=== PATIENT | female | born 1950 | race Caucasian/White ===

== ENCOUNTER → 2022-08-26 08:20 | Outpatient (POV) | payer MEDICARE, SELFPAY ==
--- NOTE | 2022-08-26 08:44 | EXP.PAIN.OV ---
HPI Data of Consult Patient: new to practice Consult date: 08/26/22 Requesting Physician: Liss Young APRN Consult Narrative History of present illness: Ms. Phillips is a 71 year old female who presents today as a new patient. She is a referral from Dr. Angulo-stalin office. Today she rates her pain a 4 out of 10. Patient states her pain is in multiple locations. She does state that she has had low back pain since 1997. Patient states that she did go see [facility] up until the time he retired. She states she then transferred over to Dr. Boss's office in [place]. She does state that recently he was pushing for a intrathecal pain pump however she was very leery and states that his overall attitude caused significant upset for her. Patient does describe her pain as a aching sensation with occasional sharp pains with certain movements. Patient states that she also has pain into her bilateral lower extremities all the way to her toes. She states she occasionally will have spasms and does have a longstanding history of osteoporosis. Patient does have neck pain as well as pain around her thoracic area at the [facility]. Patient has tried sdru-hjn-fansyyn medications such as ibuprofen and Tylenol along with heat and ice with minimal improvement. Patient tried hsyh-rtr-bfkfybi topicals as well with no additional relief. Patient is currently managed with fentanyl 75 mcg every 72 hours, [place] 10 mg 4 times a day, diazepam 5 mg twice a day and gabapentin 600 mg 3 times a day. Patient denies any side effects from these medications. She states these do help her pain on a day-to-day basis. She does state that she does not ever leave her home unless it is for a doctor's appointment. She is currently in home health physical therapy and states it does help. With her history of multiple injections in the past she states she has had trouble with some of the spinal procedures that ended up causing paralyzation of her rectum at 1 episode and made her incontinent of urine on another. She has tried multiple injections including facets, epidurals, etc. with minimal improvement. Patient does state that she does self cath. She has had bilateral hip replacements which is her last one on the left side done in June. She does have a history of 3 previous back surgeries. She does use a walker for help with ambulation. She does state that she does not drive and that her daughter is currently moved in with her to help take care of her. Her Sae is [phone]. It has a morphine equivalent of 220. It has been reviewed and is appropriate. CC: iLss Young APRN [facility] Disclaimer: The information contained in this section may have been updated after the patient was seen, as this information can be updated by other users. Medical History (Updated 08/26/22 @ 09:22 by Liss Young APRN) Anemia Anxiety Arthritis Cataracts, bilateral Depression GERD (gastroesophageal reflux disease) Osteoporosis Surgical History (Updated 08/26/22 @ 09:04 by Harriet Granados, DAMON) H/O gastric bypass History of appendectomy History of lumbar fusion Status post total hip replacement, bilateral Family History (Updated 08/26/22 @ 09:03 by Harriet Granados RN) Other Cancer Diabetes Hypertension Osteoporosis Rheumatoid arthritis Social History Smoking Status: Former smoker alcohol intake: never current occupational status: retired Travel in the last 8 weeks: None Review of Systems Review of Systems Review of systems:: pertinent systems reviewed and negative unless documented below Review of systems (narrative): Review of Systems: General: No recent weight changes, no fever, no sleep disturbances Respiratory: No cough, no shortness of air, no recurring pulmonary infections Cardiovascular/peripheral vascular: No chest pain, no palpitations, no edema, no shortness of breath Gastrointestinal: No new onset incontinence, normal bowel movements
[2022-08-26 09:05] VITALS: BP 138/75; PULSE 108; RESP 18; O2SAT 97; BMI 19.3
== END ==
PROVIDERS: Visit Provider Nurse Practitioner Family
DX: M54.16 Radiculopathy, lumbar region (principal); M54.2 Cervicalgia; M54.50 Low back pain, unspecified
CPT/HCPCS: 99202; G0463

== ENCOUNTER → 2022-09-20 09:46 | Outpatient (POV) | payer MEDICARE, SELFPAY ==
--- NOTE | 2022-09-20 10:05 | EXP.PAIN.SOA ---
[facility] Pain Management SOAP Note Subjective:: Patient is a pleasant 71-year-old female who presents today for 1 month follow-up and medication refill. We are currently treating the patient for degenerative disc disease of lumbar spine with lumbar radiculopathy symptoms, low back pain, mid back pain, neck pain, chronic pain. Today she rates her pain a 3 out of 10. Patient states from her last visit she did have an episode where she dropped her cell phone on her right little toe and may have fractured it. She denies any recent imaging however she states its just been very sore and painful. Patient is currently managed with diazepam 5 mg twice a day and gabapentin 600 mg 3 times a day along with fentanyl 75 mcg patches every 72 hours and [place] 10 mg 4 times a day. At our last visit we did discuss regarding taking over some of these medications. She does deny any side effects to these. Her Sae is [id number]. Its been reviewed and appropriate Review of Systems: General: No recent weight changes, no fever, no sleep disturbances Respiratory: No cough, no shortness of air, no recurring pulmonary infections Cardiovascular/peripheral vascular: No chest pain, no palpitations, no edema, no shortness of breath Gastrointestinal: No new onset incontinence, normal bowel movements reported Genitourinary: No new onset incontinence Musculoskeletal: Low back pain Psychiatric: [Normal mood/affect] Neurological: [Denies weakness in extremities], [denies balance issues] Objective:: Physical Exam: General: Alert and oriented x3, no acute distress, pleasant and cooperative Lungs: Respirations even and unlabored, symmetrical chest expansion Eyes: PERRL Musculoskeletal: Flexion and extension of lumbar [spine] somewhat guarded secondary to pain, [antalgic gait noted] Neurological: Speech clear, no gross sensory deficit Assessment:: Degenerative disc disease of lumbar spine with lumbar radiculopathy symptoms, low back pain, mid back pain, neck pain, chronic pain Plan:: We will send in refills of fentanyl 50 mcg patches every 72 hours and also send in a refill of her [place] 10 mg 4 times a day and provide a 1 month supply of these medications. Patient will return to clinic in 1 month for reevaluation of symptoms, medication refill and follow-up. Patient has been advised of risks of oversedation with the prescribed medication. Narcan has been offered to the patient in the event of oversedation. Patient has been advised that a family member should also be educated regarding administration of Narcan. Patient has been instructed to contact the clinic with any concerns before the next appointment. Dr. Chicas has reviewed this note and agrees with this plan of care. This note was dictated using voice recognition software and make contain errors or omissions. [facility] Disclaimer: The information contained in this section may have been updated after the patient was seen, as this information can be updated by other users. Medical History (Updated 08/26/22 @ 09:22 by Liss Young APRN) Anemia Anxiety Arthritis Cataracts, bilateral Depression GERD (gastroesophageal reflux disease) Osteoporosis Surgical History (Updated 08/26/22 @ 09:04 by Harriet Granados RN) H/O gastric bypass History of appendectomy History of lumbar fusion Status post total hip replacement, bilateral Family History (Updated 08/26/22 @ 09:03 by Harriet Granados RN) Other Cancer Diabetes Hypertension Osteoporosis Rheumatoid arthritis Social History (Updated 08/26/22 @ 09:05 by Harriet Granados RN) Smoking Status: Former smoker alcohol intake: never current occupational status: retired Travel in the last 8 weeks: None
[2022-09-20 10:14] VITALS: BP 120/69; PULSE 89; RESP 18; O2SAT 97; BMI 19.3
== END | disposition home or self-care (01) ==
PROVIDERS: Visit Provider Nurse Practitioner Family
DX: M51.16 Intervertebral disc disorders with radiculopathy, lumbar region (principal); G89.29 Other chronic pain
CPT/HCPCS: 99212; G0463

== ENCOUNTER → 2022-10-18 09:35 | Outpatient (POV) | payer MEDICARE, SELFPAY ==
--- NOTE | 2022-10-18 09:42 | EXP.PAIN.SOA ---
[facility] Pain Management SOAP Note Subjective:: Patient is a pleasant 71-year-old female who presents today for 1 month follow-up and medication refill.? We are currently treating the patient for degenerative disc disease of lumbar spine with lumbar radiculopathy symptoms, low back pain, mid back pain, neck pain, chronic pain.? Today she rates her pain a 4 out of 10.? She denies any new trauma or injury. She does state that her back seems to be doing well however she is experiencing worsening pain and tingling in her bilateral feet. Patient states that she has had previous surgery on 1 foot and that it does have screws in. She states that at one point the [facility] doctor mention about removing these however she has never been back to his office. Patient does arrive today not using her walker. She states that she has been trying to walk more unassisted and is so far doing well. Patient is currently managed with diazepam 5 mg twice a day and gabapentin 600 mg 3 times a day from an outside provider and fentanyl 50 mcg patches every 72 hours and [place] 10 mg 4 times a day.? She denies any side effects to these medications. Her Sae is [id number].? Its been reviewed and appropriate Review of Systems: General: No recent weight changes, no fever, no sleep disturbances Respiratory: No cough, no shortness of air, no recurring pulmonary infections Cardiovascular/peripheral vascular: No chest pain, no palpitations,? no edema, no shortness of breath Gastrointestinal: No new onset incontinence, normal bowel movements reported Genitourinary: No new onset incontinence Musculoskeletal: Low back pain, bilateral feet pain Psychiatric: [Normal mood/affect] Neurological: [Denies weakness in extremities], [denies balance issues] Objective:: Physical Exam: General: Alert and oriented x3, no acute distress, pleasant and cooperative Lungs: Respirations even and unlabored, symmetrical chest expansion Eyes: PERRL Musculoskeletal: Flexion and extension of lumbar [spine] somewhat guarded secondary to pain, [antalgic gait noted] Neurological: Speech clear, no gross sensory deficit Assessment:: Degenerative disc disease of lumbar spine with lumbar radiculopathy symptoms, low back pain, mid back pain, neck pain, chronic pain Plan:: I have discussed with the patient that I can always send a referral for a foot and ankle doctor if she would like to be reevaluated whether or not the hardware in her right foot needs to be removed however at this time she would like to wait. I will refill the patient's fentanyl 50 mcg patches every 72 hours, Challenge 10 mg 4 times a day and provided 1 month supply of this medication. I will also order compounding cream at today's visit. Patient will return to clinic in 1 month for reevaluation of symptoms and medication refill. Patient has been advised of risks of oversedation with the prescribed medication. Narcan has been offered to the patient in the event of oversedation. Patient has been advised that a family member should also be educated regarding administration of Narcan. Patient has been instructed to contact the clinic with any concerns before the next appointment. Dr. Chicas has reviewed this note and agrees with this plan of care. This note was dictated using voice recognition software and make contain errors or omissions. [facility] Disclaimer: The information contained in this section may have been updated after the patient was seen, as this information can be updated by other users. Medical History (Updated 08/26/22 @ 09:22 by Liss Young APRN) Anemia Anxiety Arthritis Cataracts, bilateral Depression GERD (gastroesophageal reflux disease) Osteoporosis Surgical History (Updated 08/26/22 @ 09:04 by Harriet Granados, DAMON) H/O gastric bypass History of appendectomy History of lumbar fusion Status post total hip replacement, bilateral Family History (Updated 08/26/22 @ 09:03 by Harriet Granados RN) Ot
[2022-10-18 09:43] VITALS: BP 129/72; PULSE 90; RESP 18; O2SAT 96; BMI 19.6
== END | disposition home or self-care (01) ==
PROVIDERS: Visit Provider Nurse Practitioner Family
DX: M51.16 Intervertebral disc disorders with radiculopathy, lumbar region (principal); M54.50 Low back pain, unspecified; M54.2 Cervicalgia; G89.29 Other chronic pain
CPT/HCPCS: 99212; G0463

== ENCOUNTER → 2022-11-17 09:39 | Outpatient (POV) | payer MEDICARE, SELFPAY ==
--- NOTE | 2022-11-17 09:52 | EXP.PAIN.SOA ---
[facility] Pain Management SOAP Note Subjective:: Patient is a pleasant 71-year-old female who presents today for medication refill and follow-up. We are currently treating the patient for degenerative disc disease of lumbar spine with lumbar radiculopathy symptoms, low back pain, mid back pain, neck pain, chronic pain. Today she rates her pain a 3 out of 10. Patient denies any new trauma or injury. She denies any change to location or type of pain she experiences. She does state that she has been noticing more pain in her joints such as her ankles, knees, etc. she does also state that sometimes this is more weather related. Patient is currently managed with diazepam 5 mg twice a day and gabapentin 600 mg 3 times a day from an outside provider. She is prescribed fentanyl 50 mcg patches every 72 hours and [place] 10 mg 4 times a day from our office. Patient denies any side effects from these medications. She also states that the compounding cream that she did get prescribed is providing additional relief. Her Sae is [id number]. Its been reviewed and appropriate. Review of Systems: General: No recent weight changes, no fever, no sleep disturbances Respiratory: No cough, no shortness of air, no recurring pulmonary infections Cardiovascular/peripheral vascular: No chest pain, no palpitations, no edema, no shortness of breath Gastrointestinal: No new onset incontinence, normal bowel movements reported Genitourinary: No new onset incontinence Musculoskeletal: Low back pain, leg pain Psychiatric: [Normal mood/affect] Neurological: [Denies weakness in extremities], [denies balance issues] Objective:: Physical Exam: General: Alert and oriented x3, no acute distress, pleasant and cooperative Lungs: Respirations even and unlabored, symmetrical chest expansion Eyes: PERRL Musculoskeletal: Flexion and extension of lumbar [spine] somewhat guarded secondary to pain, [antalgic gait noted] Neurological: Speech clear, no gross sensory deficit Assessment:: Degenerative disc disease of lumbar spine with lumbar radiculopathy symptoms, low back pain, mid back pain, neck pain, chronic pain Plan:: I will refill the patient's [place] 10 mg 4 times a day and fentanyl 50 mcg/h patches and provide a 1 month supply of these medications. Patient will return to clinic in 1 month for reevaluation of symptoms and medication refill. Patient has been advised of risks of oversedation with the prescribed medication. Narcan has been offered to the patient in the event of oversedation. Patient has been advised that a family member should also be educated regarding administration of Narcan. Patient has been instructed to contact the clinic with any concerns before the next appointment. Dr. Chicas has reviewed this note and agrees with this plan of care. This note was dictated using voice recognition software and make contain errors or omissions. [facility] Disclaimer: The information contained in this section may have been updated after the patient was seen, as this information can be updated by other users. Medical History (Updated 08/26/22 @ 09:22 by Liss Young APRN) Anemia Anxiety Arthritis Cataracts, bilateral Depression GERD (gastroesophageal reflux disease) Osteoporosis Surgical History (Updated 08/26/22 @ 09:04 by Harriet Granados RN) H/O gastric bypass History of appendectomy History of lumbar fusion Status post total hip replacement, bilateral Family History (Updated 08/26/22 @ 09:03 by Harriet Granados RN) Other Cancer Diabetes Hypertension Osteoporosis Rheumatoid arthritis Social History (Updated 08/26/22 @ 09:05 by Harriet Granados RN) Smoking Status: Former smoker alcohol intake: never current occupational status: retired Travel in the last 8 weeks: None
[2022-11-17 12:58] VITALS: BP 132/73; PULSE 91; RESP 18; O2SAT 97; BMI 19.4
== END | disposition home or self-care (01) ==
PROVIDERS: Visit Provider Nurse Practitioner Family
DX: M51.16 Intervertebral disc disorders with radiculopathy, lumbar region (principal); M54.50 Low back pain, unspecified; M54.6 Pain in thoracic spine; M54.2 Cervicalgia; G89.29 Other chronic pain
CPT/HCPCS: 99212; G0463

== ENCOUNTER → 2022-12-16 09:30 | Outpatient (POV) | payer MEDICARE, SELFPAY ==
--- NOTE | 2022-12-16 10:03 | EXP.PAIN.SOA ---
[facility] Pain Management SOAP Note Subjective:: Patient is a pleasant 71-year-old female who presents today for medication refill and 1 month follow-up. We are currently treating the patient for degenerative disc disease of the lumbar spine with lumbar radiculopathy symptoms, low back pain, mid back pain, neck pain, chronic pain. Today she rates her pain a 2 out of 10. Patient denies any new trauma or injury. She does state that she continues to have lower leg pain with cramping that is worse at night. She states that it does affect her sleeping and she frequently experiences spasms. She also states that her doctor has recently changed her medications that helped her sleep and she has not noticed significant improvement. Patient is currently managed with diazepam 5 mg twice a day and gabapentin 600 mg 3 times a day from her PCP. She is prescribed fentanyl 50 mcg patches every 72 hours and [place] 10 mg 4 times a day from our office. Patient denies any side effects from this medication. Her Sae is [id number]. Its been reviewed and appropriate. Review of Systems: General: No recent weight changes, no fever, no sleep disturbances Respiratory: No cough, no shortness of air, no recurring pulmonary infections Cardiovascular/peripheral vascular: No chest pain, no palpitations, no edema, no shortness of breath Gastrointestinal: No new onset incontinence, normal bowel movements reported Genitourinary: No new onset incontinence Musculoskeletal: Generalized joint pain, leg spasms Psychiatric: [Normal mood/affect] Neurological: [Denies weakness in extremities], [denies balance issues] Objective:: Physical Exam: General: Alert and oriented x3, no acute distress, pleasant and cooperative Lungs: Respirations even and unlabored, symmetrical chest expansion Eyes: PERRL Musculoskeletal: Flexion and extension of lumbar [spine] somewhat guarded secondary to pain, [antalgic gait noted] Neurological: Speech clear, no gross sensory deficit Assessment:: Degenerative disc disease of lumbar spine with lumbar radiculopathy symptoms, low back pain, mid back pain, neck pain, chronic pain syndrome Plan:: Patient continues to experience significant pain on a daily basis. I will refill her fentanyl 50 mcg patches per hour and [place] 10 mg 4 times a day and provide a 1 month supply of this medication. I will also send in a 14-day supply of ropinirole 0.25 mg at bedtime. I have counseled the patient to contact our office if this does provide additional relief and would like additional refills. Patient will return to clinic in 1 month for reevaluation of symptoms and plan of care. Patient has been advised of risks of oversedation with the prescribed medication. Narcan has been offered to the patient in the event of oversedation. Patient has been advised that a family member should also be educated regarding administration of Narcan. Patient has been instructed to contact the clinic with any concerns before the next appointment. Dr. Chicas has reviewed this note and agrees with this plan of care. This note was dictated using voice recognition software and make contain errors or omissions. [facility] Disclaimer: The information contained in this section may have been updated after the patient was seen, as this information can be updated by other users. Medical History (Updated 08/26/22 @ 09:22 by Liss Young APRN) Anemia Anxiety Arthritis Cataracts, bilateral Depression GERD (gastroesophageal reflux disease) Osteoporosis Surgical History (Updated 08/26/22 @ 09:04 by Harriet Granados RN) H/O gastric bypass History of appendectomy History of lumbar fusion Status post total hip replacement, bilateral Family History (Updated 08/26/22 @ 09:03 by Harriet Granados RN) Other Cancer Diabetes Hypertension Osteoporosis Rheumatoid arthritis Social History (Updated 08/26/22 @ 09:05 by Harriet Granados RN) Smoking Status: Former smoker alcohol intake: never c
[2022-12-16 10:23] VITALS: BP 105/69; PULSE 53; RESP 18; O2SAT 99; BMI 19.4
== END | disposition home or self-care (01) ==
PROVIDERS: Visit Provider Nurse Practitioner Family
DX: M51.16 Intervertebral disc disorders with radiculopathy, lumbar region (principal); M54.2 Cervicalgia; M54.6 Pain in thoracic spine; M54.50 Low back pain, unspecified; G89.4 Chronic pain syndrome
CPT/HCPCS: 99212; G0463

== ENCOUNTER → 2023-01-13 08:52 | Outpatient (POV) | payer MEDICARE, SELFPAY ==
[2023-01-13 10:08] VITALS: BP 108/68; PULSE 78; RESP 18; O2SAT 96; BMI 20.2
--- NOTE | 2023-01-13 10:19 | EXP.PAIN.SOA ---
[facility] Pain Management SOAP Note Subjective:: Patient is a pleasant 72-year-old female who presents today for medication refill. We are currently treating the patient for degenerative disc disease of lumbar spine with lumbar radiculopathy symptoms, low back pain, mid back pain, neck pain, chronic pain. Today she rates her pain a 4 out of 10. Patient denies any new injury or trauma. She does state that she has recently been diagnosed with a UTI and started on Cipro. Patient also states she has had her flu shot. Patient states she does continue to have pain at multiple areas however her current medicine does help. Patient is currently managed with fentanyl 50 mcg patches every 72 hours and [place] 10 mg 4 times a day and ropinirole 0.25 mg at bedtime. Patient denies any side effects from this medication. She states the restless leg medication has made a significant improvement. Patient is also managed with diazepam 5 mg twice a day and gabapentin 600 mg 3 times a day from her primary care provider. Her Sae is [id number]. Its been reviewed and appropriate. Review of Systems: General: No recent weight changes, no fever, no sleep disturbances Respiratory: No cough, no shortness of air, no recurring pulmonary infections Cardiovascular/peripheral vascular: No chest pain, no palpitations, no edema, no shortness of breath Gastrointestinal: No new onset incontinence, normal bowel movements reported Genitourinary: No new onset incontinence Musculoskeletal: Low back pain Psychiatric: [Normal mood/affect] Neurological: [Denies weakness in extremities], [denies balance issues] Objective:: Physical Exam: General: Alert and oriented x3, no acute distress, pleasant and cooperative Lungs: Respirations even and unlabored, symmetrical chest expansion Eyes: PERRL Musculoskeletal: Flexion and extension of lumbar [spine] somewhat guarded secondary to pain, [antalgic gait noted] Neurological: Speech clear, no gross sensory deficit Assessment:: Degenerative disc disease of lumbar spine with lumbar radiculopathy symptoms, low back pain, mid back pain, neck pain, chronic pain Plan:: I will refill the patient's fentanyl 50 mcg patches every 72 hours, [place] 10 mg 4 times a day and ropinirole 0.25 mg at bedtime and provide a 1 month supply of this medication. Patient will return to clinic in 1 month for reevaluation of symptoms and medication refill. Patient has been advised of risks of oversedation with the prescribed medication. Narcan has been offered to the patient in the event of oversedation. Patient has been advised that a family member should also be educated regarding administration of Narcan. Patient has been instructed to contact the clinic with any concerns before the next appointment. Dr. Chicas has reviewed this note and agrees with this plan of care. This note was dictated using voice recognition software and make contain errors or omissions. [facility] Disclaimer: The information contained in this section may have been updated after the patient was seen, as this information can be updated by other users. Medical History (Updated 08/26/22 @ 09:22 by Liss Young APRN) Anemia Anxiety Arthritis Cataracts, bilateral Depression GERD (gastroesophageal reflux disease) Osteoporosis Surgical History (Updated 08/26/22 @ 09:04 by Harriet Granados RN) H/O gastric bypass History of appendectomy History of lumbar fusion Status post total hip replacement, bilateral Family History (Updated 08/26/22 @ 09:03 by Harriet Granados RN) Other Cancer Diabetes Hypertension Osteoporosis Rheumatoid arthritis Social History (Updated 08/26/22 @ 09:05 by Harriet Granados RN) Smoking Status: Former smoker alcohol intake: never current occupational status: retired Travel in the last 8 weeks: None
== END | disposition home or self-care (01) ==
PROVIDERS: Visit Provider Nurse Practitioner Family
DX: M51.16 Intervertebral disc disorders with radiculopathy, lumbar region (principal); M54.6 Pain in thoracic spine; M54.2 Cervicalgia; G89.29 Other chronic pain
CPT/HCPCS: 99212; G0463

== ENCOUNTER → 2023-01-13 09:43 | Outpatient (CLI) | payer MEDICARE, SELFPAY ==
[2023-01-13 10:56] LABS: Amphetamine/Metha Screen,Urine Negative ng/ml (<1000); Barbiturates Screen,Urine Negative ng/ml (<200)
[2023-01-13 10:57] LABS: Benzodiazepines Screen,Urine Positive ng/ml (<200)
[2023-01-13 10:58] LABS: Cannabinoid Screen,Urine Negative ng/ml (<50); Cocaine Screen,Urine Negative ng/ml (<300)
[2023-01-13 10:59] LABS: Methadone Screen,Urine Negative ng/ml (<300)
[2023-01-13 11:00] LABS: Opiate Screen,Urine Positive ng/ml (<300); Phencyclidine Screen,Urine Negative ng/ml (<25)
[2023-01-17 14:19] LABS: Codeine Negative (Cutoff=100); Hydrocodone Positive (.); Hydromorphone Positive (.); Morphine Negative (Cutoff=100); Opiates Positive (.)
== END ==
PROVIDERS: Anesthesiology; PCP Internal Medicine; Visit Provider Nurse Practitioner Family
DX: Z79.891 Long term (current) use of opiate analgesic (principal)
CPT/HCPCS: 80305; 80361; 80365; 99212; G0463; G0480

== ENCOUNTER → 2023-02-11 08:35 | Outpatient (POV) | payer MEDICARE, SELFPAY ==
--- OUTSIDE RECORDS SUMMARY | 2023-02-11 08:39 | XMS_ITS ---
Author Name Unknown Address [address] [place] [address] Phone Organization [facility] , [facility] Address [address] [place] [address] Phone Care Team Providers Care Retoucher Photoengraving Name Role Phone Cole POTTS, Jasson Unavailable [phone] Frandy POTTS, Tam Unavailable [phone] Reason for Referral Date Encounter Description Provider Reason for Referral 08/09/22 Physician Specified Stanford fitzgerald MD Referral To Physician 02/22/22 Follow Up Tam Wise MD Referral To Physician 11/16/21 Follow Up Tam Wise MD Referral To Physician 03/04/21 Follow Up Tam Wise MD Referral To Physician 11/24/20 Follow Up Tam Wise MD Referral To Physician - see pcp for bp 07/07/20 Follow Up Tam Wise MD Referral To Physician - see pcp for bp Problems Includes: Active, inactive, and resolved Problems All Visits Onset Date Resolved Date Provider Condition S tatus History of Joint Pain in the Left Hip 03/23/2022 Kei Donovan MD Active Plan of Treatment Referrals To Diagnosis
--- OUTSIDE RECORDS SUMMARY | 2023-02-11 08:40 | XMS_ITS | Clinical Summary ---
Author Name Unknown Address [address] [place] [address] Phone Organization [facility] , [facility] Address [address] [place] [address] Phone Care Team Providers Care Customer Account Representative Name Role Phone Cole POTTS, Jasson Unavailable [phone] Frandy POTTS, Tam Unavailable [phone] Reason for Visit and Chief Complaint The Chief Complaint is: Left Hip Pain Problems Includes: Problems addressed during this encounter and other active Problems All Visits Onset Date Resolved Date Provider Condition S tatus History of Joint Pain in the Left Hip 03/23/2022 Kei Donovan MD Active Plan of Treatment Fall Risk Assessment: This patient has been identified as a fall risk. Balance/gait along with postural blood pressure, vision and home fall hazards have been assessed. Medications have been reviewed, and recommendations made with regard to contributing factors for future falls. Plan of care: Consideration of vitamin D supplementation along with balance and strength training with consideration for formal physical therapy has been discussed with the patient. - Last Documented On 11/01/2022 10:20AM ; [facility] Overall, they are doing well post operatively. We discussed activity progression and reviewed dental precautions. They will continue to work on stretches and exercises on their own at home. We will plan to follow-up with them in 7 months with an x-ray on arrival at the 1 year anniversary from surgery. All of the patient's questions were answered to
--- OUTSIDE RECORDS SUMMARY | 2023-02-11 08:40 | XMS_ITS | Clinical Summary ---
Author Name Unknown Address [address] [place] [address] Phone Organization [facility] , [facility] Address [address] [place] [address] Phone Care Team Providers Care Machinist Supervisor Outside Name Role Phone Cole POTTS, Jasson Unavailable [phone] Frandy POTTS, Tam Unavailable [phone] Reason for Visit and Chief Complaint [Patient Encounter] Problems Includes: Problems addressed during this encounter and other active Problems All Visits Onset Date Resolved Date Provider Condition S tatus History of Joint Pain in the Left Hip 03/23/2022 Kei Donovan MD Active Plan of Treatment Future Appointments Date Time Location [facility] Follow Up 06/03/2023 9:30AM [facility] PS [facility] [place] Chu PA-C Assessments Includes: Assessments from this encounter No Assessments Recorded Medical Equipment - Implanted Devices Includes: Current Devices No Medical Equipment Recorded Medications Includes: Medications discussed during this encounter and other current Medications Current Medications (continue as prescribed) busPIRone HCl 15 MG Oral Tablet 05/25/2022 Provider: ÓSCAR MARTINEZ MD Diagnosis:
--- OUTSIDE RECORDS SUMMARY | 2023-02-11 08:40 | XMS_ITS | Clinical Summary ---
Author Name Unknown Address [address] [place] [address] Phone Organization [facility] , [facility] Address [address] [place] [address] Phone Care Team Providers Care Veneer Clipper Helper Name Role Phone Cole POTTS, Jasson Unavailable [phone] Frandy POTTS, Tam Unavailable [phone] Reason for Visit and Chief Complaint Post Op Problems Includes: Problems addressed during this encounter and other active Problems All Visits Onset Date Resolved Date Provider Condition S tatus History of Joint Pain in the Left Hip 03/23/2022 Kei Donovan MD Active Plan of Treatment Future Appointments Date Time Location [facility] Follow Up 06/03/2023 9:30AM [facility] PS C [place] Chu PADiazC Assessments Includes: Assessments from this encounter No Assessments Recorded Medical Equipment - Implanted Devices Includes: Current Devices No Medical Equipment Recorded Medications Includes: Medications discussed during this encounter and other current Medications Current Medications (continue as prescribed) busPIRone HCl 15 MG Oral Tablet 05/25/2022 Provider: ÓSCAR MARTINEZ MD Diagnosis:
--- OUTSIDE RECORDS SUMMARY | 2023-02-11 08:40 | XMS_ITS | Clinical Summary ---
Author Name Unknown Address [address] [place] [place] [address] Phone Organization [facility] , [facility] Address [address] [place] [address] Phone Care Team Providers Care School Of Nursing Director Name Role Phone Cole POTTS, Jasson Unavailable [phone] Frandy POTTS, Tam Unavailable [phone] Reason for Visit and Chief Complaint [Patient Encounter] Problems Includes: Problems addressed during this encounter and other active Problems All Visits Onset Date Resolved Date Provider Condition S tatus History of Joint Pain in the Left Hip 03/23/2022 Kei Donovan MD Active Plan of Treatment Future Appointments Date Time Location [facility] Follow Up 06/03/2023 9:30AM [facility] PS C [place] Chu PA-C Assessments Includes: Assessments from this encounter No Assessments Recorded Medical Equipment - Implanted Devices Includes: Current Devices No Medical Equipment Recorded Medications Includes: Medications discussed during this encounter and other current Medications Current Medications (continue as prescribed) busPIRone HCl 15 MG Oral Tablet 05/25/2022 Provider: ÓSCAR MARTINEZ MD Diagnosis:
--- OUTSIDE RECORDS SUMMARY | 2023-02-11 08:40 | XMS_ITS ---
Care Plan - [facility] Created on: February 11, 2023 Junie Phillips .0 : 1950 Sex: Female Author Name Unknown Address [address] [place] [address] Phone Organization [facility] Address [address] [place] [address] Phone Care Team Providers Care Care Professionals Name Role Phone Cole POTTS, Jasson Unavailable [phone] Frandy POTTS, Tam Unavailable [phone]
[2023-02-11 09:32] VITALS: BP 102/68; PULSE 111; RESP 20; BMI 19.8
--- NOTE | 2023-02-11 09:45 | A.OFFVIS_ITS ---
[facility] Pain Management SOAP Note Subjective:: This patient is a very pleasant 72-year-old female comes our clinic today for medication refills. We currently treating the patient for degenerative disc disease lumbar spine multilevels. Lumbar radiculopathy. Chronic low back pain. Chronic mid back pain. Chronic cervical neck pain. Today she rates her pain 3/10. Patient denies any side effects or complications from her current medication regime. We currently manage the patient with fentanyl 50 mcg/h every 72 hours. Patient also taking hydrocodone 10 mg 1 p.o. 4 times daily for breakthrough pain. Patient states she also takes gabapentin 600 mg 1 p.o. nightly. This comes from her PCP. Patient's Sae #[id number] is been reviewed and appropriate. Patient describes pain in her cervical, thoracic and lumbar spine as constant, dull, aching. Patient states sitting helps with pain. Ambulating or standing for any length of time is difficult. Objective:: Patient is awake alert [place] x3. In no acute distress. Flexion-extension lumbar spine somewhat guarded secondary to pain. Deep tendon reflexes upper lower extremities normal. Motor strength upper and lower extremities normal. There is no sensory deficit. Gait is normal. Assessment:: Degenerative disc lumbar, cervical, thoracic back pain. Cervical and lumbar radiculopathy. Plan:: Patient will return to clinic in 1 month for medication refills. Patient is sent for UDS today. [facility] Disclaimer: The information contained in this section may have been updated after the patient was seen, as this information can be updated by other users. Medical History (Updated 08/26/22 @ 09:22 by Liss Young APRN) Anemia Anxiety Arthritis Cataracts, bilateral Depression GERD (gastroesophageal reflux disease) Osteoporosis Surgical History (Updated 08/26/22 @ 09:04 by Harriet Granados RN) H/O gastric bypass History of appendectomy History of lumbar fusion Status post total hip replacement, bilateral Family History (Updated 08/26/22 @ 09:03 by Harriet Granados RN) Other Cancer Diabetes Hypertension Osteoporosis Rheumatoid arthritis Social History (Updated 08/26/22 @ 09:05 by Harriet Granados RN) Smoking Status: Former smoker alcohol intake: never substance use type: denies use current occupational status: other Travel in the last 8 weeks: None
[2023-02-11 09:46] LABS: Barbiturates Screen,Urine Negative ng/ml (<200)
[2023-02-11 09:47] LABS: Amphetamine/Metha Screen,Urine Negative ng/ml (<1000)
[2023-02-11 09:48] LABS: Cannabinoid Screen,Urine Negative ng/ml (<50)
[2023-02-11 09:49] LABS: Cocaine Screen,Urine Negative ng/ml (<300); Methadone Screen,Urine Negative ng/ml (<300)
[2023-02-11 09:50] LABS: Phencyclidine Screen,Urine Negative ng/ml (<25)
[2023-02-11 09:51] LABS: Opiate Screen,Urine Positive ng/ml (<300)
[2023-02-16 15:33] LABS: Alprazolam Negative (Cutoff=100); Benzodiazepines Positive ng/mL (Cutoff=100); Clonazepam Negative (Cutoff=100); Codeine Negative (Cutoff=100); Flurazepam Negative (Cutoff=100); Hydrocodone Positive (.); Hydromorphone Positive (.); Lorazepam Negative (Cutoff=100); Midazolam Negative (Cutoff=100); Morphine Negative (Cutoff=100); Opiates Positive (.); Temazepam Positive (.); Triazolam Negative (Cutoff=100)
== END | disposition home or self-care (01) ==
PROVIDERS: PCP Internal Medicine; Visit Provider Nurse Anesthetist, Certified Registered
DX: Z79.899 Other long term (current) drug therapy (principal); M50.10 Cervical disc disorder with radiculopathy, unspecified cervical region; M51.34 Other intervertebral disc degeneration, thoracic region; M51.16 Intervertebral disc disorders with radiculopathy, lumbar region
CPT/HCPCS: 80305; 80307; 80346; 80361; 80365; 99212; G0463; G0480

== ENCOUNTER → 2023-03-10 10:08 | Outpatient (POV) | payer MEDICARE, SELFPAY ==
--- NOTE | 2023-03-10 10:16 | EXP.PAIN.SOA ---
[facility] Pain Management SOAP Note Subjective:: Patient is a pleasant 72-year-old female who presents today for medication refill. We are currently treating the patient for degenerative disc disease of lumbar spine with lumbar radiculopathy symptoms, low back pain, mid back pain, neck pain, chronic pain. Today she rates her pain a 5 out of 10. She does state that she still is experiencing pain at her left hip related to a fall that she had last month. Patient states she got up and her knee gave out where she ended up landing on the left hip. This is the hip that she had a replacement done back in June. Patient does state that it causes additional pain with ambulation. She states at that time she did not go for evaluation or had any imaging done. She is questioning whether or not if she did something more to it since she is continue to have the pain. She is currently managed with fentanyl 50 mcg patches every 72 hours, [place] 10 mg 4 times a day and ropinirole 0.25 mg at bedtime. Patient denies any side effects from this medication. She is also prescribed diazepam 5 mg twice a day and gabapentin 600 mg 3 times a day from her primary care provider. Her Sae has been reviewed and appropriate. Review of Systems: General: No recent weight changes, no fever, no sleep disturbances Respiratory: No cough, no shortness of air, no recurring pulmonary infections Cardiovascular/peripheral vascular: No chest pain, no palpitations, no edema, no shortness of breath Gastrointestinal: No new onset incontinence, normal bowel movements reported Genitourinary: No new onset incontinence Musculoskeletal: Low back pain Psychiatric: [Normal mood/affect] Neurological: [Denies weakness in extremities], [denies balance issues] Objective:: Physical Exam: General: Alert and oriented x3, no acute distress, pleasant and cooperative Lungs: Respirations even and unlabored, symmetrical chest expansion Eyes: PERRL Musculoskeletal: Flexion and extension of lumbar [spine] somewhat guarded secondary to pain, [antalgic gait noted] Neurological: Speech clear, no gross sensory deficit Assessment:: Degenerative disc disease of lumbar spine with lumbar radiculopathy symptoms, low back pain, mid back pain, neck pain, chronic pain Plan:: I will refill the patient's fentanyl 50 mcg patches every 72 hours, [place] 10 mg 4 times a day and ropinirole 0.25 mg at bedtime and provide a 1 month supply of these medications. Due to the patient's continued left hip pain related to a recent fall that occurred last month I will order x-ray imaging. Patient is requesting this be done at [facility]. We will follow-up on this imaging once it is completed. Patient will return to clinic in 1 month for reevaluation of symptoms and medication refill. Patient has been advised of risks of oversedation with the prescribed medication. Narcan has been offered to the patient in the event of oversedation. Patient has been advised that a family member should also be educated regarding administration of Narcan. Patient has been instructed to contact the clinic with any concerns before the next appointment. Dr. Chicas has reviewed this note and agrees with this plan of care. This note was dictated using voice recognition software and make contain errors or omissions. [facility] Disclaimer: The information contained in this section may have been updated after the patient was seen, as this information can be updated by other users. Medical History (Updated 08/26/22 @ 09:22 by Liss Young APRN) Anemia Anxiety Arthritis Cataracts, bilateral Depression GERD (gastroesophageal reflux disease) Osteoporosis Surgical History (Updated 08/26/22 @ 09:04 by Harriet Granados, DAMON) H/O gastric bypass History of appendectomy History of lumbar fusion Status post total hip replacement, bilateral Family History (Updated 08/26/22 @ 09:03 by Harriet Granados, DAMON) Other Cancer Diabetes Hypertension Osteoporosi
[2023-03-10 12:41] VITALS: BP 134/77; PULSE 102; RESP 19; O2SAT 97
== END | disposition home or self-care (01) ==
PROVIDERS: Visit Provider Nurse Practitioner Family
DX: M51.16 Intervertebral disc disorders with radiculopathy, lumbar region (principal); M54.6 Pain in thoracic spine; M54.2 Cervicalgia; G89.29 Other chronic pain; M25.552 Pain in left hip
CPT/HCPCS: 99212; G0463

== ENCOUNTER → 2023-04-06 08:33 | Outpatient (POV) | payer MEDICARE, SELFPAY ==
[2023-04-06 09:08] VITALS: BP 120/68; PULSE 91; RESP 18; O2SAT 96; BMI 19.6
--- NOTE | 2023-04-06 09:40 | EXP.PAIN.SOA ---
[facility] Pain Management SOAP Note Subjective:: Patient is a pleasant 72-year-old female who presents today for medication refill and follow-up. We are currently treating the patient for degenerative disc disease of lumbar spine with lumbar radiculopathy symptoms, low back pain, mid back pain, chronic pain syndrome, neck pain. Today she rates her pain a 3 out of 10. Patient states since our last visit she has been more under the weather and has had multiple UTIs. Patient was previously ordered x-ray imaging at our last visit however she states she was not able to get this done due to being sick. Patient states she has been put on multiple antibiotics and that she does have a follow-up next week to confirm the infection is gone. Patient states that the UTI did have Enterococcus fecalis. Patient does believe this is related to where she has had episodes of diarrhea over the last month and that is how she ended up with a UTI. Patient is currently managed with fentanyl 50 mcg patches every 72 hours [place] 10 mg 4 times a day and ropinirole 0.25 mg at bedtime. Patient states these medications do help. Patient is prescribed from her primary care provider diazepam 5 mg twice a day and gabapentin 600 mg 3 times a day. Her Sae has been reviewed and is appropriate. Review of Systems: General: No recent weight changes, no fever, no sleep disturbances Respiratory: No cough, no shortness of air, no recurring pulmonary infections Cardiovascular/peripheral vascular: No chest pain, no palpitations, no edema, no shortness of breath Gastrointestinal: No new onset incontinence, normal bowel movements reported Genitourinary: No new onset incontinence Musculoskeletal: Low back pain Psychiatric: [Normal mood/affect] Neurological: [Denies weakness in extremities], [denies balance issues] Objective:: Physical Exam: General: Alert and oriented x3, no acute distress, pleasant and cooperative Lungs: Respirations even and unlabored, symmetrical chest expansion Eyes: PERRL Musculoskeletal: Flexion and extension of lumbar [spine] somewhat guarded secondary to pain, [antalgic gait noted] Neurological: Speech clear, no gross sensory deficit Assessment:: Degenerative disc disease of lumbar spine with lumbar radiculopathy symptoms, low back pain, mid back pain, chronic pain syndrome, neck pain Plan:: Patient is doing well with her current regimen. I will refill the patient's fentanyl 50 mcg patches every 72 hours, [place] 10 mg 4 times a day and ropinirole 0.25 mg at bedtime and provide a 1 month supply of these medications. Patient will return to clinic in 1 month for reevaluation of symptoms and plan of care. Patient has been advised of risks of oversedation with the prescribed medication. Narcan has been offered to the patient in the event of oversedation. Patient has been advised that a family member should also be educated regarding administration of Narcan. Patient has been instructed to contact the clinic with any concerns before the next appointment. Dr. Chicas has reviewed this note and agrees with this plan of care. This note was dictated using voice recognition software and make contain errors or omissions. [facility] Disclaimer: The information contained in this section may have been updated after the patient was seen, as this information can be updated by other users. Medical History (Updated 08/26/22 @ 09:22 by Liss Young APRN) Anemia Anxiety Arthritis Cataracts, bilateral Depression GERD (gastroesophageal reflux disease) Osteoporosis Surgical History (Updated 08/26/22 @ 09:04 by Harriet Granados RN) H/O gastric bypass History of appendectomy History of lumbar fusion Status post total hip replacement, bilateral Family History (Updated 08/26/22 @ 09:03 by Harriet Granados RN) Other Cancer Diabetes Hypertension Osteoporosis Rheumatoid arthritis Social History (Updated 02/11/23 @ 09:47 by Ralph Hector CRNA) Smoking Status: Former s
== END | disposition home or self-care (01) ==
PROVIDERS: Visit Provider Nurse Practitioner Family
DX: M51.16 Intervertebral disc disorders with radiculopathy, lumbar region (principal); M54.6 Pain in thoracic spine; G89.4 Chronic pain syndrome; M54.2 Cervicalgia
CPT/HCPCS: 99212; G0463

== ENCOUNTER → 2023-05-05 09:10 | Outpatient (POV) | payer MEDICARE, SELFPAY ==
--- NOTE | 2023-05-05 09:37 | EXP.PAIN.SOA ---
[facility] Pain Management SOAP Note Subjective:: Patient is a pleasant 72-year-old female who presents today for medication refill. We are currently treating the patient for degenerative disc disease of lumbar spine with lumbar radiculopathy symptoms, low back pain, mid back pain, chronic pain syndrome, neck pain. Today she rates her pain a 4 out of 10. Patient denies any new trauma or injury. Patient does state that she feels like she may be coming down with a UTI. Patient states she has not yet made an appointment with her primary care provider. She does state that she has started physical therapy at home and that the first visit was yesterday where they did the initial evaluation. Patient is currently managed with fentanyl 50 mcg patches every 72 hours, [place] 10 mg 4 times a day and ropinirole 0.25 mg at bedtime. Patient denies any side effects from this medication. She is also prescribed diazepam 5 mg twice a day and gabapentin 600 mg 3 times a day from an outside provider. Her Sae has been reviewed and is appropriate. Review of Systems: General: No recent weight changes, no fever, no sleep disturbances Respiratory: No cough, no shortness of air, no recurring pulmonary infections Cardiovascular/peripheral vascular: No chest pain, no palpitations, no edema, no shortness of breath Gastrointestinal: No new onset incontinence, normal bowel movements reported Genitourinary: No new onset incontinence Musculoskeletal: Low back pain Psychiatric: [Normal mood/affect] Neurological: [Denies weakness in extremities], [denies balance issues] Objective:: Physical Exam: General: Alert and oriented x3, no acute distress, pleasant and cooperative Lungs: Respirations even and unlabored, symmetrical chest expansion Eyes: PERRL Musculoskeletal: Flexion and extension of lumbar [spine] somewhat guarded secondary to pain, [antalgic gait noted] Neurological: Speech clear, no gross sensory deficit Assessment:: Degenerative disc disease of lumbar spine with lumbar radiculopathy symptoms, low back pain, mid back pain, chronic pain syndrome, neck pain Plan:: I will refill the patient's fentanyl 50 mcg patches every 72 hours, [place] 10 mg 4 times a day and ropinirole 0.25 mg at bedtime and provide a 1 month supply of this medication. Patient will return to clinic in 1 month for reevaluation of symptoms and medication refill. Patient has been advised of risks of oversedation with the prescribed medication. [place] has been offered to the patient in the event of oversedation. Patient has been advised that a family member should also be educated regarding administration of Narcan. Patient has been instructed to contact the clinic with any concerns before the next appointment. Dr. Chicas has reviewed this note and agrees with this plan of care. This note was dictated using voice recognition software and make contain errors or omissions. [facility] Disclaimer: The information contained in this section may have been updated after the patient was seen, as this information can be updated by other users. Medical History (Updated 08/26/22 @ 09:22 by Liss Young APRN) Anemia Anxiety Arthritis Cataracts, bilateral Depression GERD (gastroesophageal reflux disease) Osteoporosis Surgical History (Updated 08/26/22 @ 09:04 by Harriet Granados RN) H/O gastric bypass History of appendectomy History of lumbar fusion Status post total hip replacement, bilateral Family History (Updated 08/26/22 @ 09:03 by Harriet Granados RN) Other Cancer Diabetes Hypertension Osteoporosis Rheumatoid arthritis Social History (Updated 02/11/23 @ 09:47 by Ralph Hector CRNA) Smoking Status: Former smoker alcohol intake: never substance use type: denies use current occupational status: retired Travel in the last 8 weeks: None
[2023-05-05 09:38] VITALS: BP 106/57; PULSE 98; RESP 18; O2SAT 95
== END | disposition home or self-care (01) ==
PROVIDERS: Visit Provider Nurse Practitioner Family
DX: M51.16 Intervertebral disc disorders with radiculopathy, lumbar region (principal); G89.4 Chronic pain syndrome; M54.2 Cervicalgia
CPT/HCPCS: 99212; G0463

== ENCOUNTER → 2023-06-03 09:13 | Outpatient (POV) | payer MEDICARE, SELFPAY ==
[2023-06-03 09:39] VITALS: BP 106/64; PULSE 94; RESP 18; O2SAT 95
--- NOTE | 2023-06-03 10:00 | A.OFFVIS_ITS ---
[facility] Pain Management SOAP Note Subjective:: This patient is a very pleasant 72-year-old female comes our clinic today for medication refills and follow-up. We are currently treating the patient for degenerative disc lumbar spine multilevels. Lumbar radiculopathy. Chronic low back pain. Chronic mid back pain. Chronic cervical pain. Patient reports legs are cramping during the night. Patient is continuing with physical therapy which she reports is helping to some degree. We will refill her medications today. Fentanyl 50 mcg patches 1 every 72 hours. [place] 10 mg 1 p.o. 4 times daily. Ropinirole 0.25 mg at nightly. Patient also continues taking gabapentin 600 mg 1 p.o. 3 times daily as well as Valium 5 mg 1 p.o. twice daily from her PCP. Sae has been reviewed and appropriate. Objective:: Patient is awake alert [place] x 3. In no acute distress. Flexion-extension v isiah guarded secondary to pain. Deep tendon reflexes upper and lower extremities normal. Motor strength upper and lower extremities somewhat obtunded secondary to overall chronic pain. Patient uses a walker for stability. Assessment:: Degenerative disc lumbar spine multilevels. Lumbar radiculopathy. Chronic pain syndrome. Degenerative disc cervical spine multiple levels. Cervical radiculopathy Plan:: I will refill the pain medications as noted above. Patient will return to see us in 1 month. [facility] Disclaimer: The information contained in this section may have been updated after the vinicio aldrich was seen, as this information can be updated by other users. Medical History (Updated 08/26/22 @ 09:22 by Liss Young APRN) Anemia Anxiety Arthritis Cataracts, bilateral Depression GERD (gastroesophageal reflux disease) Osteoporosis Surgical History (Updated 08/26/22 @ 09:04 by Harriet Granados RN) H/O gastric bypass History of appendectomy History of lumbar fusion Status post total hip replacement, bilateral Family History (Updated 08/26/22 @ 09:03 by Harriet Granados RN) Other Cancer Diabetes Hypertension Osteoporosis Rheumatoid arthritis Social History (Updated 02/11/23 @ 09:47 by Ralph Hector CRNA) Smoking Status: Former smoker alcohol intake: never substance use type: denies use current occupational status: retired Travel in the last 8 weeks: None
== END | disposition home or self-care (01) ==
PROVIDERS: Visit Provider Nurse Anesthetist, Certified Registered
DX: M51.16 Intervertebral disc disorders with radiculopathy, lumbar region (principal); G89.4 Chronic pain syndrome; M50.10 Cervical disc disorder with radiculopathy, unspecified cervical region
CPT/HCPCS: 99212; G0463

== ENCOUNTER 2023-06-03 09:50 | Outpatient (CLI) | payer MEDICARE, SELFPAY ==
[2023-06-03 10:56] LABS: Barbiturates Screen,Urine Negative ng/ml (<200)
[2023-06-03 10:57] LABS: Benzodiazepines Screen,Urine Positive ng/ml (<200)
[2023-06-03 10:58] LABS: Amphetamine/Metha Screen,Urine Negative ng/ml (<1000)
[2023-06-03 10:59] LABS: Cannabinoid Screen,Urine Negative ng/ml (<50); Cocaine Screen,Urine Negative ng/ml (<300)
[2023-06-03 11:00] LABS: Methadone Screen,Urine Negative ng/ml (<300)
[2023-06-03 11:02] LABS: Opiate Screen,Urine Positive ng/ml (<300)
[2023-06-03 11:03] LABS: Phencyclidine Screen,Urine Negative ng/ml (<25)
[2023-06-08 13:31] LABS: Alprazolam Negative (Cutoff=100); Benzodiazepines Positive ng/mL (Cutoff=100); Clonazepam Negative (Cutoff=100); Codeine Negative (Cutoff=100); Flurazepam Negative (Cutoff=100); Hydrocodone Positive (.); Hydrocodone Confirm >3000 ng/mL (Cutoff=100); Hydromorphone Positive (.); Hydromorphone Confirm 411 ng/mL (Cutoff=100); Lorazepam Negative (Cutoff=100); Midazolam Negative (Cutoff=100); Morphine Negative (Cutoff=100); Opiates Positive (.); Temazepam Positive (.); Triazolam Negative (Cutoff=100)
== END 2023-06-03 23:59 ==
LOC: LAB 09:53
PROVIDERS: Nurse Practitioner Family; Visit Provider Anesthesiology
DX: Z79.891 Long term (current) use of opiate analgesic (principal)
CPT/HCPCS: 80307; 80346; 80361; 99212; G0463; G0480

== ENCOUNTER 2023-07-04 09:15 | Outpatient (POV) | payer MEDICARE, SELFPAY ==
[2023-07-04 10:15] VITALS: BP 118/59; PULSE 98; RESP 18; BMI 21.2
--- NOTE | 2023-07-04 10:36 | A.OFFVIS_ITS ---
[facility] Pain Management SOAP Note Subjective:: Patient is a pleasant 72-year-old female who presents today for medication refill. We are currently treating the patient for degenerative disc disease of lumbar spine with lumbar radiculopathy symptoms, low back pain, mid back pain, chronic pain syndrome, neck pain. Today she rates her pain a 5 out of 10. Patient denies any new trauma or injury. 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 Patient states that she is scheduled for an ultrasound this coming Tuesday for follow-up. She states due to this rare condition she does have her liver enlarged and having issues with her bile duct. Patient does state this was found through her abdominal CT she recently had. She states that she was scheduled to go see a GI specialist for this however when she went for this appointment she states that he stated they were seen her for diarrhea. Patient states that that specialist said that she would have to see a surgeon regarding this diagnosis for care. She states that she has not yet followed back up with her primary care provider regarding this. Patient is currently managed with fentanyl 50 mcg patches every 72 hours, [place] 10 mg 4 times a day and ropinirole 0.25 mg at bedtime. Patient denies any side effects from this medication. She does state that she is experiencing little bit more leg spasms here recently. She is also prescribed diazepam 5 mg twice a day and gabapentin 600 mg 3 times a day from an outside provider. Her Sae has been reviewed and is appropriate. Review of Systems: General: No recent weight changes, no fever, no sleep disturbances Respiratory: No cough, no shortness of air, no recurring pulmonary infections Cardiovascular/peripheral vascular: No chest pain, no palpitations, no edema, no shortness of breath Gastrointestinal: No new onset incontinence, normal bowel movements reported Genitourinary: No new onset incontinence Musculoskeletal: Low back pain Psychiatric: [Normal mood/affect] Neurological: [Denies weakness in extremities], [denies balance issues] Objective:: Physical Exam: General: Alert and oriented x3, no acute distress, pleasant and cooperative Lungs: Respirations even and unlabored, symmetrical chest expansion Eyes: PERRL Musculoskeletal: Flexion and extension of lumbar [spine] somewhat guarded secondary to pain, [antalgic gait noted] Neurological: Speech clear, no gross sensory deficit Assessment:: Degenerative disc disease of lumbar spine with lumbar radiculopathy symptoms, low back pain, mid back pain, chronic pain syndrome, neck pain Plan:: I will refill the patient's [place] 10 mg 4 times a day, fentanyl 50 mcg patches 1 every 72 hours and increase her ropinirole to 0.5 mg at bedtime and provide a 1 month supply of these medications. Patient will return to clinic in 1 month for reevaluation of symptoms and plan of care. I have discussed with the patient that I do recommend her follow-up with her primary care doctor regarding sending a new referral to a specialist for her newly diagnosed SMA syndrome. Risks and benefits of the medication have been explained in detail to the patient. The patient does understand the risk of dependence on the medication when given over a prolonged period. Patient has been advised of risks of oversedation with the prescribed medication. Narcan has been offered to the paitent in the event of oversedation. Patient has been advised that a family member should also be educated regarding administration of Narcan. The patient has been advised to consult with his/her primary care provider and pharmacist regarding drug-drug interaction of medications currently prescribed. Patient has been prescribed a controlled substance after being counseled on the medication, medication safety, and possible side effects. Opioid contract was reviewed and signed by the patient, and that they have agreed to all of the terms set forth by our compliance program. Patient has been instructed to contact the clinic with any concerns before the next appointment. Dr. Chicas has reviewed this note and agrees with this plan of care. This note was dictated using voice recognition software and make contain errors or omissions. [facility] Disclaimer: The information contained in this section may have been updated after the patient was seen, as this information can be updated by other users. Medical History (Updated 08/26/22 @ 09:22 by Liss Young APRN) Anemia Anxiety Arthritis Cataracts, bilateral Depression GERD (gastroesophageal reflux disease) Osteoporosis Surgical History (Updated 08/26/22 @ 09:04 by Harriet Granados RN) H/O gastric bypass History of appendectomy History of lumbar fusion Status post total hip replacement, bilateral Family History (Updated 08/26/22 @ 09:03 by Harriet Granados RN) Other Cancer Diabetes Hypertension Osteoporosis Rheumatoid arthritis Social History (Updated 02/11/23 @ 09:47 by Ralph Hector CRNA) Smoking Status: Former smoker alcohol intake: never substance use type: denies use current occupational status: other Travel in the last 8 weeks: None
== END 2023-07-04 23:59 | disposition home or self-care (01) ==
PROVIDERS: Visit Provider Nurse Practitioner Family
DX: M51.16 Intervertebral disc disorders with radiculopathy, lumbar region (principal); G89.4 Chronic pain syndrome; M54.2 Cervicalgia
CPT/HCPCS: 99212; G0463

== ENCOUNTER 2023-07-28 08:33 | Outpatient (POV) | payer MEDICARE, SELFPAY ==
--- NOTE | 2023-07-28 08:40 | EXP.PAIN.SOA ---
[facility] Pain Management SOAP Note Subjective:: Patient is a pleasant 72-year-old female who presents today for medication refill. We are currently treating the patient for degenerative disc disease of lumbar spine with lumbar radiculopathy symptoms, low back pain, mid back pain, chronic pain syndrome, neck pain. Today she rates her pain a 3 out of 10. She does state from our last visit she did have to be hospitalized for RSV. She states that they ended up keeping her for a few days and then giving her a couple of different antibiotics. Patient states she is starting to feel better however she is still very weak and the smallest activity seems to take it out of her. She does state that all of her GI related things she was scheduled to do including an egd had to be put on hold due to her illness. 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 She states that they are still planning on doing an MRI of her stomach and the EGD. She states that they think possibly she has something wrong with her bile duct. Patient does state that all of it is overwhelming. Patient is currently managed with fentanyl 50 mcg patches every 72 hours, [place] 10 mg 4 times a day and ropinirole 0.25 mg at bedtime. Patient denies any side effects from this medication. She does state that she is experiencing little bit more leg spasms here recently. She is also prescribed diazepam 5 mg twice a day and gabapentin 600 mg 3 times a day from an outside provider. Her Sae has been reviewed and is appropriate. Review of Systems: General: No recent weight changes, no fever, no sleep disturbances Respiratory: No cough, no shortness of air, no recurring pulmonary infections Cardiovascular/peripheral vascular: No chest pain, no palpitations, no edema, no shortness of breath Gastrointestinal: No new onset incontinence, normal bowel movements reported Genitourinary: No new onset incontinence Musculoskeletal: Low back pain Psychiatric: [Normal mood/affect] Neurological: [Denies weakness in extremities], [denies balance issues] Objective:: Physical Exam: General: Alert and oriented x3, no acute distress, pleasant and cooperative Lungs: Respirations even and unlabored, symmetrical chest expansion Eyes: PERRL Musculoskeletal: Flexion and extension of lumbar [spine] somewhat guarded secondary to pain, [antalgic gait noted] Neurological: Speech clear, no gross sensory deficit Assessment:: Degenerative disc disease of lumbar spine with lumbar radiculopathy symptoms, low back pain, mid back pain, chronic pain syndrome, neck pain Plan:: Will refill the patient's fentanyl 50 mcg patches every 72 hours, [place] 10 mg 4 times a day and ropinirole 0.25 mg at bedtime and provide a 1 month supply of these medications. Patient will return to clinic in 1 month for reevaluation of symptoms and plan of care. Risks and benefits of the medication have been explained in detail to the patient. The patient does understand the risk of dependence on the medication when given over a prolonged period. Patient has been advised of risks of oversedation with the prescribed medication. Narcan has been offered to the paitent in the event of oversedation. Patient has been advised that a family member should also be educated regarding administration of Narcan. The patient has been advised to consult with his/her primary care provider and pharmacist regarding drug-drug interaction of medications currently prescribed. Patient has been prescribed a controlled substance after being counseled on the medication, medication safety, and possible side effects. Opioid contract was reviewed and signed by the patient, and that they have agreed to all of the terms set forth by our compliance program. Patient has been instructed to contact the clinic with any concerns before the next appointment. Dr. Chicas has reviewed this note and agrees with this plan of care. This note was dictated using voice recognition software and make contain errors or omissions. [facility] Disclaimer: The information contained in this section may have been updated after the patient was seen, as this information can be updated by other users. Medical History (Updated 08/26/22 @ 09:22 by Liss Young APRN) Anxiety Cataracts, bilateral Depression Arthritis Osteoporosis GERD (gastroesophageal reflux disease) Anemia Surgical History (Updated 08/26/22 @ 09:04 by Harriet Granados RN) Status post total hip replacement, bilateral History of lumbar fusion H/O gastric bypass History of appendectomy Family History (Updated 08/26/22 @ 09:03 by Harriet Granados RN) Other Cancer Diabetes Hypertension Osteoporosis Rheumatoid arthritis Social History (Updated 02/11/23 @ 09:47 by Ralph Hector CRNA) Smoking Status: Former smoker alcohol intake: never substance use type: denies use current occupational status: other Travel in the last 8 weeks: None
[2023-07-28 08:43] VITALS: BP 131/74; PULSE 104; RESP 20; O2SAT 97; BMI 21.2
== END 2023-07-28 23:59 | disposition home or self-care (01) ==
PROVIDERS: Visit Provider Nurse Practitioner Family
DX: M51.16 Intervertebral disc disorders with radiculopathy, lumbar region (principal); G89.4 Chronic pain syndrome
CPT/HCPCS: 99212; G0463

== ENCOUNTER 2023-08-31 08:28 | Outpatient (POV) | payer MEDICARE, SELFPAY ==
[2023-08-31 08:41] VITALS: BP 99/59; PULSE 111; RESP 16; O2SAT 96; BMI 23.4
--- NOTE | 2023-08-31 09:06 | EXP.PAIN.SOA ---
[facility] Pain Management SOAP Note Subjective:: Patient is a pleasant 72-year-old female who presents today for medication refill and follow-up. Today she rates her pain a 4 out of 10. Patient denies any new trauma or injury. She does state that she is scheduled for her EGD tomorrow. She had to wait 4 weeks following her antibiotics from where she was under the weather at our last visit. Patient is currently managed with fentanyl 50 mcg patches every 72 hours, [place] 10 mg 4 times a day and ropinirole 0.5 mg at bedtime. Patient denies any side effects from these medications. She states that it really has made a difference with the ropinirole. Patient is also prescribed diazepam and gabapentin from an outside provider. Her Sae has been reviewed and is appropriate. Review of Systems: General: No recent weight changes, no fever, no sleep disturbances Respiratory: No cough, no shortness of air, no recurring pulmonary infections Cardiovascular/peripheral vascular: No chest pain, no palpitations, no edema, no shortness of breath Gastrointestinal: No new onset incontinence, normal bowel movements reported Genitourinary: No new onset incontinence Musculoskeletal: Low back pain Psychiatric: [Normal mood/affect] Neurological: [Denies weakness in extremities], [denies balance issues] Objective:: Physical Exam: General: Alert and oriented x3, no acute distress, pleasant and cooperative Lungs: Respirations even and unlabored, symmetrical chest expansion Eyes: PERRL Musculoskeletal: Flexion and extension of lumbar [spine] somewhat guarded secondary to pain, [antalgic gait noted] Neurological: Speech clear, no gross sensory deficit Assessment:: Degenerative disc disease of lumbar spine with lumbar radiculopathy symptoms, low back pain, mid back pain, chronic pain syndrome Plan:: I will refill the patient's fentanyl 50 mcg patches, [place] 10 4 times a day and ropinirole 0.5 mg at bedtime and provide a 1 month supply of these medications. Patient will return to clinic in 1 month for reevaluation of symptoms and plan of care. Risks and benefits of the medication have been explained in detail to the patient. The patient does understand the risk of dependence on the medication when given over a prolonged period. Patient has been advised of risks of oversedation with the prescribed medication. Narcan has been offered to the paitent in the event of oversedation. Patient has been advised that a family member should also be educated regarding administration of Narcan. The patient has been advised to consult with his/her primary care provider and pharmacist regarding drug-drug interaction of medications currently prescribed. Patient has been prescribed a controlled substance after being counseled on the medication, medication safety, and possible side effects. Opioid contract was reviewed and signed by the patient, and that they have agreed to all of the terms set forth by our compliance program. Patient has been instructed to contact the clinic with any concerns before the next appointment. Dr. Chicas has reviewed this note and agrees with this plan of care. This note was dictated using voice recognition software and make contain errors or omissions. [facility] Disclaimer: The information contained in this section may have been updated after the patient was seen, as this information can be updated by other users. Medical History (Updated 08/26/22 @ 09:22 by Liss Young APRN) Anxiety Cataracts, bilateral Depression Arthritis Osteoporosis GERD (gastroesophageal reflux disease) Anemia Surgical History (Updated 08/26/22 @ 09:04 by Harriet Granados RN) Status post total hip replacement, bilateral History of lumbar fusion H/O gastric bypass History of appendectomy Family History (Updated 08/26/22 @ 09:03 by Harriet Granados RN) Other Cancer Diabetes Hypertension Osteoporosis Rheumatoid arthritis Social History (Updated 02/11/23 @ 09:47 by Ralph Hector CRNA) Smoking Status: Former smoker alcohol intake: never substance use type: denies use current occupational status: other Travel in the last 8 weeks: None
== END 2023-08-31 23:59 | disposition home or self-care (01) ==
PROVIDERS: Visit Provider Nurse Practitioner Family
DX: M51.16 Intervertebral disc disorders with radiculopathy, lumbar region (principal); G89.4 Chronic pain syndrome
CPT/HCPCS: 99212; G0463

== ENCOUNTER 2023-09-30 08:18 | Outpatient (POV) | payer MEDICARE, SELFPAY ==
[2023-09-30 08:33] VITALS: BP 113/58; PULSE 87; RESP 18; O2SAT 97; BMI 23.3
--- NOTE | 2023-09-30 08:44 | A.OFFVIS_ITS ---
[facility] Pain Management SOAP Note Subjective:: Patient is a very pleasant 72-year-old female comes our clinic today for 1 month follow-up visit regarding medication refills. Today she rates her pain 4/10. We are currently treating the patient for chronic low back pain as well as bilateral hip and leg radicular symptoms. Patient is status post 3 separate lumbar back surgeries including 2 separate fusions. We currently manage the patient with fentanyl patch 50 mcg every 72 hours. [place] 10 mg 1 p.o. 4 times daily. Ropinirole 0.5 mg nightly. Patient denies any side effects from the medications. She reports medications help with her active daily living. Her Sae has been reviewed and appropriate. Her UDS has been appropriate in the past. Objective:: Patient is awake alert [place] x 3. No acute distress. Flexion-extension cervical lumbar spine guarded secondary to pain. Deep tendon reflexes upper and lower extremities normal. Motor strength upper and lower extremities normal. There is no gross sensory deficit. Gait is normal. Assessment:: Degenerative disc lumbar spine multilevels. Lumbar radiculopathy. Lumbar spondylosis. Lumbar postlaminectomy syndrome. Lumbar post fusion syndrome. Chronic pain syndrome. Plan:: I will refill the patient's medications. Fentanyl 50 mcg patch every 72 hours. [place] 10 mg 1 p.o. 4 times daily. Ropinirole 0.5 mg 1 p.o. nightly. [facility] Disclaimer: The information contained in this section may have been updated after the patient was seen, as this information can be updated by other users. Medical History (Updated 08/26/22 @ 09:22 by Liss Young APRN) Anxiety Cataracts, bilateral Depression Arthritis Osteoporosis GERD (gastroesophageal reflux disease) Anemia Surgical History (Updated 08/26/22 @ 09:04 by Harriet Granados RN) Status post total hip replacement, bilateral History of lumbar fusion H/O gastric bypass History of appendectomy Family History (Updated 08/26/22 @ 09:03 by Harriet Granados RN) Other Cancer Diabetes Hypertension Osteoporosis Rheumatoid arthritis Social History (Updated 02/11/23 @ 09:47 by Ralph Hector CRNA) Smoking Status: Former smoker alcohol intake: never substance use type: denies use current occupational status: other Travel in the last 8 weeks: None
== END 2023-09-30 23:59 | disposition home or self-care (01) ==
PROVIDERS: Visit Provider Nurse Anesthetist, Certified Registered
DX: M51.16 Intervertebral disc disorders with radiculopathy, lumbar region (principal); M47.26 Other spondylosis with radiculopathy, lumbar region; M96.1 Postlaminectomy syndrome, not elsewhere classified; G89.4 Chronic pain syndrome
CPT/HCPCS: 99212; G0463

== ENCOUNTER 2023-10-27 10:03 | Outpatient (POV) | payer MEDICARE, SELFPAY ==
[2023-10-27 10:18] VITALS: BP 113/70; PULSE 87; RESP 16; O2SAT 97; BMI 21.4
--- NOTE | 2023-10-27 11:30 | A.OFFVIS_ITS ---
[facility] Disclaimer: The information contained in this section may have been updated after the patient was seen, as this information can be updated by other users. Medical History (Updated 10/27/23 @ 11:32 by Liss Young APRN) Anxiety Cataracts, bilateral Depression Arthritis Osteoporosis GERD (gastroesophageal reflux disease) Anemia Surgical History (Updated 08/26/22 @ 09:04 by Harriet Granados RN) Status post total hip replacement, bilateral History of lumbar fusion H/O gastric bypass History of appendectomy Family History (Updated 08/26/22 @ 09:03 by Harriet Granados RN) Other Cancer Diabetes Hypertension Osteoporosis Rheumatoid arthritis Social History (Updated 02/11/23 @ 09:47 by Ralph Hector CRNA) Smoking Status: Former smoker alcohol intake: never substance use type: denies use current occupational status: retired Travel in the last 8 weeks: None PM Subjective & Objective Subjective Subjective:: Patient is a pleasant 72-year-old female who presents today for medication refill and follow-up. Today she rates her pain a 4 out of 10. Patient denies any new trauma or injury. She does state that she is still waiting to get scheduled for her stuff related to her stomach. She states she has been trying to get a hold of the specialist to get an appointment however is still not gotten in for this. Patient is currently managed with [place] 10 mg 4 times a day, fentanyl patch 50 mcg every 72 hours and ropinirole 0.5 mg at bedtime. She denies any side effects from this medication. Her Sae has been reviewed and is appropriate. Review of Systems: General: No recent weight changes, no fever, no sleep disturbances Respiratory: No cough, no shortness of air, no recurring pulmonary infections Cardiovascular/peripheral vascular: No chest pain, no palpitations, no edema, no shortness of breath Gastrointestinal: No new onset incontinence, normal bowel movements reported Genitourinary: No new onset incontinence Musculoskeletal: Low back pain Psychiatric: [Normal mood/affect] Neurological: [Denies weakness in extremities], [denies balance issues] Pain at rest (0-10 scale): 4 Objective Objective:: Physical Exam: General: Alert and oriented x3, no acute distress, pleasant and cooperative Lungs: Respirations even and unlabored, symmetrical chest expansion Eyes: PERRL Musculoskeletal: Flexion and extension of lumbar [spine] somewhat guarded secondary to pain, [antalgic gait noted] Neurological: Speech clear, no gross sensory deficit Has patient had previous pain injection?: No Conservative treatment options previously tried: Prescription medications Length of treatment: Longer than 12 weeks Meds Home Medications and Allergies Home Medications Medication Instructions Recorded Confirmed Type bupropion HCl 75 mg tablet 75 mg PO DIRECTED MOOD 08/26/22 10/27/23 History diazepam 5 mg tablet 5 mg PO DIRECTED Anxiety 08/26/22 10/27/23 History gabapentin 600 mg tablet 600 mg PO DIRECTED Pain 08/26/22 10/27/23 History promethazine 25 mg tablet 25 mg PO DIRECTED Nausea & 08/26/22 10/27/23 History vomiting zolpidem 10 mg tablet 10 mg PO DIRECTED MOOD 08/26/22 10/27/23 History ropinirole 0.5 mg tablet 0.5 mg PO HS #30 tabs 08/31/23 10/27/23 Rx fentanyl 50 mcg/hr transdermal 1 patch transdermal Q72H #10 ea 09/30/23 10/27/23 Rx patch hydrocodone 10 mg-acetaminophen 1 tab PO QID #120 tabs 09/30/23 10/27/23 Rx 325 mg tablet risperidone 0.5 mg tablet 0.5 mg PO DIRECTED MOOD #30 tabs 09/30/23 10/27/23 Rx ropinirole 0.25 mg tablet 0.25 mg PO HS #30 tabs 09/30/23 10/27/23 Rx New Prescriptions to Start Prescriptions: Allergies Allergy/AdvReac Type Severity Reaction Status Date / Time erythromycin base Allergy Verified 08/26/22 09:08 iodine AdvReac Verified 08/26/22 09:08 Penicillins AdvReac Verified 08/26/22 09:08 Sulfa (Sulfonamide AdvReac Verified 08/26/22 09:08 Antibiotics) tetracycline AdvReac Verified 08/26/22 09:08 tramadol AdvReac Verified 08/26/22 09:08 Assessment and Plan *Assessment and plan (1) Lumbar radiculopathy: Status: Acute Category: Medical Code(s): M54.16 - Radiculopathy, lumbar region (2) Neck pain: Status: Acute Category: Medical Code(s): M54.2 - Cervicalgia (3) Mid back pain: Status: Acute Category: Medical Code(s): M54.9 - Dorsalgia, unspecified (4) Low back pain: Status: Acute Qualifiers: Chronicity: chronic Back pain laterality: bilateral Sciatica presence: without sciatica Qualified Code(s): M54.50 - Low back pain, unspecified; G89.29 - Other chronic pain Category: Medical Code(s): M54.50 - Low back pain, unspecified Plan I will refill the patient's fentanyl, [place] and ropinirole provide 1 month supply of these medications. Patient will return to clinic in 1 month for reevaluation of symptoms and plan of care. Risks and benefits of the medication have been explained in detail to the patient. The patient does understand the risk of dependence on the medication when given over a prolonged period. Patient has been advised of risks of oversedation with the prescribed medication. Narcan has been offered to the paitent in the event of oversedation. Patient has been advised that a family member should also be educated regarding administration of Narcan. The patient has been advised to consult with his/her primary care provider and pharmacist regarding drug-drug interaction of medications currently prescribed. Patient has been prescribed a controlled substance after being counseled on the medication, medication safety, and possible side effects. Opioid contract was reviewed and signed by the patient, and that they have agreed to all of the terms set forth by our compliance program. Patient has been instructed to contact the clinic with any concerns before the next appointment. Dr. Chicas has reviewed this note and agrees with this plan of care. This note was dictated using voice recognition software and make contain errors or omissions.
== END 2023-10-27 23:59 | disposition home or self-care (01) ==
PROVIDERS: Visit Provider Nurse Practitioner Family
DX: M54.16 Radiculopathy, lumbar region (principal); M54.2 Cervicalgia; M54.50 Low back pain, unspecified; G89.29 Other chronic pain
CPT/HCPCS: 99212; G0463

== ENCOUNTER 2023-11-23 09:42 | Outpatient (POV) | payer MEDICARE, SELFPAY ==
[2023-11-23 10:09] VITALS: BP 123/72; PULSE 89; RESP 16; O2SAT 97; BMI 22.6
--- NOTE | 2023-11-23 10:47 | EXP.PAIN.SOA ---
[facility] Disclaimer: The information contained in this section may have been updated after the patient was seen, as this information can be updated by other users. Medical History (Updated 10/27/23 @ 11:32 by Liss Young APRN) Anxiety Cataracts, bilateral Depression Arthritis Osteoporosis GERD (gastroesophageal reflux disease) Anemia Surgical History (Updated 08/26/22 @ 09:04 by Harriet Granados RN) Status post total hip replacement, bilateral History of lumbar fusion H/O gastric bypass History of appendectomy Family History (Updated 08/26/22 @ 09:03 by Harriet Granados RN) Other Cancer Diabetes Hypertension Osteoporosis Rheumatoid arthritis Social History (Updated 02/11/23 @ 09:47 by Ralph Hector CRNA) Smoking Status: Former smoker alcohol intake: never substance use type: denies use current occupational status: retired Travel in the last 8 weeks: None PM Subjective & Objective Subjective Subjective:: Patient is a pleasant 72-year-old female who presents today for medication refill and follow-up. Today she rates her pain a 5 out of 10. She denies any new trauma or injury. Patient is currently managed with [place] 10 mg 4 times a day, fentanyl patches 50 mcg every 72 hours and ropinirole 0.5 mg at bedtime. Patient denies any side effects from this medication. She does state that this does help. Her Sae has been reviewed and is appropriate. Review of Systems: General: No recent weight changes, no fever, no sleep disturbances Respiratory: No cough, no shortness of air, no recurring pulmonary infections Cardiovascular/peripheral vascular: No chest pain, no palpitations, no edema, no shortness of breath Gastrointestinal: No new onset incontinence, normal bowel movements reported Genitourinary: No new onset incontinence Musculoskeletal: Low back pain Psychiatric: [Normal mood/affect] Neurological: [Denies weakness in extremities], [denies balance issues] Pain at rest (0-10 scale): 5 Objective Objective:: Physical Exam: General: Alert and oriented x3, no acute distress, pleasant and cooperative Lungs: Respirations even and unlabored, symmetrical chest expansion Eyes: PERRL Musculoskeletal: Flexion and extension of lumbar [spine] somewhat guarded secondary to pain, [antalgic gait noted] Neurological: Speech clear, no gross sensory deficit Has patient had previous pain injection?: No Conservative treatment options previously tried: Prescription medications Length of treatment: Longer than 12 weeks Meds Home Medications and Allergies Home Medications ?Medication ?Instructions ?Recorded ?Confirmed ?Type bupropion HCl 75 mg tablet 75 mg PO DIRECTED MOOD 08/26/22 11/23/23 History diazepam 5 mg tablet 5 mg PO DIRECTED Anxiety 08/26/22 11/23/23 History gabapentin 600 mg tablet 600 mg PO DIRECTED Pain 08/26/22 11/23/23 History promethazine 25 mg tablet 25 mg PO DIRECTED Nausea & 08/26/22 11/23/23 History vomiting zolpidem 10 mg tablet 10 mg PO DIRECTED MOOD 08/26/22 11/23/23 History risperidone 0.5 mg tablet 0.5 mg PO DIRECTED MOOD #30 tabs 09/30/23 11/23/23 Rx ropinirole 0.25 mg tablet 0.25 mg PO HS #30 tabs 09/30/23 11/23/23 Rx fentanyl 50 mcg/hr transdermal 1 patch transdermal Q72H #10 ea 10/27/23 11/23/23 Rx patch hydrocodone 10 mg-acetaminophen 1 tab PO QID #120 tabs 10/27/23 11/23/23 Rx 325 mg tablet ropinirole 0.5 mg tablet 0.5 mg PO HS #30 tabs 10/27/23 11/23/23 Rx New Prescriptions to Start Prescriptions: Allergies Allergy/AdvReac Type Severity Reaction Status Date / Time erythromycin base Allergy Verified 08/26/22 09:08 iodine AdvReac Verified 08/26/22 09:08 Penicillins AdvReac Verified 08/26/22 09:08 Sulfa (Sulfonamide AdvReac Verified 08/26/22 09:08 Antibiotics) tetracycline AdvReac Verified 08/26/22 09:08 tramadol AdvReac Verified 08/26/22 09:08 Assessment and Plan *Assessment and plan (1) Lumbar radiculopathy: Status: Acute Category: Medical Code(s): M54.16 - Radiculopathy, lumbar region (2) Neck pain: Status: Acute Category: Medical Code(s): M54.2 - Cervicalgia (3) Mid back pain: Status: Acute Category: Medical Code(s): M54.9 - Dorsalgia, unspecified (4) Low back pain: Status: Acute Qualifiers: Chronicity: chronic Back pain laterality: bilateral Sciatica presence: without sciatica Qualified Code(s): M54.50 - Low back pain, unspecified; G89.29 - Other chronic pain Category: Medical Code(s): M54.50 - Low back pain, unspecified Plan I will refill the patient's [place], fentanyl and ropinirole and provide a 1 month supply of these medications. Patient will return to clinic in 1 month for reevaluation of symptoms and plan of care. Risks and benefits of the medication have been explained in detail to the patient. The patient does understand the risk of dependence on the medication when given over a prolonged period. Patient has been advised of risks of oversedation with the prescribed medication. Narcan has been offered to the paitent in the event of oversedation. Patient has been advised that a family member should also be educated regarding administration of Narcan. The patient has been advised to consult with his/her primary care provider and pharmacist regarding drug-drug interaction of medications currently prescribed. Patient has been prescribed a controlled substance after being counseled on the medication, medication safety, and possible side effects. Opioid contract was reviewed and signed by the patient, and that they have agreed to all of the terms set forth by our compliance program. Patient has been instructed to contact the clinic with any concerns before the next appointment. Dr. Chicas has reviewed this note and agrees with this plan of care. This note was dictated using voice recognition software and make contain errors or omissions.
== END 2023-11-23 23:59 | disposition home or self-care (01) ==
PROVIDERS: Visit Provider Nurse Practitioner Family
DX: M54.16 Radiculopathy, lumbar region (principal); G89.29 Other chronic pain
CPT/HCPCS: 99212; G0463

== ENCOUNTER 2023-12-21 10:19 | Outpatient (POV) | payer MEDICARE, SELFPAY ==
--- NOTE | 2023-12-21 10:31 | EXP.PAIN.SOA ---
[facility] Disclaimer: The information contained in this section may have been updated after the patient was seen, as this information can be updated by other users. Medical History (Updated 10/27/23 @ 11:32 by Liss Young APRN) Anxiety Cataracts, bilateral Depression Arthritis Osteoporosis GERD (gastroesophageal reflux disease) Anemia Surgical History (Updated 08/26/22 @ 09:04 by Harriet Granados RN) Status post total hip replacement, bilateral History of lumbar fusion H/O gastric bypass History of appendectomy Family History (Updated 08/26/22 @ 09:03 by Harriet Granados RN) Other Cancer Diabetes Hypertension Osteoporosis Rheumatoid arthritis Social History (Updated 02/11/23 @ 09:47 by Ralph Hector CRNA) Smoking Status: Former smoker alcohol intake: never substance use type: denies use current occupational status: retired Travel in the last 8 weeks: None PM Subjective & Objective Subjective Subjective:: Patient is a pleasant 72-year-old female who presents today for medication refill and follow-up. Today she rates her pain a 5 out of 10. She denies any new trauma or injury. Patient is currently managed with [place] 10 mg 4 times a day, fentanyl patches 50 mcg every 72 hours and ropinirole 0.5 mg at bedtime. Patient does state that here recently she has been waking up in the middle of night between 12 and 4 and that it does seem like her pain is worse and that she has from time to time taken an additional medication tablet. Patient does state that she did just recently have all her kidney infection cleared up and she is not sure if this is just residual related to this infection. Patient denies any side effects from this medication. She does state that this does help. She is prescribed gabapentin from an outside provider. Her Sae has been reviewed and is appropriate. Review of Systems: General: No recent weight changes, no fever, no sleep disturbances Respiratory: No cough, no shortness of air, no recurring pulmonary infections Cardiovascular/peripheral vascular: No chest pain, no palpitations, no edema, no shortness of breath Gastrointestinal: No new onset incontinence, normal bowel movements reported Genitourinary: No new onset incontinence Musculoskeletal: Low back pain Psychiatric: [Normal mood/affect] Neurological: [Denies weakness in extremities], [denies balance issues] Pain at rest (0-10 scale): 5 Objective Objective:: Physical Exam: General: Alert and oriented x3, no acute distress, pleasant and cooperative Lungs: Respirations even and unlabored, symmetrical chest expansion Eyes: PERRL Musculoskeletal: Flexion and extension of lumbar [spine] somewhat guarded secondary to pain, [antalgic gait noted] Neurological: Speech clear, no gross sensory deficit Has patient had previous pain injection?: No Conservative treatment options previously tried: Prescription medications Length of treatment: Longer than 6 weeks Meds Home Medications and Allergies Home Medications ?Medication ?Instructions ?Recorded ?Confirmed ?Type bupropion HCl 75 mg tablet 75 mg PO DIRECTED MOOD 08/26/22 11/23/23 History diazepam 5 mg tablet 5 mg PO DIRECTED Anxiety 08/26/22 11/23/23 History gabapentin 600 mg tablet 600 mg PO DIRECTED Pain 08/26/22 11/23/23 History promethazine 25 mg tablet 25 mg PO DIRECTED Nausea & 08/26/22 11/23/23 History vomiting zolpidem 10 mg tablet 10 mg PO DIRECTED MOOD 08/26/22 11/23/23 History risperidone 0.5 mg tablet 0.5 mg PO DIRECTED MOOD #30 tabs 09/30/23 11/23/23 Rx ropinirole 0.25 mg tablet 0.25 mg PO HS #30 tabs 09/30/23 11/23/23 Rx fentanyl 50 mcg/hr transdermal 1 patch transdermal Q72H #10 ea 11/23/23 Rx patch hydrocodone 10 mg-acetaminophen 1 tab PO QID #120 tabs 12/21/23 Rx 325 mg tablet ropinirole 0.5 mg tablet 0.5 mg PO HS #30 tabs 12/21/23 Rx tizanidine 4 mg tablet (Zanaflex) 4 mg PO HS #14 tabs 12/21/23 Rx New Prescriptions to Start Prescriptions: hydrocodone-acetaminophen Liss Young A ropinirole HectorLiss A tizanidine [Zanaflex] Liss Young Allergies Allergy/AdvReac Type Severity Reaction Status Date / Time erythromycin base Allergy Verified 08/26/22 09:08 iodine AdvReac Verified 08/26/22 09:08 Penicillins AdvReac Verified 08/26/22 09:08 Sulfa (Sulfonamide AdvReac Verified 08/26/22 09:08 Antibiotics) tetracycline AdvReac Verified 08/26/22 09:08 tramadol AdvReac Verified 08/26/22 09:08 Assessment and Plan *Assessment and plan (1) Low back pain: Status: Acute Qualifiers: Back pain laterality: bilateral Chronicity: chronic Sciatica presence: without sciatica Qualified Code(s): M54.50 - Low back pain, unspecified; G89.29 - Other chronic pain Category: Medical Code(s): M54.50 - Low back pain, unspecified (2) Mid back pain: Status: Acute Category: Medical Code(s): M54.9 - Dorsalgia, unspecified (3) Neck pain: Status: Acute Category: Medical Code(s): M54.2 - Cervicalgia (4) Lumbar radiculopathy: Status: Acute Category: Medical Code(s): M54.16 - Radiculopathy, lumbar region Plan I will refill the patient's fentanyl, [place] and ropinirole and provide a 1 month supply of this medication. I will also send in a 14-day supply of tizanidine 4 mg at bedtime. Patient will return to clinic in 1 month for reevaluation of symptoms and plan of care. Risks and benefits of the medication have been explained in detail to the patient. The patient does understand the risk of dependence on the medication when given over a prolonged period. Patient has been advised of risks of oversedation with the prescribed medication. Narcan has been offered to the paitent in the event of oversedation. Patient has been advised that a family member should also be educated regarding administration of Narcan. The patient has been advised to consult with his/her primary care provider and pharmacist regarding drug-drug interaction of medications currently prescribed. Patient has been prescribed a controlled substance after being counseled on the medication, medication safety, and possible side effects. Opioid contract was reviewed and signed by the patient, and that they have agreed to all of the terms set forth by our compliance program. Patient has been instructed to contact the clinic with any concerns before the next appointment. Dr. Chicas has reviewed this note and agrees with this plan of care. This note was dictated using voice recognition software and make contain errors or omissions.
[2023-12-21 10:48] VITALS: BP 118/62; PULSE 87; RESP 16; O2SAT 97; BMI 21.9
== END 2023-12-21 23:59 | disposition home or self-care (01) ==
PROVIDERS: PCP Internal Medicine; Visit Provider Nurse Practitioner Family
DX: M54.50 Low back pain, unspecified (principal); G89.29 Other chronic pain; M54.9 Dorsalgia, unspecified; M54.2 Cervicalgia; M54.16 Radiculopathy, lumbar region; Z79.899 Other long term (current) drug therapy; Z96.643 Presence of artificial hip joint, bilateral
CPT/HCPCS: 99212; G0463

== ENCOUNTER 2024-01-18 10:24 | Outpatient (POV) | payer MEDICARE, SELFPAY ==
[2024-01-18 11:14] VITALS: BP 124/88; PULSE 84; RESP 16; O2SAT 98; BMI 23.4
--- NOTE | 2024-01-18 11:22 | EXP.PAIN.SOA ---
[facility] Disclaimer: The information contained in this section may have been updated after the patient was seen, as this information can be updated by other users. Medical History (Updated 10/27/23 @ 11:32 by Liss Young APRN) Anxiety Cataracts, bilateral Depression Arthritis Osteoporosis GERD (gastroesophageal reflux disease) Anemia Surgical History (Updated 08/26/22 @ 09:04 by Harriet Granados RN) Status post total hip replacement, bilateral History of lumbar fusion H/O gastric bypass History of appendectomy Family History (Updated 08/26/22 @ 09:03 by Harriet Granados RN) Other Cancer Diabetes Hypertension Osteoporosis Rheumatoid arthritis Social History (Updated 02/11/23 @ 09:47 by Ralph Hector CRNA) Smoking Status: Former smoker alcohol intake: never substance use type: denies use current occupational status: other Travel in the last 8 weeks: None PM Subjective & Objective Subjective Subjective:: Patient is a pleasant 73-year-old female who presents today for medication refill and follow-up. Today she rates her pain a 6 out of 10. Patient denies any new trauma or injury. She does state that she is still having chronic pain throughout her back that does radiate down into her legs. Patient states that her legs just seem to be a constant aching sensation and she has been applying some patches to help however it still is always hot aching and burning. Patient is prescribed gabapentin from an outside provider. Patient does state that the muscle relaxer we prescribed at her last visit did really help and she would like refills. Patient is currently managed with [place] 10 mg 4 times a day, fentanyl patches 50 mcg every 72 hours, ropinirole 0.5 mg at bedtime and tizanidine 4 mg at bedtime. She denies any side effects from this medication. Her Sae has been reviewed and is appropriate. Review of Systems: General: No recent weight changes, no fever, no sleep disturbances Respiratory: No cough, no shortness of air, no recurring pulmonary infections Cardiovascular/peripheral vascular: No chest pain, no palpitations, no edema, no shortness of breath Gastrointestinal: No new onset incontinence, normal bowel movements reported Genitourinary: No new onset incontinence Musculoskeletal: Low back pain, leg pain Psychiatric: [Normal mood/affect] Neurological: [Denies weakness in extremities], [denies balance issues] Pain at rest (0-10 scale): 6 Objective Objective:: Physical Exam: General: Alert and oriented x3, no acute distress, pleasant and cooperative Lungs: Respirations even and unlabored, symmetrical chest expansion Eyes: PERRL Musculoskeletal: Flexion and extension of lumbar [spine] somewhat guarded secondary to pain, [antalgic gait noted] Neurological: Speech clear, no gross sensory deficit Has patient had previous pain injection?: No Conservative treatment options previously tried: Home exercise plan Length of treatment: Longer than 12 weeks Meds Home Medications and Allergies Home Medications ?Medication ?Instructions ?Recorded ?Confirmed ?Type bupropion HCl 75 mg tablet 75 mg PO DIRECTED MOOD 08/26/22 01/18/24 History diazepam 5 mg tablet 5 mg PO DIRECTED Anxiety 08/26/22 01/18/24 History gabapentin 600 mg tablet 600 mg PO DIRECTED Pain 08/26/22 01/18/24 History promethazine 25 mg tablet 25 mg PO DIRECTED Nausea & 08/26/22 01/18/24 History vomiting zolpidem 10 mg tablet 10 mg PO DIRECTED MOOD 08/26/22 01/18/24 History risperidone 0.5 mg tablet 0.5 mg PO DIRECTED MOOD #30 tabs 09/30/23 01/18/24 Rx ropinirole 0.25 mg tablet 0.25 mg PO HS #30 tabs 09/30/23 01/18/24 Rx fentanyl 50 mcg/hr transdermal 1 patch transdermal Q72H #10 ea 12/21/23 01/18/24 Rx patch hydrocodone 10 mg-acetaminophen 1 tab PO QID #120 tabs 12/21/23 01/18/24 Rx 325 mg tablet ropinirole 0.5 mg tablet 0.5 mg PO HS #30 tabs 12/21/23 01/18/24 Rx tizanidine 4 mg tablet (Zanaflex) 4 mg PO HS #14 tabs 12/21/23 01/18/24 Rx New Prescriptions to Start Prescriptions: Allergies Allergy/AdvReac Type Severity Reaction Status Date / Time erythromycin base Allergy Verified 08/26/22 09:08 iodine AdvReac Verified 08/26/22 09:08 Penicillins AdvReac Verified 08/26/22 09:08 Sulfa (Sulfonamide AdvReac Verified 08/26/22 09:08 Antibiotics) tetracycline AdvReac Verified 08/26/22 09:08 tramadol AdvReac Verified 08/26/22 09:08 Assessment and Plan *Assessment and plan (1) Lumbar radiculopathy: Status: Acute Category: Medical Code(s): M54.16 - Radiculopathy, lumbar region (2) Neck pain: Status: Acute Category: Medical Code(s): M54.2 - Cervicalgia (3) Mid back pain: Status: Acute Category: Medical Code(s): M54.9 - Dorsalgia, unspecified (4) Low back pain: Status: Acute Qualifiers: Chronicity: chronic Back pain laterality: bilateral Sciatica presence: without sciatica Qualified Code(s): M54.50 - Low back pain, unspecified; G89.29 - Other chronic pain Category: Medical Code(s): M54.50 - Low back pain, unspecified Plan I will refill the patient's [place], fentanyl, tizanidine and ropinirole and provide a 1 month supply of this medication. Patient was counseled to speak with her other provider regarding her gabapentin due to the worsening leg symptoms and neuropathy. Patient agrees with this plan of care. Patient will return to clinic in 1 month for reevaluation of symptoms and plan of care. Risks and benefits of the medication have been explained in detail to the patient. The patient does understand the risk of dependence on the medication when given over a prolonged period. Patient has been advised of risks of oversedation with the prescribed medication. Narcan has been offered to the paitent in the event of oversedation. Patient has been advised that a family member should also be educated regarding administration of Narcan. The patient has been advised to consult with his/her primary care provider and pharmacist regarding drug-drug interaction of medications currently prescribed. Patient has been prescribed a controlled substance after being counseled on the medication, medication safety, and possible side effects. Opioid contract was reviewed and signed by the patient, and that they have agreed to all of the terms set forth by our compliance program. Patient has been instructed to contact the clinic with any concerns before the next appointment. Dr. Chicas has reviewed this note and agrees with this plan of care. This note was dictated using voice recognition software and make contain errors or omissions.
== END 2024-01-18 23:59 | disposition home or self-care (01) ==
PROVIDERS: PCP Internal Medicine; Visit Provider Nurse Practitioner Family
DX: M54.16 Radiculopathy, lumbar region (principal); M54.2 Cervicalgia; M54.9 Dorsalgia, unspecified; M54.50 Low back pain, unspecified; G89.29 Other chronic pain; Z87.891 Personal history of nicotine dependence; Z96.643 Presence of artificial hip joint, bilateral
CPT/HCPCS: 99212; G0463

== ENCOUNTER 2024-02-16 09:35 | Outpatient (POV) | payer MEDICARE, SELFPAY ==
[2024-02-16 10:59] VITALS: BP 96/71; PULSE 92; RESP 16; O2SAT 97; BMI 21.2
--- NOTE | 2024-02-16 11:20 | A.OFFVIS_ITS ---
[facility] Disclaimer: The information contained in this section may have been updated after the patient was seen, as this information can be updated by other users. Medical History (Updated 10/27/23 @ 11:32 by Liss Young APRN) Anxiety Cataracts, bilateral Depression Arthritis Osteoporosis GERD (gastroesophageal reflux disease) Anemia Surgical History (Updated 08/26/22 @ 09:04 by Harriet Granados RN) Status post total hip replacement, bilateral History of lumbar fusion H/O gastric bypass History of appendectomy Family History (Updated 08/26/22 @ 09:03 by Harriet Granados RN) Other Cancer Diabetes Hypertension Osteoporosis Rheumatoid arthritis Social History (Updated 02/11/23 @ 09:47 by Ralph Hector CRNA) Smoking Status: Former smoker alcohol intake: never substance use type: denies use current occupational status: other Travel in the last 8 weeks: None PM Subjective & Objective Subjective Subjective:: Patient is a pleasant 73-year-old female who presents today for medication refill. Today she rates her pain a 4 out of 10. Patient does state that she did fall a couple of weeks ago. She stated that it was more related to sitting for prolonged period of time and then when she went to stand up and immediately move her leg was numb and caused her to fall back into the chair. Patient states that she did not end up falling to the ground but she did manage to bump her head and her shoulder. Patient denies any long-term effects from it and that she is doing fine now. Patient states that she is trying to make slower movements when she goes from a seated to standing position. Patient is currently managed with Victoria 10 mg 4 times a day, fentanyl patches 50 mcg every 72 hours, ropinirole 0.5 mg at bedtime and tizanidine 4 mg at bedtime. She denies any side effects from this medication. Her Sae has been reviewed and is appropriate. Review of Systems: General: No recent weight changes, no fever, no sleep disturbances Respiratory: No cough, no shortness of air, no recurring pulmonary infections Cardiovascular/peripheral vascular: No chest pain, no palpitations, no edema, no shortness of breath Gastrointestinal: No new onset incontinence, normal bowel movements reported Genitourinary: No new onset incontinence Musculoskeletal: Low back pain, right shoulder pain Psychiatric: [Normal mood/affect] Neurological: [Denies weakness in extremities], [denies balance issues] Pain at rest (0-10 scale): 4 Objective Objective:: Physical Exam: General: Alert and oriented x3, no acute distress, pleasant and cooperative Lungs: Respirations even and unlabored, symmetrical chest expansion Eyes: PERRL Musculoskeletal: Flexion and extension of lumbar [spine] somewhat guarded secondary to pain, [antalgic gait noted] Neurological: Speech clear, no gross sensory deficit Has patient had previous pain injection?: No Conservative treatment options previously tried: Home exercise plan Length of treatment: Longer than 12 weeks and Prescription medications Length of treatment: Longer than 12 weeks Meds Home Medications and Allergies Home Medications ?Medication ?Instructions ?Recorded ?Confirmed ?Type bupropion HCl 75 mg tablet 75 mg PO DIRECTED MOOD 08/26/22 02/16/24 History diazepam 5 mg tablet 5 mg PO DIRECTED Anxiety 08/26/22 02/16/24 History gabapentin 600 mg tablet 600 mg PO DIRECTED Pain 08/26/22 02/16/24 History promethazine 25 mg tablet 25 mg PO DIRECTED Nausea & 08/26/22 02/16/24 History vomiting zolpidem 10 mg tablet 10 mg PO DIRECTED MOOD 08/26/22 02/16/24 History risperidone 0.5 mg tablet 0.5 mg PO DIRECTED MOOD #30 tabs 09/30/23 02/16/24 Rx ropinirole 0.25 mg tablet 0.25 mg PO HS #30 tabs 09/30/23 02/16/24 Rx fentanyl 50 mcg/hr transdermal 1 patch transdermal Q72H #10 ea 01/18/24 02/16/24 Rx patch hydrocodone 10 mg-acetaminophen 1 tab PO QID #120 tabs 01/18/24 02/16/24 Rx 325 mg tablet ropinirole 0.5 mg tablet 0.5 mg PO HS #30 tabs 01/18/24 02/16/24 Rx tizanidine 4 mg tablet (Zanaflex) 4 mg PO HS #30 tabs 01/18/24 02/16/24 Rx New Prescriptions to Start Prescriptions: Allergies Allergy/AdvReac Type Severity Reaction Status Date / Time erythromycin base Allergy Verified 08/26/22 09:08 iodine AdvReac Verified 08/26/22 09:08 Penicillins AdvReac Verified 08/26/22 09:08 Sulfa (Sulfonamide AdvReac Verified 08/26/22 09:08 Antibiotics) tetracycline AdvReac Verified 08/26/22 09:08 tramadol AdvReac Verified 08/26/22 09:08 Assessment and Plan *Assessment and plan (1) Lumbar radiculopathy: Status: Acute Category: Medical Code(s): M54.16 - Radiculopathy, lumbar region (2) Neck pain: Status: Acute Category: Medical Code(s): M54.2 - Cervicalgia (3) Mid back pain: Status: Acute Category: Medical Code(s): M54.9 - Dorsalgia, unspecified (4) Low back pain: Status: Acute Qualifiers: Chronicity: chronic Back pain laterality: bilateral Sciatica presence: without sciatica Qualified Code(s): M54.50 - Low back pain, unspecified; G89.29 - Other chronic pain Category: Medical Code(s): M54.50 - Low back pain, unspecified Plan I will refill the patient's Victoria, fentanyl, ropinirole and tizanidine and provide a 1 month supply of this medication. Patient will return to clinic in 1 month for reevaluation of symptoms and plan of care. Patient's blood pressure was a little low during today's visit and have discussed with her to make sure to keep an eye on it and see if she has to make any adjustments with her primary care regarding her blood pressure medications. Patient is scheduled to see him tomorrow due to having UTI symptoms. Risks and benefits of the medication have been explained in detail to the patient. The patient does understand the risk of dependence on the medication when given over a prolonged period. Patient has been advised of risks of oversedation with the prescribed medication. Narcan has been offered to the paitent in the event of oversedation. Patient has been advised that a family member should also be educated regarding administration of Narcan. The patient has been advised to consult with his/her primary care provider and pharmacist regarding drug-drug interaction of medications currently prescribed. Patient has been prescribed a controlled substance after being counseled on the medication, medication safety, and possible side effects. Opioid contract was reviewed and signed by the patient, and that they have agreed to all of the terms set forth by our compliance program. Patient has been instructed to contact the clinic with any concerns before the next appointment. Dr. Chicas has reviewed this note and agrees with this plan of care. This note was dictated using voice recognition software and make contain errors or omissions.
== END 2024-02-16 23:59 | disposition home or self-care (01) ==
PROVIDERS: PCP Internal Medicine; Visit Provider Nurse Practitioner Family
DX: M54.16 Radiculopathy, lumbar region (principal); M54.2 Cervicalgia; M54.9 Dorsalgia, unspecified; M54.50 Low back pain, unspecified; G89.29 Other chronic pain; Z96.643 Presence of artificial hip joint, bilateral; M43.26 Fusion of spine, lumbar region
CPT/HCPCS: 99212; G0463

== ENCOUNTER 2024-03-15 11:04 | Outpatient (POV) | payer MEDICARE, SELFPAY ==
--- NOTE | 2024-03-15 11:25 | EXP.PAIN.SOA ---
[facility] Disclaimer: The information contained in this section may have been updated after the patient was seen, as this information can be updated by other users. Medical History (Updated 10/27/23 @ 11:32 by Liss Young APRN) Anxiety Cataracts, bilateral Depression Arthritis Osteoporosis GERD (gastroesophageal reflux disease) Anemia Surgical History (Updated 08/26/22 @ 09:04 by Harriet Granados RN) Status post total hip replacement, bilateral History of lumbar fusion H/O gastric bypass History of appendectomy Family History (Updated 08/26/22 @ 09:03 by Harriet Granados RN) Other Cancer Diabetes Hypertension Osteoporosis Rheumatoid arthritis Social History (Updated 02/11/23 @ 09:47 by Ralph Hector CRNA) Smoking Status: Former smoker alcohol intake: never substance use type: denies use current occupational status: other Travel in the last 8 weeks: None PM Subjective & Objective Subjective Subjective:: Patient is a pleasant 73-year-old female who presents today for medication refill and 1 month follow-up. Today she rates her pain a 5 out of 10. Patient denies any new trauma or injury from her last visit. Patient is currently managed with [place] 10 mg 4 times a day, fentanyl patches 50 mcg every 72 hours, ropinirole 0.5 mg at bedtime and tizanidine 4 mg at bedtime. She denies any side effects from this medication. Her Sae has been reviewed and is appropriate. Review of Systems: General: No recent weight changes, no fever, no sleep disturbances Respiratory: No cough, no shortness of air, no recurring pulmonary infections Cardiovascular/peripheral vascular: No chest pain, no palpitations, no edema, no shortness of breath Gastrointestinal: No new onset incontinence, normal bowel movements reported Genitourinary: No new onset incontinence Musculoskeletal: Low back pain Psychiatric: [Normal mood/affect] Neurological: [Denies weakness in extremities], [denies balance issues] Pain at rest (0-10 scale): 5 Objective Objective:: Physical Exam: General: Alert and oriented x3, no acute distress, pleasant and cooperative Lungs: Respirations even and unlabored, symmetrical chest expansion Eyes: PERRL Musculoskeletal: Flexion and extension of lumbar [spine] somewhat guarded secondary to pain, [antalgic gait noted] Neurological: Speech clear, no gross sensory deficit Has patient had previous pain injection?: No Conservative treatment options previously tried: Home exercise plan Length of treatment: Longer than 12 weeks Meds Home Medications and Allergies Home Medications ?Medication ?Instructions ?Recorded ?Confirmed ?Type bupropion HCl 75 mg tablet 75 mg PO DIRECTED MOOD 08/26/22 02/16/24 History diazepam 5 mg tablet 5 mg PO DIRECTED Anxiety 08/26/22 02/16/24 History gabapentin 600 mg tablet 600 mg PO DIRECTED Pain 08/26/22 02/16/24 History promethazine 25 mg tablet 25 mg PO DIRECTED Nausea & 08/26/22 02/16/24 History vomiting zolpidem 10 mg tablet 10 mg PO DIRECTED MOOD 08/26/22 02/16/24 History risperidone 0.5 mg tablet 0.5 mg PO DIRECTED MOOD #30 tabs 09/30/23 02/16/24 Rx ropinirole 0.25 mg tablet 0.25 mg PO HS #30 tabs 09/30/23 02/16/24 Rx fentanyl 50 mcg/hr transdermal 1 patch transdermal Q72H #10 ea 02/16/24 Rx patch hydrocodone 10 mg-acetaminophen 1 tab PO QID #120 tabs 03/15/24 Rx 325 mg tablet ropinirole 0.5 mg tablet 0.5 mg PO HS #30 tabs 03/15/24 Rx tizanidine 4 mg tablet (Zanaflex) 4 mg PO HS #30 tabs 03/15/24 Rx New Prescriptions to Start Prescriptions: hydrocodone-acetaminophen Young,Liss A ropinirole Young,Liss A tizanidine [Zanaflex] YoungLiss A Allergies Allergy/AdvReac Type Severity Reaction Status Date / Time erythromycin base Allergy Verified 08/26/22 09:08 iodine AdvReac Verified 08/26/22 09:08 Penicillins AdvReac Verified 08/26/22 09:08 Sulfa (Sulfonamide AdvReac Verified 08/26/22 09:08 Antibiotics) tetracycline AdvReac Verified 08/26/22 09:08 tramadol AdvReac Verified 08/26/22 09:08 Assessment and Plan *Assessment and plan (1) Lumbar radiculopathy: Status: Acute Category: Medical Code(s): M54.16 - Radiculopathy, lumbar region (2) Low back pain: Status: Acute Qualifiers: Back pain laterality: bilateral Chronicity: chronic Sciatica presence: without sciatica Qualified Code(s): M54.50 - Low back pain, unspecified; G89.29 - Other chronic pain Category: Medical Code(s): M54.50 - Low back pain, unspecified (3) Mid back pain: Status: Acute Category: Medical Code(s): M54.9 - Dorsalgia, unspecified (4) Neck pain: Status: Acute Category: Medical Code(s): M54.2 - Cervicalgia Plan We will refill the patient's fentanyl, [place] ropinirole and tizanidine and provide a 1 month supply of the [place] and a 3-month supply of the other medications. Patient will return to clinic in 1 month for reevaluation of symptoms and plan of care. Risks and benefits of the medication have been explained in detail to the patient. The patient does understand the risk of dependence on the medication when given over a prolonged period. Patient has been advised of risks of oversedation with the prescribed medication. Narcan has been offered to the paitent in the event of oversedation. Patient has been advised that a family member should also be educated regarding administration of Narcan. The patient has been advised to consult with his/her primary care provider and pharmacist regarding drug-drug interaction of medications currently prescribed. Patient has been prescribed a controlled substance after being counseled on the medication, medication safety, and possible side effects. Opioid contract was reviewed and signed by the patient, and that they have agreed to all of the terms set forth by our compliance program. Patient has been instructed to contact the clinic with any concerns before the next appointment. Dr. Chicas has reviewed this note and agrees with this plan of care. This note was dictated using voice recognition software and make contain errors or omissions.
[2024-03-15 11:50] VITALS: BP 98/71; PULSE 82; RESP 16; O2SAT 96; BMI 21.9
== END 2024-03-15 23:59 | disposition home or self-care (01) ==
PROVIDERS: PCP Internal Medicine; Visit Provider Nurse Practitioner Family
DX: M54.16 Radiculopathy, lumbar region (principal); M54.50 Low back pain, unspecified; G89.29 Other chronic pain; M54.9 Dorsalgia, unspecified; M54.2 Cervicalgia
CPT/HCPCS: 99212; G0463

== ENCOUNTER 2024-04-12 09:22 | Outpatient (POV) | payer MEDICARE, SELFPAY ==
--- NOTE | 2024-04-12 09:37 | A.OFFVIS_ITS ---
[facility] Disclaimer: The information contained in this section may have been updated after the patient was seen, as this information can be updated by other users. Medical History (Updated 10/27/23 @ 11:32 by Liss Young APRN) Anxiety Cataracts, bilateral Depression Arthritis Osteoporosis GERD (gastroesophageal reflux disease) Anemia Surgical History (Updated 08/26/22 @ 09:04 by Harriet Granados RN) Status post total hip replacement, bilateral History of lumbar fusion H/O gastric bypass History of appendectomy Family History (Updated 08/26/22 @ 09:03 by Harriet Granados RN) Other Cancer Diabetes Hypertension Osteoporosis Rheumatoid arthritis Social History (Updated 02/11/23 @ 09:47 by Ralph Hector CRNA) Smoking Status: Former smoker alcohol intake: never substance use type: denies use current occupational status: other Travel in the last 8 weeks: None PM Subjective & Objective Subjective Subjective:: Patient is a pleasant 73-year-old female who presents today for her 1 month medication refill. Today she does state her pain is a 4 out of 10. She states overall she still been doing well from her last appointment. She is currently on Jbphh 10 mg 4 times a day, fentanyl patches 50 mcg every 72 hours, ropinirole 0.5 mg at bedtime and tizanidine 4 mg at bedtime. She denies any side effects from this medication. Her Sae has been reviewed and is appropriate. Review of Systems: General: No recent weight changes, no fever, no sleep disturbances Respiratory: No cough, no shortness of air, no recurring pulmonary infections Cardiovascular/peripheral vascular: No chest pain, no palpitations, no edema, no shortness of breath Gastrointestinal: No new onset incontinence, normal bowel movements reported Genitourinary: No new onset incontinence Musculoskeletal: Low back pain Psychiatric: [Normal mood/affect] Neurological: [Denies weakness in extremities], [denies balance issues] Pain at rest (0-10 scale): 4 Objective Objective:: Physical Exam: General: Alert and oriented x3, no acute distress, pleasant and cooperative Lungs: Respirations even and unlabored, symmetrical chest expansion Eyes: PERRL Musculoskeletal: Flexion and extension of lumbar [spine] somewhat guarded secondary to pain, [antalgic gait noted] Neurological: Speech clear, no gross sensory deficit Has patient had previous pain injection?: No Conservative treatment options previously tried: Prescription medications Length of treatment: Longer than 12 weeks Meds Home Medications and Allergies Home Medications ?Medication ?Instructions ?Recorded ?Confirmed ?Type bupropion HCl 75 mg tablet 75 mg PO DIRECTED MOOD 08/26/22 03/15/24 History diazepam 5 mg tablet 5 mg PO DIRECTED Anxiety 08/26/22 03/15/24 History gabapentin 600 mg tablet 600 mg PO DIRECTED Pain 08/26/22 03/15/24 History promethazine 25 mg tablet 25 mg PO DIRECTED Nausea & 08/26/22 03/15/24 History vomiting zolpidem 10 mg tablet 10 mg PO DIRECTED MOOD 08/26/22 03/15/24 History risperidone 0.5 mg tablet 0.5 mg PO DIRECTED MOOD #30 tabs 09/30/23 03/15/24 Rx ropinirole 0.25 mg tablet 0.25 mg PO HS #30 tabs 09/30/23 03/15/24 Rx fentanyl 50 mcg/hr transdermal 1 patch transdermal Q72H #10 ea 03/15/24 Rx patch hydrocodone 10 mg-acetaminophen 1 tab PO QID #120 tabs 03/15/24 Rx 325 mg tablet ropinirole 0.5 mg tablet 0.5 mg PO HS #30 tabs 03/15/24 Rx tizanidine 4 mg tablet (Zanaflex) 4 mg PO HS #30 tabs 03/15/24 Rx New Prescriptions to Start Prescriptions: Allergies Allergy/AdvReac Type Severity Reaction Status Date / Time erythromycin base Allergy Verified 08/26/22 09:08 iodine AdvReac Verified 08/26/22 09:08 Penicillins AdvReac Verified 08/26/22 09:08 Sulfa (Sulfonamide AdvReac Verified 08/26/22 09:08 Antibiotics) tetracycline AdvReac Verified 08/26/22 09:08 tramadol AdvReac Verified 08/26/22 09:08 Assessment and Plan *Assessment and plan (1) Lumbar radiculopathy: Status: Acute Category: Medical Code(s): M54.16 - Radiculopathy, lumbar region (2) Neck pain: Status: Acute Category: Medical Code(s): M54.2 - Cervicalgia (3) Mid back pain: Status: Acute Category: Medical Code(s): M54.9 - Dorsalgia, unspecified (4) Low back pain: Status: Acute Qualifiers: Chronicity: chronic Back pain laterality: bilateral Sciatica presence: without sciatica Qualified Code(s): M54.50 - Low back pain, unspecified; G89.29 - Other chronic pain Category: Medical Code(s): M54.50 - Low back pain, unspecified Plan We will refill her Jbphh and fentanyl and provide a 1 month supply of these medications. I will also make sure that she does have refills on her ropinirole and tizanidine. Patient will return to clinic in 1 month for reevaluation of symptoms and plan of care. Risks and benefits of the medication have been explained in detail to the patient. The patient does understand the risk of dependence on the medication when given over a prolonged period. Patient has been advised of risks of oversedation with the prescribed medication. Narcan has been offered to the paitent in the event of oversedation. Patient has been advised that a family member should also be educated regarding administration of Narcan. The patient has been advised to consult with his/her primary care provider and pharmacist regarding drug-drug interaction of medications currently prescribed. Patient has been prescribed a controlled substance after being counseled on the medication, medication safety, and possible side effects. Opioid contract was reviewed and signed by the patient, and that they have agreed to all of the t erms set forth by our compliance program. Patient has been instructed to contact the clinic with any concerns before the next appointment. Dr. Chicas has reviewed this note and agrees with this plan of care. This note was dictated using voice recognition software and make contain errors or omissions.
[2024-04-12 09:55] VITALS: BP 124/68; PULSE 92; RESP 18; O2SAT 96; BMI 22.1
== END 2024-04-12 23:59 | disposition home or self-care (01) ==
PROVIDERS: PCP Internal Medicine; Visit Provider Nurse Practitioner Family
DX: M54.16 Radiculopathy, lumbar region (principal); M54.2 Cervicalgia; M54.9 Dorsalgia, unspecified; M54.50 Low back pain, unspecified; G89.29 Other chronic pain; Z96.643 Presence of artificial hip joint, bilateral; Z87.891 Personal history of nicotine dependence
CPT/HCPCS: 99212; G0463

== ENCOUNTER 2024-05-21 15:50 | Outpatient (POV) | payer MEDICARE, SELFPAY ==
--- NOTE | 2024-05-21 15:56 | EXP.PAIN.SOA ---
[facility] Disclaimer: The information contained in this section may have been updated after the patient was seen, as this information can be updated by other users. Medical History (Updated 10/27/23 @ 11:32 by Liss Young APRN) Anxiety Cataracts, bilateral Depression Arthritis Osteoporosis GERD (gastroesophageal reflux disease) Anemia Surgical History (Updated 08/26/22 @ 09:04 by Harriet Granados RN) Status post total hip replacement, bilateral History of lumbar fusion H/O gastric bypass History of appendectomy Family History (Updated 08/26/22 @ 09:03 by Harriet Granados RN) Other Cancer Diabetes Hypertension Osteoporosis Rheumatoid arthritis Social History (Updated 02/11/23 @ 09:47 by Ralph Hector CRNA) Smoking Status: Former smoker alcohol intake: never substance use type: denies use current occupational status: retired Travel in the last 8 weeks: None PM Subjective & Objective Subjective Subjective:: Patient is a pleasant 73-year-old female who presents today for telehealth follow-up and medication refill. Today she rates her pain a 3-1/2 out of 10. She denies any new trauma or injury. Patient was scheduled to come into the office for this appointment however due to the weather she states she has not been able to get out. Patient has given verbal consent for this audio appointment and it is occurring at the patient's home. She is currently on Clifton 10 mg 4 times a day, fentanyl patches 50 mcg every 72 hours, ropinirole 0.5 mg at bedtime and tizanidine 4 mg at bedtime. She denies any side effects from this medication. Her Sae has been reviewed and is appropriate. Review of Systems: General: No recent weight changes, no fever, no sleep disturbances Respiratory: No cough, no shortness of air, no recurring pulmonary infections Cardiovascular/peripheral vascular: No chest pain, no palpitations, no edema, no shortness of breath Gastrointestinal: No new onset incontinence, normal bowel movements reported Genitourinary: No new onset incontinence Musculoskeletal: Low back pain Psychiatric: [Normal mood/affect] Neurological: [Denies weakness in extremities], [denies balance issues] Pain at rest (0-10 scale): 4 Objective Objective:: General: Alert and oriented x3, pleasant and cooperative Lungs: Patient is able to say complete sentences without dyspnea Neurological: Speech clear Has patient had previous pain injection?: No Conservative treatment options previously tried: Home exercise plan Length of treatment: Longer than 12 weeks Meds Home Medications and Allergies Home Medications ?Medication ?Instructions ?Recorded ?Confirmed ?Type bupropion HCl 75 mg tablet 75 mg PO DIRECTED MOOD 08/26/22 04/12/24 History diazepam 5 mg tablet 5 mg PO DIRECTED Anxiety 08/26/22 04/12/24 History gabapentin 600 mg tablet 600 mg PO DIRECTED Pain 08/26/22 04/12/24 History promethazine 25 mg tablet 25 mg PO DIRECTED Nausea & 08/26/22 04/12/24 History vomiting zolpidem 10 mg tablet 10 mg PO DIRECTED MOOD 08/26/22 04/12/24 History risperidone 0.5 mg tablet 0.5 mg PO DIRECTED MOOD #30 tabs 09/30/23 04/12/24 Rx ropinirole 0.25 mg tablet 0.25 mg PO HS #30 tabs 09/30/23 04/12/24 Rx ropinirole 0.5 mg tablet 0.5 mg PO HS #30 tabs 03/15/24 04/12/24 Rx tizanidine 4 mg tablet (Zanaflex) 4 mg PO HS #30 tabs 03/15/24 04/12/24 Rx fentanyl 50 mcg/hr transdermal 1 patch transdermal Q72H #10 ea 04/12/24 Rx patch hydrocodone 10 mg-acetaminophen 1 tab PO QID #120 tabs 04/12/24 Rx 325 mg tablet hydrocodone 10 mg-acetaminophen 1 tab PO QID #40 tabs 05/10/24 Rx 325 mg tablet fentanyl 50 mcg/hr transdermal 1 patch transdermal Q72H #3 ea 05/11/24 Rx patch New Prescriptions to Start Prescriptions: Allergies Allergy/AdvReac Type Severity Reaction Status Date / Time erythromycin base Allergy Verified 08/26/22 09:08 iodine AdvReac Verified 08/26/22 09:08 Penicillins AdvReac Verified 08/26/22 09:08 Sulfa (Sulfonamide AdvReac Verified 08/26/22 09:08 Antibiotics) tetracycline AdvReac Verified 08/26/22 09:08 tramadol AdvReac Verified 08/26/22 09:08 Assessment and Plan *Assessment and plan (1) Lumbar radiculopathy: Status: Acute Category: Medical Code(s): M54.16 - Radiculopathy, lumbar region (2) Neck pain: Status: Acute Category: Medical Code(s): M54.2 - Cervicalgia (3) Mid back pain: Status: Acute Category: Medical Code(s): M54.9 - Dorsalgia, unspecified (4) Low back pain: Status: Acute Qualifiers: Chronicity: chronic Back pain laterality: bilateral Sciatica presence: without sciatica Qualified Code(s): M54.50 - Low back pain, unspecified; G89.29 - Other chronic pain Category: Medical Code(s): M54.50 - Low back pain, unspecified Plan I will refill the patient's Clifton and fentanyl patches and confirm that she does have refills on her ropinirole and tizanidine. Patient will return to clinic in 1 month for reevaluation of symptoms and plan of care. This telehealth visit did last from - Risks and benefits of the medication have been explained in detail to the patient. The patient does understand the risk of dependence on the medication when given over a prolonged period. Patient has been advised of risks of oversedation with the prescribed medication. Narcan has been offered to the paitent in the event of oversedation. Patient has been advised that a family member should also be educated regarding administration of Narcan. The patient has been advised to consult with his/her primary care provider and pharmacist regarding drug-drug interaction of medications currently prescribed. Patient has been prescribed a controlled substance after being counseled on the medication, medication safety, and possible side effects. Opioid contract was reviewed and signed by the patient, and that they have agreed to all of the terms set forth by our compliance program. A UDS is needed to verify patient's compliance with our office pain contract. This is ordered based off specific treatments related to chronic pain with the potential to abuse certain medications. Patient has been instructed to contact the clinic with any concerns before the next appointment. Dr. Chicas has reviewed this note and agrees with this plan of care. This note was dictated using voice recognition software and make contain errors or omissions.
== END 2024-05-21 23:59 | disposition home or self-care (01) ==
PROVIDERS: Visit Provider Nurse Practitioner Family
DX: M54.16 Radiculopathy, lumbar region (principal); M54.2 Cervicalgia; M54.9 Dorsalgia, unspecified; M54.50 Low back pain, unspecified; G89.29 Other chronic pain; Z96.643 Presence of artificial hip joint, bilateral
CPT/HCPCS: 99212; G0463

== ENCOUNTER 2024-06-21 13:06 | Outpatient (POV) | payer MEDICARE, SELFPAY ==
--- NOTE | 2024-06-21 13:11 | A.OFFVIS_ITS ---
[facility] Disclaimer: The information contained in this section may have been updated after the patient was seen, as this information can be updated by other users. Medical History (Updated 06/21/24 @ 13:25 by Liss Young APRN) Anxiety Cataracts, bilateral Depression Arthritis Osteoporosis GERD (gastroesophageal reflux disease) Anemia Surgical History (Updated 08/26/22 @ 09:04 by Harriet Granados RN) Status post total hip replacement, bilateral History of lumbar fusion H/O gastric bypass History of appendectomy Family History (Updated 08/26/22 @ 09:03 by Harriet Granados RN) Other Cancer Diabetes Hypertension Osteoporosis Rheumatoid arthritis Social History (Updated 02/11/23 @ 09:47 by Ralph Hector CRNA) Smoking Status: Former smoker alcohol intake: never substance use type: denies use current occupational status: retired Travel in the last 8 weeks: None PM Subjective & Objective Subjective Subjective:: Patient is a pleasant 73-year-old female who presents today for medication refill. Today she rates her pain a 3 out of 10. Patient does state from her last appointment she is doing a little bit better. Patient had ended up being under the weather with strep and ended up having to be put on antibiotics. She does state overall her back is doing better however she did have a fall where she landed on her right knee which aggravated this pain. Patient has had problems in this joint area in the past however the fall really made it worse. Patient does state that pain is at least a 5 out of 10. Patient denies any prior replacement in this joint. Patient is doing home health physical therapy and states this does seem to be helping a little. She is currently on [place]wood 10 mg 4 times a day, fentanyl patches 50 mcg every 72 hours, ropinirole 0.5 mg at bedtime and tizanidine 4 mg at bedtime. She denies any side effects from this medication. Her Sae has been reviewed and is appropriate. Review of Systems: General: No recent weight changes, no fever, no sleep disturbances Respiratory: No cough, no shortness of air, no recurring pulmonary infections Cardiovascular/peripheral vascular: No chest pain, no palpitations, no edema, no shortness of breath Gastrointestinal: No new onset incontinence, normal bowel movements reported Genitourinary: No new onset incontinence Musculoskeletal: Right knee pain Psychiatric: [Normal mood/affect] Neurological: [Denies weakness in extremities], [denies balance issues] Pain at rest (0-10 scale): 5 Objective Objective:: Physical Exam: General: Alert and oriented x3, no acute distress, pleasant and cooperative Lungs: Respirations even and unlabored, symmetrical chest expansion Eyes: PERRL Musculoskeletal: Flexion and extension of right knee somewhat guarded secondary to pain, [antalgic gait noted] Neurological: Speech clear, no gross sensory deficit Has patient had previous pain injection?: No Conservative treatment options previously tried: Physical Therapy Length of treatment: Ongoing home health physical therapy and Prescription medications Length of treatment: Longer than 12 weeks Meds Home Medications and Allergies Home Medications ?Medication ?Instructions ?Recorded ?Confirmed ?Type bupropion HCl 75 mg tablet 75 mg PO DIRECTED MOOD 08/26/22 04/12/24 History diazepam 5 mg tablet 5 mg PO DIRECTED Anxiety 08/26/22 04/12/24 History gabapentin 600 mg tablet 600 mg PO DIRECTED Pain 08/26/22 04/12/24 History promethazine 25 mg tablet 25 mg PO DIRECTED Nausea & 08/26/22 04/12/24 History vomiting zolpidem 10 mg tablet 10 mg PO DIRECTED MOOD 08/26/22 04/12/24 History risperidone 0.5 mg tablet 0.5 mg PO DIRECTED MOOD #30 tabs 09/30/23 04/12/24 Rx ropinirole 0.25 mg tablet 0.25 mg PO HS #30 tabs 09/30/23 04/12/24 Rx ropinirole 0.5 mg tablet 0.5 mg PO HS #30 tabs 03/15/24 04/12/24 Rx tizanidine 4 mg tablet (Zanaflex) 4 mg PO HS #30 tabs 03/15/24 04/12/24 Rx hydrocodone 10 mg-acetaminophen 1 tab PO QID #40 tabs 05/10/24 Rx 325 mg tablet fentanyl 50 mcg/hr transdermal 1 patch transdermal Q72H #3 ea 05/11/24 Rx patch fentanyl 50 mcg/hr transdermal 1 patch transdermal Q72H #10 ea 05/21/24 Rx patch hydrocodone 10 mg-acetaminophen 1 tab PO QID #120 tabs 05/21/24 Rx 325 mg tablet New Prescriptions to Start Prescriptions: Allergies Allergy/AdvReac Type Severity Reaction Status Date / Time erythromycin base Allergy Verified 08/26/22 09:08 iodine AdvReac Verified 08/26/22 09:08 Penicillins AdvReac Verified 08/26/22 09:08 Sulfa (Sulfonamide AdvReac Verified 08/26/22 09:08 Antibiotics) tetracycline AdvReac Verified 08/26/22 09:08 tramadol AdvReac Verified 08/26/22 09:08 Assessment and Plan *Assessment and plan (1) Low back pain: Status: Acute Qualifiers: Back pain laterality: bilateral Chronicity: chronic Sciatica presence: without sciatica Qualified Code(s): M54.50 - Low back pain, unspecified; G89.29 - Other chronic pain Category: Medical Code(s): M54.50 - Low back pain, unspecified (2) Mid back pain: Status: Acute Category: Medical Code(s): M54.9 - Dorsalgia, unspecified (3) Neck pain: Status: Acute Category: Medical Code(s): M54.2 - Cervicalgia (4) Lumbar radiculopathy: Status: Acute Category: Medical Code(s): M54.16 - Radiculopathy, lumbar region (5) Chronic pain of right knee: Status: Acute Category: Medical Code(s): M25.561 - Pain in right knee; G89.29 - Other chronic pain Plan Patient is experiencing worsening pain in her right knee with limited range of motion. Patient did have a recent fall that really aggravated some of those symptoms. I did discuss with the patient that she may benefit from a right knee intra-articular injection. Risk and benefits were discussed with patient and she would like to proceed forward with this plan of care. Patient has tried and failed conservative therapy including ongoing home health with physical therapy and continued at home stretching exercise for longer than 12 weeks. Patient will be scheduled for a right knee intra-articular injection and we will plan on doing this on the same day of her next medication refill in 1 month. Patient agrees with this plan of care. I will refill her medications today including the fentanyl patches, Larchwood tizanidine and ropinirole. Risks and benefits of the medication have been explained in detail to the patient. The patient does understand the risk of dependence on the medication when given over a prolonged period. Patient has been advised of risks of oversedation with the prescribed medication. Narcan has been offered to the paitent in the event of oversedation. Patient has been advised that a family member should also be educated regarding administration of Narcan. The patient has been advised to consult with his/her primary care provider and pharmacist regarding drug-drug interaction of medications currently prescribed. Patient has been prescribed a controlled substance after being counseled on the medication, medication safety, and possible side effects. Opioid contract was reviewed and signed by the patient, and that they have agreed to all of the terms set forth by our compliance program. A UDS is needed to verify patient's compliance with our office pain contract. This is ordered based off specific treatments related to chronic pain with the potential to abuse certain medications. Patient has been instructed to contact the clinic with any concerns before the next appointment. Dr. Chicas has reviewed this note and agrees with this plan of care. This note was dictated using voice recognition software and make contain errors or omissions.
[2024-06-21 13:49] VITALS: BP 110/73; PULSE 99; RESP 18; O2SAT 98; BMI 21.9
== END 2024-06-21 23:59 | disposition home or self-care (01) ==
PROVIDERS: PCP Internal Medicine; Visit Provider Nurse Practitioner Family
DX: M54.50 Low back pain, unspecified (principal); G89.29 Other chronic pain; M54.9 Dorsalgia, unspecified; M54.2 Cervicalgia; M54.16 Radiculopathy, lumbar region; M25.561 Pain in right knee; Z96.643 Presence of artificial hip joint, bilateral; Z87.891 Personal history of nicotine dependence
CPT/HCPCS: 99212; G0463

== ENCOUNTER → 2024-07-17 13:07 | Day surgery (SDC) | payer MEDICARE, SELFPAY ==
[2024-07-17 13:33] VITALS: BP 136/59; PULSE 95; RESP 16; TEMP 36.4; O2SAT 97; BMI 22.8
--- NOTE | 2025-05-28 12:04 | P.PCN_ITS ---
Procedure Date: 07/17/24 Time: 10:00 Anesthesiologist:: Denton Hector CRNA Complications:: None Pre-procedure Diagnosis:: DJD right knee. Chronic right knee pain. Post-procedure Diagnosis:: Same. Indications for Procedure:: Patient is a 74-year-old female who comes to clinic today for a right intra- articular knee injection cortisone local anesthetic. However, after a short discussion with the patient she is not interested in having injection today. She reports her right knee pain has been better over the last week. She wants to hold off at this time. She will return as needed. Procedure Details:: No injection Plan and Disposition:: Patient was discharged without incident.
== END | disposition home or self-care (01) ==
LOC: SC.PAINP 13:09 → SC.PAIN 13:35
PROVIDERS: PCP Internal Medicine; Visit Provider Nurse Anesthetist, Certified Registered
DX: M25.561 Pain in right knee (principal); G89.29 Other chronic pain
CPT/HCPCS: 99212; G0463

== ENCOUNTER 2024-08-15 10:48 | Outpatient (POV) | payer MEDICARE, SELFPAY ==
--- OUTSIDE RECORDS SUMMARY | 2024-08-15 10:53 | XMS_ITS ---
Care Plan - [facility], [facility] Created on: August 15, 2024 Junie Phillips .0 : 1950 Sex: Female Author Organization [facility], [facility] Address [address] [place] [address] Phone Care Team Providers Care Vaccine Key Customer Leader Name Role Phone Cole POTTS, Jasson Unavailable [phone] Frandy POTTS, Tam Unavailable Unavailable
--- OUTSIDE RECORDS SUMMARY | 2024-08-15 10:53 | XMS_ITS | Clinical Summary ---
Author Organization [facility] , [facility] Address [address] [place] [address] Phone Care Team Providers Care Radio Talk Show Host Name Role Phone Cole POTTS, Jasson Unavailable [phone] Frandy POTTS, Tam Unavailable [phone] Reason for Visit and Chief Complaint Post Op Problems Includes: Problems addressed during this encounter and other active Problems All Visits Onset Date Resolved Date Provider Condition S tatus History of Joint Pain in the Left Hip 03/23/2022 Kei Donovan MD Active Last Documented On 2 10:33AM ; [facility] Low Back Pain 08/29/2018 Tam Wise MD Act yennifer Last Documented On 9 8:59AM ; [facility], [facility] Plan of Treatment No Plan of Treatment Recorded Assessments Includes: Assessments from this encounter No Assessments Recorded Medical Equipment - Implanted Devices Includes: Current Devices No Medical Equipment Recorded Medications Includes: Medications discussed during this encounter and other current Medications Current Medications (continue as prescribed) busPIRone HCl 15 MG Oral Tablet 05/25/2022 Provider: ÓSCAR MARTINEZ MD Diagnosis: Last Documented On 3 9:01AM By Jenn Kwok ; [facility], [facility] fentaNYL 75 MCG/HR Transderm al Patch 72 Hour 04/29/2022 Provider: Alejo Whitfield MD Diagnosis: Last Documented On 3 8:32AM By Sara Fajardo ; [facility], [facility] diazePAM 5 MG Oral Tablet 04/29/2022 Provider: ADILIA MARTINEZ MD Diagnosis: Last Documented On 3 8:31AM By Sara Fajardo ; [facility] HYDROcodone-Acetaminophen 10 -325 MG Oral Tablet 04/29/2022 Provider: Alejo Whitfield MD Diagnosis: Last Documented On 3 8:32AM By Sara Fajardo ; [facility] Gabapentin 600 MG Oral Tablet 04/29/2022 Provider: ÓSCAR MARTINEZ MD Diagnosis: Last Documented On 3 8:32AM By Sara Fajardo ; [facility] Fmywfaew-Vmivoottg-Dvsihsse 3.5-67234-1.1 Ophtha lmic Ointment 04/28/2022 Provider: Diagnosis: Last Documented On 3 8:32AM By Sara Fajardo ; [facility] Zolpidem Tartrate 10 MG Oral Tablet 04/28/2022 Provi monica: ÓSCAR MARTINEZ MD Diagnosis: Last Documented On 3 8:32AM By Sara Fajardo ; [facility] Promethazine HCl 25 MG Oral Tablet 04/28/2022 Provid er: ÓSCAR MARTINEZ MD Diagnosis: Last Documented On 3 8:32AM By Sara Fajardo ; [facility] risperiDONE 0.5 MG Oral Tablet 02/26/2022 Provider: ÓSCAR MARTINEZ MD Diagnosis: Last Documented On 3 8:32AM By Sara Fajardo ; [facility] Medications Administered Includes: Administered Medications from this encounter No Administered Medications Recorded Results Includes: Results discussed during this encounter No Results Recorded For Specified Dates History of Present Illness Includes: History of Present Illness from this encounter No History of Present Illness Recorded Social History No Social History Recorded - Smoking Status Unknown Medical History Includes: Medical History addressed during this encounter No Medical History Recorded Family History Includes: Family History addressed during this encounter No Family History Recorded Review of Systems Includes: Review of Systems from this encounter No Review of Systems Recorded Mental Status Includes: Mental Status from this encounter No Mental Status Recorded Functional Status Includes: Functional Status from this encounter No Functional Status Recorded Physical Exam Includes: Physical Exam from this encounter No Physical Exam Recorded Allergies Includes: Active Allergies Substance Type Reaction Onset Date Resolved Date Statu s traMADol HCl Allergy Nausea, Vomiting , Diarrhea / Diarrheal disorder 11/24/2020 Active Last Documented On 3 9:22AM ; [facility] Tetracycline Allergy 11/24/2020 Active Last Documented On 3 9:22AM ; [facility] Sulfa Antibiotics Allergy Nausea, Vomiti ng, Diarrhea / Diarrheal disorder 11/24/2020 Active Last Documented On 3 9:22AM ; [facility] Penicillins Allergy Nausea, Vomiting , Diarrhea / Diarrheal disorder 11/24/2020 Active Last Documented On 3 9:22AM ; [facility] IODINE Allergy 11/24/2020 Active Last Documented On 3 9:22AM ; [facility] Erythromycin Allergy 11/24/2020 Active Last Documented On 3 9:22AM ; [facility] Insurance Includes: Active Insurance Policies Plan Name Member ID Group # Subscriber Relationship Effect yennifer Dates 1 - Medicare Part B [facility] [id number] Junie W Jacqueline Self 12/01/2011 - Unknown 2 - [facility] CLAIM[facility] [id number] Junie Phillips Self 6 - Unknown Clinical Notes Includes: Clinical Notes from this encounter No Clinical Notes Recorded
--- OUTSIDE RECORDS SUMMARY | 2024-08-15 10:53 | XMS_ITS | Clinical Summary ---
Author Organization [facility] , [facility] Address [address] [place] [address] Phone Care Team Providers Care Energy Manager Name Role Phone Cole POTTS, Jasson Unavailable [phone] Frandy POTTS, Tam Unavailable [phone] Reason for Visit and Chief Complaint [Patient Encounter] Problems Includes: Problems addressed during this encounter and other active Problems All Visits Onset Date Resolved Date Provider Condition S tatus History of Joint Pain in the Left Hip 03/23/2022 Kei Donovan MD Active Last Documented On 2 10:33AM ; [facility], [facility] Low Back Pain 08/29/2018 Tam Wise MD Act yennifer Last Documented On 9 8:59AM ; [facility], [facility] Plan of Treatment No Plan of Treatment [...] On 3 9:01AM By Jenn Kwok ; [facility], [facility] fentaNYL 75 MCG/HR Transderm al Patch 72 Hour 04/29/2022 Provider: Alejo Whitfield MD Diagnosis: Last Documented On 3 8:32AM By Sara Fajardo ; [facility], [facility] diazePAM 5 MG Oral Tablet 04/29/2022 Provider: ADILIA MARTINEZ MD Diagnosis: Last Documented On 3 8:31AM By Sara Fajardo ; [facility] HYDROcodone-Acetaminophen 10 -325 MG Oral Tablet 04/29/2022 Provider: Alejo Whitfield MD Diagnosis: Last Documented On 3 8:32AM By Sara Fajardo ; [facility] Gabapentin 600 MG Oral Tablet 04/29/2022 Provider: ÓSCAR MARTINEZ MD Diagnosis: Last Documented On 3 8:32AM By Sara Fajardo ; [facility] Iogbajuy-Obxnumkun-Nbjspuhx 3.5-80201-3.1 Ophtha lmic Ointment 04/28/2022 Provider: Diagnosis: Last Documented On 3 8:32AM By Sara Fajardo ; [facility] Zolpidem Tartrate 10 MG Oral Tablet 04/28/2022 Provi monica: ÓSCAR MARTINEZ MD Diagnosis: Last Documented On 3 8:32AM By Sara Fajardo ; [facility] Promethazine HCl 25 MG Oral Tablet 04/28/2022 Provid er: ÓSCAR MARTINEZ MD Diagnosis: Last Documented On 3 8:32AM By Sara Fajardo ; [facility] risperiDONE 0.5 MG Oral Tablet 02/26/2022 Provider: ÓSCAR MARTINEZ MD Diagnosis: Last Documented On 3 8:32AM By Sara Fajardo ; [facility], [facility] Medications Administered Includes: Administered Medications from this [...] On 3 9:22AM ; [facility] Encounters Encounter Provider Location Date Check-In Time Check-Out Time Diagnosis [Patient Encounter] Kei Donovan MD 07/21/2022 12:59PM 11:59PM Insurance Includes: Active Insurance Policies Plan Name Member ID Group # Subscriber Relationship Effect yennifer Dates 1 - Medicare Part B [facility] [id number] Junie Phillips Self 12/01/2011 - Unknown 2 - [facility] CLAIMS DIVISION [id number] Junie Phillips Self 6 - Unknown Clinical Notes Includes: Clinical Notes from this encounter No Clinical Notes Recorded
--- OUTSIDE RECORDS SUMMARY | 2024-08-15 10:53 | XMS_ITS | Clinical Summary ---
Author Organization [facility] , [facility] Address [address] [place] [address] Phone Care Team Providers Care Mail Carrier Name Role Phone Cole POTTS, Jasson Unavailable [phone] Frandy POTTS, Nikko Unavailable [phone] Reason for Visit and Chief Complaint The Chief Complaint is: Left Hip Pain Problems Includes: Problems addressed during this encounter and other active Problems All Visits Onset Date Resolved Date Provider Condition S tatus History of Joint Pain in the Left Hip 03/23/2022 Kei Donovan MD Active Last Documented On 2 10:33AM ; [facility] Low Back Pain 08/29/2018 Nikko Franks MD Act yennifer Last Documented On 9 8:59AM ; [facility] Plan of Treatment Fall Risk Assessment: This [...] - Last Documented On 11/01/2022 10:20AM ; [facility] Overall, they are doing well post operatively. We discussed activity progression and reviewed dental precautions. They will continue to work on stretches and exercises on their own at home. We will plan to follow-up with them in 7 months with an x-ray on arrival at the 1 year anniversary from surgery. All of the patient's questions were answered to their satisfaction. They will call our office with any additional questions or concerns. They are comfortable with the plan. - Last Documented On 11/01/2022 10:20AM ; [facility] Assessments Includes: Assessments from this encounter No Assessments Recorded Medical Equipment - Implanted Devices Includes: Current Devices No Medical Equipment Recorded Medications Includes: Medications discussed during this encounter and other current Medications Current Medications (continue as prescribed) busPIRone HCl 15 MG Oral Tablet 05/25/2022 Provider: ÓSCAR MARTINEZ MD Diagnosis: Last Documented On 3 9:01AM By Jenn Kwok ; [facility], [facility] fentaNYL 75 MCG/HR Transderm al Patch 72 Hour 04/29/2022 Provider: Alejo Whitfield MD Diagnosis: Last Documented On 3 8:32AM By Sara Fajardo ; [facility], [facility] diazePAM 5 MG Oral Tablet 04/29/2022 Provider: ADILIA MARTINEZ MD Diagnosis: Last Documented On 3 8:31AM By Sara Fajardo ; [facility], [facility] HYDROcodone-Acetaminophen 10 -325 MG Oral Tablet 04/29/2022 Provider: Alejo Whitfield MD Diagnosis: Last Documented On 3 8:32AM By Sara Fajardo ; [facility], [facility] Gabapentin 600 MG Oral Tablet 04/29/2022 Provider: ÓSCAR MARTINEZ MD Diagnosis: Last Documented On 3 8:32AM By Sara Fajardo ; [facility], [facility] Aajssyhm-Welxhzxgf-Aoubiffh [id number] Ophtha lmic Ointment 04/28/2022 Provider: Diagnosis: Last Documented On 3 8:32AM By Sara Fajardo ; [facility], [facility] Zolpidem Tartrate 10 MG Oral Tablet 04/28/2022 Provi monica: ÓSCAR MARTINEZ MD Diagnosis: Last Documented On 3 8:32AM By Sara Fajardo ; [facility], [facility] Promethazine HCl 25 MG Oral Tablet 04/28/2022 Provid er: ÓSCAR MARTINEZ MD Diagnosis: Last Documented On 3 8:32AM By Sara Fajardo ; [facility] risperiDONE 0.5 MG Oral Tablet 02/26/2022 Provider: ÓSCAR MARTINEZ MD Diagnosis: Last Documented On 3 8:32AM By Sara Fajardo ; [facility] Past Medications on file Clindamycin HCl 300 MG Oral Capsule 06/14/2022 - 06/17/2022 Provider: Kei edward MD Diagnosis: twice a day Last Documented On 3 2:06PM By Dr. Donovan ; [facility] oxyCODONE HCl 5 MG Oral Tablet 06/14/2022 - 06/21/2022 Provider: Kei edward MD Diagnosis: 1-2 po q 4-6h prn pain Last Documented On 3 1:51PM By Dr. Donovan ; [facility] Ondansetron HCl 4 MG Oral Tablet 06/14/2022 - 06/18/2022 Provider: Kei edward MD Diagnosis: 1 po q 6h prn nausea Last Documented On 3 1:51PM By Dr. Donovan ; [facility] Meloxicam 15 MG Oral Tablet 06/14/2022 - 06/28/2022 Pr ovider: Kei Donovan MD Diagnosis: once a day Last Documented On 3 1:51PM By Dr. Donovan ; [facility] Colace 100 MG Oral Capsule 06/14/2022 - 09/12/2022 Pro vider: Kei Donovan MD Diagnosis: 1-2 tabs daily Last Documented On 3 1:51PM By Dr. Donovan ; [facility] Aspirin Adult Low Dose 81 MG Oral Tablet Delayed Release 06/14/2022 - 07/26/2022 Provider: Kei Donovan MD Diagnosis: twice a day Last Documented On 3 1:35PM By Dr. Donovan ; [facility] Acetaminophen 500 MG Oral Tablet 06/14/2022 - 07/14/2022 Provider: Kei edward MD Diagnosis: take as directed; take 2 tablets three times a d ay Last Documented On 3 1:35PM By Dr. Donovan ; [facility] HYDROcodone-Acetaminophen 10 -325 MG Oral Tablet 03/10/2022 - 04/09/2022 Provider: Nikko Franks MD Diagnosis: four times a day May fill ea rly as I am away next week, contact my office to make sure that they have referred you to a pain clinic as I will be leaving medicine next week Last Documented On 2 10:53AM By Dr. Franks ; [facility] fentaNYL 75 MCG/HR Transderm al Patch 72 Hour 03/10/2022 - 04/09/2022 Provider: Nikko Franks MD Diagnosis: take as directed- one patch q 3 days may fill early as I am out next week. Last Documented On 2 10:53AM By Dr. Franks ; [facility] HYDROcodone-Acetaminophen 10 -325 MG Oral Tablet 02/22/2022 - 03/24/2022 Provider: Nikko Franks MD Diagnosis: four times a day May fill early as I am away nex t week Last Documented On 2 3:51PM By Dr. Franks ; [facility] fentaNYL 75 MCG/HR Transderm al Patch 72 Hour 02/22/2022 - 03/24/2022 Provider: Nikko Franks MD Diagnosis: take as directed- one patch q 3 days may fill early as I am out next week. Last Documented On 2 3:51PM By Dr. Franks ; [facility] HYDROcodone-Acetaminophen 10 -325 MG Oral Tablet 02/03/2022 - 03/05/2022 Provider: Nikko Franks MD Diagnosis: four times a day Last Documented On 2 3:47PM By Dr. Franks ; [facility] fentaNYL 75 MCG/HR Transderm al Patch 72 Hour 02/03/2022 - 03/05/2022 Provider: Nikko Franks MD Diagnosis: take as directed- one patch q 3 days Last Documented On 2 3:47PM By Dr. Franks ; [facility] fentaNYL 75 MCG/HR Transderm al Patch 72 Hour 01/06/2022 - 02/05/2022 Provider: Nikko Franks MD Diagnosis: take as directed- one patch q 3 days Last Documented On 2 12:40PM By Dr. Franks ; [facility] HYDROcodone-Acetaminophen 10 -325 MG Oral Tablet 01/06/2022 - 02/05/2022 Provider: Nikko Franks MD Diagnosis: four times a day Last Documented On 2 12:40PM By Dr. Franks ; [facility] HYDROcodone-Acetaminophen 10 -325 MG Oral Tablet 12/10/2021 - 01/09/2022 Provider: Nikko Franks MD Diagnosis: four times a day Last Documented On 2 4:41PM By Dr. Franks ; [facility] fentaNYL 75 MCG/HR Transderm al Patch 72 Hour 12/07/2021 - 01/06/2022 Provider: Nikko Franks MD Diagnosis: take as directed- one patch q 3 days Last Documented On 2 12:13PM By Dr. Franks ; [facility] HYDROcodone-Acetaminophen 10 -325 MG Oral Tablet 11/12/2021 - 12/12/2021 Provider: Nikko Franks MD Diagnosis: four times a day Last Documented On 2 2:27PM By Dr. Franks ; [facility] fentaNYL 75 MCG/HR Transderm al Patch 72 Hour 11/06/2021 - 12/06/2021 Provider: Nikko Franks MD Diagnosis: take as directed- one patch q 3 days Last Documented On 2 1:18PM By Dr. Franks ; [facility] HYDROcodone-Acetaminophen 10 -325 MG Oral Tablet 10/15/2021 - 11/14/2021 Provider: Nikko Franks MD Diagnosis: four times a day Last Documented On 2 9:08AM By Dr. Franks ; [facility] fentaNYL 75 MCG/HR Transderm al Patch 72 Hour 10/09/2021 - 11/08/2021 Provider: Nikko Franks MD Diagnosis: take as directed- one patch q 3 days Last Documented On 2 12:52PM By Dr. Franks ; [facility] HYDROcodone-Acetaminophen 10 -325 MG Oral Tablet 09/17/2021 - 10/17/2021 Provider: Nikko Franks MD Diagnosis: four times a day Last Documented On 2 1:35PM By Dr. Franks ; [facility] fentaNYL 75 MCG/HR Transderm al Patch 72 Hour 09/10/2021 - 10/10/2021 Provider: Nikko Franks MD Diagnosis: take as directed- one patch q 3 days Last Documented On 2 1:02PM By Dr. Franks ; [facility] HYDROcodone-Acetaminophen 10 -325 MG Oral Tablet 08/17/2021 - 09/16/2021 Provider: Nikko Franks MD Diagnosis: four times a day Last Documented On 2 10:16AM By Dr. Franks ; [facility] fentaNYL 75 MCG/HR Transderm al Patch 72 Hour 08/12/2021 - 09/11/2021 Provider: Nikko Franks MD Diagnosis: take as directed- one patch q 3 days Last Documented On 2 8:40AM By Dr. Franks ; [facility] fentaNYL 75 MCG/HR Transderm al Patch 72 Hour 07/13/2021 - 08/12/2021 Provider: Nikko Franks MD Diagnosis: take as directed- one patch q 3 days Last Documented On 2 8:07AM By Dr. Franks ; [facility] HYDROcodone-Acetaminophen 10 -325 MG Oral Tablet 07/13/2021 - 08/12/2021 Provider: Nikko Franks MD Diagnosis: four times a day Last Documented On 2 8:07AM By Dr. Franks ; [facility] HYDROcodone-Acetaminophen 10 -325 MG Oral Tablet 06/19/2021 - 07/19/2021 Provider: Nikko Franks MD Diagnosis: four times a day Last Documented On 2 11:03AM By Dr. Franks ; [facility] fentaNYL 75 MCG/HR Transderm al Patch 72 Hour 06/10/2021 - 07/10/2021 Provider: Nikko Franks MD Diagnosis: take as directed- one patch q 3 days Last Documented On 2 8:40AM By Dr. Franks ; [facility] HYDROcodone-Acetaminophen 10 -325 MG Oral Tablet 05/21/2021 - 06/20/2021 Provider: Nikko Franks MD Diagnosis: four times a day Last Documented On 2 4:29PM By Dr. Franks ; [facility] fentaNYL 75 MCG/HR Transderm al Patch 72 Hour 05/11/2021 - 06/10/2021 Provider: Nikko Franks MD Diagnosis: take as directed- one patch q 3 days Last Documented On 2 11:03AM By Dr. Franks ; [facility] HYDROcodone-Acetaminophen 10 -325 MG Oral Tablet 04/21/2021 - 05/21/2021 Provider: Nikko Franks MD Diagnosis: four times a day Last Documented On 1 1:01PM By Dr. Franks ; [facility] fentaNYL 75 MCG/HR Transderm al Patch 72 Hour 04/09/2021 - 05/09/2021 Provider: Nikko Franks MD Diagnosis: take as directed- one patch q 3 days Last Documented On 1 12:40PM By Dr. Franks ; [facility] fentaNYL 75 MCG/HR Transderm al Patch 72 Hour 03/12/2021 - 04/11/2021 Provider: Nikko Franks MD Diagnosis: take as directed- one patch q 3 days Last Documented On 1 8:12AM By Dr. Franks ; [facility] HYDROcodone-Acetaminophen 10 -325 MG Oral Tablet 03/11/2021 - 04/10/2021 Provider: Nikko Franks MD Diagnosis: four times a day Last Documented On 1 8:10AM By Dr. Franks ; [facility] HYDROcodone-Acetaminophen 10 -325 MG Oral Tablet 02/24/2021 - 03/26/2021 Provider: Nikko Franks MD Diagnosis: four times a day Last Documented On 1 1:03PM By Dr. Franks ; [facility] fentaNYL 75 MCG/HR Transderm al Patch 72 Hour 02/11/2021 - 03/13/2021 Provider: Nikko Franks MD Diagnosis: take as directed- one patch q 3 days Last Documented On 12:32PM By Dr. Franks ; [facility] HYDROcodone-Acetaminophen 10 -325 MG Oral Tablet 01/26/2021 - 02/25/2021 Provider: Nikko Franks MD Diagnosis: four times a day Last Documented On 1 1:09PM By Dr. Franks ; [facility] fentaNYL 75 MCG/HR Transderm al Patch 72 Hour 01/09/2021 - 02/08/2021 Provider: Nikko Franks MD Diagnosis: take as directed- one patch q 3 days Last Documented On 1 10:42AM By Dr. Franks ; [facility] fentaNYL 75 MCG/HR Transderm al Patch 72 Hour 12/12/2020 - 01/11/2021 Provider: Nikko Franks MD Diagnosis: take as directed- one patch q 3 days Last Documented On 1:44PM By Dr. Franks ; [facility] HYDROcodone-Acetaminophen 10 -325 MG Oral Tablet 12/12/2020 - 01/11/2021 Provider: Nikko Franks MD Diagnosis: four times a day Last Documented On 1:44PM By Dr. Franks ; [facility] Promethazine HCl 25 MG Oral Tablet 11/24/2020 - 02/22/2021 Provider: ÓSCAR James Diagnosis: Last Documented On 3:20PM By Nikky Barber ; [facility] fentaNYL 75 MCG/HR Transderm al Patch 72 Hour 11/12/2020 - 12/12/2020 Provider: Nikko Franks MD Diagnosis: take as directed- one patch q 3 days Last Documented On 12:54PM By Dr. Franks ; [facility] HYDROcodone-Acetaminophen 10 -325 MG Oral Tablet 11/12/2020 - 12/12/2020 Provider: Nikko Franks MD Diagnosis: four times a day Last Documented On 12:54PM By Dr. Franks ; [facility] fentaNYL 75 MCG/HR Transderm al Patch 72 Hour 10/13/2020 - 11/12/2020 Provider: Nikko Franks MD Diagnosis: take as directed- one patch q 3 days Last Documented On 1 6:29AM By Dr. Franks ; [facility] HYDROcodone-Acetaminophen 10 -325 MG Oral Tablet 10/13/2020 - 11/12/2020 Provider: Nikko Franks MD Diagnosis: four times a day Last Documented On 12:47PM By Dr. Franks ; [facility] HYDROcodone-Acetaminophen 10 -325 MG Oral Tablet 09/11/2020 - 10/11/2020 Provider: Nikko Franks MD Diagnosis: four times a day Last Documented On 8:16AM By Dr. Franks ; [facility] fentaNYL 75 MCG/HR Transderm al Patch 72 Hour 09/11/2020 - 10/11/2020 Provider: Nikko Franks MD Diagnosis: take as directed- one patch q 3 days Last Documented On 8:16AM By Dr. Franks ; [facility] fentaNYL 75 MCG/HR Transderm al Patch 72 Hour 08/13/2020 - 09/12/2020 Provider: Nikko Franks MD Diagnosis: take as directed- one patch q 3 days Last Documented On 8:34AM By Dr. Franks ; [facility] HYDROcodone-Acetaminophen 10 -325 MG Oral Tablet 08/13/2020 - 09/12/2020 Provider: Nikko Franks MD Diagnosis: four times a day Last Documented On 8:34AM By Dr. Franks ; [facility] fentaNYL 75 MCG/HR Transderm al Patch 72 Hour 07/14/2020 - 08/13/2020 Provider: Nikko Franks MD Diagnosis: take as directed- one patch q 3 days Last Documented On 8:32AM By Dr. Franks ; [facility] HYDROcodone-Acetaminophen 10 -325 MG Oral Tablet 07/14/2020 - 08/13/2020 Provider: Nikko Franks MD Diagnosis: four times a day Last Documented On 8:32AM By Dr. Franks ; [facility] HYDROcodone-Acetaminophen 10 -325 MG Oral Tablet 06/16/2020 - 07/16/2020 Provider: Nikko Franks MD Diagnosis: four times a day Last Documented On 1 11:53AM By Dr. Franks ; [facility] fentaNYL 75 MCG/HR Transderm al Patch 72 Hour 06/16/2020 - 07/16/2020 Provider: Nikko Franks MD Diagnosis: take as directed- one patch q 3 days Last Documented On 1 11:53AM By Dr. Franks ; [facility] fentaNYL 75 MCG/HR Transderm al Patch 72 Hour 05/16/2020 - 06/15/2020 Provider: Nikko Franks MD Diagnosis: take as directed- one patch q 3 days Last Documented On 1 10:56AM By Dr. Franks ; [facility] Sandwich 10-325 MG Oral Tablet 05/15/2020 - 06/14/2020 Pr ovider: Nikko Franks MD Diagnosis: four times a day Last Documented On 1 8:47AM By Dr. Franks ; [facility] fentaNYL 75 MCG/HR Transderm al Patch 72 Hour 04/16/2020 - 05/16/2020 Provider: Nikko Franks MD Diagnosis: take as directed 1 patch q 3 days Last Documented On 0 8:52AM By Dr. Franks ; [facility] Sandwich 10-325 MG Oral Tablet 04/14/2020 - 05/14/2020 Pr ovider: Nikko Franks MD Diagnosis: 1 po qid prn for chronic pain Last Documented On 0 5:11PM By Dr. Franks ; [facility] fentaNYL 75 MCG/HR Transderm al Patch 72 Hour 03/03/2020 - 04/02/2020 Provider: Nikko Franks MD Diagnosis: take as directed 1 patch q 3 days Last Documented On 0 1:19PM By Marjan Glass ; [facility] fentaNYL 75 MCG/HR Transderm al Patch 72 Hour 03/03/2020 - 04/02/2020 Provider: Nikko Franks MD Diagnosis: take as directed 1 patch q 3 days Last Documented On 0 1:23PM By Dr. Franks ; [facility] Sandwich 10-325 MG Oral Tablet 03/03/2020 - 04/02/2020 Pr ovider: Nikko Franks MD Diagnosis: 1 po qid prn for chronic pain Last Documented On 0 1:19PM By Marjan Glass ; [facility] Sandwich 10-325 MG Oral Tablet 02/15/2020 - 03/16/2020 Pr ovider: Nikko Franks MD Diagnosis: 1 po qid prn for chronic pain Last Documented On 0 2:09PM By Dr. Franks ; [facility] fentaNYL 75 MCG/HR Transderm al Patch 72 Hour 02/15/2020 - 03/16/2020 Provider: Nikko Franks MD Diagnosis: take as directed 1 patch q 3 days Last Documented On 0 2:09PM By Dr. Franks ; [facility] Sandwich 10-325 MG Oral Tablet 01/21/2020 - 02/20/2020 Pr ovider: Nikko Franks MD Diagnosis: 1 po qid prn for chronic pain Last Documented On 0 8:38AM By Dr. Franks ; [facility] fentaNYL 75 MCG/HR Transderm al Patch 72 Hour 01/21/2020 - 02/20/2020 Provider: Nikko Franks MD Diagnosis: take as directed 1 patch q 3 days Last Documented On 0 8:38AM By Dr. Franks ; [facility] fentaNYL 75 MCG/HR Transderm al Patch 72 Hour 01/17/2020 - 02/16/2020 Provider: Nikko Franks MD Diagnosis: take as directed 1 patch q 3 days Last Documented On 0 8:16AM By Dr. Franks ; [facility] Sandwich 10-325 MG Oral Tablet 01/17/2020 - 02/16/2020 Pr ovider: Nikko Franks MD Diagnosis: 1 po qid prn for chronic pain Last Documented On 0 8:16AM By Dr. Franks ; [facility] Sandwich 10-325 MG Oral Tablet 12/17/2019 - 01/16/2020 Pr ovider: Nikko Franks MD Diagnosis: 1 po qid prn for chronic pain Last Documented On 0 4:54PM By Dr. Franks ; [facility] fentaNYL 75 MCG/HR Transderm al Patch 72 Hour 12/17/2019 - 01/16/2020 Provider: Nikko Franks MD Diagnosis: take as directed 1 patch q 3 days Last Documented On 0 4:54PM By Dr. Franks ; [facility] fentaNYL 75 MCG/HR Transderm al Patch 72 Hour 11/19/2019 - 12/19/2019 Provider: NIKKO FRANKS MD Diagnosis: 1 patch q 3 days Last Documented On 0 1:19PM By Mahsa Esparza ; [facility] fentaNYL 75 MCG/HR Transderm al Patch 72 Hour 10/17/2019 - 11/16/2019 Provider: Nikko Franks MD Diagnosis: apply one patch every three days prn for chronic pain Last Documented On 0 12:12PM By Daylin Marlow ; [facility] Sandwich 10-325 MG Oral Tablet 10/17/2019 - 11/16/2019 Pr ovider: Nikko Franks MD Diagnosis: 1 po qid prn for chronic pain Last Documented On 0 8:32AM By Dr. Franks ; [facility] fentaNYL 75 MCG/HR Transderm al Patch 72 Hour 09/17/2019 - 10/17/2019 Provider: Nikko Franks MD Diagnosis: apply one patch every three days prn for chronic pain Last Documented On 0 3:12PM By Dr. Franks ; [facility] Sandwich 10-325 MG Oral Tablet 09/17/2019 - 10/17/2019 Pr ovider: Nikko Franks MD Diagnosis: 1 po qid prn for chronic pain Last Documented On 0 3:12PM By Dr. Franks ; [facility] fentaNYL 75 MCG/HR Transderm al Patch 72 Hour 08/20/2019 - 09/19/2019 Provider: Nikko Franks MD Diagnosis: apply one patch every three days prn for chronic pain Last Documented On 0 11:37AM By Daylin Marlow ; [facility] Sandwich 10-325 MG Oral Tablet 08/20/2019 - 09/19/2019 Pr ovider: Nikko Franks MD Diagnosis: 1 po qid prn for chronic pain Last Documented On 0 8:13AM By Dr. Franks ; [facility] Sandwich 10-325 MG Oral Tablet 07/18/2019 - 08/17/2019 Pr ovider: Nikko Franks MD Diagnosis: 1 po qid prn for chronic pain Last Documented On 0 8:11AM By Dr. Franks ; [facility] fentaNYL 75 MCG/HR Transderm al Patch 72 Hour 07/18/2019 - 08/17/2019 Provider: Nikko Franks MD Diagnosis: apply one patch every three days prn for chronic pain Last Documented On 0 8:06AM By Dr. Franks ; [facility] Sandwich 10-325 MG Oral Tablet 06/22/2019 - 07/22/2019 Pr ovider: Nikko Franks MD Diagnosis: 1 po qid prn for chronic pain Last Documented On 0 9:35AM By Dr. Franks ; [facility] fentaNYL 75 MCG/HR Transderm al Patch 72 Hour 06/22/2019 - 07/22/2019 Provider: Nikko Franks MD Diagnosis: apply one patch every three days prn for chronic pain Last Documented On 0 9:35AM By Dr. Franks ; [facility] fentaNYL 75 MCG/HR Transderm al Patch 72 Hour 05/24/2019 - 06/23/2019 Provider: Nikko Franks MD Diagnosis: apply one patch every three days prn for chronic pain Last Documented On 0 8:24AM By Dr. Franks ; [facility] Sandwich 10-325 MG Oral Tablet 05/24/2019 - 06/23/2019 Pr ovider: Nikko Franks MD Diagnosis: 1 po qid prn for chronic pain Last Documented On 0 8:24AM By Dr. Franks ; [facility] Sandwich 10-325 MG Oral Tablet 04/18/2019 - 05/18/2019 Pr ovider: Nikko Franks MD Diagnosis: 1 po qid prn for chronic pain Last Documented On 9 10:13AM By Dr. Franks ; [facility] fentaNYL 75 MCG/HR Transderm al Patch 72 Hour 04/18/2019 - 05/18/2019 Provider: Nikko Franks MD Diagnosis: apply one patch every three days prn for chronic pain Last Documented On 9 10:17AM By Dr. Franks ; [facility] Sandwich 10-325 MG Oral Tablet 02/26/2019 - 03/28/2019 Pr ovider: Nikko Franks MD Diagnosis: 1 po qid prn for chronic pain Last Documented On 9 8:49AM By Dr. Franks ; [facility] fentaNYL 75 MCG/HR Transderm al Patch 72 Hour 02/26/2019 - 03/28/2019 Provider: Nikko Franks MD Diagnosis: apply 1 patch every 3 days prn for chronic pain Last Documented On 9 8:49AM By Dr. Franks ; [facility] Sandwich 10-325 MG Oral Tablet 01/25/2019 - 02/24/2019 Pr ovider: Nikko Franks MD Diagnosis: 1 po qid prn for chronic pain Last Documented On 9 9:23AM By Mahsa sEparza ; [facility] fentaNYL 75 MCG/HR Transderm al Patch 72 Hour 01/25/2019 - 02/24/2019 Provider: Nikko Franks MD Diagnosis: apply 1 patch every 3 days prn for chronic pain Last Documented On 9 9:23AM By Mahsa Esparza ; [facility] Sandwich 10-325MG Oral Tablet 11/30/2018 - 12/30/2018 Pro vider: Nikko Franks MD Diagnosis: 1 po qid prn for chronic pain Last Documented On 9 12:50PM By Dr. Franks ; [facility] fentaNYL 75MCG/HR Transderma l Patch 72 Hour 11/30/2018 - 12/30/2018 Provider: Nikko Franks MD Diagnosis: apply 1 patch every 3 days prn for chronic pain Last Documented On 9 12:50PM By Dr. Franks ; [facility] fentaNYL 75MCG/HR Transderma l Patch 72 Hour 10/31/2018 - 11/30/2018 Provider: Nikko Franks MD Diagnosis: apply 1 patch every 3 days prn for chronic pain Last Documented On 9 10:29AM By Dr. Franks ; [facility] Sandwich 10-325MG Oral Tablet 10/31/2018 - 11/30/2018 Pro vider: Nikko Franks MD Diagnosis: 1 po qid prn for chronic pain Last Documented On 9 10:29AM By Dr. Franks ; [facility] Sandwich 10-325MG Oral Tablet 10/03/2018 - 11/02/2018 Pro vider: Nikko Franks MD Diagnosis: 1 po qid prn for chronic pain Last Documented On 9 12:11PM By Dr. Franks ; [facility] fentaNYL 75MCG/HR Transderma l Patch 72 Hour 10/03/2018 - 11/02/2018 Provider: Nikko Franks MD Diagnosis: apply 1 patch every 3 days prn for chronic pain Last Documented On 9 12:10PM By Dr. Franks ; [facility] fentaNYL 75MCG/HR Transderma l Patch 72 Hour 09/04/2018 - 10/04/2018 Provider: Nikko Franks MD Diagnosis: apply 1 patch every 3 days prn for chronic pain Last Documented On 9 9:37AM By Dr. Franks ; [facility] Sand[place] 10-325MG Oral Tablet 09/04/2018 - 10/04/2018 Pro vider: Nikko Franks MD Diagnosis: 1 po qid prn for chronic pain Last Documented On 9 9:37AM By Dr. Franks ; [facility] fentaNYL 75MCG/HR Transderma l Patch 72 Hour 07/10/2018 - 08/09/2018 Provider: Nikko Franks MD Diagnosis: apply 1 patch every 3 days prn for chronic pain Last Documented On 9 2:22PM By Mahsa Esparza ; [facility] Sand[place] 10-325MG Oral Tablet 07/10/2018 - 08/09/2018 Pro vider: Nikko Franks MD Diagnosis: 1 po qid prn for chronic pain Last Documented On 9 2:22PM By Mahsa Esparza ; [facility] Sand[place] 10-325MG Oral Tablet 07/05/2018 - 08/04/2018 Pro vider: Nikko Franks MD Diagnosis: 1 po qid prn for chronic pain Last Documented On 9 4:59PM By Dr. Franks ; [facility] fentaNYL 75MCG/HR Transderma l Patch 72 Hour 07/05/2018 - 08/04/2018 Provider: Nikko Franks MD Diagnosis: apply 1 patch every 3 days prn for chronic pain Last Documented On 9 4:58PM By Dr. Franks ; [facility] [place] 10-325MG Oral Tablet 06/05/2018 - 07/05/2018 Pro vider: Nikko Franks MD Diagnosis: four times a day / prn, for chronic pain-I know he has severe pain, usually try to make an effort to decrease these just a little bit Last Documented On 9 9:08AM By Dr. Franks ; [facility] FentaNYL 75MCG/HR Transderma l Patch 72 Hour 06/05/2018 - 07/05/2018 Provider: Nikko Fransk MD Diagnosis: once a day, chronic pain Last Documented On 9 9:08AM By Dr. Franks ; [facility] [place] 10-325MG Oral Tablet 04/10/2018 - 05/10/2018 Pro vider: Nikko Franks MD Diagnosis: four times a day / prn, for chronic pain-I know he has severe pain, usually try to make an effort to decrease these just a little bit Last Documented On 8 3:44PM By Giselle Peterson ; [facility] Fenta[facility] 75MCG/HR Transderma l Patch 72 Hour 04/10/2018 - 05/10/2018 Provider: Nikko Franks MD Diagnosis: once a day, chronic pain Last Documented On 8 3:44PM By Giselle Peterson ; [facility] Fenta[facility] 75MCG/HR Transderma l Patch 72 Hour 04/06/2018 - 05/06/2018 Provider: Nikko Franks MD Diagnosis: once a day, chronic pain Last Documented On 8 12:46PM By Dr. Franks ; [facility] [place] 10-325MG Oral Tablet 04/06/2018 - 05/06/2018 Pro vider: Nikko Franks MD Diagnosis: four times a day / prn, for chronic pain-I know he has severe pain, usually try to make an effort to decrease these just a little bit Last Documented On 8 12:45PM By Dr. Franks ; [facility] [place] 10-325MG Oral Tablet 03/08/2018 - 04/07/2018 Pro vider: Nikko Franks MD Diagnosis: four times a day / prn, for chronic pain-I know he has severe pain, usually try to make an effort to decrease these just a little bit Last Documented On 8 8:31AM By Dr. Franks ; [facility] FentaNYL 75MCG/HR Transderma l Patch 72 Hour 03/08/2018 - 04/07/2018 Provider: Nikko Franks MD Diagnosis: once a day, chronic pain Last Documented On 8 8:31AM By Dr. Franks ; [facility] Sandwich 10-325MG Oral Tablet 02/06/2018 - 03/08/2018 Pro vider: Nikko Franks MD Diagnosis: four times a day / prn, for chronic pain-I know he has severe pain, usually try to make an effort to decrease these just a little bit Last Documented On 8 4:26PM By Dr. Franks ; [facility] FentaNYL 75MCG/HR Transderma l Patch 72 Hour 02/06/2018 - 03/08/2018 Provider: Nikko Franks MD Diagnosis: once a day, chronic pain Last Documented On 8 4:27PM By Dr. Franks ; [facility] FentaNYL 75MCG/HR Transderma l Patch 72 Hour 01/09/2018 - 02/08/2018 Provider: Nikko Franks MD Diagnosis: once a day, chronic pain Last Documented On 8 8:31AM By Dr. Franks ; [facility] Sand[place] 10-325MG Oral Tablet 01/09/2018 - 02/08/2018 Pro vider: Nikko Franks MD Diagnosis: four times a day / prn, for chronic pain-I know he has severe pain, usually try to make an effort to decrease these just a little bit Last Documented On 8 8:31AM By Dr. Franks ; [facility] [place] 10-325MG Oral Tablet 12/12/2017 - 01/11/2018 Pro vider: Nikko Franks MD Diagnosis: four times a day / prn, for chronic pain-I know he has severe pain, usually try to make an effort to decrease these just a little bit Last Documented On 8 3:25PM By Giselle Peterson ; [facility] Fenta[facility] 75MCG/HR Transderma l Patch 72 Hour 12/12/2017 - 01/11/2018 Provider: Nikko Franks MD Diagnosis: once a day Last Documented On 8 3:26PM By Giselle Peterson ; [facility] [employer]-75 Transdermal Pat ch 72 Hour 12/07/2017 - 01/06/2018 Provider: Nikko Franks MD Diagnosis: use as directed 1 every 3 days -, for chronic pa in Last Documented On 8 12:54PM By Dr. Franks ; [facility] [place] 10-325MG Oral Tablet 12/07/2017 - 01/06/2018 Pro vider: Nikko Franks MD Diagnosis: four times a day / prn, for chronic pain-I know he has severe pain, usually try to make an effort to decrease these just a little bit Last Documented On 8 12:54PM By Dr. Franks ; [facility] [place] 10-325MG Oral Tablet 11/07/2017 - 12/07/2017 Pro vider: Nikko Franks MD Diagnosis: four times a day / prn, for chronic pain-I know he has severe pain, usually try to make an effort to decrease these just a little bit Last Documented On 8 9:41AM By Dr. Franks ; [facility] [employer]-75 Transdermal Pat ch 72 Hour 11/07/2017 - 12/07/2017 Provider: Nikko Franks MD Diagnosis: use as directed 1 every 3 days -, for chronic pa in Last Documented On 8 9:41AM By Dr. Franks ; [facility] [place] 10-325MG Oral Tablet 10/07/2017 - 11/06/2017 Pro vider: Nikko Franks MD Diagnosis: four times a day / prn, for chronic pain-I know he has severe pain, usually try to make an effort to decrease these just a little bit Last Documented On 8 12:53PM By Dr. Franks ; [facility] [employer]-75 Transdermal Pat ch 72 Hour 10/07/2017 - 11/06/2017 Provider: Nikko Franks MD Diagnosis: use as directed 1 every 3 days -, for chronic pa in Last Documented On 8 12:53PM By Dr. Franks ; [facility] [employer]-75 Transdermal Pat ch 72 Hour 08/15/2017 - 09/14/2017 Provider: Nikko Franks MD Diagnosis: use as directed 1 every 3 days -, for chronic pa in Last Documented On 8 2:27PM By Mahsa Esparza ; [facility] [place] 10-325MG Oral Tablet 08/15/2017 - 09/14/2017 Pro vider: Nikko Franks MD Diagnosis: four times a day / prn, for chronic pain-I know he has severe pain, usually try to make an effort to decrease these just a little bit Last Documented On 8 2:27PM By Mahsa Esparza ; [facility] [place] 10-325MG Oral Tablet 08/10/2017 - 09/09/2017 Pro vider: Nikko Franks MD Diagnosis: four times a day / prn, for chronic pain-I know he has severe pain, usually try to make an effort to decrease these just a little bit Last Documented On 8 8:18AM By Dr. Franks ; [facility] [employer]-75 Transdermal Pat ch 72 Hour 08/10/2017 - 09/09/2017 Provider: Nikko Franks MD Diagnosis: use as directed 1 every 3 days -, for chronic pa in Last Documented On 8 8:17AM By Dr. Franks ; [facility] [place] 10-325MG Oral Tablet 07/11/2017 - 08/10/2017 Pro vider: Nikko Franks MD Diagnosis: four times a day / prn, for chronic pain Last Documented On 8 3:21PM By Dr. Franks ; [facility] [employer]-75 Transdermal Pat ch 72 Hour 07/11/2017 - 08/10/2017 Provider: Nikko Franks MD Diagnosis: use as directed 1 every 3 days -, for chronic pa in Last Documented On 8 3:21PM By Dr. Franks ; [facility] [place] 10-325MG Oral Tablet 06/10/2017 - 07/10/2017 Pro vider: Nikko Franks MD Diagnosis: four times a day / prn, for chronic pain Last Documented On 8 9:26AM By Dr. Franks ; [facility] [employer]-75 Transdermal Pat ch 72 Hour 06/10/2017 - 07/10/2017 Provider: Nikko Franks MD Diagnosis: use as directed 1 every 3 days -, for chronic pa in Last Documented On 8 9:26AM By Dr. Franks ; [facility] [employer]-75 Transdermal Pat ch 72 Hour 05/12/2017 - 06/11/2017 Provider: Nikko Franks MD Diagnosis: use as directed 1 every 3 days -, for chronic pa in Last Documented On 8 11:37AM By Dr. Franks ; [facility] [place] 10-325MG Oral Tablet 05/12/2017 - 06/11/2017 Pro vider: Nikko Franks MD Diagnosis: four times a day / prn, for chronic pain Last Documented On 8 11:37AM By Dr. Franks ; [facility] [place] 10-325MG Oral Tablet 04/13/2017 - 05/13/2017 Pro vider: Nikko Franks MD Diagnosis: four times a day / prn, for chronic pain Last Documented On 7 8:54AM By Dr. Franks ; [facility] [employer]-75 Transdermal Pat ch 72 Hour 04/13/2017 - 05/13/2017 Provider: Nikko Franks MD Diagnosis: use as directed 1 every 3 days -, for chronic pa in Last Documented On 7 8:55AM By Dr. Franks ; [facility] [employer]-75 Transdermal Pat ch 72 Hour 03/14/2017 - 04/13/2017 Provider: Nikko Franks MD Diagnosis: use as directed 1 every 3 days -, for chronic pa in Last Documented On 7 11:37AM By Dr. Franks ; [facility] [place] 10-325MG Oral Tablet 03/14/2017 - 04/13/2017 Pro vider: Nikko Franks MD Diagnosis: four times a day / prn, for chronic pain Last Documented On 7 11:37AM By Dr. Franks ; [facility] [place] 10-325MG Oral Tablet 02/11/2017 - 03/13/2017 Pro vider: Simone Andrea MD Diagnosis: four times a day / prn, for multilevel disc degeneration pain, I will have to reevaluate to sometime in Last Documented On 7 12:52PM By Dr. Franks ; [facility] [employer]-75 Transdermal Pat ch 72 Hour 02/11/2017 - 03/13/2017 Provider: Simone Andrea MD Diagnosis: use as directed 1 every 3 da ys -, for chronic multi-source low back pain/I will have to reevaluate U sometime in December or January Last Documented On 7 12:52PM By Dr. Franks ; [facility] [place] 10-325MG Oral Tablet 01/12/2017 - 02/11/2017 Pro vider: Nikko Franks MD Diagnosis: four times a day / prn, for multilevel disc degeneration pain, I will have to reevaluate to sometime in Last Documented On 7 1:09PM By Dr. Franks ; [facility] [employer]-75 Transdermal Pat ch 72 Hour 01/12/2017 - 02/11/2017 Provider: Nikko Franks MD Diagnosis: use as directed 1 every 3 da ys -, for chronic multi-source low back pain/I will have to reevaluate U sometime in December or January Last Documented On 7 1:10PM By Dr. Franks ; [facility] [employer]-75 75 MCG/HR Patch 72 Hour 12/13/2016 - 01/12/2017 Provider: Nikko Franks MD Diagnosis: use as directed 1 every 3 da ys -, for chronic multi-source low back pain/I will have to reevaluate U sometime in December or January Last Documented On 7 8:03AM By Dr. Franks ; [facility] [place] 10-325 MG Tablet 12/13/2016 - 01/12/2017 Provide r: Nikko Franks MD Diagnosis: four times a day / prn, for multilevel disc degeneration pain, I will have to reevaluate to sometime in December/January Last Documented On 7 8:02AM By Dr. Franks ; [facility] [place] 10-325 MG Tablet 11/12/2016 - 12/12/2016 Provide r: Nikko Franks MD Diagnosis: four times a day / prn, for multilevel disc degeneration pain Last Documented On 7 10:16AM By Dr. Franks ; [facility]-75 75 MCG/HR Patch 72 Hour 11/12/2016 - 12/12/2016 Provider: Nikko Franks MD Diagnosis: use as directed 1 every 3 da ys -, for chronic multi-source low back pain Last Documented On 7 10:16AM By Dr. Franks ; [facility] [place] 10-325 MG Tablet 10/14/2016 - 11/13/2016 Provide r: Nikko Franks MD Diagnosis: four times a day / prn Last Documented On 7 8:29AM By Dr. Franks ; [facility] [employer]-75 75 MCG/HR Patch 72 Hour 10/14/2016 - 11/13/2016 Provider: Nikko Franks MD Diagnosis: use as directed 1 every 3 days - Last Documented On 7 8:30AM By Dr. Franks ; [facility] [employer]-75 75 MCG/HR Patch 72 Hour 09/14/2016 - 10/14/2016 Provider: Nikko Franks MD Diagnosis: use as directed 1 every 3 days - Last Documented On 7 9:11AM By Dr. Franks ; [facility] [place] 10-325 MG Tablet 09/14/2016 - 10/14/2016 Provide r: Nikko Franks MD Diagnosis: four times a day / prn Last Documented On 7 9:11AM By Dr. Franks ; [facility] [employer]-75 75 MCG/HR Patch 72 Hour 08/16/2016 - 09/15/2016 Provider: Nikko Franks MD Diagnosis: use as directed 1 every 3 days - Last Documented On 7 1:13PM By Sara Oreilly ; [facility] [place] 10-325 MG Tablet 08/16/2016 - 09/15/2016 Provide r: Nikko Franks MD Diagnosis: four times a day / prn Last Documented On 7 1:13PM By Sara Oreilly ; [facility] [place] 10-325 MG Tablet 07/15/2016 - 08/14/2016 Provide r: Nikko Franks MD Diagnosis: four times a day / prn Last Documented On 7 4:28PM By Dr. Franks ; [facility] [employer]-75 75 MCG/HR Patch 72 Hour 07/15/2016 - 08/14/2016 Provider: Nikko Franks MD Diagnosis: use as directed 1 every 3 days - Last Documented On 7 4:07PM By Dr. Franks ; [facility] [place] 10-325 MG Tablet 06/14/2016 - 07/14/2016 Provide r: Nikko Franks MD Diagnosis: four times a day / prn Last Documented On 7 5:57PM By Dr. Franks ; [facility] [employer]-75 75 MCG/HR Patch 72 Hour 06/14/2016 - 07/14/2016 Provider: Nikko Franks MD Diagnosis: use as directed 1 every 3 days - Last Documented On 7 5:56PM By Dr. Franks ; [facility] [place] 10-325 MG Tablet 05/13/2016 - 06/12/2016 Provide r: Nikko Franks MD Diagnosis: four times a day / prn Last Documented On 7 8:54AM By Dr. Franks ; [facility] [employer]-75 75 MCG/HR Patch 72 Hour 05/13/2016 - 06/12/2016 Provider: Nikko Franks MD Diagnosis: use as directed 1 every 3 days - Last Documented On 7 8:54AM By Dr. Franks ; [facility] [employer]-75 75 MCG/HR Patch 72 Hour 04/14/2016 - 05/14/2016 Provider: Nikko Franks MD Diagnosis: use as directed 1 every 3 days - Last Documented On 6 12:09PM By Dr. Franks ; [facility] [place] 10-325 MG Tablet 04/14/2016 - 05/14/2016 Provide r: Nikko Franks MD Diagnosis: four times a day / prn Last Documented On 6 12:09PM By Dr. Franks ; [facility] [employer]-75 75 MCG/HR Patch 72 Hour 03/15/2016 - 04/14/2016 Provider: Nikko Franks MD Diagnosis: use as directed 1 every 3 days - Last Documented On 6 8:26AM By Dr. Franks ; [facility] [place] 10-325 MG Tablet 03/15/2016 - 04/14/2016 Provide r: Nikko Franks MD Diagnosis: four times a day / prn Last Documented On 6 8:27AM By Dr. Franks ; [facility] [place] 10-325 MG Tablet 02/13/2016 - 03/14/2016 Provide r: Stef Ty MD Diagnosis: four times a day / prn Last Documented On 6 11:16AM By Dr. Franks ; [facility] [employer]-75 75 MCG/HR Patch 72 Hour 02/13/2016 - 03/14/2016 Provider: Stef Ty MD Diagnosis: use as directed 1 every 3 days - Last Documented On 6 11:15AM By Dr. Franks ; [facility] [place] 10-325 MG Tablet 01/15/2016 - 02/14/2016 Provide r: Nikko Franks MD Diagnosis: four times a day / prn Last Documented On 6 8:24AM By Dr. Franks ; [facility] [employer]-75 75 MCG/HR Patch 72 Hour 01/15/2016 - 02/14/2016 Provider: Nikko Franks MD Diagnosis: use as directed 1 every 3 days - Last Documented On 6 8:23AM By Dr. Franks ; [facility] [place] 10-325 MG Tablet 12/17/2015 - 01/16/2016 Provide r: Nikko Franks MD Diagnosis: four times a day / prn Last Documented On 6 8:19AM By Dr. Franks ; [facility] [employer]-75 75 MCG/HR Patch 72 Hour 12/17/2015 - 01/16/2016 Provider: Nikko Franks MD Diagnosis: use as directed 1 every 3 days - Last Documented On 6 8:19AM By Dr. Franks ; [facility] [employer]-75 75 MCG/HR Patch 72 Hour 11/17/2015 - 12/17/2015 Provider: Nikko Franks MD Diagnosis: use as directed 1 every 3 days - Last Documented On 6 8:23AM By Dr. Franks ; [facility] [place] 10-325 MG Tablet 11/17/2015 - 12/17/2015 Provide r: Nikko Franks MD Diagnosis: four times a day / prn Last Documented On 6 8:24AM By Dr. Franks ; [facility] [employer]-75 75 MCG/HR Patch 72 Hour 10/16/2015 - 11/15/2015 Provider: Nikko Franks MD Diagnosis: use as directed 1 every 3 days - Last Documented On 6 8:14AM By Dr. Franks ; [facility] [place] 10-325 MG Tablet 10/16/2015 - 11/15/2015 Provide r: Nikko Franks MD Diagnosis: four times a day / prn Last Documented On 6 8:13AM By Dr. Franks ; [facility] [place] 10-325 MG Tablet 09/17/2015 - 10/17/2015 Provide r: Nikko Franks MD Diagnosis: four times a day / prn Last Documented On 6 12:01PM By Dr. Franks ; [facility] [employer]-75 75 MCG/HR Patch 72 Hour 09/17/2015 - 10/17/2015 Provider: Nikko Franks MD Diagnosis: use as directed 1 every 3 days - Last Documented On 6 12:01PM By Dr. Franks ; [facility] [place] 10-325 MG Tablet 08/18/2015 - 09/17/2015 Provide r: Nikko Franks MD Diagnosis: four times a day / prn Last Documented On 6 8:06AM By Dr. Franks ; [facility] [employer]-75 75 MCG/HR Patch 72 Hour 08/18/2015 - 09/17/2015 Provider: Nikko Franks MD Diagnosis: use as directed 1 every 3 days - Last Documented On 6 8:06AM By Dr. Franks ; [facility] [place] 10-325 MG Tablet 07/16/2015 - 08/15/2015 Provide r: Nikko Franks MD Diagnosis: four times a day / prn Last Documented On 6 8:26AM By Dr. Franks ; [facility] [employer]-75 75 MCG/HR Patch 72 Hour 07/16/2015 - 08/15/2015 Provider: Nikko Franks MD Diagnosis: use as directed 1 every 3 days - Last Documented On 6 8:25AM By Dr. Franks ; [facility] [place] 10-325 MG Tablet 06/16/2015 - 07/16/2015 Provide r: Nikko Franks MD Diagnosis: four times a day / prn Last Documented On 6 12:20PM By Dr. Franks ; [facility]-75 75 MCG/HR Patch 72 Hour 06/16/2015 - 07/16/2015 Provider: Nikko Franks MD Diagnosis: use as directed 1 every 3 days - Last Documented On 6 12:20PM By Dr. Franks ; [facility] [employer]-75 75 MCG/HR Patch 72 Hour 05/16/2015 - 06/15/2015 Provider: Stef Ty MD Diagnosis: use as directed 1 every 3 days - Last Documented On 6 10:03AM By Dr. Franks ; [facility] [place] 10-325 MG Tablet 05/16/2015 - 06/15/2015 Provide r: Stef Ty MD Diagnosis: four times a day / prn Last Documented On 6 10:02AM By Dr. Franks ; [facility] [employer]-75 75 MCG/HR Patch 72 Hour 03/20/2015 - 04/19/2015 Provider: Nikko Franks MD Diagnosis: use as directed 1 every 3 days - Last Documented On 5 12:38PM By Dr. Franks ; [facility] [place] 10-325 MG Tablet 03/20/2015 - 04/19/2015 Provide r: Nikko Franks MD Diagnosis: four times a day Last Documented On 5 12:39PM By Dr. Franks ; [facility] [employer]-75 75 MCG/HR Patch 72 Hour 03/18/2015 - 04/17/2015 Provider: Nikko Franks MD Diagnosis: use as directed 1 every 3 days - Last Documented On 5 4:36PM By Dr. Franks ; [facility] [place] 10-325 MG Tablet 03/18/2015 - 04/17/2015 Provide r: Nikko Franks MD Diagnosis: four times a day Last Documented On 5 4:35PM By Dr. Franks ; [facility] [place] 10-325 MG Tablet 02/17/2015 - 03/19/2015 Provide r: Nikko Franks MD Diagnosis: four times a day Last Documented On 5 8:22AM By Dr. Franks ; [facility] [employer]-75 75 MCG/HR Patch 72 Hour 02/17/2015 - 03/19/2015 Provider: Nikko Franks MD Diagnosis: use as directed 1 every 3 days - Last Documented On 5 12:19PM By Dr. Franks ; [facility] [employer]-75 75 MCG/HR Patch 72 Hour 01/16/2015 - 02/15/2015 Provider: Nikko Franks MD Diagnosis: use as directed 1 every 3 days - Last Documented On 5 4:00PM By Dr. Franks ; [facility] [place] 10-325 MG Tablet 01/16/2015 - 02/15/2015 Provide r: Nikko Franks MD Diagnosis: four times a day Last Documented On 5 4:00PM By Dr. Franks ; [facility] [place] 10-325 MG Tablet 12/18/2014 - 01/17/2015 Provide r: Nikko Franks MD Diagnosis: BACK DISORDER NO S four times a day Last Documented On 5 8:30AM By Dr. Franks ; [facility]-75 75 MCG/HR Patch 72 Hour 12/18/2014 - 01/17/2015 Provider: Nikko Franks MD Diagnosis: LUMB/LUMBOSAC DI SC DEGEN use as directed 1 every 3 days - Last Documented On 5 8:29AM By Dr. Franks ; [facility] [place] 10-325 MG Tablet 11/18/2014 - 12/18/2014 Provide r: Nikko Franks MD Diagnosis: BACK DISORDER NO S four times a day Last Documented On 5 9:40AM By Dr. Franks ; [facility]-75 75 MCG/HR Patch 72 Hour 11/18/2014 - 12/18/2014 Provider: Nikko Franks MD Diagnosis: LUMB/LUMBOSAC DI SC DEGEN use as directed 1 every 3 days - Last Documented On 5 9:52AM By Dr. Franks ; [facility] [place] 10-325 MG Tablet 09/17/2014 - 10/17/2014 Provide r: Nikko Franks MD Diagnosis: BACK DISORDER NO S four times a day Last Documented On 5 11:15AM By Mahsa Esparza ; [facility]-75 75 MCG/HR Patch 72 Hour 09/17/2014 - 10/17/2014 Provider: Nikko Franks MD Diagnosis: LUMB/LUMBOSAC DI SC DEGEN use as directed 1 every 3 days - Last Documented On 5 11:15AM By Mahsa Esparza ; [facility]-75 75 MCG/HR Patch 72 Hour 09/16/2014 - 10/16/2014 Provider: Nikko Franks MD Diagnosis: LUMB/LUMBOSAC DI SC DEGEN use as directed 1 every 3 days - Last Documented On 5 8:21AM By Dr. Franks ; [facility] Sandwich 10-325 MG Tablet 09/16/2014 - 10/16/2014 Provide r: Nikko Franks MD Diagnosis: BACK DISORDER NO S four times a day Last Documented On 5 8:21AM By Dr. Franks ; [facility], [facility] Sandwich 10-325 MG Tablet 08/15/2014 - 09/14/2014 Provide r: Nikko Franks MD Diagnosis: BACK DISORDER NO S four times a day Last Documented On 5 8:27AM By Dr. Franks ; [facility], [facility] Duragesic-75 75 MCG/HR Patch 72 Hour 08/15/2014 - 09/14/2014 Provider: Nikko Franks MD Diagnosis: LUMB/LUMBOSAC DI SC DEGEN use as directed 1 every 3 days - Last Documented On 5 8:27AM By Dr. Franks ; [facility], [facility] Duragesic-75 75 MCG/HR Patch 72 Hour 07/17/2014 - 08/16/2014 Provider: Nikko Franks MD Diagnosis: LUMB/LUMBOSAC DI SC DEGEN use as directed 1 every 3 days - Last Documented On 5 8:45AM By Dr. Franks ; [facility], [facility] Sandwich 10-325 MG Tablet 07/17/2014 - 08/16/2014 Provide r: Nikko Franks MD Diagnosis: BACK DISORDER NO S four times a day Last Documented On 5 8:45AM By Dr. Franks ; [facility], [facility] NOTE EX MISC 07/15/2014 - 07/16/2014 Provider: Carlos Manuel Franks MD Diagnosis: called pt and informed that her rx is 4 days early, unable to fill. jrk Last Documented On 5 1:20PM By Tim Gutierrez ; [facility], [facility] Duragesic-75 75 MCG/HR Patch 72 Hour 06/19/2014 - 07/19/2014 Provider: Nikko Franks MD Diagnosis: LUMB/LUMBOSAC DI SC DEGEN use as directed 1 every 3 days - Last Documented On 5 2:55PM By Dr. Franks ; [facility], [facility] Sandwich 10-325 MG Tablet 06/19/2014 - 07/19/2014 Provide r: Nikko Franks MD Diagnosis: BACK DISORDER NO S four times a day Last Documented On 5 2:56PM By Dr. Franks ; [facility] NOTE EX MISC 04/18/2014 - 04/19/2014 Provider: Carlos Manuel Franks MD Diagnosis: pt brought back norco and du ragesic rx's for jun and june that her pharmacy could not fill. [facility] and will call when rx is due. Her Last Documented On 4 2:22PM By Tim Gutierrez ; [facility] Sandwich 10-325 MG OR TABS 04/10/2014 - 05/10/2014 Provid er: Nikko Franks MD Diagnosis: BACK DISORDER NO S Last Documented On 4 11:25AM By Torsten 6 User ; [facility] Sandwich 10-325 MG OR TABS 04/10/2014 - 05/10/2014 Provid er: Nikko Franks MD Diagnosis: BACK DISORDER NO S Last Documented On 4 11:21AM By Torsten 6 User ; [facility] Duragesic-75 75 MCG/HR TD PT72 04/10/2014 - 05/10/2014 Provider: Nikko Franks MD Diagnosis: LUMB/LUMBOSAC DI SC DEGEN 1 every 3 days - Last Documented On 4 11:20AM By Torsten 6 User ; [facility] Duragesic-75 75 MCG/HR TD PT72 04/10/2014 - 05/10/2014 Provider: Nikko Franks MD Diagnosis: LUMB/LUMBOSAC DI SC DEGEN 1 every 3 days - Last Documented On 4 11:24AM By Sarmiento 6 User ; [facility] Sandwich 10-325 MG OR TABS 03/20/2014 - 04/19/2014 Provid er: Nikko Franks MD Diagnosis: BACK DISORDER NO S Last Documented On 4 11:02AM By Dr. Franks ; [facility] Duragesic-75 75 MCG/HR TD PT72 03/20/2014 - 04/19/2014 Provider: Nikko Franks MD Diagnosis: LUMB/LUMBOSAC DI SC DEGEN 1 every 3 days - Last Documented On 4 11:02AM By Dr. Franks ; [facility] Duragesic-75 75 MCG/HR TD PT72 02/19/2014 - 03/21/2014 Provider: Nikko Franks MD Diagnosis: LUMB/LUMBOSAC DI SC DEGEN 1 every 3 days -LAST RX U NTIL SEEN IN OFFICE Last Documented On 4 8:46AM By Dr. Franks ; [facility] Sandwich 10-325 MG OR TABS 02/19/2014 - 03/21/2014 Provid er: Nikko Franks MD Diagnosis: BACK DISORDER NO S LAST RX UNTIL SEEN IN OFFICE Last Documented On 4 8:46AM By Dr. Franks ; [facility] Duragesic-75 75 MCG/HR TD PT72 01/21/2014 - 02/20/2014 Provider: Nikko Franks MD Diagnosis: LUMB/LUMBOSAC DI SC DEGEN 1 every 3 days - jfb Last Documented On 4 12:48PM By Dr. Franks ; [facility] Sandwich 10-325 MG OR TABS 01/21/2014 - 02/20/2014 Provid er: Nikko Franks MD Diagnosis: [phone] df Last Documented On 4 12:49PM By Dr. Franks ; [facility] Sandwich 10-325 MG OR TABS 12/17/2013 - 01/16/2014 Provid er: Nikko Franks MD Diagnosis: [phone] df Last Documented On 4 3:07PM By Torsten 6 User ; [facility] Duragesic-75 75 MCG/HR TD PT72 12/17/2013 - 01/16/2014 Provider: Nikko Franks MD Diagnosis: LUMB/LUMBOSAC DI SC DEGEN 1 every 3 days - jfb Last Documented On 4 3:07PM By Torsten 6 User ; [facility] Duragesic-75 75 MCG/HR TD PT72 11/22/2013 - 12/22/2013 Provider: Nikko Franks MD Diagnosis: LUMB/LUMBOSAC DI SC DEGEN 1 every 3 days - jfb Last Documented On 4 9:10AM By Torsten 6 User ; [facility] Sandwich 10-325 MG OR TABS 10/15/2013 - 11/14/2013 Provid er: Nikko Franks MD Diagnosis: [phone] df Last Documented On 4 3:31PM By Torsten 5 User ; [facility], [facility] Duragesic-75 75 MCG/HR TD PT72 10/15/2013 - 11/14/2013 Provider: Nikko Franks MD Diagnosis: LUMB/LUMBOSAC DI SC DEGEN 1 every 3 days - jfb Last Documented On 4 3:31PM By Torsten 5 User ; [facility] Sandwich 10-325 MG OR TABS 09/25/2013 - 10/25/2013 Provid er: Nikko Franks MD Diagnosis: [phone] df Last Documented On 4 1:30PM By Tim Gutierrez ; [facility] Duragesic-75 75 MCG/HR TD PT72 09/21/2013 - 10/21/2013 Provider: Nikko Franks MD Diagnosis: LUMB/LUMBOSAC DI SC DEGEN 1 every 3 days - jfb Last Documented On 4 4:42PM By Mahsa Esparza ; [facility] DENIED EX MISC 09/21/2013 - 09/22/2013 Provider: Manpreet Franks MD Diagnosis: pt called for pain meds pt m ust be seen before they are given Zeynep 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 Jsb Last Documented On 4 9:40AM By Tim Gutierrez ; [facility], [facility] Sae EX MISC 08/24/2013 - 08/25/2013 Provider: Manpreet Franks MD Diagnosis: [phone] df Last Documented On 4 1:35PM By Tim Gutierrez ; [facility] Duragesic-75 75 MCG/HR TD PT72 08/24/2013 - 09/23/2013 Provider: Nikko Franks MD Diagnosis: LUMB/LUMBOSAC DI SC DEGEN 1 every 3 days - jfb Last Documented On 4 9:50AM By Mahsa Esparza ; [facility] Duragesic-75 75 MCG/HR TD PT72 07/26/2013 - 08/25/2013 Provider: Nikko Franks MD Diagnosis: LUMB/LUMBOSAC DI SC DEGEN 1 every 3 days - jfb Last Documented On 4 11:25AM By Sarmiento 4 User ; [facility] Sandwich 10-325 MG OR TABS 07/26/2013 - 08/25/2013 Provid er: Nikko Franks MD Diagnosis: [phone] df Last Documented On 4 11:41AM By Tim Gutierrez ; [facility] Lortab 10-500 MG OR TABS 04/12/2013 - 05/12/2013 Provi monica: Nikko Franks MD Diagnosis: Last Documented On 3 2:46PM By Sarmiento 3 User ; [facility] Lortab 10-500 MG OR TABS 04/12/2013 - 05/12/2013 Provi monica: Nikko Franks MD Diagnosis: can fill 06-27-13 Last Documented On 3 2:47PM By Sarmiento 3 User ; [facility] Lortab 10-500 MG OR TABS 04/12/2013 - 05/12/2013 Provi monica: Nikko Franks MD Diagnosis: can fill 05-27-13 Last Documented On 3 2:47PM By Sarmiento 3 User ; [facility] Duragesic-75 75 MCG/HR TD PT72 04/12/2013 - 05/12/2013 Provider: Nikko Franks MD Diagnosis: LUMB/LUMBOSAC DI SC DEGEN 1 every 3 days - abrefill 06-27-13 Last Documented On 3 2:49PM By Sarmiento 3 User ; [facility] Duragesic-75 75 MCG/HR TD PT72 04/12/2013 - 05/12/2013 Provider: Nikko Franks MD Diagnosis: LUMB/LUMBOSAC DI SC DEGEN 1 every 3 days - abrefill 05-27-13 Last Documented On 3 2:48PM By Sarmiento 3 User ; [facility] Duragesic-75 75 MCG/HR TD PT72 04/12/2013 - 05/12/2013 Provider: Nikko Franks MD Diagnosis: LUMB/LUMBOSAC DI SC DEGEN 1 every 3 days - ab Last Documented On 3 2:48PM By Torsten 3 User ; [facility] Duragesic-75 75 MCG/HR TD PT72 03/27/2013 - 04/26/2013 Provider: Nikko Franks MD Diagnosis: LUMB/LUMBOSAC DI SC DEGEN 1 every 3 days - ab Last Documented On 3 9:48AM By Torsten 4 User ; [facility] Lortab 10-500 MG OR TABS 03/27/2013 - 04/26/2013 Provi monica: Nikko Franks MD Diagnosis: j and l [phone] jrk Last Documented On 3 9:13AM By Tim Gutierrez ; [facility] Duragesic-75 75 MCG/HR TD PT72 02/26/2013 - 03/28/2013 Provider: Nikko Franks MD Diagnosis: LUMB/LUMBOSAC DI SC DEGEN 1 every 3 days - ab Last Documented On 3 1:11PM By Torsten 4 User ; [facility] Lortab 10-500 MG OR TABS 02/26/2013 - 03/28/2013 Provi monica: Nikko Franks MD Diagnosis: j and l [phone] tw Last Documented On 3 11:45AM By Tim Gutierrez ; [facility] Lortab 10-500 MG OR TABS 01/26/2013 - 02/25/2013 Provi monica: Nikko Franks MD Diagnosis: j and l [phone] tw Last Documented On 3 10:19AM By Tim Gutierrez ; [facility] Duragesic-75 75 MCG/HR TD PT72 01/26/2013 - 02/25/2013 Provider: Nikko Franks MD Diagnosis: LUMB/LUMBOSAC DI SC DEGEN 1 every 3 days - jfb Last Documented On 3 8:57AM By Mahsa Esparza ; [facility] Lortab 10-500 MG OR TABS 12/27/2012 - 01/26/2013 Provi monica: Nikko Franks MD Diagnosis: j and l [phone] jrk Last Documented On 3 10:29AM By Tim Gutierrez ; [facility] Duragesic-75 75 MCG/HR TD PT72 12/27/2012 - 01/26/2013 Provider: Nikko Franks MD Diagnosis: LUMB/LUMBOSAC DI SC DEGEN 1 every 3 days - jfb Last Documented On 3 9:48AM By Mahsa Esparza ; [facility] Lortab 10-500 MG OR TABS 11/27/2012 - 12/27/2012 Provi monica: Nikko Franks MD Diagnosis: adolfo [phone] jrk Last Documented On 3 10:45AM By Tim Gutierrez ; [facility] Duragesic-75 75 MCG/HR TD PT72 11/27/2012 - 12/27/2012 Provider: Nikko Franks MD Diagnosis: LUMB/LUMBOSAC DI SC DEGEN 1 every 3 days - jfb Last Documented On 3 10:23AM By Mahsa Esparza ; [facility] Duragesic-75 75 MCG/HR TD PT72 10/27/2012 - 11/26/2012 Provider: Nikko Franks MD Diagnosis: LUMB/LUMBOSAC DI SC DEGEN 1 every 3 days - jfb Last Documented On 3 1:56PM By Mahsa Esparza ; [facility] Lortab 10-500 MG OR TABS 10/27/2012 - 11/26/2012 Provi monica: Nikko Franks MD Diagnosis: jfb Last Documented On 3 1:56PM By Mahsa Esparza ; [facility] Duragesic-75 75 MCG/HR TD PT72 09/27/2012 - 10/27/2012 Provider: Nikko Franks MD Diagnosis: LUMB/LUMBOSAC DI SC DEGEN 1 every 3 days - jfb Last Documented On 3 11:09AM By Torsten Ferrer User ; [facility] Lortab 10-500 MG OR TABS 09/27/2012 - 10/27/2012 Provi monica: Nikko Franks MD Diagnosis: jfb Last Documented On 3 11:09AM By Torsten Ferrer User ; [facility] DENIED EX MISC 09/22/2012 - 09/23/2012 Provider: Manpreet Franks MD Diagnosis: 5 days current w/ both Lo rtab / Duragesic Patches / To call & request when due 09/27/12 - Message left w/patient requesting return call to [facility] Last Documented On 3 11:41AM By Mahsa Esparza ; [facility] Lortab 10-500 MG OR TABS 08/28/2012 - 09/27/2012 Provi monica: Nikko Franks MD Diagnosis: jfb Last Documented On 3 1:57PM By Sarmiento 6 User ; [facility] Duragesic-75 75 MCG/HR TD PT72 08/28/2012 - 09/27/2012 Provider: Nikko Franks MD Diagnosis: LUMB/LUMBOSAC DI SC DEGEN 1 every 3 days - jfb Last Documented On 3 1:57PM By Sarmiento 6 User ; [facility] Duragesic-75 75 MCG/HR TD PT72 07/26/2012 - 08/25/2012 Provider: Nikko Franks MD Diagnosis: LUMB/LUMBOSAC DI SC DEGEN 1 every 3 days - jfb Last Documented On 3 11:51AM By Sarmiento 4 User ; [facility] Lortab 10-500 MG OR TABS 07/26/2012 - 08/25/2012 Provi monica: Nikko Franks MD Diagnosis: j and l [phone] Last Documented On 3 12:22PM By Tim Gutierrez ; [facility] Lortab 10-500 MG OR TABS 06/27/2012 - 07/27/2012 Provi monica: Nikko Franks MD Diagnosis: [facility] [phone] tw Last Documented On 3 11:32AM By Tim Gutierrez ; [facility] Duragesic-75 75 MCG/HR TD PT72 06/27/2012 - 07/27/2012 Provider: Nikko Franks MD Diagnosis: LUMB/LUMBOSAC DI SC DEGEN 1 every 3 days - jfb Last Documented On 3 11:37AM By Sarmiento 4 User ; [facility] Duragesic-75 75 MCG/HR TD PT72 04/20/2012 - 05/20/2012 Provider: Nikko Franks MD Diagnosis: LUMB/LUMBOSAC DI SC DEGEN 1 every 3 days - jfb Last Documented On 2 9:17AM By Sarmiento 5 User ; [facility] Duragesic-75 75 MCG/HR TD PT72 04/20/2012 - 05/20/2012 Provider: Nikko Franks MD Diagnosis: LUMB/LUMBOSAC DI SC DEGEN 1 every 3 days - jfb Last Documented On 2 9:17AM By Sarmiento 5 User ; [facility] Lortab 10-500 MG OR TABS 04/20/2012 - 05/20/2012 Provi monica: Nikko Franks MD Diagnosis: Last Documented On 2 9:17AM By Sarmiento 5 User ; [facility] Lortab 10-500 MG OR TABS 04/20/2012 - 05/20/2012 Provi monica: Nikko Franks MD Diagnosis: Last Documented On 2 9:17AM By Sarmiento 5 User ; [facility] Duragesic-75 75 MCG/HR TD PT72 03/29/2012 - 04/28/2012 Provider: Nikko Franks MD Diagnosis: LUMB/LUMBOSAC DI SC DEGEN 1 every 3 days - jfb Last Documented On 2 8:52AM By Sarmiento 5 User ; [facility] Lortab 10-500 MG OR TABS 03/29/2012 - 04/28/2012 Provi monica: Nikko Franks MD Diagnosis: adolfo [phone] jrk Last Documented On 2 8:39AM By Tim Gutierrez ; [facility] Duragesic-75 75 MCG/HR TD PT72 02/28/2012 - 03/29/2012 Provider: Nikko Franks MD Diagnosis: LUMB/LUMBOSAC DI SC DEGEN 1 every 3 days - jfb Last Documented On 2 11:00AM By Sarmiento 4 User ; [facility] Lortab 10-500 MG OR TABS 02/28/2012 - 03/29/2012 Provi monica: Nikko Franks MD Diagnosis: adolfo [phone] jsb Last Documented On 2 11:30AM By Tim Gutierrez ; [facility] DENIED EX MISC 02/23/2012 - 02/24/2012 Provider: Chaparrita Sin MD Diagnosis: spoke to pt Last Documented On 2 12:56PM By Susy Bobby ; [facility] Lortab 10-500 MG OR TABS 01/31/2012 - 03/01/2012 Provi monica: Nikko Franks MD Diagnosis: adolfo [phone] JRK Last Documented On 2 9:07AM By Tim Gutierrez ; [facility] Duragesic-75 75 MCG/HR TD PT72 01/31/2012 - 03/01/2012 Provider: Nikko Franks MD Diagnosis: LOC PRIM OSTEOARTH-HAND rossi Last Documented On 2 9:32AM By Mahsa Esparza ; [facility] Duragesic-75 75 MCG/HR TD PT72 12/30/2011 - 01/29/2012 Provider: Nikko Franks MD Diagnosis: LOC PRIM OSTEOARTH-HAND rossi Last Documented On 2 9:15AM By Torsten 5 User ; [facility] Lortab 10-500 MG OR TABS 12/30/2011 - 01/29/2012 Provi monica: Nikko Franks MD Diagnosis: carine veronica bhakta [phone] jsb Last Documented On 2 10:11AM By Tim Gutierrez ; [facility] Sae EX MISC 11/29/2011 - 11/30/2011 Provider: Manpreet Franks MD Diagnosis: Sae [phone] teb Last Documented On 2 8:44AM By Tim Gutierrez ; [facility] Lortab 10-500 MG OR TABS 11/29/2011 - 12/29/2011 Provi monica: Nikko Franks MD Diagnosis: carine veronica yony [phone] df Last Documented On 2 4:12PM By Tim Gutierrez ; [facility] Duragesic-75 75 MCG/HR TD PT72 11/29/2011 - 12/29/2011 Provider: Nikko Franks MD Diagnosis: 1q 3d/rossi Last Documented On 2 2:03PM By Torsten 5 User ; [facility] Duragesic-75 75 MCG/HR TD PT72 10/27/2011 - 11/26/2011 Provider: Nikko Franks MD Diagnosis: 1q 3d/rossi Last Documented On 2 10:49AM By Mahsa Esparza ; [facility] Lortab 10-500 MG OR TABS 10/27/2011 - 11/26/2011 Provi monica: Nikko Franks MD Diagnosis: rossi Last Documented On 2 10:49AM By Mahsa Esparza ; [facility] Lortab 10-500 MG OR TABS 09/29/2011 - 10/29/2011 Provi monica: Nikko Franks MD Diagnosis: rossi Last Documented On 2 9:08AM By Torsten 6 User ; [facility] Duragesic-75 75 MCG/HR TD PT72 09/29/2011 - 10/29/2011 Provider: Nikko Franks MD Diagnosis: 1q 3d/rossi Last Documented On 2 9:07AM By Torsten 6 User ; [facility] Duragesic-75 75 MCG/HR TD PT72 08/30/2011 - 09/29/2011 Provider: Nikko Franks MD Diagnosis: 1q 3d/rossi Last Documented On 2 9:33AM By Mahsa Esparza ; [facility] Lortab 10-500 MG OR TABS 08/30/2011 - 09/29/2011 Provi monica: Nikko Franks MD Diagnosis: rsosi Last Documented On 2 9:33AM By Mahsa Esparza ; [facility] Duragesic-75 75 MCG/HR TD PT72 08/02/2011 - 09/01/2011 Provider: Nikko Franks MD Diagnosis: 1q 3d/pp Last Documented On 2 9:56AM By Torsten 5 User ; [facility] Lortab 10-500 MG OR TABS 08/02/2011 - 09/01/2011 Provi monica: Nikko Franks MD Diagnosis: [phone] df Last Documented On 2 11:34AM By Tim Gutierrez ; [facility] Lortab 10-500 MG OR TABS 06/28/2011 - 07/28/2011 Provi monica: Nikko Franks MD Diagnosis: [phone] jrk Last Documented On 2 8:31AM By Tim Gutierrez ; [facility] Lortab 10-500 MG OR TABS 06/28/2011 - 07/28/2011 Provi monica: Nikko Franks MD Diagnosis: [phone] j and l df Last Documented On 2 9:26AM By Tim Gutierrez ; [facility] Duragesic-75 75 MCG/HR TD PT72 06/23/2011 - 07/23/2011 Provider: Nikko Franks MD Diagnosis: Last Documented On 2 10:15AM By Vi Ashley ; [facility] Duragesic-75 75 MCG/HR TD PT72 05/25/2011 - 06/24/2011 Provider: Nikko Franks MD Diagnosis: 1q3d/pp Last Documented On 2 9:18AM By Torsten 6 User ; [facility] Lortab 10-500 MG OR TABS 05/25/2011 - 06/24/2011 Provi monica: Nikko Franks MD Diagnosis: [phone] df Last Documented On 2 10:40AM By Tim Gutierrez ; [facility] Percocet 10-325 MG OR TABS 05/04/2011 - 05/24/2011 Pro vider: Kei Donovan MD Diagnosis: Last Documented On 2 1:53PM By Vi Ashley ; [facility] Duragesic-75 75 MCG/HR TD PT72 04/27/2011 - 05/27/2011 Provider: Stef Ty MD Diagnosis: 1q3d/pp Last Documented On 1 8:29AM By Torsten 1 User ; [facility] Lortab 10-500 MG OR TABS 04/12/2011 - 05/12/2011 Provi monica: Nikko Franks MD Diagnosis: j and l [phone] th Last Documented On 1 11:29AM By Adelita Sarmiento ; [facility] Duragesic-75 75 MCG/HR TD PT72 03/30/2011 - 04/29/2011 Provider: Stef Ty MD Diagnosis: 1 q 3d/pp Last Documented On 1 9:02AM By Vi Ashley ; [facility] Percocet 10-325 MG OR TABS 03/17/2011 - 03/30/2011 Pro vider: Sandy Kearns MD Diagnosis: bh Last Documented On 1 1:10PM By Torsten 1 User ; [facility] Duragesic-75 75 MCG/HR TD PT72 03/02/2011 - 04/01/2011 Provider: Kei edward MD Diagnosis: 1 q 3 days/pp Last Documented On 1 2:35PM By Vi Ashley ; [facility] Lortab 10-500 MG OR TABS 03/02/2011 - 04/01/2011 Provi monica: Nikko Franks MD Diagnosis: j and yony [phone] jrk Last Documented On 1 3:19PM By Tim Gutierrez ; [facility] Duragesic-75 75 MCG/HR TD PT72 02/01/2011 - 03/03/2011 Provider: Nikko Franks MD Diagnosis: 1 Q 3 DAYS/PP Last Documented On 1 9:00AM By Torsten 6 User ; [facility] Lortab 10-500 MG OR TABS 02/01/2011 - 03/03/2011 Provi monica: Nikko Franks MD Diagnosis: j and yony [phone] jrk/jsb Last Documented On 1 9:52AM By Tim Gutierrez ; [facility] Lortab 10-500 MG OR TABS 12/29/2010 - 01/28/2011 Provi monica: Nikko Franks MD Diagnosis: j and yony [phone] jrk Last Documented On 1 11:13AM By Tim Gutierrez ; [facility] Duragesic-75 75 MCG/HR TD PT72 12/29/2010 - 01/28/2011 Provider: Nikko Franks MD Diagnosis: 1 q 3 days/ppcalled PT and l eft message to call back, RX ready for pickup. jrk Last Documented On 1 11:13AM By Tim Gutierrez ; [facility] Lortab 10-500 MG OR TABS 11/24/2010 - 12/24/2010 Provi monica: Nikko Franks MD Diagnosis: j and l [phone] jsb Last Documented On 1 10:09AM By Zeynep Wing ; [facility] Duragesic-75 75 MCG/HR TD PT72 11/24/2010 - 12/24/2010 Provider: Nikko Franks MD Diagnosis: 1 q 3 days/ppDAW Last Documented On 1 9:25AM By Torsten 5 User ; [facility] Duragesic-75 75 MCG/HR TD PT72 10/26/2010 - 11/25/2010 Provider: Nikko Franks MD Diagnosis: 1q 3 days/ ac Last Documented On 1 9:37AM By Torsten Ferrer User ; [facility] Lortab 10-500 MG OR TABS 10/26/2010 - 11/25/2010 Provi monica: Nikko Franks MD Diagnosis: j and l [phone] jsb Last Documented On 1 10:05AM By Tim Gutierrez ; [facility] Lortab 10-500 MG OR TABS 09/29/2010 - 10/29/2010 Provi monica: Nikko Franks MD Diagnosis: j and l [phone] jrk/jsb Last Documented On 1 1:48PM By Tim Gutierrez ; [facility] Duragesic-75 75 MCG/HR TD PT72 09/16/2010 - 10/16/2010 Provider: Nikko Franks MD Diagnosis: 1q 3 days/ PRATIMA Last Documented On 1 11:38AM By Torsten 6 User ; [facility] Duragesic-75 75 MCG/HR TD PT72 09/03/2010 - 10/03/2010 Provider: Nikko Franks MD Diagnosis: 1 q 3 days//kw Last Documented On 1 9:27AM By Torsten 6 User ; [facility] Lortab 10-500 MG OR TABS 08/12/2010 - 09/11/2010 Provi monica: Nikko Franks MD Diagnosis: [phone] j and l jrk/df Last Documented On 1 9:20AM By Torsten 6 User ; [facility] Duragesic-75 75 MCG/HR TD PT72 08/12/2010 - 09/11/2010 Provider: Nikko Franks MD Diagnosis: 1 q 3 days Last Documented On 1 9:20AM By Torsten 6 User ; [facility] Lortab 10-500 MG OR TABS 07/28/2010 - 08/27/2010 Provi monica: Nikko Franks MD Diagnosis: [phone] carine and l jrk/df Last Documented On 1 9:28AM By Tim Gutierrez ; [facility] Duragesic-75 75 MCG/HR TD PT72 07/13/2010 - 08/12/2010 Provider: Nikko Franks MD Diagnosis: 1 q 3 days Last Documented On 1 10:44AM By Torsten 6 User ; [facility] Lortab 10-500 MG OR TABS 06/29/2010 - 07/29/2010 Provi monica: Nikko Franks MD Diagnosis: J&L pharm [phone] jrk Last Documented On 1 10:05AM By Tim Gutierrez ; [facility] Duragesic-75 75 MCG/HR TD PT72 06/15/2010 - 07/15/2010 Provider: Nikko Franks MD Diagnosis: 1 patch q 3 days Last Documented On 1 9:06AM By Torsten 3 User ; [facility] Lortab 10-500 MG OR TABS 05/27/2010 - 06/26/2010 Provi monica: Nikko Franks MD Diagnosis: J and L [phone] jrk Last Documented On 1 9:14AM By Tim Gutierrez ; [facility] Duragesic-75 75 MCG/HR TD PT72 05/19/2010 - 06/18/2010 Provider: Nikko Franks MD Diagnosis: 1 q 3 days jrk. called PT Last Documented On 1 9:27AM By Tim Gutierrez ; [facility] Lortab 10-500 MG OR TABS 04/28/2010 - 05/28/2010 Provi monica: Nikko Franks MD Diagnosis: Adolfo [phone] jrk Last Documented On 0 9:20AM By Tim Gutierrez ; [facility] Duragesic-75 75 MCG/HR TD PT72 04/20/2010 - 05/20/2010 Provider: Nikko Franks MD Diagnosis: 1 q 3 days/pp Last Documented On 0 9:19AM By Torsten Ferrer User ; [facility] Lortab 10-500 MG OR TABS 03/30/2010 - 04/29/2010 Provi monica: Nikko Franks MD Diagnosis: Adolfo [phone] th Last Documented On 0 11:16AM By Adelita Sarmiento ; [facility] Duragesic-75 75 MCG/HR TD PT72 03/23/2010 - 04/22/2010 Provider: Nikko Franks MD Diagnosis: use every 3 days/ab Last Documented On 0 10:35AM By Torsten Ferrer User ; [facility] Lortab 10-500 MG OR TABS 02/26/2010 - 03/28/2010 Provi monica: Nikko Franks MD Diagnosis: Adolfo [phone] jrk Last Documented On 0 12:10PM By Torsten Ferrer User ; [facility] Duragesic-75 75 MCG/HR TD PT72 02/23/2010 - 03/25/2010 Provider: Nikko Franks MD Diagnosis: use every 3 days/alb Last Documented On 0 3:26PM By Torsten Ferrer User ; [facility] Lortab 10-500 MG OR TABS 02/05/2010 - 03/02/2010 Provi monica: Nikko Franks MD Diagnosis: Adolfo [phone] jrk Last Documented On 0 9:22AM By Tmi Gutierrez ; [facility] Duragesic-75 75 MCG/HR TD PT72 01/19/2010 - 02/18/2010 Provider: Nikko Franks MD Diagnosis: 1 q 3 days Last Documented On 0 1:13PM By Torsten 6 User ; [facility] Lortab 10-500 MG OR TABS 01/12/2010 - 02/06/2010 Provi monica: Nikko Franks MD Diagnosis: Adolfo [phone] jrk Last Documented On 0 11:09AM By Tim Gutierrez ; [facility] Duragesic-75 75 MCG/HR TD PT72 12/17/2009 - 01/16/2010 Provider: Nikko Franks MD Diagnosis: 1 q 3 days Last Documented On 0 8:53AM By Torsten 2 User ; [facility] Lortab 10-500 MG OR TABS 12/15/2009 - 01/09/2010 Provi monica: Nikko Franks MD Diagnosis: Adolfo [phone] th Last Documented On 0 9:18AM By Tim Gutierrez ; [facility] Duragesic-75 75 MCG/HR TD PT72 11/19/2009 - 12/19/2009 Provider: Nikko Franks MD Diagnosis: 1 q 3 days Last Documented On 0 9:39AM By Torsten 2 User ; [facility] Lortab 10-500 MG OR TABS 11/17/2009 - 12/12/2009 Provi monica: Nikko Franks MD Diagnosis: Adolfo [phone] jrk Last Documented On 0 9:47AM By Tim Gutierrez ; [facility] Lortab 10-500 MG OR TABS 10/20/2009 - 11/14/2009 Provi monica: Nikko Franks MD Diagnosis: called pt. jrk/rossi Last Documented On 0 11:29AM By Tim Gutierrez ; [facility] Duragesic-75 75 MCG/HR TD PT72 09/22/2009 - 10/22/2009 Provider: Nikko Franks MD Diagnosis: 1 q 3 days Last Documented On 0 10:08AM By Torsten Ferrer User ; [facility] Lortab 10-500 MG OR TABS 09/22/2009 - 10/17/2009 Provi monica: Nikko Franks MD Diagnosis: Last Documented On 0 10:08AM By Torsten 6 User ; [facility] Lortab 10-500 MG OR TABS 08/25/2009 - 09/19/2009 Provi monica: Nikko Franks MD Diagnosis: adolfo [phone] jrk/df Last Documented On 0 8:51AM By Tim Gutierrez ; [facility] Duragesic-75 75 MCG/HR TD PT72 08/21/2009 - 09/20/2009 Provider: Nikko Franks MD Diagnosis: 1 q 3 days Last Documented On 0 11:17AM By Torsten Ferrer User ; [facility] Lortab 10-500 MG OR TABS 07/30/2009 - 08/24/2009 Provi monica: Nikko Franks MD Diagnosis: [phone] jrk/df Last Documented On 0 10:45AM By Tim Gutierrez ; [facility] Duragesic-75 75 MCG/HR TD PT72 07/22/2009 - 08/21/2009 Provider: Nikko Franks MD Diagnosis: 1 q 3 days Last Documented On 0 12:09PM By Torsten 5 User ; [facility] Lortab 10-500 MG OR TABS 07/02/2009 - 07/27/2009 Provi monica: Nikko Franks MD Diagnosis: j sudarshan l [phone] df/jsb Last Documented On 0 10:49AM By Tim Gutierrez ; [facility] Duragesic-75 75 MCG/HR TD PT72 06/24/2009 - 07/24/2009 Provider: Nikko Franks MD Diagnosis: pt to pecan picker jsb/df Last Documented On 0 10:53AM By Tim Gutierrez ; [facility] Lortab 10-500 MG OR TABS 06/03/2009 - 06/28/2009 Provi monica: Nikko Franks MD Diagnosis: adolfo [phone] jrk Last Documented On 0 9:37AM By Tim Gutierrez ; [facility] Duragesic-75 75 MCG/HR TD PT72 05/27/2009 - 06/26/2009 Provider: Nikko Franks MD Diagnosis: 1 q 3days Last Documented On 0 9:46AM By Torsten Ferrer User ; [facility] Lortab 10-500 MG OR TABS 05/07/2009 - 06/01/2009 Provi monica: Nikko Franks MD Diagnosis: adolfo [phone] jsb Last Documented On 0 12:08PM By Tim Gutierrez ; [facility] Duragesic-75 75 MCG/HR TD PT72 04/28/2009 - 05/28/2009 Provider: Nikko Franks MD Diagnosis: 1 q 3daysleft mess. for pt. to call us back. Last Documented On 9 11:08AM By Jung Alonso ; [facility] Lortab 10-500 MG OR TABS 04/07/2009 - 05/02/2009 Provi monica: Nikko Franks MD Diagnosis: [phone] plr Last Documented On 9 1:30PM By Tim Gutierrez ; [facility] NOTE EX MISC 03/24/2009 - 03/25/2009 Provider: Carlos Manuel Franks MD Diagnosis: called the pt and left a mes isra. Her script is ready to be picked up-plr Last Documented On 9 3:18PM By Tim Gutierrez ; [facility] Duragesic-75 75 MCG/HR TD PT72 03/24/2009 - 04/23/2009 Provider: Nikko Franks MD Diagnosis: 1 q 3 days Last Documented On 9 2:45PM By Torsten 6 User ; [facility] Duragesic-75 75 MCG/HR TD PT72 02/24/2009 - 03/26/2009 Provider: Nikko Franks MD Diagnosis: 1 q 3 days/PRATIMA Last Documented On 9 10:35AM By Sarmiento 5 User ; [facility] Lortab 10-500 MG OR TABS 01/22/2009 - 02/16/2009 Provi monica: Nikko Franks MD Diagnosis: [phone] jsb/df Last Documented On 9 10:49AM By Sarmiento 5 User ; [facility] Lortab 10-500 MG OR TABS 01/22/2009 - 02/16/2009 Provi monica: Nikko Franks MD Diagnosis: [phone] jsb/df Last Documented On 9 10:49AM By Torsten 5 User ; [facility] Duragesic-75 75 MCG/HR TD PT72 01/22/2009 - 02/21/2009 Provider: Nikko Franks MD Diagnosis: 1q3 day pt to pecan picker jsb Last Documented On 9 10:49AM By Torsten 5 User ; [facility] Lortab 10-500 MG OR TABS 01/13/2009 - 02/07/2009 Provi monica: Nikko Franks MD Diagnosis: [phone] jsb/df Last Documented On 9 8:59AM By Tim Gutierrez ; [facility] Duragesic-75 75 MCG/HR TD PT72 12/27/2008 - 01/26/2009 Provider: Nikko Franks MD Diagnosis: 1q3 day pt to pecan picker jsb Last Documented On 9 9:55AM By Tim Gutierrez ; [facility] Lortab 10-500 MG OR TABS 12/19/2008 - 01/13/2009 Provi monica: Nikko Franks MD Diagnosis: j & L [phone] Last Documented On 9 2:07PM By Tim Gutierrez ; [facility] Duragesic-75 75 MCG/HR TD PT72 12/02/2008 - 12/16/2008 Provider: José Miguel Sin MD Diagnosis: Last Documented On 9 9:21AM By Torsten 4 User ; [facility] Lortab 10-500 MG OR TABS 11/22/2008 - 12/17/2008 Provi monica: Nikko Franks MD Diagnosis: j & L [phone] LMB Last Documented On 9 11:44AM By Jung Alonso ; [facility] Duragesic-75 75 MCG/HR TD PT72 10/14/2008 - 10/28/2008 Provider: Nikko Franks MD Diagnosis: called the pt-plr Last Documented On 9 10:23AM By Torsten 1 User ; [facility] Lortab 10-500 MG OR TABS 10/14/2008 - 11/08/2008 Provi monica: Nikko Franks MD Diagnosis: carine finney [phone] Last Documented On 9 10:22AM By Torsten 1 User ; [facility] Duragesic-75 75 MCG/HR TD PT72 10/08/2008 - 10/22/2008 Provider: Nikko Franks MD Diagnosis: called the pt-plr Last Documented On 9 12:50PM By Tim Gutierrez ; [facility] Lortab 10-500 MG OR TABS 10/04/2008 - 10/29/2008 Provi monica: Nikko Franks MD Diagnosis: carine finney [phone] Last Documented On 9 1:14PM By Tim Gutierrez ; [facility] Lortab 10-500 MG OR TABS 09/10/2008 - 10/05/2008 Provi monica: Nikko Franks MD Diagnosis: carine finney [phone] JRK/plr Last Documented On 9 11:28AM By Tim Gutierrez ; [facility] Duragesic-75 75 MCG/HR TD PT72 09/04/2008 - 10/04/2008 Provider: Nikko Franks MD Diagnosis: 1q 3 days/PRATIMA/pp Last Documented On 9 11:30AM By Torsten 5 User ; [facility] Lortab 10-500 MG OR TABS 08/16/2008 - 09/10/2008 Provi monica: Nikko Franks MD Diagnosis: j anl [phone] JRK Last Documented On 9 11:20AM By Tim Gutierrez ; [facility] Duragesic-75 75 MCG/HR TD PT72 08/08/2008 - 09/07/2008 Provider: Nikko Franks MD Diagnosis: 1 q 3 days/PRATIMA/pp Last Documented On 9 10:14AM By Torsten Kinney User ; [facility] Lortab 10-500 MG OR TABS 07/25/2008 - 08/19/2008 Provi monica: Nikko Franks MD Diagnosis: j anl [phone] plr Last Documented On 9 9:39AM By Tim Gutierrez ; [facility] Duragesic-75 75 MCG/HR TD PT72 07/10/2008 - 08/09/2008 Provider: Nikko Franks MD Diagnosis: 1 q 3 days/PRATIMA/pp Last Documented On 9 8:47AM By Torsten Kinney User ; [facility] Lortab 10-500 MG OR TABS 07/02/2008 - 07/27/2008 Provi monica: Nikko Franks MD Diagnosis: j anl [phone] jrk Last Documented On 9 11:29AM By Tim Gutierrez ; [facility] Duragesic-75 75 MCG/HR TD PT72 06/13/2008 - 07/13/2008 Provider: Nikko Franks MD Diagnosis: 1 q 3 days/PRATIMA Last Documented On 9 10:55AM By Torsten 6 User ; [facility] Lortab 10-500 MG OR TABS 06/10/2008 - 07/05/2008 Provi monica: Nikko Franks MD Diagnosis: j anl [phone] plr Last Documented On 9 10:05AM By Tim Gutierrez ; [facility] Duragesic-75 75 MCG/HR TD PT72 05/24/2008 - 06/23/2008 Provider: Nikko Franks MD Diagnosis: 1 q 3 d/day- 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 script-plr /jrk Last Documented On 9 9:19AM By Tim Gutierrez ; [facility] Lortab 10-500 MG OR TABS 05/16/2008 - 06/10/2008 Provi monica: Nikko Franks MD Diagnosis: carine sharmin [phone] jrk/jsb Last Documented On 9 9:31AM By Tim Gutierrez ; [facility] Lortab 10-500 MG OR TABS 04/18/2008 - 05/13/2008 Provi monica: Nikko Franks MD Diagnosis: Last Documented On 8 12:17PM By Sarmiento 6 User ; [facility] Duragesic-75 75 MCG/HR TD PT72 04/18/2008 - 05/18/2008 Provider: Nikko rFanks MD Diagnosis: 1 q 3 d/dawpp Last Documented On 8 12:17PM By Sarmiento 6 User ; [facility] Duragesic-75 75 MCG/HR TD PT72 03/25/2008 - 04/24/2008 Provider: Nikko Franks MD Diagnosis: 1 q 3 d/dawpp Last Documented On 8 10:57AM By Sarmiento 6 User ; [facility] Lortab 10-500 MG OR TABS 03/25/2008 - 04/19/2008 Provi monica: Nikko Franks MD Diagnosis: Last Documented On 8 10:57AM By Sarmiento 6 User ; [facility] Lortab 10-500 MG OR TABS 03/01/2008 - 03/26/2008 Provi monica: Nikko Franks MD Diagnosis: carine veronica yony [phone] jrlynnette Last Documented On 8 9:47AM By Tim Gutirerez ; [facility] Duragesic-75 75 MCG/HR TD PT72 02/27/2008 - 03/28/2008 Provider: Nikko Franks MD Diagnosis: 1 q 3 d/dawpp Last Documented On 8 11:12AM By Sarmiento 6 User ; [facility] Lortab 10-500 MG OR TABS 02/06/2008 - 03/02/2008 Provi monica: Nikko Franks MD Diagnosis: adolfo [phone] plr Last Documented On 8 10:09AM By Tim Gutierrez ; [facility] Duragesic-75 75 MCG/HR TD PT72 01/24/2008 - 02/23/2008 Provider: Nikko Franks MD Diagnosis: 1 q 3 days/pt to pecan picker/pp Last Documented On 8 10:23AM By Sarmiento 6 User ; [facility] Lortab 10-500 MG OR TABS 01/09/2008 - 02/03/2008 Provi monica: Nikko Franks MD Diagnosis: carine martin yony [phone] jsb Last Documented On 8 12:54PM By Tim Gutierrez ; [facility] Duragesic-75 75 MCG/HR TD PT72 12/29/2007 - 01/28/2008 Provider: Nikko Franks MD Diagnosis: [id number] pt to pecan picker i l/m for her to call jrk Last Documented On 8 9:04AM By Tim Gutierrez ; [facility] Lortab 10-500 MG OR TABS 12/14/2007 - 01/08/2008 Provi monica: Nikko Franks MD Diagnosis: Raheem [phone] jrk Last Documented On 8 10:21AM By Tim Gutierrez ; [facility] Duragesic-75 75 MCG/HR TD PT72 11/27/2007 - 12/27/2007 Provider: Nikko Franks MD Diagnosis: [id number] pt to pecan picker i l/m for her to call jsb Last Documented On 8 12:26PM By iTm Gutierrez ; [facility] Lortab 10-500 MG OR TABS 11/21/2007 - 12/16/2007 Provi monica: Nikko Franks MD Diagnosis: Raheem [phone] jsb/plr Last Documented On 8 10:33AM By Tim Gutierrez ; [facility] Duragesic-75 75 MCG/HR TD PT72 10/30/2007 - 11/29/2007 Provider: Nikko Franks MD Diagnosis: 1q 3days pt to pecan picker jsb Last Documented On 8 11:22AM By Torsten Ferrer User ; [facility] Lortab 10-500 MG OR TABS 10/24/2007 - 11/18/2007 Provi monica: Nikko Franks MD Diagnosis: J&L [phone] jrk Last Documented On 8 11:37AM By Tim Gutierrez ; [facility] Duragesic-75 75 MCG/HR TD PT72 09/26/2007 - 10/26/2007 Provider: Nikko Franks MD Diagnosis: 1q 3days pt to pecan picker jsb Last Documented On 8 12:50PM By Tim Gutierrez ; [facility] Lortab 10-500 MG OR TABS 09/22/2007 - 10/17/2007 Provi monica: Nikko Franks MD Diagnosis: [phone] J&L [facility] Last Documented On 8 9:52AM By Tim Gutierrez ; [facility] Duragesic-75 75 MCG/HR TD PT72 08/28/2007 - 09/27/2007 Provider: Nikko Franks MD Diagnosis: 1 q3days pt to pecan picker jsb Last Documented On 8 12:27PM By Tim Gutierrez ; [facility] Lortab 10-500 MG OR TABS 08/28/2007 - 09/22/2007 Provi monica: Nikko Franks MD Diagnosis: pt to pecan picker jsb Last Documented On 8 12:26PM By Tim Gutierrez ; [facility] Lortab 10-500 MG OR TABS 08/03/2007 - 08/28/2007 Provi monica: Nikko Franks MD Diagnosis: [phone] plr Last Documented On 8 9:14AM By Tim Gutierrez ; [facility] Duragesic-75 75 MCG/HR TD PT72 07/24/2007 - 08/23/2007 Provider: Nikko Franks MD Diagnosis: [id number] pt to pecan picker jsb Last Documented On 8 10:37AM By Torsten Ferrer User ; [facility] Duragesic-75 75 MCG/HR TD PT72 07/04/2007 - 08/03/2007 Provider: Nikko Franks MD Diagnosis: [id number] pt to pecan picker jsb Last Documented On 8 9:33AM By Tim Gutierrez ; [facility] Lortab 10-500 MG OR TABS 07/04/2007 - 07/29/2007 Provi monica: Nikko Franks MD Diagnosis: pt to pecan picker jsb Last Documented On 8 9:32AM By Tim Gutierrez ; [facility] Duragesic-75 75 MCG/HR TD PT72 06/05/2007 - 07/05/2007 Provider: Nikko Franks MD Diagnosis: [id number]//pt to pecan picker df Last Documented On 8 11:33AM By Sarmiento 6 User ; [facility] Lortab 10-500 MG OR TABS 06/05/2007 - 06/30/2007 Provi monica: Nikko Franks MD Diagnosis: [phone] df/jsb Last Documented On 8 11:32AM By Sarmiento 6 User ; [facility] Lortab 10-500 MG OR TABS 05/11/2007 - 06/05/2007 Provi monica: Nikko Franks MD Diagnosis: [phone] df/jsb Last Documented On 8 9:17AM By Tim Gutierrez ; [facility] NOTE EX MISC 05/01/2007 - 05/02/2007 Provider: Carlos Manuel Franks MD Diagnosis: pt called remoises serrato e in lortab//per cristian pt is to take lortab tid only. pp spoke to pt df Last Documented On 7 1:09PM By Zeynep Wing ; [facility] Duragesic-75 75 MCG/HR TD PT72 05/01/2007 - 05/31/2007 Provider: Nikko Franks MD Diagnosis: 9h4azsl//pt to pecan picker df Last Documented On 7 12:06PM By Zeynep Wing ; [facility] Lortab 10-500 MG OR TABS 04/27/2007 - 05/17/2007 Provi monica: Nikko Franks MD Diagnosis: [phone] df Last Documented On 7 12:28PM By Zeynep Wing ; [facility] DENIED EX MISC 04/20/2007 - 04/21/2007 Provider: Manpreet Franks MD Diagnosis: pt called for lortab. she wa nted it called in early due to holiday. no per dr bhakta pt is not due until 05-02-07. pt may call back the . l/m for her to Last Documented On 7 11:22AM By Tim Gutierrez ; [facility] Lortab 10-500 MG OR TABS 03/30/2007 - 05/02/2007 Provi monica: Nikko Franks MD Diagnosis: [phone] df Last Documented On 7 1:18PM By Tim Gutierrez ; [facility] Duragesic-75 75 MCG/HR TD PT72 03/21/2007 - 04/20/2007 Provider: Nikko Franks MD Diagnosis: 9h5tozd do not sub pt to pic k up. i l/m for pt to call. jsb Last Documented On 7 10:59AM By Tim Gutierrez ; [facility] Lortab 10-500 MG OR TABS 03/03/2007 - 04/05/2007 Provi monica: Nikko Franks MD Diagnosis: adolfo [phone] quantity is 100 jsb Last Documented On 7 1:03PM By Tim Gutierrez ; [facility] Duragesic-75 75 MCG/HR TD PT72 02/20/2007 - 02/23/2007 Provider: Nikko Franks MD Diagnosis: 1 of 3 days/ 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 script/plr Last Documented On 7 12:09PM By Torsten Ferrer User ; [facility] Lortab 10-500 MG OR TABS 02/02/2007 - 03/07/2007 Provi monica: Nikko Franks MD Diagnosis: Last Documented On 7 11:14AM By Torsten Ferrer User ; [facility] Duragesic-75 75 MCG/HR TD PT72 01/17/2007 - 01/20/2007 Provider: Nikko Franks MD Diagnosis: 1 of 3 days/ 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 script/plr Last Documented On 7 8:55AM By Tim Gutierrez ; [facility] Lortab 10-500 MG OR TABS 01/06/2007 - 01/31/2007 Provi monica: Nikko Franks MD Diagnosis: j&l [phone]/rp Last Documented On 7 9:42AM By Torsten 4 User ; [facility] Duragesic-75 75 MCG/HR TD PT72 12/19/2006 - 12/22/2006 Provider: Nikko Franks MD Diagnosis: 1 of 3 days/ advised pt ready to be pecan picker/rp Last Documented On 7 11:57AM By Tim Gutierrez ; [facility] Lortab 10-500 MG OR TABS 12/13/2006 - 01/07/2007 Provi monica: Nikko Franks MD Diagnosis: called to j and l rx at [phone] plr Last Documented On 7 9:38AM By Tim Gutierrez ; [facility] Duragesic-75 75 MCG/HR TD PT72 11/17/2006 - 12/17/2006 Provider: Nikko Franks MD Diagnosis: 1q3day do not sub df/jsb Last Documented On 7 11:13AM By Torsten 6 User ; [facility] Lortab 10-500 MG OR TABS 11/17/2006 - 12/12/2006 Provi monica: Nikko Franks MD Diagnosis: alj Last Documented On 7 11:12AM By Torsten 6 User ; [facility] Lortab 10-500 MG OR TABS 10/24/2006 - 11/18/2006 Provi monica: Nikko Franks MD Diagnosis: [phone] df Last Documented On 7 11:21AM By Tim Gutierrez ; [facility] Duragesic-75 75 MCG/HR TD PT72 10/19/2006 - 11/18/2006 Provider: Nikko Franks MD Diagnosis: 1q3day do not sub df/jsb Last Documented On 7 1:37PM By Zeynep Wing ; [facility] Lortab 10-500 MG OR TABS 09/27/2006 - 10/22/2006 Provi monica: Nikko Franks MD Diagnosis: called to j & l at [phone] plr Last Documented On 7 1:45PM By Tim Gutierrez ; [facility] Duragesic-75 75 MCG/HR TD PT72 09/22/2006 - 10/22/2006 Provider: Nikko Franks MD Diagnosis: 2p7sult/pt to pecan picker df Last Documented On 7 10:00AM By Tim Gutierrez ; [facility] Lortab 10-500 MG OR TABS 09/02/2006 - 09/27/2006 Provi monica: Nikko Franks MD Diagnosis: J&L [phone] df/kb Last Documented On 7 11:22AM By Zeynep Wing ; [facility] Duragesic-75 75 MCG/HR TD PT72 08/26/2006 - 09/25/2006 Provider: Nikko Franks MD Diagnosis: 1q 3days pt to pecan picker jsb do not sub Last Documented On 7 10:22AM By Tim Gutierrez ; [facility] Lortab 10-500 MG OR TABS 08/10/2006 - 09/04/2006 Provi monica: Nikko Franks MD Diagnosis: [phone] df Last Documented On 7 1:01PM By Zeynep Wing ; [facility] Duragesic-75 75 MCG/HR TD PT72 07/26/2006 - 08/25/2006 Provider: Nikko Franks MD Diagnosis: 1 patch every 3 days do not sub. pt to pecan picker j sb Last Documented On 7 12:22PM By Zeynep Wing ; [facility] Duragesic-75 75 MCG/HR TD PT72 07/26/2006 - 08/25/2006 Provider: Nikko Franks MD Diagnosis: 9j2micn pt to pecan picker do not sub df Last Documented On 7 12:16PM By Torsten 4 User ; [facility] Lortab 10-500 MG OR TABS 07/14/2006 - 08/08/2006 Provi monica: Nikko Franks MD Diagnosis: [phone] j and l df Last Documented On 7 12:18PM By Zeynep Wing ; [facility] Duragesic-75 75 MCG/HR TD PT72 06/27/2006 - 07/27/2006 Provider: Nikko Franks MD Diagnosis: 1x9wjiy pt to pecan picker do not sub df Last Documented On 7 12:14PM By Zeynep Wing ; [facility] Lortab 10-500 MG OR TABS 06/22/2006 - 07/17/2006 Provi monica: Nikko Franks MD Diagnosis: [phone] Last Documented On 7 2:35PM By Zeynep Wing ; [facility] Duragesic-75 75 MCG/HR TD PT72 05/26/2006 - 06/25/2006 Provider: Nikko Franks MD Diagnosis: 3m8lult name brand only pt to pecan picker jsb Last Documented On 7 8:39AM By Torsten 6 User ; [facility] Lortab 10-500 MG OR TABS 05/26/2006 - 06/20/2006 Provi monica: Nikko Franks MD Diagnosis: j and l [phone] df Last Documented On 7 8:39AM By Torsten 6 User ; [facility] Lortab 10-500 MG OR TABS 05/03/2006 - 05/28/2006 Provi monica: Nikko Franks MD Diagnosis: j and l [phone] df Last Documented On 7 3:24PM By Zeynep Wing ; [facility] Duragesic-75 75 MCG/HR TD PT72 04/26/2006 - 05/26/2006 Provider: Nikko Franks MD Diagnosis: [id number] name brand only pt to pecan picker jsb Last Documented On 6 12:08PM By Tim Gutierrez ; [facility] Lortab 10-500 MG OR TABS 04/07/2006 - 05/02/2006 Provi monica: Nikko Franks MD Diagnosis: j and l [phone] jsb Last Documented On 6 1:26PM By Zeynep Wing ; [facility] Duragesic-75 75 MCG/HR TD PT72 03/29/2006 - 04/28/2006 Provider: José Miguel Sin MD Diagnosis: [id number] l/m for pt to call r x needs to be picked up at the officeNAME BRAND ONLY! Last Documented On 6 12:01PM By Sarmiento 5 User ; [facility] Lortab 10-500 MG OR TABS 03/07/2006 - 04/01/2006 Provi monica: Nikko Franks MD Diagnosis: j and l [phone] df Last Documented On 6 2:08PM By Zeynep Wing ; [facility] Duragesic-75 75 MCG/HR TD PT72 02/24/2006 - 03/26/2006 Provider: Nikko Franks MD Diagnosis: [id number] l/m for pt to call r x needs to be picked up at the officeNAME BRAND ONLY! Last Documented On 6 9:32AM By Zeynep Wing ; [facility] Lortab 10-500 MG OR TABS 02/22/2006 - 03/02/2006 Provi monica: Nikko Franks MD Diagnosis: [phone] df Last Documented On 6 10:16AM By Zeynep Wing ; [facility] Lortab 10-500 MG OR TABS 02/11/2006 - 02/19/2006 Provi monica: Nikko Franks MD Diagnosis: j and l [phone] jsb/df Last Documented On 6 11:16AM By Zeynep Wing ; [facility] Lortab 10-500 MG OR TABS 01/31/2006 - 02/08/2006 Provi monica: Nikko Franks MD Diagnosis: j and l [phone] df Last Documented On 6 11:33AM By Zeynep Wing ; [facility] Duragesic-75 75 MCG/HR TD PT72 01/24/2006 - 02/23/2006 Provider: Nikko Franks MD Diagnosis: 1 patch every 3 days/advised pt ready to be picked up rp/df Last Documented On 6 2:34PM By Zeynep Wing ; [facility] Lortab 10-500 MG OR TABS 01/20/2006 - 01/28/2006 Provi monica: Nikko Franks MD Diagnosis: j and yony [phone] jsb Last Documented On 6 11:58AM By Tim Gutierrez ; [facility] Lortab 10-500 MG OR TABS 01/07/2006 - 01/15/2006 Provi monica: Nikko Franks MD Diagnosis: j&l rx [phone] th Last Documented On 6 12:33PM By Tim Gutierrez ; [facility] Lortab 10-500 MG OR TABS 12/27/2005 - 01/04/2006 Provi monica: Nikko Franks MD Diagnosis: [phone] df Last Documented On 6 11:11AM By Tim Gutierrez ; [facility] Duragesic-75 75 MCG/HR TD PT72 12/21/2005 - 01/20/2006 Provider: Nikko Franks MD Diagnosis: one patch every three days Last Documented On 6 8:33AM By Sarmiento 5 User ; [facility] Lortab 10-500 MG OR TABS 12/13/2005 - 12/21/2005 Provi monica: Nikko Franks MD Diagnosis: adolfo [phone] jsb Last Documented On 6 10:28AM By Zeynep Wing ; [facility] Duragesic-75 75 MCG/HR TD PT72 11/24/2005 - 12/24/2005 Provider: Nikko Franks MD Diagnosis: 1 q 3 days do not substitute jsb Last Documented On 6 11:56AM By Zeynep Wing ; [facility] Lortab 10-500 MG OR TABS 11/24/2005 - 12/02/2005 Provi monica: Nikko Franks MD Diagnosis: pt to [facility] picker with other rx.jsb Last Documented On 6 11:55AM By Zeynep Wing ; [facility] Lortab 10-500 MG OR TABS 11/10/2005 - 11/18/2005 Provi monica: Nikko Franks MD Diagnosis: [phone] j and l df Last Documented On 6 12:26PM By Zeynep Wing ; [facility] NOTE EX MISC 10/27/2005 - 10/28/2005 Provider: Carlos Manuel Franks MD Diagnosis: duragesic rx given today/spo ke with [facility] to specify name brand only per dr franks/pp Last Documented On 6 4:55PM By Vi Ashley ; [facility], [facility] Lortab 7.5-500 MG OR TABS 10/27/2005 - 11/26/2005 Prov ider: Nikko Franks MD Diagnosis: Last Documented On 6 11:59AM By Torsten Ferrer User ; [facility], [facility] Duragesic-75 75 MCG/HR TD PT72 10/27/2005 - 11/26/2005 Provider: Nikko Franks MD Diagnosis: 1 Q 3 DAYS PT TO CARPET RENOVATOR DF Last Documented On 6 11:58AM By Torsten Ferrer User ; [facility], [facility] Lyrica 75 MG OR CAPS 10/27/2005 - 11/03/2005 Provider: Nikko Franks MD Diagnosis: Last Documented On 6 11:54AM By Torsten Ferrer User ; [facility] Lortab 10-500 MG OR TABS 10/21/2005 - 10/29/2005 Provi monica: Nikko Franks MD Diagnosis: quantitiy is 30 j and l [phone] jsb/rp Last Documented On 6 10:43AM By Zeynep Wing ; [facility] Lortab 10-500 MG OR TABS 10/13/2005 - 10/21/2005 Provi monica: Nikko Franks MD Diagnosis: quantity is 30 j and l [phone] jsb Last Documented On 6 11:54AM By Zeynep Wing ; [facility] Lortab 10-500 MG OR TABS 09/29/2005 - 10/06/2005 Provi monica: José Miguel Sin MD Diagnosis: Last Documented On 6 3:48PM By Jose Roberto Johnson ; [facility], [facility] Cipro 500 MG OR TABS 09/23/2005 - 09/26/2005 Provider: Nikko Franks MD Diagnosis: take bid day of appt,day of, and day after dental appt. [phone] df Last Documented On 6 12:59PM By Zeynep Wing ; [facility], [facility] Duragesic-75 75 MCG/HR TD PT72 09/22/2005 - 10/22/2005 Provider: Nikko Franks MD Diagnosis: 1 Q 3 DAYS PT TO CARPET RENOVATOR DF Last Documented On 6 11:29AM By Zeynep Wing ; [facility], [facility] NOTE EX MISC 09/22/2005 - 09/23/2005 Provider: Jesus Donovan MD Diagnosis: pt called requesting antibio tic per jono pt needs to call treating dentist. pt is also allergic to several antibiotics. violetta l/m for pt to call df Last Documented On 6 3:17PM By Zeynep Wing ; [facility], [facility] Lortab 10-500 MG OR TABS 09/16/2005 - 09/23/2005 Provi monica: José Miguel Sin MD Diagnosis: called to [facility] [phone]//ms walter eirs will give written script for lortab 7.5 to pharmacist at [facility]//dc Last Documented On 6 11:22AM By Susy Bobby ; [facility], [facility] Lortab 10-500 MG OR TABS 09/09/2005 - 09/16/2005 Provi monica: José Miguel Sin MD Diagnosis: called to [facility] [phone] Last Documented On 6 9:36AM By Susy Bobby ; [facility], [facility] Duragesic-75 75 MCG/HR TD PT72 08/30/2005 - 09/29/2005 Provider: Nikko Frakns MD Diagnosis: [id number]/pt to pecan picker. df Last Documented On 6 10:09AM By Zeynep Wing ; [facility] NOTE EX MISC 08/18/2005 - 08/19/2005 Provider: Carlos Manuel Franks MD Diagnosis: recieved call from pt that s he had fx'ed her hand and would be having sx in [facility] today by a dr pelayo and would receive post op meds from him df Last Documented On 6 10:06AM By Tim Gutierrez ; [facility] Lortab 7.5-500 MG OR TABS 08/04/2005 - 08/19/2005 Prov ider: Nikko Franks MD Diagnosis: adolfo [phone] df Last Documented On 6 2:52PM By Zeynep Wing ; [facility] Duragesic-75 75 MCG/HR TD PT72 07/30/2005 - 08/29/2005 Provider: Nikko Franks MD Diagnosis: 1 patch every three days. rp Last Documented On 6 12:31PM By Zeynep Wing ; [facility] Lortab 7.5-500 MG OR TABS 07/20/2005 - 08/04/2005 Prov ider: Nikko Franks MD Diagnosis: ADOLFO [phone] JSB Last Documented On 6 11:02AM By Zeynep Wing ; [facility] Cipro 500 MG OR TABS 07/09/2005 - 07/14/2005 Provider: Kei Donovan MD Diagnosis: LF Last Documented On 6 11:13AM By Torsten 6 User ; [facility] Lortab 7.5-500 MG OR TABS 07/01/2005 - 07/16/2005 Prov ider: Nikko Franks MD Diagnosis: pt to pecan picker jsb Last Documented On 6 8:32AM By Tim Gutierrez ; [facility] Duragesic-75 75 MCG/HR TD PT72 07/01/2005 - 07/31/2005 Provider: Nikko Franks MD Diagnosis: 1 patch every 3 days jsb Last Documented On 6 8:30AM By Tim Gutierrez ; [facility] Lortab 5-500 MG OR TABS 06/11/2005 - 07/04/2005 Provid er: Nikko Franks MD Diagnosis: adolfo [phone] df Last Documented On 6 9:23AM By Tim Gutierrez ; [facility] Duragesic-75 75 MCG/HR TD PT72 05/31/2005 - 06/30/2005 Provider: Nikko Franks MD Diagnosis: 1 q 3 days l/m for pt to call needs to pecan picker s cript df Last Documented On 6 12:13PM By Zeynep Wing ; [facility] Lortab 5-500 MG OR TABS 05/21/2005 - 06/12/2005 Provid er: Nikko Franks MD Diagnosis: zhao bhakta [phone] jsb Last Documented On 6 12:33PM By Zeynep Wing ; [facility] Duragesic-75 75 MCG/HR TD PT72 05/04/2005 - 06/03/2005 Provider: Nikko Franks MD Diagnosis: [id number] pt to pick upl/m for pt to call df Last Documented On 6 12:31PM By Tim Gutierrez ; [facility] Lortab 7.5-500 MG OR TABS 04/30/2005 - 05/23/2005 Prov ider: Nikko Franks MD Diagnosis: [phone] RP Last Documented On 5 11:09AM By Soheila Warner ; [facility] Lortab 7.5-500 MG OR TABS 04/09/2005 - 05/02/2005 Prov ider: Nikko Franks MD Diagnosis: adolfo [phone] jsb/df Last Documented On 5 9:02AM By Zeynep Wing ; [facility] Duragesic-75 75 MCG/HR TD PT72 04/06/2005 - 05/06/2005 Provider: Nikko Franks MD Diagnosis: [id number] pt to pecan picker df Last Documented On 5 9:18AM By Zeynep Wing ; [facility] Medications Administered Includes: Administered Medications from this encounter No Administered Medications Recorded Vital Signs Includes: Vital Signs from this encounter Vital Name 11/01/2022 09:22A Height (in) 65 Weight (lb) 119 Body Mass Index 19.8 Body Surface Area 1.6 Note: asn Last Documented: On 11/01/2022 9:59AM ; [facility], [facility] Results Includes: Results discussed during this encounter No Results Recorded For Specified Dates History of Present Illness Includes: History of Present Illness from this encounter JAY Phillips is a 71 year old female. - Allergy list reviewed - Problem list reviewed - Medication list reviewed She is 5 months status post left total hip arthroplasty. Overall, she reports that she is doing very well post operatively. She is back to participating in activities she enjoys. She is very happy with her surgical outcome at this time. She denies any recent injury, trauma, or fall. Social History Description Last Updated Tobacco non-user 11/01/2022 Last Documented On 3 10:20AM ; [facility] No caffeine use 11/01/2022 Last Documented On 3 10:20AM ; [facility] No recent change in diet 11/01/2022 Last Documented On 3 10:20AM ; [facility] Not a current smoker. 11/01/2022 Last Documented On 3 10:20AM ; [facility] Not using alcohol 11/01/2022 Last Documented On 3 10:20AM ; [facility] Not using drugs 11/01/2022 Last Documented On 3 10:20AM ; [facility] Smoking Status Unknown Procedures and Surgical History Includes: Procedures from this encounter Procedures Code Diagnosis Performing Provider Service L ocation Service Date use of tobacco assessment performed 1000F Last Documented On 3 9:22AM ; [facility], [facility] no influenza immunization patient refuse d Last Documented On 3 9:22AM ; [facility] patient screened for future fall risk: documentation of any fall with injury in past year 1100F Last Documented On 3 9:22AM ; [facility], [facility] Medical History Includes: Medical History addressed during this encounter Description Last Updated No recent immunization for flu 3 Last Documented On 3 10:20AM ; [facility] No recent immunization for pneumococcal pneumonia 11/01/2022 Last Documented On 3 10:20AM ; [facility], [facility] Family History Includes: Family History addressed during this encounter No Family History Recorded Review of Systems Includes: Review of Systems from this encounter Systemic: Not feeling tired, no recent weight loss, and no recent weight gain. Head: No headache and no sinus pain. Eyes: No vision problems, no Cataracts, no Glasses/Contacts, and no Glaucoma. Otolaryngeal: No hearing loss and no tinnitus. Cardiovascular: No chest pain or discomfort, no palpitations, no Hypertension, and no High Cholesterol. Pulmonary: No daytime asthma symptoms and no chronic cough. No wheezing. Gastrointestinal: No heartburn and no abdominal pain. No Indigestion, no Acid Reflux, no Peptic Ulcer, no GI Stomach Bleed, and no Ulcers. Endocrine: No hot flashes, no muscle weakness, no Diabetes, no Hypothyroid, and no Hyperthyroid. Hematologic: No easy bleeding, no tendency for easy bruising, and no Anemia. Musculoskeletal: No Arthritis and no lower back pain. No soft tissue swelling and no localized joint pain. Neurological: No dizziness, no convulsions, and no numbness. Psychological: No anxiety, no emotional lability, no depression, and no insomnia. Not crying for no reason. Skin: No dry skin. No Ulcers, no Scars, and no rash. Allergic and Immunologic: No complaint of seasonal allergic reaction. Mental Status Includes: Mental Status from this encounter Description No anxiety Functional Status Includes: Functional Status from this encounter No Functional Status Recorded Physical Exam Includes: Physical Exam from this encounter Allergies Includes: Active Allergies Substance Type Reaction Onset Date Resolved Date Statu s traMADol HCl Allergy Nausea, Vomiting , Diarrhea / Diarrheal disorder 11/24/2020 Active Last Documented On 3 9:22AM ; [facility], [facility] Tetracycline Allergy 11/24/2020 Active Last Documented On 3 9:22AM ; [facility], [facility] Sulfa Antibiotics Allergy Nausea, Vomiti ng, Diarrhea / Diarrheal disorder 11/24/2020 Active Last Documented On 3 9:22AM ; [facility], [facility] Penicillins Allergy Nausea, Vomiting , Diarrhea / Diarrheal disorder 11/24/2020 Active Last Documented On 3 9:22AM ; [facility] IODINE Allergy 11/24/2020 Active Last Documented On 3 9:22AM ; [facility] Erythromycin Allergy 11/24/2020 Active Last Documented On 3 9:22AM ; [facility], [facility] Encounters Encounter Provider Location Date Check-In Time Check- Out Time Diagnosis Follow Up [place] Chu PA-C [facility] 3 9:19AM 10:17AM Insurance Includes: Active Insurance Policies Plan Name Member ID Group # Subscriber Relationship Effect yennifer Dates 1 - Medicare Part B [facility] [id number] Junie Phillips Self 12/01/2011 - Unknown 2 - [facility] [employer] [id number] Junie Phillips Self 6 - Unknown Clinical Notes Includes: Clinical Notes from this encounter * Progress note Date Encounter Last Documented by 11/01/2022 Follow Up Last documented on 11/01/2022; 10:20 AM, [place] Chu PA-C; [facility], [facility] Active Problems & Conditions - History of Joint Pain in the Left Hip - Low Back Pain Chief Complaint The Chief Complaint is: Left Hip Pain. Referred Here Referred by R. History of Present Illness Junie Phillips is a 71 year old female. - Allergy list reviewed - Problem list reviewed - Medication list reviewed She is 5 months status post left total hip arthroplasty. Overall, she reports that she is doing very well post operatively. She is back to participating in activities she enjoys. She is very happy with her surgical outcome at this time. She denies any recent injury, trauma, or fall. Current Medication - busPIRone HCl 15 MG Oral Tablet 90 days, 0 refills - diazePAM 5 MG Oral Tablet take as directed 30 days, 0 refills - fentaNYL 75 MCG/HR Transdermal Patch 72 Hour take as directed 30 days, 0 refills - Gabapentin 600 MG Oral Tablet take as directed 30 days, 0 refills - HYDROcodone-Acetaminophen 10-325 MG Oral Tablet take as directed 30 days, 0 refills - Kidyhrzr-Sxemzdzyy-Lfzuzvtu 3.5-94056-3.1 Ophthalmic Ointment 3.5-10697-6.1 take as directed 30 days, 0 refills - Promethazine HCl 25 MG Oral Tablet take as directed 90 days, 0 refills - risperiDONE 0.5 MG Oral Tablet take as directed 90 days, 0 refills - Zolpidem Tartrate 10 MG Oral Tablet take as directed 30 days, 0 refills Past Medical/Surgical History Reported: Immunization History: No recent immunization for flu and not for pneumococcal pneumonia. Social History Not a current smoker. Current diet: No recent change in diet. Caffeine use: No caffeine use. Tobacco use: Tobacco non-user. Alcohol: Not using alcohol. Drug Use: Not using drugs. Allergies - Erythromycin - IODINE - Penicillins Reaction: Diarrhea / Diarrheal disorder, Nausea, Vomiting - Sulfa Antibiotics Reaction: Diarrhea / Diarrheal disorder, Nausea, Vomiting - Tetracycline - traMADol HCl Reaction: Diarrhea / Diarrheal disorder, Nausea, Vomiting Review Of Systems Systemic: Not feeling tired, no recent weight loss, and no recent weight gain. Head: No headache and no sinus pain. Eyes: No vision problems, no Cataracts, no Glasses/Contacts, and no Glaucoma. Otolaryngeal: No hearing loss and no tinnitus. Cardiovascular: No chest pain or discomfort, no palpitations, no Hypertension, and no High Cholesterol. Pulmonary: No daytime asthma symptoms and no chronic cough. No wheezing. Gastrointestinal: No heartburn and no abdominal pain. No Indigestion, no Acid Reflux, no Peptic Ulcer, no GI Stomach Bleed, and no Ulcers. Endocrine: No hot flashes, no muscle weakness, no Diabetes, no Hypothyroid, and no Hyperthyroid. Hematologic: No easy bleeding, no tendency for easy bruising, and no Anemia. Musculoskeletal: No Arthritis and no lower back pain. No soft tissue swelling and no localized joint pain. Neurological: No dizziness, no convulsions, and no numbness. Psychological: No anxiety, no emotional lability, no depression, and no insomnia. Not crying for no reason. Skin: No dry skin. No Ulcers, no Scars, and no rash. Allergic and Immunologic: No complaint of seasonal allergic reaction. Physical Findings - Vitals taken 11/01/2022 09:22 am asn Height 65 in Weight 119 lbs Body Mass Index 19.8 kg/m2 Body Surface Area 1.6 m2 The patient is well-dressed well-groomed. They have normal mood and affect. They are ambulating without any assistive devices at today's follow-up appointment. The hip has normal alignment. Leg lengths are equal. The incision is intact, and well healed. There is no induration, fluctuance, or drainage. There is no increased redness or heat. the left hip has normal internal and external rotation without pain. There is no effusion. Normal sensation. Normal neurovascular status. No calf tenderness. Negative Homans sign. Tests 2 view radiographs of the left hip show well aligned prosthesis without signs of loosening. Plan Fall Risk Assessment: This patient has been [...] therapy has been discussed with the patient. Overall, they are doing well post operatively. We discussed activity progression and reviewed dental precautions. They will continue to work on stretches and exercises on their own at home. We will plan to follow-up with them in 7 months with an x-ray on arrival at the 1 year anniversary from surgery. All of the patient's questions were answered to their satisfaction. They will call our office with any additional questions or concerns. They are comfortable with the plan. Notes This dictation was done with voice recognition software and may contain errors and omissions. Practice Management Use of tobacco assessment performed and patient screened for future fall risk documentation of any fall with injury in past year; No influenza immunization patient refused. Care Team - Jasson Galvan MD Health Reminders - Assess BMI satisfied 11/01/2022. - Assess Tobacco Use satisfied 11/01/2022.
--- OUTSIDE RECORDS SUMMARY | 2024-08-15 10:53 | XMS_ITS | Data Portability ---
Author Organization [facility] [place] [facility] Address [address] [place] [address] Assessment No assessment recorded. Plan of Treatment Reminders Order Date Submit Date Provider Last Modified By Organization Details Last Modified Time Details Appointments None record ed. Lab CBC w/ auto diff 2024 025 [facility], [address] [place] [address], [id number], 5 19:37:27 vitami n B12 + folate , serum or blood 2024 025 [facility], [address] [place] [address], [id number], 5 20:02:33 magnes ium, QN, serum or plasma 2024 025 [facility], [address] [place] [address], [address], 5 19:58:21 CMP, serum or plasma 2024 025 [facility], [address] [place] [address], [id number], 5 19:58:22 TSH, serum or plasma 2024 025 [facility], [address] [place] [address], [id number], 5 19:53:23 cultur e, urine 2023 024 [facility], [address] [place] [address], [address], 4 11:35:54 urinal ysis, comple te 2023 024 [facility], [address] [place] [address], [id number], 4 20:27:09 urinal ysis, comple te 2023 024 [facility], [address] [place] [address], [address], 4 20:54:26 cultur e, urine 2023 024 [facility], [address] [place] [address], [id number], 4 10:36:52 Referral None record ed. Procedures None record ed. Surgeries None record ed. Imaging XR, chest, 2 view 2023 024 [facility], [address] [place] [address], [id number], 4 09:51:53 Medication Orders diazep am 5 mg tablet 2024 025 [facility], [address] [place] [address], [facility] [address], [address], 5 11:48:41 risper idone 0.5 mg tablet 2024 025 [facility], [address] [place] [address], [facility], [place], [address], 5 12:29:13 buprop ion HCl 75 mg tablet 2024 025 [facility], [address] [place] [address], [address], [place], [address], 11:37:39 Ambien CR 12.5 mg tablet ,exten ded releas e 2024 025 [facility], [address] [place] [address], [address], 11:37:40 promet hazine 25 mg tablet 2024 025 [facility], [address] [place] [address], [address], 11:37:36 gabape ntin 600 mg tablet 2024 025 [facility], [address] [place] [address], [address], 11:37:37 zolpid em 10 mg tablet 2024 025 [facility], [address] [place] [address], [address], 11:37:37 levofl oxacin 500 mg tablet 2024 025 [facility], [address] [place] [address], [address], 11:30:10 promet hazine 25 mg tablet 2024 025 [facility], [address] [place] [address], [address], 11:42:24 Zithro max Z-Antoni 250 mg tablet 2024 025 [facility], [address] [place] [address], [address], 10:25:31 Floras tor 250 mg capsul e 2023 024 lita [facility], [address] [place], [place] [address], [place], [address], 12:40:35 diphen oxylat e-atro pine 2.5 mg-0.0 25 mg tablet 2023 024 [facility], [address] [place] [address], [place], [address], 10:48:56 levofl oxacin 500 mg tablet [address], [address] [place] [address], [address], 5 11:27:08 levofl oxacin 500 mg tablet [address], [address] [place] [address], [address], 11:27:08 Patient TargetsNo targets recorded. Patient InstructionsNo instructions recorded. Reason for Referral None Reported. Results Created Date Observation Date Name Description Value Unit Range Abnormal Flag Note LastModifiedBy Organization Detail LastModifiedTime 11/30/19 24 11/30/2023 URINA LYSIS color Yellow normal Not Available [facility] [address] [place] [address], [id number], 11/30/2023 20:54:26 11/30/19 24 11/30/2023 URINA LYSIS appearance Turbid normal Not Available [facility] [address] [place] [address], [address], 11/30/2023 20:54:26 11/30/19 24 11/30/2023 URINA LYSIS glucose Normal mg/dL normal normal Not Available [facility] [address] [place] [address], [address], 11/30/2023 20:54:26 11/30/19 24 11/30/2023 URINA LYSIS bilirubin Negati ve mg/dL negati ve normal Not Available [facility] [address] [place] [address], [address], 11/30/2023 20:54:26 11/30/19 24 11/30/2023 URINA LYSIS ketone Negati ve mg/dL negati ve normal Not Available [facility] [address] [place] [address], [address], 11/30/2023 20:54:26 11/30/19 24 11/30/2023 URINA LYSIS specific gravity 1.019 1.003- 1.035 normal Not Available [facility] [address] [place] [address], [address], 11/30/2023 20:54:26 11/30/19 24 11/30/2023 URINA LYSIS blood 25 /uL negati ve abnormal Not Available [facility] [address] [place] [address], [address], 11/30/2023 20:54:26 11/30/19 24 11/30/2023 URINA LYSIS pH 6 5.0 - 8.0 normal Not Available [facility] [address] [place] [address], [address], 11/30/2023 20:54:26 11/30/19 24 11/30/2023 URINA LYSIS protein 30 mg/dL negati ve abnormal Not Available [facility] [address] [place] [address], [address], 11/30/2023 20:54:26 11/30/19 24 11/30/2023 URINA LYSIS urobilinogen 4 mg/dL normal abnormal Not Available [facility] [address] [place] [address], [address], 11/30/2023 20:54:26 11/30/19 24 11/30/2023 URINA LYSIS nitrite Negati ve negati ve normal Not Available [facility] [address] [place] [address], [address], 11/30/2023 20:54:26 11/30/19 24 11/30/2023 URINA LYSIS leukocyte esterase 500 /uL negati ve abnormal Not Available [facility] [address] [place] [address], [address], 11/30/2023 20:54:26 11/30/19 24 11/30/2023 URINA LYSIS WBC, urine > 30 0-5/hp f abnormal Not Available [facility] [address] [place] [address], [address], 11/30/2023 20:54:26 11/30/19 24 11/30/2023 URINA LYSIS squamous epi. cells 0-5 0-5/hp f normal Not Available [facility] [address] [place] [address], [address], 11/30/2023 20:54:26 11/30/19 24 11/30/2023 URINA LYSIS bacteria 2+ 0/hpf abnormal Not Available [facility] [address] [place] [address], [address], 11/30/2023 20:54:26 11/30/19 24 11/30/2023 URINA LYSIS crystals 1+ negati ve abnormal Calci um Oxala te Pleas e advis e if cultu re is tobias ed - notif y the lab at [phone]. Not Available [facility] [address] [place] [address], [address], 11/30/2023 20:54:26 11/30/19 24 11/30/2023 URINE CULTU RE escherichia coli Organi sm: Escher ichia coli Not Available [facility] [address] [place] [address], [address], 12/02/2023 12:15:51 11/30/19 24 12/02/2023 URINE CULTU RE urine culture abnormal ISOLA TE #1 COLON Y COUNT : > 100,0 00 CFU/M L Proba ble Gram Negat yennifer Bacil wilber. ID and sensi tivit y in progr ess. See Sparks te Resul t(s) Below Esche alessio a coli Not Available [facility] [address] [place] [address], [address], 12/02/2023 12:15:51 11/30/19 24 12/02/2023 URINE CULTU RE amox/K clav'ate(C) <=8/4 ug/mL susceptib le Not Available [facility] [address] [place] [address], [address], 12/02/2023 12:15:51 11/30/19 24 12/02/2023 URINE CULTU RE ampicillin <=8 ug/mL susceptib le Not Available [facility] [address] [place] [address], [address], 12/02/2023 12:15:51 11/30/19 24 12/02/2023 URINE CULTU RE cefazolin <=2 ug/mL susceptib le Not Available [facility] [address] [place] [address], [address], 12/02/2023 12:15:51 11/30/19 24 12/02/2023 URINE CULTU RE ceftazidime <=1 ug/mL susceptib le Not Available [facility] [address] [place] [address], [address], 12/02/2023 12:15:51 11/30/19 24 12/02/2023 URINE CULTU RE ceftriaxone <=1 ug/mL susceptib le Not Available [facility] [address] [place] [address], [address], 12/02/2023 12:15:51 11/30/19 24 12/02/2023 URINE CULTU RE cefuroxime <=4 ug/mL susceptib le Not Available [facility] [address] [place] [address], [address], 12/02/2023 12:15:51 11/30/19 24 12/02/2023 URINE CULTU RE ciprofloxaci n <=0.25 ug/mL susceptib le Not Available [facility] [address] [place] [address], [address], 12/02/2023 12:15:51 11/30/19 24 12/02/2023 URINE CULTU RE gentamicin <=4 ug/mL susceptib le Not Available [facility] [address] [place] [address], [address], 12/02/2023 12:15:51 11/30/19 24 12/02/2023 URINE CULTU RE imipenem <=1 ug/mL susceptib le Not Available [facility] [address] [place] [address], [address], 12/02/2023 12:15:51 11/30/19 24 12/02/2023 URINE CULTU RE levofloxacin <=0.5 ug/mL susceptib le Not Available [address], [address], 12/02/2023 12:15:51 11/30/19 24 12/02/2023 URINE CULTU RE nitrofuranto in <=32 ug/mL susceptib le Not Available [address], [address], 12/02/2023 12:15:51 11/30/19 24 12/02/2023 URINE CULTU RE piperacillin /luke <=16 ug/mL susceptib le Not Available [address], [address], 12/02/2023 12:15:51 11/30/19 24 12/02/2023 URINE CULTU RE tetracycline >8 ug/mL resistant Not Available [facility] [address] [place] [address], [address], 12/02/2023 12:15:51 11/30/19 24 12/02/2023 URINE CULTU RE tobramycin 4 ug/mL susceptib le Not Available [address], [address], 12/02/2023 12:15:51 11/30/19 24 12/02/2023 URINE CULTU RE trimeth/sulf a <=2/38 ug/mL susceptib le Not Available [facility] [address] [place] [address], [address], 12/02/2023 12:15:51 02/17/2002/17/2024 URINA LYSIS color Liss normal Not Available [facility] [address] [place] [address], [address], 02/17/2024 20:27:09 02/17/2002/17/2024 URINA LYSIS appearance Clear normal Not Available [facility] [address] [place] [address], [address], 02/17/2024 20:27:09 02/17/2002/17/2024 URINA LYSIS glucose Normal mg/dL normal normal Not Available [facility] [address] [place] [address], [address], 02/17/2024 20:27:09 02/17/2002/17/2024 URINA LYSIS bilirubin Negati ve mg/dL negati ve normal Not Available [facility] [address] [place] [address], [address], 02/17/2024 20:27:09 02/17/20 24 02/17/2024 URINA LYSIS ketone Negati ve mg/dL negati ve normal Not Available [facility] [address] [place] [address], [address], 02/17/2024 20:27:09 02/17/2002/17/2024 URINA LYSIS specific gravity 1.012 1.003- 1.035 normal Not Available [facility] [address] [place] [address], [address], 02/17/2024 20:27:09 02/17/2002/17/2024 URINA LYSIS blood Negati ve /uL negati ve normal Not Available [facility] [address] [place] [address], [address], 02/17/2024 20:27:09 02/17/20 24 02/17/2024 URINA LYSIS pH 7 5.0 - 8.0 normal Not Available [facility] [address] [place] [address], [address], 02/17/2024 20:27:09 02/17/20 24 02/17/2024 URINA LYSIS protein Negati ve mg/dL negati ve normal Not Available [facility] [address] [place] [address], [address], 02/17/2024 20:27:09 02/17/20 24 02/17/2024 URINA LYSIS urobilinogen 1 mg/dL normal abnormal Not Available [facility] [address] [place] [address], [address], 02/17/2024 20:27:09 02/17/20 24 02/17/2024 URINA LYSIS nitrite Negati ve negati ve normal Not Available [facility] [address] [place] [address], [address], 02/17/2024 20:27:09 02/17/20 24 02/17/2024 URINA LYSIS leukocyte esterase 100 /uL negati ve abnormal Not Available [facility] [address] [place] [address], [address], 02/17/2024 20:27:09 02/17/20 24 02/17/2024 URINA LYSIS WBC, urine > 30 0-5/hp f abnormal URINE CULTU RE IN PROGR ESS. Not Available [facility] [address] [place] [address], [address], 02/17/2024 20:27:09 02/17/20 24 02/17/2024 URINA LYSIS squamous epi. cells 0-5 0-5/hp f normal Not Available [facility] [address] [place], [address], 02/17/2024 20:27:09 02/17/20 24 02/17/2024 URINA LYSIS transitional epi. cells 0-5 0 - 5/hpf normal Not Available [facility] [address] [place] [address], [address], 02/17/2024 20:27:09 02/17/20 24 02/17/2024 URINA LYSIS bacteria Trace /hpf none seen abnormal Not Available [facility] [address] [place] [address], [address], 02/17/2024 20:27:09 02/17/20 24 02/20/2024 URINE CULTU RE urine culture COLON Y COUNT : 10,00 0 - 100,0 00 CFU/M L Three or more isola dimple; mixed uroge nital kelsy . Not Available [facility] [address] [place] [address], [address], 02/20/2024 10:29:41 06/01/19 25 06/01/2024 COMPL ETE BLOOD COUNT white blood cells 6.5 10*3/ uL 3.8-10 .8 normal Not Available [facility] [address] [place] [address], [address], 06/01/2024 19:37:27 06/01/19 25 06/01/2024 COMPL ETE BLOOD COUNT red blood cells 3.94 10*6/ uL 3.80-5 .20 normal Not Available [facility] [address] [place] [address], [address], 06/01/2024 19:37:27 06/01/19 25 06/01/2024 COMPL ETE BLOOD COUNT hemoglobin 12.6 g/dL 12.0-1 6.0 normal Not Available [facility] [address] [place] [address], [address], 06/01/2024 19:37:27 06/01/19 25 06/01/2024 COMPL ETE BLOOD COUNT hematocrit 38.5 % 35.0-4 7.0 normal Not Available [facility] [address] [place] [address], [address], 06/01/2024 19:37:27 06/01/19 25 06/01/2024 COMPL ETE BLOOD COUNT MCV 98 fL 80-100 normal Not Available [facility] [address] [place] [address], [address], 06/01/2024 19:37:27 06/01/19 25 06/01/2024 COMPL ETE BLOOD COUNT MCH 32 pg 26-35 normal Not Available [facility] [address] [place] [address], [address], 06/01/2024 19:37:27 06/01/19 25 06/01/2024 COMPL ETE BLOOD COUNT MCHC 33 g/dL 32-36 normal Not Available [facility] [address] [place] [address], [address], 06/01/2024 19:37:27 06/01/19 25 06/01/2024 COMPL ETE BLOOD COUNT RDW 12.6 % 11.0-1 5.0 normal Not Available [facility] [address] [place] [address], [address], 06/01/2024 19:37:27 06/01/19 25 06/01/2024 COMPL ETE BLOOD COUNT MPV 9.0 fL 6.2-10 .5 normal Not Available [facility] [address] [place] [address], [address], 06/01/2024 19:37:27 06/01/19 25 06/01/2024 COMPL ETE BLOOD COUNT platelet count 355 10*3/ uL 150-40 0 normal Not Available [facility] [address] [place] [address], [address], 06/01/2024 19:37:27 06/01/19 25 06/01/2024 COMPL ETE BLOOD COUNT neutrophil,a bsolute 4.1 10*3/ uL 1.6-8. 4 normal Not Available [facility] [address] [place] [address], [address], 06/01/2024 19:37:27 06/01/19 25 06/01/2024 COMPL ETE BLOOD COUNT lymphocyte,a bsolute 1.9 10*3/ uL 0.4-5. 1 normal Not Available [facility] [address] [place] [address], [address], 06/01/2024 19:37:27 06/01/19 25 06/01/2024 COMPL ETE BLOOD COUNT monocyte,abs olute 0.4 10*3/ uL 0.0-1. 2 normal Not Available [facility] [address] [place] [address], [address], 06/01/2024 19:37:27 06/01/19 25 06/01/2024 COMPL ETE BLOOD COUNT eosinophil,a bsolute 0.1 10*3/ uL 0.0-0. 8 normal Not Available [facility] [address] [place] [address], [address], 06/01/2024 19:37:27 06/01/19 25 06/01/2024 COMPL ETE BLOOD COUNT basophil,abs olute 0.0 10*3/ uL 0.0-0. 3 normal Not Available [facility] [address] [place] [address], [address], 06/01/2024 19:37:27 06/01/19 25 06/01/2024 COMPL ETE BLOOD COUNT % neutrophils 62.4 % 42.0-7 8.0 normal Not Available [facility] [address] [place] [address], [address], 06/01/2024 19:37:27 06/01/19 25 06/01/2024 COMPL ETE BLOOD COUNT % lymphocytes 29.4 % 11.0-4 7.0 normal Not Available [facility] [address] [place] [address], [address], 06/01/2024 19:37:27 06/01/19 25 06/01/2024 COMPL ETE BLOOD COUNT % monocytes 6.8 % 0.0-11 .0 normal Not Available [facility] [address] [place] [address], [address], 06/01/2024 19:37:27 06/01/19 25 06/01/2024 COMPL ETE BLOOD COUNT % eosinophils 1.0 % 0.0-7. 0 normal Not Available [facility] [address] [place] [address], [address], 06/01/2024 19:37:27 06/01/19 25 06/01/2024 COMPL ETE BLOOD COUNT % basophils 0.4 % 0.0-3. 0 normal Not Available [facility] [address] [place] [address], [address], 06/01/2024 19:37:27 06/01/19 25 06/01/2024 COMPL ETE BLOOD COUNT nucleated red cells 0.1 % 0.0-0. 9 normal Not Available [facility] [address] [place] [address], [address], 06/01/2024 19:37:27 06/01/19 25 06/01/2024 COMPL ETE BLOOD COUNT nucleated RBCs, absolute 0.01 10*3/ uL not estab. normal Not Available [facility] [address] [place] [address], [address], 06/01/2024 19:37:27 06/01/19 25 06/01/2024 TSH TSH 2.040 u[IU] /mL 0.270- 4.200 normal Not Available [facility] [address] [place] [address], [address], 06/01/2024 19:53:23 06/01/19 25 06/01/2024 MAGNE SIUM magnesium 1.8 mg/dL 1.6-2. 6 normal Not Available [facility] [address] [place] [address], [address], 06/01/2024 19:58:21 06/01/19 25 06/01/2024 COMP. METAB OLIC PANEL glucose 100 mg/dL 74-100 normal Not Available [facility] [address] [place] [address], [address], 06/01/2024 19:58:22 06/01/19 25 06/01/2024 COMP. METAB OLIC PANEL blood urea nitrogen 20 mg/dL 6-20 normal Not Available [facility] [address] [place] [address], [address], 06/01/2024 19:58:22 06/01/19 25 06/01/2024 COMP. METAB OLIC PANEL creatinine 1.11 mg/dL 0.50-0 .95 high Not Available [facility] [address] [place] [address], [address], 06/01/2024 19:58:22 06/01/19 25 06/01/2024 COMP. METAB OLIC PANEL BUN/creatini ne ratio 18 (calc ) 10-20 normal Not Available [facility] [address] [place] [address], [address], 06/01/2024 19:58:22 06/01/19 25 06/01/2024 COMP. METAB OLIC PANEL sodium 133 mmol/ L 136-14 5 low Not Available [facility] [address] [place] [address], [address], 06/01/2024 19:58:22 06/01/19 25 06/01/2024 COMP. METAB OLIC PANEL potassium 5.2 mmol/ L 3.4-5. 0 high Not Available [facility] [address] [place] [address], [address], 06/01/2024 19:58:22 06/01/19 25 06/01/2024 COMP. METAB OLIC PANEL chloride 95 mmol/ L 98-107 low Not Available [facility] [address] [place] [address], [address], 06/01/2024 19:58:22 06/01/19 25 06/01/2024 COMP. METAB OLIC PANEL carbon dioxide 26 mmol/ L 22-31 normal Not Available [facility] [address] [place] [address], [address], 06/01/2024 19:58:22 06/01/19 25 06/01/2024 COMP. METAB OLIC PANEL anion gap 12 (calc ) 7-25 normal Not Available [facility] [address] [place] [address], [address], 06/01/2024 19:58:22 06/01/19 25 06/01/2024 COMP. METAB OLIC PANEL calcium 8.8 mg/dL 8.6-10 .2 normal Not Available [facility] [address] [place] [address], [address], 06/01/2024 19:58:22 06/01/19 25 06/01/2024 COMP. METAB OLIC PANEL total protein 6.8 g/dL 6.4-8. 3 normal Not Available [facility] [address] [place] [address], [address], 06/01/2024 19:58:22 06/01/19 25 06/01/2024 COMP. METAB OLIC PANEL albumin 3.8 g/dL 3.5-5. 2 normal Not Available [facility] [address] [place] [address], [address], 06/01/2024 19:58:22 06/01/19 25 06/01/2024 COMP. METAB OLIC PANEL globulin 3.0 1.5-4. 5 normal Not Available [facility] [address] [place] [address], [address], 06/01/2024 19:58:22 06/01/19 25 06/01/2024 COMP. METAB OLIC PANEL albumin/glob ulin ratio 1.3 (calc ) 1.1-2. 5 normal Not Available [facility] [address] [place] [address], [address], 06/01/2024 19:58:22 06/01/19 25 06/01/2024 COMP. METAB OLIC PANEL bilirubin, total 0.2 mg/dL 0.1-1. 2 normal Not Available [facility] [address] [place] [address], [address], 06/01/2024 19:58:22 06/01/19 25 06/01/2024 COMP. METAB OLIC PANEL alkaline phosphatase 90 U/L 30-121 normal Not Available [facility] [address] [place] [address], [address], 06/01/2024 19:58:22 06/01/19 25 06/01/2024 COMP. METAB OLIC PANEL AST 28 U/L 0-32 normal Not Available [facility] [address] [place] [address], [address], 06/01/2024 19:58:22 06/01/19 25 06/01/2024 COMP. METAB OLIC PANEL ALT 14 U/L 0-33 normal Not Available [facility] [address] [place] [address], [address], 06/01/2024 19:58:22 06/01/19 25 06/01/2024 COMP. METAB OLIC PANEL GFR 52 >= 60 abnormal NOT E New calcu latio n for GFR (CKD- EPI 2020) is formu lated witho ut race adjus tment facto rs at the recom menda tion of the [facility] . This calcu latio n has not been valid ated in pregn ant women . For pedia tric patie nts refer to https ://fareed ferrera.karen melo/pr ofess ional s/KDO QI/gf r_cal culat orPed Not Available [facility] [address] [place], [address], 06/01/2024 19:58:22 06/01/19 25 06/01/2024 B12/F OLIC ACID PANEL folic acid 15.0 NG/mL 4.6-34 .8 normal Not Available [facility] [address] [place], [address], 06/01/2024 20:02:33 06/01/19 25 06/01/2024 B12/F OLIC ACID PANEL vitamin B12 476 pg/mL 232-12 45 normal Not Available [facility] [address] [place], [address], 06/01/2024 20:02:33 12/02/19 24 11/30/2023 XR, chest , 2 view No observ ation record ed. [facility] [address] [facility], [place], [address], 12/02/2023 14:15:37 Result Notes None recorded. Problems Name Problem SNOMED Code Status Onset Date Resolution Date Notes Provider Name and Address Organization Details Recorded Time Dysuria 21397216 Active 2022 BAMBI GARCIAS, DO [address] [place] [address], [address], [facility] 3 11:24:39 Acute urinary tract infection 489892058 Active 2022 BAMBI GARCIAS, DO [address] [place] [address], [address], [facility] 3 11:35:11 Chronic pain syndrome 846929863 Active 2022 HANG DOBBINS, DO [address] [place] [address], [address], [facility] 3 11:11:15 Diarrhea 86680461 Active 2022 HANG DOBBINS, DO [address] [place] [address], [address], [facility] 3 11:11:17 Recurrent urinary tract infection 428932471 Active 2022 HANGAMA DOBBINS, DO [address] [place], [address], [facility] 3 10:41:03 Recurrent major depression in partial remission 76301999 Active 2023 HANG DOBBINS, DO [address] [place], [address], [facility] 4 14:33:07 Superior mesenteric artery syndrome 653684770 Active 2023 HANG DOBBINS, DO [address] [place], [address], [facility] 4 14:42:53 At increased risk of polypharmacy 606575299 Active 2024 HANG DOBBINS, DO [address] [place], [address], [facility] 5 16:55:29 Notes:pt has a uti she has b een having diarrhea for a week Problem Notes None recorded. Procedures Surgical History None recorded. Imaging Results Imaging Date Name Status LastModified by Organiz ation Details LastModified Time 11/30/2023 XR, chest, 2 view completed [facility] [address] [facility], [place], [address], 12/02/2023 14:15:37 Procedure Notes None recorded. Medical Equipment None Reported. Allergies Allergen ID Allergen Name Allergen Category Reaction Reaction Severity Criticality Documentation Date Start Date Code Code System Note Provider Name and Address Organization Details Recorded Time 897784 Doryx medicatio n Not available Not available Not available 03/25/20162012 97961 7 RxNorm Comme nt: Creat ed By: Jett lazar;Cj thomson Date: 2012 5:06: 55 PM; Not Available [facility] 6 10:57:30 [id number] diphenhyd ramine hydrochlo ride medicatio n Not available Not available Not available 03/25/20162012 1362 RxNorm Comme nt: Creat ed By: Jett Cartagena reate d Date: 2012 5:07: 38 PM; Not Available [facility] 6 11:04:44 [id number] Ultram medicatio n Not available Not available Not available 03/25/20162012 58300 6 RxNorm Comme nt: Creat ed By: Jett lazar;Cj reate d Date: 2012 5:08: 25 PM; Not Available [facility] 6 11:57:02 028261 iodine medicatio n Not available Not available Not available 03/26/20162012 5933 RxNorm Comme nt: Creat ed By: Jett lazar;Cj reate d Date: 2012 5:07: 48 PM; Not Available [facility] 6 04:37:47 [id number] Product containin g penicilli n (product) medicatio n Not available Not available Not available 03/26/20162012 91410 8001 SNOMED Comme nt: Creat ed By: Jett Cartagena reate d Date: 2012 5:08: 02 PM; Not Available [facility] 6 04:37:47 [id number] Terramyci n medicatio n Not available Not available Not available 03/26/2016201296 4 RxNorm Comme nt: Creat ed By: Jett Cartagena reate d Date: 2012 5:08: 12 PM; Not Available [facility] 6 08:22:49 Medications Name Sig Start Date Stop Date Status Note LastModified by Organization Details LastModified Time fentanyl 50 mcg/hr transderm al patch APPLY 1 PATCH TRANSDER DEANDRE EVERY 72 HOURS active Not Available Not Available No t Available hydrocodo ne 7.5 mg-ibupro fen 200 mg tablet 01/11 completed Medicati on Descript ion: hydrocod one-ibup rofen; Route:or al; refills: 0 Not Available Not Available Not Available promethaz ine-DM 6.25 mg-15 mg/5 mL oral syrup Take 5 mL every 4 hours by oral route. 11/07 completed Not Available Not Available Not Available Xanax 0.5 mg tablet 1-2 tablet PRN for anxiety 11/07 completed Not Available Not Available Not Available nitrofura ntoin macrocrys rupal 50 mg capsule TAKE ONE CAPSULE BY MOUTH ONCE DAILY 07/25 completed Not Available Not Available Not Available gabapenti n 600 mg tablet Take 1 tablet 3 times a day by oral route at bedtime for 30 days. 2024 active Not Available Not Available Not Avai lable ketoconaz ole 2 % shampoo USE A SHAMPOO TO THE SCALP THREE TIMES A WEEK. LATHER FOR 5 MINUTES THEN RINSE. active Not Available Not Available No t Available clindamyc in HCl 300 mg capsule 01/11 completed Not Available Not Available Not Available Multiple Vitamin capsule Take by oral route. active Duration : 30 days;Willian quency: daily;Me dication Descript ion: multivit castellanos; Dosage:1 ; Route:or al; refills: 3; Quantity :100 capsule Not Available Not Available Not Available azithromy pat 250 mg tablet TAKE 2 TABLETS (500 MG) BY ORAL ROUTE ONCE DAILY FOR 1 DAY THEN 1 TABLET (250 MG) BY ORAL ROUTE ONCE DAILY FOR 4 DAYS 06/05 completed Not Available Not Available Not Available tizanidin e 4 mg tablet active Not Available Not Available Not Available meloxicam 15 mg tablet 03/29 completed Not Available Not Available Not Available ondansetr on HCl 4 mg tablet 03/29 completed Not Available Not Available Not Available clindamyc in HCl 150 mg capsule TAKE 2 CAPSULES 1 HOUR BEFORE DENTAL APPOINTM ENT. 06/05 completed Not Available Not Available Not Available diphenoxy late-atro pine 2.5 mg-0.025 mg tablet TAKE 2 TABLETS BY MOUTH 3 TIMES A DAY active Not Available Not Available No t Available Provera 5 mg tablet Daily 01/11 completed Duration : 30 days;Ins truction s: Take one daily or 10 each month;Fr equency: daily;Me dication Descript ion: medroxyp rogester one; Dosage:1 ; Route:or al; refills: 0; Quantity :30 tablet Not Available Not Available Not Available risperido ne 0.25 mg tablet TAKE 1 TABLET BY MOUTH AT BEDTIME 03/29 completed Not Available Not Available Not Available acyclovir 400 mg tablet 5x /day 03/29 completed Duration : 4 days;Willian quency: 5x /day;Med ication Descript ion: acyclovi r; Dosage:1 ; Route:or al; refills: 0; Quantity :20 tablet Not Available Not Available Not Available ciproflox acin 500 mg tablet TAKE 1 TABLET BY MOUTH EVERY 12 HOURS FOR 3 DAYS 03/29 completed Not Available Not Available Not Available sulfameth oxazole 800 mg-trimet hoprim 160 mg tablet Take 1 tablet every 12 hours by oral route for 5 days. 03/29 completed Not Available Not Available Not Available hydrocodo ne 10 mg-acetam inophen 325 mg tablet TAKE 1 TABLET ORALLY FOUR TIMES A DAY FOR PAIN active Not Available Not Available No t Available BuSpar 5 mg tablet Two times a day 03/29 completed Duration : 30 days;Willian quency: bid;Medi cation Descript ion: buspiron e; Dosage:1 ; Route:or al; refills: 0; Quantity :60 tablet Not Available Not Available Not Available Prevacid 30 mg capsule,d elayed release Daily 01/11 completed Frequenc y: daily;Me dication Descript ion: lansopra zole; Dosage:1 ; Route:or al; refills: 5; Quantity :30 enteric coated capsule Not Available Not Available Not Available ropinirol e 0.25 mg tablet TAKE 1 TABLET ORALLY AT BEDTIME NIGHTLY ADMINIST ER 1-3 HOURS BEFORE BEDTIME 07/25 completed Not Available Not Available Not Available doxycycli ne monohydra te 100 mg capsule TAKE ONE CAPSULE BY MOUTH TWICE DAILY FOR 10 DAYS 11/29 completed Not Available Not Available Not Available ropinirol e 0.5 mg tablet active Not Available Not Available Not Available lidocaine 5 % topical patch APPLY 1 PATCH TO THE SKIN AND LEAVE ON FOR UP TO 12 HOURS A DAY THEN LEAVE OFF FOR 12 HOURS active Not Available Not Available No t Available promethaz ine 25 mg tablet TAKE 1 TABLET EVERY 4 HOURS BY ORAL ROUTE. 2024 active Not Available Not Available Not Avai lable bupropion HCl 75 mg tablet Take 2 tablets twice a day by oral route for 30 days. active Not Available Not Available No t Available Neurontin 400 mg capsule Bedtime 03/29 completed Instruct ions: 1 hs for nerve pain. May ^ q 7d if needed to 2 hs; 1 am, 2 hs; 2 am, 2 hs ;Frequen cy: hs;Medic ation Descript ion: gabapent in; Dosage:1 ; Route:or al; refills: 5; Quantity :30 capsule Not Available Not Available Not Available Lamictal 150 mg tablet Two times a day 01/11 completed Duration : 10 days;Willian quency: bid;Medi cation Descript ion: lamotrig ine; Route:or al; refills: 0; Quantity :60 tablet Not Available Not Available Not Available levofloxa pat 500 mg tablet Take 1 tablet every 24 hours by oral route for 5 days. 07/25 completed Not Available Not Available Not Available zolpidem 10 mg tablet TAKE 1 TABLET BY MOUTH EVERY NIGHT AT BEDTIME (LAST FILLED ON 09/17) 2024 active Not Available Not Available Not Avai lable methylpre dnisolone 4 mg tablets in a dose pack Take 1 dose pk by oral route. 11/07 completed Not Available Not Available Not Available hydrocort isone 2.5 % topical ointment APPLY TWICE A DAY TO THE AFFECTED AREAS ON THE EARS UNTIL RESOLVED . 06/05 completed Not Available Not Available Not Available fentanyl 75 mcg/hr transderm al patch 01/11 completed Not Available Not Available Not Available risperido ne 0.5 mg tablet Take 1 tablet every day by oral route for 30 days. 2024 active Not Available Not Available Not Avai lable diazepam 5 mg tablet Take 1 tablet twice a day by oral route as needed for 30 days. 2024 active Not Available Not Available Not Avai lable buspirone 15 mg tablet Take 1 tablet twice a day by oral route. 07/25 completed Not Available Not Available Not Available neomycin 3.5 mg/g-poly myxin B 10,000 unit/g-de xameth 0.1 % eye oint 03/29 completed Not Available Not Available Not Available Florastor 250 mg capsule Take 1 million cells twice a day by oral route for 30 days. 2023 active Not Available Not Available Not Avai lable nitrofura ntoin monohydra te/macroc rystals 100 mg capsule Take 1 capsule every 12 hours by oral route. 02/16 completed Not Available Not Available Not Available Ambien CR 12.5 mg tablet,ex tended release Take 1 tablet every day by oral route. 2024 active cancel ambien 10mg Not Available Not Available Not Available chlorhexi dine gluconate 0.12 % mouthwash active Not Available Not Available No t Available vitamin B complex 03/29 completed Medicati on Descript ion: multivit castellanos; refills: 0 Not Available Not Available Not Available risperido ne 03/29 completed Medicati on Descript ion: risperid one; Route:or al; refills: 0 Not Available Not Available Not Available Valium 01/11 completed Medicati on Descript ion: diazepam ; refills: 0 Not Available Not Available Not Available Duragesic 03/29 completed Medicati on Descript ion: fentanyl ; Route:tr ansderma l; refills: 0 Not Available Not Available Not Available Miralax Daily 01/11 completed Duration : 30 days;Ins truction s: 1 capful daily;Fr equency: daily;Me dication Descript ion: polyethy joaquin glycol 3350; Dosage:1 ; Route:or al; refills: 0; Quantity :1 powder for reconsti tution Not Available Not Available Not Available Glucosami ne-Chondr otin 01/11 completed Medicati on Descript ion: miscella neous; refills: 0 Not Available Not Available Not Available Vitals Date Recorded Body height Body mass index (BMI) Body weight Body temperature Heart rate Oxygen saturation Oxygen saturation in Arterial blood by Pulse oximetry Systolic blood pressure Diastolic blood pressure Provider Name and Address Organization Details Last Updated DateTime 4 165.1 cm 20.6 kg/m2 58417.4 5 g 97.7 [degF] 92 /min 95 % 95 % 116 mm[Hg] 78 mm[Hg] Radha Scott [facility] 4 14:57:59 Date Recorded Body height Body mass index (BMI) Body weight Heart rate Oxygen saturation Oxygen saturation in Arterial blood by Pulse oximetry Systolic blood pressure Diastolic blood pressure Provider Name and Address Organization Details Last Updated DateTime 4 165.1 cm 21.4 kg/m2 53652.6 2 g 78 /min 96 % 96 % 122 mm[Hg] 78 mm[Hg] Erica Galloway [facility] 4 10:19:10 Date Recorded Body height Body mass index (BMI) Body weight Heart rate Oxygen saturation Oxygen saturation in Arterial blood by Pulse oximetry Systolic blood pressure Diastolic blood pressure Provider Name and Address Organization Details Last Updated DateTime 5 165.1 cm 21.1 kg/m2 68766.2 3 g 105 /min 93 % 93 % 112 mm[Hg] 72 mm[Hg] Tara Burton [facility] 5 10:25:43 Date Recorded Body height Provider Name an d Address Organization Details Last Updated DateTime 06/05/2024 165.1 cm Ranimarbin Hua [facility] 06/05/2024 10:24:10 Date Recorded Body height Body mass index (BMI) Body weight Oxygen saturation Oxygen saturation in Arterial blood by Pulse oximetry Heart rate Systolic blood pressure Diastolic blood pressure Provider Name and Address Organization Details Last Updated DateTime 5 165.1 cm 21.5 kg/m2 22570.4 2 g 93 % 93 % 92 /min 115 mm[Hg] 76 mm[Hg] Erica Galloway [facility] 5 11:30:54 Social History Question Answer Notes LastModified by Organizat ion Details LastModified Time Tobacco Smoking Status [facility] 11:53:44 What Is Your Level Of Alcohol Consumption? None Information not available 02/09/2023 What Was The Date Of Your Most Recent Tobacco Screening? 06/01/2024 [email or web address] Information not available 06/01/2024 Do You Use Any Illicit Or Recreational Drugs? No Information not available 02/09/2023 Has Tobacco Cessation Counseling Been Provided? No Information not available 02/09/2023 Do You Or Have You Ever Used Any Other Forms Of Tobacco Or Nicotine? No Information not available 02/09/2023 Sex: Unknown Functional Status None recorded. Mental Status None recorded. Family History Nothing Reported. Medical History No medical history recorded. Gynecological HistoryNo gynecological history recorded. Obstetrics History GPAL:G 0 P 0 0 0 0 Immunizations Vaccine Type Date Status Note Provider Nam e and Address Organization Details Recorded Time COVID-19, mRNA, LNP-S, PF, 100 mcg/0.5mL dose or 50 mcg/0.25mL dose 06/06/2020 [facility]06/2023 14:03:29 COVID-19, mRNA, LNP-S, PF, 100 mcg/0.5mL dose or 50 mcg/0.25mL dose 07/04/2020 completed [facility] 12/06/2023 14:03:29 COVID-19, mRNA, LNP-S, PF, 100 mcg/0.5mL dose or 50 mcg/0.25mL dose 03/20/2021 completed Erica Mccauley [facility] 12/06/2023 14:03:29 zoster live 04/03/2015 [facility] 12/06/2023 14:03:29 Influenza, high-dose, trivalent, PF 06/06/2019 completed Erica Mccauley [facility] 12/06/2023 14:03:29 Influenza, split virus, quadrivalent, PF 04/03/2015 [facility]/06/2023 14:03:29 COVID-19, mRNA, LNP-S, PF, 50 mcg/0.5 mL 04/06/2023 completed [facility] 12/06/2023 14:03:34 Influenza, high-dose, quadrivalent, PF 01/11/2023 [facility] 01/11/2023 13:19:18 Influenza, high-dose, trivalent, PF 02/17/2024 completed HANG MAC, [facility] [place], [address], [facility] 02/17/2024 12:40:35 Past Encounters Encounter ID Performer Location Encounter Start Date Encounter Closed Date Diagnosis/Indication Diagnosis SNOMED-CT Code Diagnosis ICD10 Code Diagnosis Note [id number] HANG POSEY, DO [facility] [address] [place] [address] 01/11/2023 11:34:14 01/11/2023 12:17:24 Dysuria 20549027 R30.0 Unknown etiology, urine does not look that bad. We will send for UA and culture, suspect she might have more urethritis this time, we will give Cipro 500 twice daily x5 days, does not sound when she has diverticul itis, not been evaluated by gynecologi st in a while recommende d gynecology follow-up Administra tion of influenza vaccine 47747445 Z23 [id number] BAMBI GARCIAS, DO [facility] [address] [place] [address] 02/09/2023 10:23:22 02/09/2023 11:30:37 Dysuria 24141425 R30.0 Acute urin miguel tract infection 406706101 N39.0 UA is consistent with UTI, will check for antibiotic sensitivit yRX as ordered belowEnsur e adequate hydration, regular emptying of the bladder and void shortly after sexual intercours eIf symptoms worsen/do not improve RTC or inform provider [id number] HANG POSEY, DO [facility] [address] [place] [address] 03/29/2023 09:38:22 03/29/2023 10:29:09 Diarrhea 03950492 R19.7 persistent . unknown last colon. has reduced fentanyl some. Refer to GI for more thorough evaluation Acute urin miguel tract infection 918534775 N39.0 Recheck urinalysis and culture today, suspect he will still be infected with Enterococc us. We will give Macrobid, was sensitive to Macrobid last month. We will treat for 10 days, then reevaluate . Chronic pain syndrome 37 7642964 G89.4 on meds. - dr Chicas. Has not had routine labs recently, does take multiple medication s we will check kidney function electrolyt es blood count today [id number] HANG POSEY, DO [facility] [address] [facility] [place] [address] 04/19/2023 09:38:06 04/19/2023 10:25:02 Diarrhea 69864080 R19.7 has GI eval pernell Acute urin miguel tract infection 204772449 N39.0 had enterococc us. treateted with macorobid. [place] to be better recheck urine culture today Recurrent urinary tract infection 388915258 N39.0 Secondary to neurogenic bladder with recurrent self catheteriz ations Muscle weakness 27561948 M62.81 Altered factorial felt to be from prolonged illness, will check labs today, I think she would benefit from home health physical therapy [id number] HANG POSEY, DO [facility] [address] [facility] [place] [address] 05/09/2023 11:31:37 05/09/2023 11:58:22 Acute urinary tract infection 783329509 N39.0 Suspect she has another bladder infection we will treat with Macrobid for 10 days, then do low-dose Macrodanti n daily after that. 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 Recommend opinion by GI doctor. We will try to set up that referral again [id number] HANG POSEY, DO [facility] [address] [facility] [place] [address] 07/26/2023 15:07:38 07/26/2023 15:39:30 Cough 09811363 R05.9 Acute bronchitis 1609987 2 J20.9 RSV with lingering symptoms. Could be developing into pneumonia. We will give Levaquin, Medrol Dosepak, Phenergan DM [id number] HANG POSEY, DO [facility] [address] [place] [address] 11/08/2023 14:15:42 11/08/2023 14:46:37 Malnutrition (calorie) 539949117 E46 BMI low. discussed diet, currently on weight gaining trial through surgeons office Chronic pain syndrome 37 6610202 G89.4 on meds. 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 Check urinalysis and culture. Has had resistant bacteria in the past. Levaquin 500 x 7 days Recurrent urinary tract infection 606664590 N39.0 Secondary to neurogenic bladder with recurrent self catheteriz ations Cough 77259669 R05.9 Has had a cough since her RSV in the spring. We will see how she responds to the Levaquin, also sent for chest x-ray [id number] HANG POSEY, DO [facility] [address] [place] [address] 02/17/2024 09:53:53 02/17/2024 10:42:18 Diarrhea 40577901 R19.7 has GI eval pernell Administra tion of influenza vaccine 67639768 Z23 Active immunization 6057 1366 Z23 Acute cystitis 24828741 N30.01 Recheck urinalysis and culture today, we will start off with Levaquin, we will see what urine culture shows [id number] HANG POSEY, DO [facility] [address] [place] [address] 06/01/2024 10:10:26 06/01/2024 11:05:06 Nausea 671317635 R11.0 Cough 41852697 R05.9 Lungs sound okay throat looks okay, do not think she has any serious infection, we will give Z-Antoni in case we are missing something or it is early Muscle weakness 32298912 M62.81 - Multifacto rial, possibly low and nutrition now, could be dehydrated , we will check routine labs today, she is pretty weak, I think she needs another course of physical therapy Irritable bowel syndrome with diarrhea 221850086 K58.0 takes lomotil as needed [id number] OSCAR SAMAYOA PA-C [facility] [address] [place] [address] 06/05/2024 09:51:42 06/05/2024 11:16:47 Acute pharyngitis 068748941 J02.9 Pt just completed Azithromyc in.Will send Levaquin for persistent URI.Pt has done well with medication in the past. Pt has allergy to Penicillin , unsure of cephalospo rins. [id number] HANG POSEY, DO [facility] [address] [place] [address] 07/25/2024 11:12:26 07/25/2024 11:48:06 Renewal of prescription 194451813 Z76.0 Nausea 771894983 R11.0 Bipolar disorder 7228698 [address] Huffman -- tried. multiple [facility] at [facility] . Chronic pain syndrome 37 5822086 G89.4 on meds. - dr Chicas mgt- to see Dr Dempsey. [facility] risk of polypharmacy 246568512 Z91.89 Patient is elderly and has been on multiple psychiatri c medication s and pain medication s for a long time is at risk of complicati ons from polypharma cy, however changing her medication s also carries some risk as well. Risk versus benefit is in favor of continuing her current medication Health Concerns Section Related Observation LastModified by Organization Detai ls LastModified Time None Recorded Concern Status LastModified by Organization Details LastModified Time None Recorded Advance Directives Directive None Recorded Payers Encounter Date Sequence Insurance Name Policy Number Policy Borden Covered Member ID Borden Member ID Guarantor Name 11/30/2023 1 [place] Junie W Veirs [id number] Junie W Veirs 11/30/2023 2 [employer] OPTIONS (MEDICARE SUPPLEMENT) PLAN F Junie W Veirs [id number] Junie W Veirs 02/17/2024 1 [place] Junie W Veirs [id number] Junie W Veirs 02/17/2024 2 [employer] OPTIONS (MEDICARE SUPPLEMENT) PLAN F Junie W Veirs [id number] Junie W Veirs 06/01/2024 1 [place] Junie W Veirs [id number] Junie W Veirs 06/01/2024 2 [employer] OPTIONS (MEDICARE SUPPLEMENT) PLAN F Junie W Veirs [id number] Junie W Veirs 06/05/2024 1 [place] Junie W Veirs [id number] Junie W Veirs 06/05/2024 2 [employer] OPTIONS (MEDICARE SUPPLEMENT) PLAN F Junie W Veirs [id number] Junie W Veirs 07/25/2024 1 [place] Junie W Veirs [id number] Junie W Veirs 07/25/2024 2 [employer] OPTIONS (MEDICARE SUPPLEMENT) PLAN F Junie W Veirs [id number] Junie W Veirs Notes Date Note Type Note Provider Name and Address Organization Details Recorded Time 11/30/2023 text/html SICK VISIT Medication Refills--None at this time SYMPTOMS--Pain when urinating, foul odor. Patient states she is still having issues with cough and mucus at night. Patient is a 72 y.o female with Hx of recurrent UTI presenting for concern over UTI. She has been having odourous urine, alongside burning/dysuria/noctur ia 2-3x a night for past week. 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 She recently had an episode of RSV in June, and has been having productive cough with zavala/yellow phlegm since then, exacerbated by supine position. This causes a choking/inability to breath sensation during coughing fits. She describes the sensation as coming up from chest up to throat , says it does not feel like reflux. Macrolides, penicillin, tetracycline allergy. HANG MAC, DO [address] [place] [place], [id number], [facility] 11/30/2023 17:19:55 02/17/2024 text/html Patient is 73-ye ar-old female here for follow-up visit, she has neurogenic bladder, has recurrent urinary tract infections. Feels like she has 1 now, urgency, discomfort. She has had pain resistant urinary tract infections in the past, but is also had aiken resistant common urinary infections in the past No fever, no myalgias. She has had some dental work done and has also been on clindamycin, feels like her urinary symptoms get better for a few days and then come back HANG MAC, DO [address] [place], [id number], [facility] 02/17/2024 12:40:55 06/01/2024 text/html Patient is 73-year-old female here for acute visit, she feels bad she feels weak, she has a mild cough some chest congestion. She feels nauseous.Symptoms have been going on for a few weeks but seem to be getting worse She is not eating much, eating a small amount of prepackaged processed foods, she has irritable bowel with loose stools that do respond some to Lomotil. She was getting Meals on Wheels but that ended HANG MAC, DO [address] [place], [id number], [facility] 06/01/2024 13:46:15 06/05/2024 text/html Visit today is b eing conducted via telehealth using both audio/video. The patient confirms that he/she is physically located in [place] at the time of this visit. Patient expressed understanding of audio/video telehealth as a billable visit and has consented. Patient also expressed understanding that not every condition can be appropriately addressed via telehealth and that this telehealth visit may need to be converted to an in-person visit or may even result in a recommendation to go to the E.R. at the provider? s discretion in order to provide the best possible care. 73 year old female patient is seen via telehealth with complaints of sore throatPatient associates weakness, voice loss, bad taste, fever, chills, nausea, diarrheaSymptoms began last weekPatient denies CROSS, nasal, chest congestion, SOBNothing improves or worsens symptoms at this time OSCAR SAMAYOA PA-C [address] [place], [id number], [facility] 06/05/2024 10:51:16 07/25/2024 text/html Patient is 73-ye ar-old female here for follow-up visit, she has bipolar depression on medication, she also has chronic pain syndrome, she is in the search of a new psychiatrist, her old psychiatrist recently after 30 years.She has found a new psychiatrist but does not need medication until she is able to see them. She feels like she is doing fine right now HANG MAC, [address] [place], [id number], [facility] 07/25/2024 16:55:34 OBGyn Episode No OBEpisode recorded.
--- OUTSIDE RECORDS SUMMARY | 2024-08-15 10:54 | XMS_ITS ---
Author Organization [facility] Address [address] [place] [address] Phone Care Team Providers Care Process Development Engineer Name Role Phone Cole POTTS, Jasson Unavailable [phone] Frandy POTTS, Nikko Unavailable [phone] Reason for Referral Date Encounter Description Provider Reason for Referral 02/22/22 Follow Up Nikko Franks MD Referral To Physician 11/16/21 Follow Up Nikko Franks MD Referral To Physician 03/04/21 Follow Up Nikko Franks MD Referral To Physician 11/24/20 Follow Up Nikko Franks MD Referral To Physician - see pcp for bp 07/07/20 Follow Up Nikko Franks MD Referral To Physician - see pcp for bp Problems Includes: Active, inactive, and resolved Problems All Visits Onset Date Resolved Date Provider Condition S tatus History of Joint Pain in the Left Hip 03/23/2022 Kei Donovan MD Active Last Documented On 2 10:33AM ; [facility], [facility] Low Back Pain 08/29/2018 Nikko Franks MD Act yennifer Last Documented On 9 8:59AM ; [facility] Soft Tissue Pain in the Fingers 03/06/2012 Carlos Manuel Franks MD Inactive Last Documented On 2 9:56AM ; [facility] Joint Pain Fingers 02/17/2012 José Miguel Sin MD Inactive Last Documented On 2 4:16PM ; [facility] Plan of Treatment Referrals To Diagnosis Consult for Pain Management BHARGAV BUX MD 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 (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) use of opiate analgesic Note: DR YOLANDA ELIZABETH Last Documented On 3 8:43AM ; [facility] Instructions to patient Instructions for patient see pcp for bp Last Documented On 9 9:09AM ; [facility] No intervention and counseli ng on cessation of tobacco use Last Documented On 9 9:09AM ; [facility] Instructions for patient see pcp for bp Last Documented On 9 1:56PM ; [facility] No intervention and counseli ng on cessation of tobacco use Last Documented On 9 1:56PM ; [facility] Instructions for patient see pcp for bp Last Documented On 8 3:16PM ; [facility] No intervention and counseli ng on cessation of tobacco use Last Documented On 8 3:16PM ; [facility] Instructions for patient see pcp for bp Last Documented On 8 2:11PM ; [facility] Instructions for patient see pcp for bp Last Documented On 8 1:42PM ; [facility] Instructions for patient see pcp for bp Last Documented On 8 2:21PM ; [facility] Instructions for patient see pcp for bp Last Documented On 8 2:11PM ; [facility] Instructions for patient see pcp for bp Last Documented On 7 2:31PM ; [facility] Instructions for patient see pcp for bp Last Documented On 7 12:54PM ; [facility] Instructions for patient see pcp for bp Last Documented On 6 11:52AM ; [facility] Education and Decision Aids were provided during visit for: No health seminar on smoking cessation Last Documented On 9 9:09AM ; [facility] No health seminar on smoking cessation Last Documented On 9 1:56PM ; [facility] No health seminar on smoking cessation Last Documented On 8 3:16PM ; [facility] Assessments Includes: Assessments for all patient encounters Findings Encounter Date Not a current smoker. Follow Up with Nikko martinez MD 02/22/2022 Last Documented On 2 11:36AM ; [facility] Underweight Follow Up with Nikko James 02/22/2022 Last Documented On 2 11:36AM ; [facility] Underweight Follow Up with Nikko James 11/16/2021 Last Documented On 2 12:55PM ; [facility] Underweight Follow Up with Nikko Franks M Jacob 07/06/2021 Last Documented On 2 12:11PM ; [facility] Instructions Includes: Instructions for all patient encounters Instructions to patient Instructions for patient see pcp for bp Last Documented On 9 9:09AM ; [facility] No intervention and counseli ng on cessation of tobacco use Last Documented On 9 9:09AM ; [facility] Instructions for patient see pcp for bp Last Documented On 9 1:56PM ; [facility] No intervention and counseli ng on cessation of tobacco use Last Documented On 9 1:56PM ; [facility] Instructions for patient see pcp for bp Last Documented On 8 3:16PM ; [facility] No intervention and counseli ng on cessation of tobacco use Last Documented On 8 3:16PM ; [facility] Instructions for patient see pcp for bp Last Documented On 8 2:11PM ; [facility] Instructions for patient see pcp for bp Last Documented On 8 1:42PM ; [facility] Instructions for patient see pcp for bp Last Documented On 8 2:21PM ; [facility] Instructions for patient see pcp for bp Last Documented On 8 2:11PM ; [facility] Instructions for patient see pcp for bp Last Documented On 7 2:31PM ; [facility] Instructions for patient see pcp for bp Last Documented On 7 12:54PM ; [facility] Instructions for patient see pcp for bp Last Documented On 6 11:52AM ; [facility] Education and Decision Aids were provided during visit for: No health seminar on smoking cessation Last Documented On 9 9:09AM ; [facility] No health seminar on smoking cessation Last Documented On 9 1:56PM ; [facility] No health seminar on smoking cessation Last Documented On 8 3:16PM ; [facility] Medical Equipment - Implanted Devices Includes: Current and historical Devices No Medical Equipment Recorded Medications Includes: Current and historical Medications Current Medications (continue as prescribed) busPIRone HCl 15 MG Oral Tablet 05/25/2022 Provider: ÓSCAR MARTINEZ MD Diagnosis: Last Documented On 3 9:01AM By Jenn Kwok ; [facility] fentaNYL 75 MCG/HR Transderm al Patch 72 Hour 04/29/2022 Provider: Alejo Whitfield MD Diagnosis: Last Documented On 3 8:32AM By Sara Fajardo ; [facility] diazePAM 5 MG Oral Tablet 04/29/2022 Provider: ADILIA MARTINEZ MD Diagnosis: Last Documented On 3 8:31AM By Sara Fajardo ; [facility] HYDROcodone-Acetaminophen 10 -325 MG Oral Tablet 04/29/2022 Provider: Alejo Whitfield MD Diagnosis: Last Documented On 3 8:32AM By Sara Fajardo ; [facility] Gabapentin 600 MG Oral Tablet 04/29/2022 Provider: ÓSCAR MARTINEZ MD Diagnosis: Last Documented On 3 8:32AM By Sara Fajardo ; [facility] Slwgpvss-Gponbwfwh-Rlthluah [id number] Ophtha lmic Ointment 04/28/2022 Provider: Diagnosis: Last Documented On 3 8:32AM By Sara Fajardo ; [facility] Zolpidem Tartrate 10 MG Oral Tablet 04/28/2022 Provi monica: ÓSCAR MARTINEZ MD Diagnosis: Last Documented On 3 8:32AM By Sara Fajardo ; [facility] Promethazine HCl 25 MG Oral Tablet 04/28/2022 Provid er: ÓSCAR MARTINZE MD Diagnosis: Last Documented On 3 8:32AM By Sara Fajardo ; [facility] risperiDONE 0.5 MG Oral Tablet 02/26/2022 Provider: ÓSCAR MARTINEZ MD Diagnosis: Last Documented On 3 8:32AM By Sara Fajardo ; [facility] Past Medications on file Clindamycin HCl 300 MG Oral Capsule 06/14/2022 - 06/17/2022 Provider: Kei edward MD Diagnosis: twice a day Last Documented On 3 2:06PM By Dr. Donovan ; [facility] oxyCODONE HCl 5 MG Oral Tablet 06/14/2022 - 06/21/2022 Provider: Kei edward MD Diagnosis: 1-2 po q 4-6h prn pain Last Documented On 3 1:51PM By Dr. Donovan ; [facility] Ondansetron HCl 4 MG Oral Tablet 06/14/2022 - 06/18/2022 Provider: Kei edward MD Diagnosis: 1 po q 6h prn nausea Last Documented On 3 1:51PM By Dr. Donovan ; [facility] Meloxicam 15 MG Oral Tablet 06/14/2022 - 06/28/2022 Pr ovider: Kei Donovan MD Diagnosis: once a day Last Documented On 3 1:51PM By Dr. Donovan ; [facility] Colace 100 MG Oral Capsule 06/14/2022 - 09/12/2022 Pro vider: Kei Donovan MD Diagnosis: 1-2 tabs daily Last Documented On 3 1:51PM By Dr. Donovan ; [facility] Aspirin Adult Low Dose 81 MG Oral Tablet Delayed Release 06/14/2022 - 07/26/2022 Provider: Kei Donovan MD Diagnosis: twice a day Last Documented On 3 1:35PM By Dr. Donovan ; [facility] Acetaminophen 500 MG Oral Tablet 06/14/2022 - 07/14/2022 Provider: Kei edward MD Diagnosis: take as directed; take 2 tablets three times a d ay Last Documented On 3 1:35PM By Dr. Donovan ; [facility] HYDROcodone-Acetaminophen 10 -325 MG Oral Tablet 03/10/2022 - 04/09/2022 Provider: Nikko Franks MD Diagnosis: four times a day May fill ea rly as I am away next week, contact my office to make sure that they have referred you to a pain clinic as I will be leaving medicine next week Last Documented On 2 10:53AM By Dr. Franks ; [facility] fentaNYL 75 MCG/HR Transderm al Patch 72 Hour 03/10/2022 - 04/09/2022 Provider: Nikko Franks MD Diagnosis: take as directed- one patch q 3 days may fill early as I am out next week. Last Documented On 2 10:53AM By Dr. Franks ; [facility] HYDROcodone-Acetaminophen 10 -325 MG Oral Tablet 02/22/2022 - 03/24/2022 Provider: Nikko Franks MD Diagnosis: four times a day May fill early as I am away nex t week Last Documented On 2 3:51PM By Dr. Franks ; [facility] fentaNYL 75 MCG/HR Transderm al Patch 72 Hour 02/22/2022 - 03/24/2022 Provider: Nikko Franks MD Diagnosis: take as directed- one patch q 3 days may fill early as I am out next week. Last Documented On 2 3:51PM By Dr. Franks ; [facility] HYDROcodone-Acetaminophen 10 -325 MG Oral Tablet 02/03/2022 - 03/05/2022 Provider: Nikko Franks MD Diagnosis: four times a day Last Documented On 2 3:47PM By Dr. Franks ; [facility] fentaNYL 75 MCG/HR Transderm al Patch 72 Hour 02/03/2022 - 03/05/2022 Provider: Nikko Franks MD Diagnosis: take as directed- one patch q 3 days Last Documented On 2 3:47PM By Dr. Franks ; [facility] fentaNYL 75 MCG/HR Transderm al Patch 72 Hour 01/06/2022 - 02/05/2022 Provider: Nikko Franks MD Diagnosis: take as directed- one patch q 3 days Last Documented On 2 12:40PM By Dr. Franks ; [facility] HYDROcodone-Acetaminophen 10 -325 MG Oral Tablet 01/06/2022 - 02/05/2022 Provider: Nikko Franks MD Diagnosis: four times a day Last Documented On 2 12:40PM By Dr. Franks ; [facility] Diphenoxylate-Atropine 2.5-0 .025 MG Oral Tablet 01/06/2022 - 01/13/2022 Provider: Jasson Galvan MD Diagnosis: Last Documented On 3 9:01AM By Jenn Kwok ; [facility] HYDROcodone-Acetaminophen 10 -325 MG Oral Tablet 12/10/2021 - 01/09/2022 Provider: Nikko Franks MD Diagnosis: four times a day Last Documented On 2 4:41PM By Dr. Franks ; [facility] fentaNYL 75 MCG/HR Transderm al Patch 72 Hour 12/07/2021 - 01/06/2022 Provider: Nikko Franks MD Diagnosis: take as directed- one patch q 3 days Last Documented On 2 12:13PM By Dr. Franks ; [facility] HYDROcodone-Acetaminophen 10 -325 MG Oral Tablet 11/12/2021 - 12/12/2021 Provider: Nikko Franks MD Diagnosis: four times a day Last Documented On 2 2:27PM By Dr. Franks ; [facility] fentaNYL 75 MCG/HR Transderm al Patch 72 Hour 11/06/2021 - 12/06/2021 Provider: Nikko Franks MD Diagnosis: take as directed- one patch q 3 days Last Documented On 2 1:18PM By Dr. Franks ; [facility] HYDROcodone-Acetaminophen 10 -325 MG Oral Tablet 10/15/2021 - 11/14/2021 Provider: Nkiko Franks MD Diagnosis: four times a day Last Documented On 2 9:08AM By Dr. Franks ; [facility] fentaNYL 75 MCG/HR Transderm al Patch 72 Hour 10/09/2021 - 11/08/2021 Provider: Nikko Franks MD Diagnosis: take as directed- one patch q 3 days Last Documented On 2 12:52PM By Dr. Franks ; [facility] HYDROcodone-Acetaminophen 10 -325 MG Oral Tablet 09/17/2021 - 10/17/2021 Provider: Nikko Franks MD Diagnosis: four times a day Last Documented On 2 1:35PM By Dr. Franks ; [facility] fentaNYL 75 MCG/HR Transderm al Patch 72 Hour 09/10/2021 - 10/10/2021 Provider: Nikko Franks MD Diagnosis: take as directed- one patch q 3 days Last Documented On 2 1:02PM By Dr. Franks ; [facility] HYDROcodone-Acetaminophen 10 -325 MG Oral Tablet 08/17/2021 - 09/16/2021 Provider: Nikko Franks MD Diagnosis: four times a day Last Documented On 2 10:16AM By Dr. Franks ; [facility] fentaNYL 75 MCG/HR Transderm al Patch 72 Hour 08/12/2021 - 09/11/2021 Provider: Nikko Franks MD Diagnosis: take as directed- one patch q 3 days Last Documented On 2 8:40AM By Dr. Franks ; [facility] buPROPion HCl 75 MG Oral Tablet 07/13/2021 - Provider: ÓSCAR MARTINEZ MD Diagnosis: Last Documented On 3 9:00AM By Jenn Kwok ; [facility] fentaNYL 75 MCG/HR Transderm al Patch 72 Hour 07/13/2021 - 08/12/2021 Provider: Nikko Franks MD Diagnosis: take as directed- one patch q 3 days Last Documented On 2 8:07AM By Dr. Franks ; [facility] HYDROcodone-Acetaminophen 10 -325 MG Oral Tablet 07/13/2021 - 08/12/2021 Provider: Nikko Franks MD Diagnosis: four times a day Last Documented On 2 8:07AM By Dr. Franks ; [facility] busPIRone HCl 15 MG Oral Tablet 07/13/2021 - Provider: ÓSCAR MARTINEZ MD Diagnosis: Last Documented On 3 9:00AM By Jenn Kwok ; [facility] HYDROcodone-Acetaminophen 10 -325 MG Oral Tablet 06/19/2021 - 07/19/2021 Provider: Nikko Franks MD Diagnosis: four times a day Last Documented On 2 11:03AM By Dr. Franks ; [facility] fentaNYL 75 MCG/HR Transderm al Patch 72 Hour 06/10/2021 - 07/10/2021 Provider: Nikko Franks MD Diagnosis: take as directed- one patch q 3 days Last Documented On 2 8:40AM By Dr. Franks ; [facility] HYDROcodone-Acetaminophen 10 -325 MG Oral Tablet 05/21/2021 - 06/20/2021 Provider: Nikko Franks MD Diagnosis: four times a day Last Documented On 2 4:29PM By Dr. Franks ; [facility] fentaNYL 75 MCG/HR Transderm al Patch 72 Hour 05/11/2021 - 06/10/2021 Provider: Nikko Franks MD Diagnosis: take as directed- one patch q 3 days Last Documented On 2 11:03AM By Dr. Franks ; [facility] HYDROcodone-Acetaminophen 10 -325 MG Oral Tablet 04/21/2021 - 05/21/2021 Provider: Nikko Franks MD Diagnosis: four times a day Last Documented On 1 1:01PM By Dr. Franks ; [facility] fentaNYL 75 MCG/HR Transderm al Patch 72 Hour 04/09/2021 - 05/09/2021 Provider: Nikko Franks MD Diagnosis: take as directed- one patch q 3 days Last Documented On 1 12:40PM By Dr. Franks ; [facility] fentaNYL 75 MCG/HR Transderm al Patch 72 Hour 03/12/2021 - 04/11/2021 Provider: Nikko Franks MD Diagnosis: take as directed- one patch q 3 days Last Documented On 1 8:12AM By Dr. Franks ; [facility] HYDROcodone-Acetaminophen 10 -325 MG Oral Tablet 03/11/2021 - 04/10/2021 Provider: Nikko Franks MD Diagnosis: four times a day Last Documented On 1 8:10AM By Dr. Franks ; [facility] HYDROcodone-Acetaminophen 10 -325 MG Oral Tablet 02/24/2021 - 03/26/2021 Provider: Nikko Franks MD Diagnosis: four times a day Last Documented On 1 1:03PM By Dr. Franks ; [facility] fentaNYL 75 MCG/HR Transderm al Patch 72 Hour 02/11/2021 - 03/13/2021 Provider: Nikko Franks MD Diagnosis: take as directed- one patch q 3 days Last Documented On 1 12:32PM By Dr. Franks ; [facility] HYDROcodone-Acetaminophen 10 -325 MG Oral Tablet 01/26/2021 - 02/25/2021 Provider: Nikko Franks MD Diagnosis: four times a day Last Documented On 1 1:09PM By Dr. Franks ; [facility] fentaNYL 75 MCG/HR Transderm al Patch 72 Hour 01/09/2021 - 02/08/2021 Provider: Nikko Franks MD Diagnosis: take as directed- one patch q 3 days Last Documented On 1 10:42AM By Dr. Franks ; [facility] fentaNYL 75 MCG/HR Transderm al Patch 72 Hour 12/12/2020 - 01/11/2021 Provider: Nikko Franks MD Diagnosis: take as directed- one patch q 3 days Last Documented On 1:44PM By Dr. Franks ; [facility] HYDROcodone-Acetaminophen 10 -325 MG Oral Tablet 12/12/2020 - 01/11/2021 Provider: Nikko Franks MD Diagnosis: four times a day Last Documented On 1:44PM By Dr. Franks ; [facility] Ketorolac Tromethamine 0.5% Ophthalmic Solution 11/24/2020 - 01/30/2022 Provider: Diagnosis: Last Documented On 10:31AM By Sharona Murray ; [facility] risperiDONE 0.5 MG Oral Tablet 11/24/2020 - 01/30/2022 Provider: ÓSCAR AMRTINEZ MD Diagnosis: Last Documented On 10:30AM By Sharona Murray ; [facility] Zolpidem Tartrate 10 MG Oral Tablet 11/24/2020 - 01/30/2022 Provider: ÓSCAR James Diagnosis: Last Documented On 10:30AM By Sharona Murray ; [facility] Promethazine HCl 25 MG Oral Tablet 11/24/2020 - 02/22/2021 Provider: ÓSCAR James Diagnosis: Last Documented On 3:20PM By Nikky Barber ; [facility] Reclast 5 MG/100ML Intravenous Solution 11/24/2020 - 1 Provider: Diagnosis: Last Documented On 10:31AM By Sharona Murray ; [facility] Bariatric Multivitamins/Iron Oral Capsule 11/24/2020 - 01/30/2022 Provider: Diagnosis: Last Documented On 10:31AM By Sharona Murray ; [facility] Calcium 150 MG Oral Tablet 11/24/2020 - 01/30/2022 Pro vider: Diagnosis: Last Documented On 10:31AM By Sharona Murray ; [facility] Eye Drops 0.012-0.2% Ophthalmic Solution 11/24/2020 - 01/30/2022 Provider: Diagnosis: Last Documented On 10:31AM By Sharona Murray ; [facility] Lotemax 0.5% Ophthalmic Gel 11/24/2020 - 01/30/2022 Pr ovider: Diagnosis: Last Documented On 10:31AM By Sharona Murray ; [facility] fentaNYL 75 MCG/HR Transderm al Patch 72 Hour 11/12/2020 - 12/12/2020 Provider: Nikko Franks MD Diagnosis: take as directed- one patch q 3 days Last Documented On 12:54PM By Dr. Franks ; [facility] HYDROcodone-Acetaminophen 10 -325 MG Oral Tablet 11/12/2020 - 12/12/2020 Provider: Nikko Franks MD Diagnosis: four times a day Last Documented On 12:54PM By Dr. Franks ; [facility] fentaNYL 75 MCG/HR Transderm al Patch 72 Hour 10/13/2020 - 11/12/2020 Provider: Nikko Franks MD Diagnosis: take as directed- one patch q 3 days Last Documented On 6:29AM By Dr. Franks ; [facility] HYDROcodone-Acetaminophen 10 -325 MG Oral Tablet 10/13/2020 - 11/12/2020 Provider: Nikko Franks MD Diagnosis: four times a day Last Documented On 12:47PM By Dr. Franks ; [facility] diazePAM 5 MG Oral Tablet 09/12/2020 - 01/30/2022 Prov ider: ÓSCAR MARTINEZ MD Diagnosis: Last Documented On 2 10:30AM By Sharona Murray ; [facility] HYDROcodone-Acetaminophen 10 -325 MG Oral Tablet 09/11/2020 - 10/11/2020 Provider: Nikko Franks MD Diagnosis: four times a day Last Documented On 8:16AM By Dr. Franks ; [facility] fentaNYL 75 MCG/HR Transderm al Patch 72 Hour 09/11/2020 - 10/11/2020 Provider: Nikko Franks MD Diagnosis: take as directed- one patch q 3 days Last Documented On 8:16AM By Dr. Franks ; [facility] fentaNYL 75 MCG/HR Transderm al Patch 72 Hour 08/13/2020 - 09/12/2020 Provider: Nikko Franks MD Diagnosis: take as directed- one patch q 3 days Last Documented On 04/14/202 1 8:34AM By Dr. Franks ; [facility] HYDROcodone-Acetaminophen 10 -325 MG Oral Tablet 08/13/2020 - 09/12/2020 Provider: Nikko Franks MD Diagnosis: four times a day Last Documented On 1 8:34AM By Dr. Franks ; [facility] fentaNYL 75 MCG/HR Transderm al Patch 72 Hour 07/14/2020 - 08/13/2020 Provider: Nikko Franks MD Diagnosis: take as directed- one patch q 3 days Last Documented On 1 8:32AM By Dr. Franks ; [facility] HYDROcodone-Acetaminophen 10 -325 MG Oral Tablet 07/14/2020 - 08/13/2020 Provider: Nikko Franks MD Diagnosis: four times a day Last Documented On 1 8:32AM By Dr. Franks ; [facility] HYDROcodone-Acetaminophen 10 -325 MG Oral Tablet 06/16/2020 - 07/16/2020 Provider: Nikko Franks MD Diagnosis: four times a day Last Documented On 11:53AM By Dr. Franks ; [facility] fentaNYL 75 MCG/HR Transderm al Patch 72 Hour 06/16/2020 - 07/16/2020 Provider: Nikko Franks MD Diagnosis: take as directed- one patch q 3 days Last Documented On 1 11:53AM By Dr. Franks ; [facility] fentaNYL 75 MCG/HR Transderm al Patch 72 Hour 05/16/2020 - 06/15/2020 Provider: Nikko Franks MD Diagnosis: take as directed- one patch q 3 days Last Documented On 1 10:56AM By Dr. Franks ; [facility] [place] 10-325 MG Oral Tablet 05/15/2020 - 06/14/2020 Pr ovider: Nikko Franks MD Diagnosis: four times a day Last Documented On 8:47AM By Dr. Franks ; [facility] fentaNYL 75 MCG/HR Transderm al Patch 72 Hour 04/16/2020 - 05/16/2020 Provider: Nikko Franks MD Diagnosis: take as directed 1 patch q 3 days Last Documented On 0 8:52AM By Dr. Franks ; [facility] [place] 10-325 MG Oral Tablet 04/14/2020 - 05/14/2020 Pr ovider: Nikko Franks MD Diagnosis: 1 po qid prn for chronic pain Last Documented On 0 5:11PM By Dr. Franks ; [facility] fentaNYL 75 MCG/HR Transderm al Patch 72 Hour 03/03/2020 - 04/02/2020 Provider: Nikko Franks MD Diagnosis: take as directed 1 patch q 3 days Last Documented On 0 1:19PM By Marjan Glass ; [facility] fentaNYL 75 MCG/HR Transderm al Patch 72 Hour 03/03/2020 - 04/02/2020 Provider: Nikko Franks MD Diagnosis: take as directed 1 patch q 3 days Last Documented On 0 1:23PM By Dr. Franks ; [facility] [place] 10-325 MG Oral Tablet 03/03/2020 - 04/02/2020 Pr ovider: Nikko Franks MD Diagnosis: 1 po qid prn for chronic pain Last Documented On 0 1:19PM By Marjan Glass ; [facility] [place] 10-325 MG Oral Tablet 02/15/2020 - 03/16/2020 Pr ovider: Nikko Franks MD Diagnosis: 1 po qid prn for chronic pain Last Documented On 0 2:09PM By Dr. Franks ; [facility] fentaNYL 75 MCG/HR Transderm al Patch 72 Hour 02/15/2020 - 03/16/2020 Provider: Nikko Franks MD Diagnosis: take as directed 1 patch q 3 days Last Documented On 0 2:09PM By Dr. Franks ; [facility] [place] 10-325 MG Oral Tablet 01/21/2020 - 02/20/2020 Pr ovider: Nikko Franks MD Diagnosis: 1 po qid prn for chronic pain Last Documented On 0 8:38AM By Dr. Franks ; [facility] fentaNYL 75 MCG/HR Transderm al Patch 72 Hour 01/21/2020 - 02/20/2020 Provider: Nikko Franks MD Diagnosis: take as directed 1 patch q 3 days Last Documented On 0 8:38AM By Dr. Franks ; [facility] [facility] fentaNYL 75 MCG/HR Transderm al Patch 72 Hour 01/17/2020 - 02/16/2020 Provider: Nikko Franks MD Diagnosis: take as directed 1 patch q 3 days Last Documented On 0 8:16AM By Dr. Franks ; [facility] [place] 10-325 MG Oral Tablet 01/17/2020 - 02/16/2020 Pr ovider: Nikko Franks MD Diagnosis: 1 po qid prn for chronic pain Last Documented On 0 8:16AM By Dr. Franks ; [facility] [place] 10-325 MG Oral Tablet 12/17/2019 - 01/16/2020 Pr ovider: Nikko Franks MD Diagnosis: 1 po qid prn for chronic pain Last Documented On 0 4:54PM By Dr. Franks ; [facility] fentaNYL 75 MCG/HR Transderm al Patch 72 Hour 12/17/2019 - 01/16/2020 Provider: Nikko Franks MD Diagnosis: take as directed 1 patch q 3 days Last Documented On 0 4:54PM By Dr. Franks ; [facility] fentaNYL 75 MCG/HR Transderm al Patch 72 Hour 11/19/2019 - 12/19/2019 Provider: NIKKO FRANKS MD Diagnosis: 1 patch q 3 days Last Documented On 0 1:19PM By Mahsa Esparza ; [facility] [place] 10-325 MG Oral Tablet 11/19/2019 - 11/24/2020 Pr ovider: Nikko Franks MD Diagnosis: 1 po qid prn for chronic pain Last Documented On 1 3:23PM By July Elisabeth ; [facility] fentaNYL 75 MCG/HR Transderm al Patch 72 Hour 11/19/2019 - 11/24/2020 Provider: Nikko Franks MD Diagnosis: take as directed 1 patch q 3 days Last Documented On 1 3:23PM By Nikky Elisabeth ; [facility] diazePAM 5 MG Oral Tablet 11/19/2019 - 11/24/2020 Prov ider: Diagnosis: Last Documented On 1 3:23PM By July Elisabeth ; [facility] Promethazine HCl 12.5 MG Oral Tablet 11/19/2019 - 10/31 Provider: Diagnosis: Last Documented On 1 3:22PM By Nikky Elisabeth ; [facility] Vitamin Deficiency System-B1 2 1000 MCG/ML Injection Kit 11/19/2019 - 01/30/2022 Provider: Diagnosis: Last Documented On 2 10:30AM By Sharona Murray ; [facility] Ambien 10 MG Oral Tablet 11/19/2019 - 11/24/2020 Provi monica: Diagnosis: Last Documented On 1 3:23PM By July Elisabeth ; [facility] diazePAM 5 MG Oral Tablet 11/19/2019 - 11/24/2020 Prov ider: Diagnosis: Last Documented On 1 3:23PM By July Elisabeth ; [facility] LaMICtal 100 MG Oral Tablet 11/19/2019 - 11/24/2020 Pr ovider: Diagnosis: Last Documented On 1 3:22PM By July Elisabeth ; [facility] risperiDONE 0.5 MG Oral Tablet 11/05/2019 - 01/30/2022 Provider: ÓSCAR MARTINEZ MD Diagnosis: Last Documented On 2 10:30AM By Sharona Murray ; [facility] Gabapentin 600 MG Oral Tablet 11/05/2019 - 01/30/2022 Provider: ÓSCAR MARTINEZ MD Diagnosis: Last Documented On 2 10:30AM By Sharona Murray ; [facility] buPROPion HCl 75 MG Oral Tablet 11/05/2019 - 2 Provider: ÓSCAR MARTINEZ MD Diagnosis: Last Documented On 2 10:30AM By Sharona Murray ; [facility] busPIRone HCl 15 MG Oral Tablet 11/05/2019 - 2 Provider: ÓSCAR MARTINEZ MD Diagnosis: Last Documented On 2 10:30AM By Sharona Murray ; [facility] lamoTRIgine 100 MG Oral Tablet 11/05/2019 - 11/24/2020 Provider: ÓSCAR MARTINEZ MD Diagnosis: Last Documented On 1 3:21PM By July Elisabeth ; [facility] Ciprofloxacin HCl 500 MG Oral Tablet 11/02/2019 - 11/24/2020 Provider: Jasson llanos MD Diagnosis: Last Documented On 1 3:21PM By Nikky Barber ; [facility] fentaNYL 75 MCG/HR Transderm al Patch 72 Hour 10/17/2019 - 11/16/2019 Provider: Nikko Franks MD Diagnosis: apply one patch every three days prn for chronic pain Last Documented On 0 12:12PM By Daylin Marlow ; [facility] Promethazine HCl 25 MG Oral Tablet 10/17/2019 - 11/24/2020 Provider: ÓSCAR James Diagnosis: Last Documented On 1 3:20PM By Nikky aBrber ; [facility] fentaNYL 75 MCG/HR Transderm al Patch 72 Hour 10/17/2019 - 11/24/2020 Provider: NIKKO FRANKS MD Diagnosis: Last Documented On 1 3:22PM By Nikky Barber ; [facility] [place] 10-325 MG Oral Tablet 10/17/2019 - 11/16/2019 Pr ovider: Nikko Franks MD Diagnosis: 1 po qid prn for chronic pain Last Documented On 0 8:32AM By Dr. Franks ; [facility] fentaNYL 75 MCG/HR Transderm al Patch 72 Hour 09/17/2019 - 10/17/2019 Provider: Nikko Franks MD Diagnosis: apply one patch every three days prn for chronic pain Last Documented On 0 3:12PM By Dr. Franks ; [facility] [place] 10-325 MG Oral Tablet 09/17/2019 - 10/17/2019 Pr ovider: Nikko Franks MD Diagnosis: 1 po qid prn for chronic pain Last Documented On 0 3:12PM By Dr. Franks ; [facility] fentaNYL 75 MCG/HR Transderm al Patch 72 Hour 08/20/2019 - 09/19/2019 Provider: Nikko Franks MD Diagnosis: apply one patch every three days prn for chronic pain Last Documented On 0 11:37AM By Daylin Marlow ; [facility] [place] 10-325 MG Oral Tablet 08/20/2019 - 09/19/2019 Pr ovider: Nikko Franks MD Diagnosis: 1 po qid prn for chronic pain Last Documented On 0 8:13AM By Dr. Franks ; [facility] [place] 10-325 MG Oral Tablet 07/18/2019 - 08/17/2019 Pr ovider: Nikko Franks MD Diagnosis: 1 po qid prn for chronic pain Last Documented On 0 8:11AM By Dr. Franks ; [facility] fentaNYL 75 MCG/HR Transderm al Patch 72 Hour 07/18/2019 - 08/17/2019 Provider: Nikko Franks MD Diagnosis: apply one patch every three days prn for chronic pain Last Documented On 0 8:06AM By Dr. Franks ; [facility] [place] 10-325 MG Oral Tablet 06/22/2019 - 07/22/2019 Pr ovider: Nikko Franks MD Diagnosis: 1 po qid prn for chronic pain Last Documented On 0 9:35AM By Dr. Franks ; [facility] fentaNYL 75 MCG/HR Transderm al Patch 72 Hour 06/22/2019 - 07/22/2019 Provider: Nikko Franks MD Diagnosis: apply one patch every three days prn for chronic pain Last Documented On 0 9:35AM By Dr. Franks ; [facility] fentaNYL 75 MCG/HR Transderm al Patch 72 Hour 05/24/2019 - 06/23/2019 Provider: Nikko Franks MD Diagnosis: apply one patch every three days prn for chronic pain Last Documented On 0 8:24AM By Dr. Franks ; [facility] [place] 10-325 MG Oral Tablet 05/24/2019 - 06/23/2019 Pr ovider: Nikko Franks MD Diagnosis: 1 po qid prn for chronic pain Last Documented On 0 8:24AM By Dr. Franks ; [facility] [place] 10-325 MG Oral Tablet 04/18/2019 - 05/18/2019 [...] On 9 10:17AM By Dr. Franks ; [facility] [place] 10-325 MG Oral Tablet 03/28/2019 - 11/19/2019 Pr ovider: Nikko Franks MD Diagnosis: 1 po qid prn for chronic pain Last Documented On 0 1:00PM By Mahsa Esparza ; [facility] fentaNYL 75 MCG/HR Transderm al Patch 72 Hour 03/28/2019 - 11/19/2019 Provider: Nikko Franks MD Diagnosis: apply one patch every three days prn for chronic pain Last Documented On 0 1:00PM By Mahsa Esparza ; [facility] [place] 10-325 MG Oral Tablet 02/26/2019 - 03/28/2019 Pr ovider: Nikko Franks MD Diagnosis: 1 po qid prn for chronic pain Last Documented On 9 8:49AM By Dr. Franks ; [facility] fentaNYL 75 MCG/HR Transderm al Patch 72 Hour 02/26/2019 - 03/28/2019 Provider: Nikko Franks MD Diagnosis: apply 1 patch every 3 days prn for chronic pain Last Documented On 9 8:49AM By Dr. Franks ; [facility] [place] 10-325 MG Oral Tablet 01/25/2019 - 02/24/2019 Pr ovider: Nikko Franks MD Diagnosis: 1 po qid prn for chronic pain Last Documented On 9 9:23AM By Mahsa Esparza ; [facility] fentaNYL 75 MCG/HR Transderm al Patch 72 Hour 01/25/2019 - 02/24/2019 Provider: Nikko Franks MD Diagnosis: apply 1 patch every 3 days prn for chronic pain Last Documented On 9 9:23AM By Mahsa Esparza ; [facility] [place] 10-325MG Oral Tablet 11/30/2018 - 12/30/2018 Pro vider: Nikko Franks MD Diagnosis: 1 po qid prn for chronic pain Last Documented On 9 12:50PM By Dr. Franks ; [facility] fentaNYL 75MCG/HR Transderma l Patch 72 Hour 11/30/2018 - 12/30/2018 Provider: Nikko Franks MD Diagnosis: apply 1 patch every 3 days prn for chronic pain Last Documented On 9 12:50PM By Dr. Franks ; [facility] fentaNYL 75MCG/HR Transderma l Patch 72 Hour 10/31/2018 - 11/30/2018 Provider: Nikko Franks MD Diagnosis: apply 1 patch every 3 days prn for chronic pain Last Documented On 9 10:29AM By Dr. Franks ; [facility] [place] 10-325MG Oral Tablet 10/31/2018 - 11/30/2018 Pro vider: Nikko Franks MD Diagnosis: 1 po qid prn for chronic pain Last Documented On 9 10:29AM By Dr. Franks ; [facility] [place] 10-325MG Oral Tablet 10/03/2018 - 11/02/2018 Pro vider: Nikko Franks MD Diagnosis: 1 po qid prn for chronic pain Last Documented On 9 12:11PM By Dr. Franks ; [facility] fentaNYL 75MCG/HR Transderma l Patch 72 Hour 10/03/2018 - 11/02/2018 Provider: Nikko Franks MD Diagnosis: apply 1 patch every 3 days prn for chronic pain Last Documented On 9 12:10PM By Dr. Franks ; [facility] fentaNYL 75MCG/HR Transderma l Patch 72 Hour 09/04/2018 - 10/04/2018 Provider: Nikko Franks MD Diagnosis: apply 1 patch every 3 days prn for chronic pain Last Documented On 9 9:37AM By Dr. Franks ; [facility] [place] 10-325MG Oral Tablet 09/04/2018 - 10/04/2018 Pro vider: Nikko Fransk MD Diagnosis: 1 po qid prn for chronic pain Last Documented On 9 9:37AM By Dr. Franks ; [facility] fentaNYL 75MCG/HR Transderma l Patch 72 Hour 07/10/2018 - 08/09/2018 Provider: Nikko Franks MD Diagnosis: apply 1 patch every 3 days prn for chronic pain Last Documented On 9 2:22PM By Mahsa Esparza ; [facility] [place] 10-325MG Oral Tablet 07/10/2018 - 08/09/2018 Pro vider: Nikko Franks MD Diagnosis: 1 po qid prn for chronic pain Last Documented On 9 2:22PM By Mahsa Esparza ; [facility] [place] 10-325MG Oral Tablet 07/05/2018 - 08/04/2018 Pro vider: Nkiko Franks MD Diagnosis: 1 po qid prn for chronic pain Last Documented On 9 4:59PM By Dr. Franks ; [facility] fentaNYL 75MCG/HR Transderma l Patch 72 Hour 07/05/2018 - 08/04/2018 Provider: Nikko Franks MD Diagnosis: apply 1 patch every 3 days prn for chronic pain Last Documented On 9 4:58PM By Dr. Franks ; [facility] [place] 10-325MG Oral Tablet 06/05/2018 - 07/05/2018 Pro vider: Nikko Franks MD Diagnosis: four times a day / prn, for chronic pain-I know he has severe pain, usually try to make an effort to decrease these just a little bit Last Documented On 9 9:08AM By Dr. Franks ; [facility] FentaNYL 75MCG/HR Transderma l Patch 72 Hour 06/05/2018 - 07/05/2018 Provider: Nikko Franks MD Diagnosis: once a day, chronic pain Last Documented On 9 9:08AM By Dr. Franks ; [facility] [place] 10-325MG Oral Tablet 04/10/2018 - 05/10/2018 Pro vider: Nikko Franks MD Diagnosis: four times a day / prn, for chronic pain-I know he has severe pain, usually try to make an effort to decrease these just a little bit Last Documented On 8 3:44PM By Giselle Peterson ; [facility] FentaNYL 75MCG/HR Transderma l Patch 72 Hour 04/10/2018 - 05/10/2018 Provider: Nikko Franks MD Diagnosis: once a day, chronic pain Last Documented On 8 3:44PM By Giselle Peterson ; [facility] FentaNYL 75MCG/HR Transderma l Patch 72 Hour 04/06/2018 - 05/06/2018 Provider: Nikko Franks MD Diagnosis: once a day, chronic pain Last Documented On 8 12:46PM By Dr. Franks ; [facility] [place] 10-325MG Oral Tablet 04/06/2018 - 05/06/2018 Pro vider: Nikko Franks MD Diagnosis: four times a day / prn, for chronic pain-I know he has severe pain, usually try to make an effort to decrease these just a little bit Last Documented On 8 12:45PM By Dr. Franks ; [facility] [place] 10-325MG Oral Tablet 03/08/2018 - 04/07/2018 Pro vider: Nikko Franks MD Diagnosis: four times a day / prn, for chronic pain-I know he has severe pain, usually try to make an effort to decrease these just a little bit Last Documented On 8 8:31AM By Dr. Franks ; [facility] FentaNYL 75MCG/HR Transderma l Patch 72 Hour 03/08/2018 - 04/07/2018 Provider: Nikko Franks MD Diagnosis: once a day, chronic pain Last Documented On 8 8:31AM By Dr. Franks ; [facility] [place] 10-325MG Oral Tablet 02/06/2018 - 03/08/2018 Pro vider: Nikko Franks MD Diagnosis: four times a day / prn, for chronic pain-I know he has severe pain, usually try to make an effort to decrease these just a little bit Last Documented On 8 4:26PM By Dr. Franks ; [facility] FentaNYL 75MCG/HR Transderma l Patch 72 Hour 02/06/2018 - 03/08/2018 Provider: Nikko Franks MD Diagnosis: once a day, chronic pain Last Documented On 8 4:27PM By Dr. Franks ; [facility] FentaNYL 75MCG/HR Transderma l Patch 72 Hour 01/09/2018 - 02/08/2018 Provider: Nikko Franks MD Diagnosis: once a day, chronic pain Last Documented On 8 8:31AM By Dr. Franks ; [facility] [place] 10-325MG Oral Tablet 01/09/2018 - 02/08/2018 Pro vider: Nikko Franks MD Diagnosis: four times a day / prn, for chronic pain-I know he has severe pain, usually try to make an effort to decrease these just a little bit Last Documented On 8 8:31AM By Dr. Franks ; [facility] [place] 10-325MG Oral Tablet 12/12/2017 - 01/11/2018 Pro vider: Nikko Franks MD Diagnosis: four times a day / prn, for chronic pain-I know he has severe pain, usually try to make an effort to decrease these just a little bit Last Documented On 8 3:25PM By Giselle Peterson ; [facility] FentaNYL 75MCG/HR Transderma l Patch 72 Hour 12/12/2017 - 01/11/2018 Provider: Nikko Franks MD Diagnosis: once a day Last Documented On 8 3:26PM By Giselle Peterson ; [facility] Duragesic-75 Transdermal Pat ch 72 Hour 12/07/2017 - 01/06/2018 Provider: Nikko Franks MD Diagnosis: use as directed 1 every 3 days -, for chronic pa in Last Documented On 8 12:54PM By Dr. Franks ; [facility] [place] 10-325MG Oral Tablet 12/07/2017 - 01/06/2018 Pro vider: Nikko Franks MD Diagnosis: four times a day / prn, for chronic pain-I know he has severe pain, usually try to make an effort to decrease these just a little bit Last Documented On 8 12:54PM By Dr. Franks ; [facility] [place] 10-325MG Oral Tablet 11/07/2017 - 12/07/2017 Pro vider: Nikko Franks MD Diagnosis: four times a day / prn, for chronic pain-I know he has severe pain, usually try to make an effort to decrease these just a little bit Last Documented On 8 9:41AM By Dr. Franks ; [facility] Duragesic-75 Transdermal Pat ch 72 Hour 11/07/2017 - 12/07/2017 Provider: Nikko Franks MD Diagnosis: use as directed 1 every 3 days -, for chronic pa in Last Documented On 8 9:41AM By Dr. Franks ; [facility] [place] 10-325MG Oral Tablet 10/07/2017 - 11/06/2017 Pro vider: Nikko Franks MD Diagnosis: four times a day / prn, for chronic pain-I know he has severe pain, usually try to make an effort to decrease these just a little bit Last Documented On 8 12:53PM By Dr. Franks ; [facility] [place]-75 Transdermal Pat ch 72 Hour 10/07/2017 - 11/06/2017 Provider: Nikko Franks MD Diagnosis: use as directed 1 every 3 days -, for chronic pa in Last Documented On 8 12:53PM By Dr. Franks ; [facility] Dur[place]-75 Transdermal Pat ch 72 Hour 08/15/2017 - 09/14/2017 Provider: Nikko Franks MD Diagnosis: use as directed 1 every 3 days -, for chronic pa in Last Documented On 8 2:27PM By Mahsa Esparza ; [facility] [place] 10-325MG Oral Tablet 08/15/2017 - 09/14/2017 Pro vider: Nikko Franks MD Diagnosis: four times a day / prn, for chronic pain-I know he has severe pain, usually try to make an effort to decrease these just a little bit Last Documented On 8 2:27PM By Mahsa Esparza ; [facility] [place] 10-325MG Oral Tablet 08/10/2017 - 09/09/2017 Pro vider: Nikko Franks MD Diagnosis: four times a day / prn, for chronic pain-I know he has severe pain, usually try to make an effort to decrease these just a little bit Last Documented On 8 8:18AM By Dr. Franks ; [facility] Duragesic-75 Transdermal Pat ch 72 Hour 08/10/2017 - 09/09/2017 Provider: Nikko Franks MD Diagnosis: use as directed 1 every 3 days -, for chronic pa in Last Documented On 8 8:17AM By Dr. Franks ; [facility] [place] 10-325MG Oral Tablet 07/11/2017 - 08/10/2017 Pro vider: Nikko Franks MD Diagnosis: four times a day / prn, for chronic pain Last Documented On 8 3:21PM By Dr. Franks ; [facility] Duragesic-75 Transdermal Pat ch 72 Hour 07/11/2017 - 08/10/2017 Provider: Nikko Franks MD Diagnosis: use as directed 1 every 3 days -, for chronic pa in Last Documented On 8 3:21PM By Dr. Franks ; [facility] [place] 10-325MG Oral Tablet 06/10/2017 - 07/10/2017 Pro vider: Nikko Franks MD Diagnosis: four times a day / prn, for chronic pain Last Documented On 8 9:26AM By Dr. Franks ; [facility] Duragesic-75 Transdermal Pat ch 72 Hour 06/10/2017 - 07/10/2017 Provider: Nikko Franks MD Diagnosis: use as directed 1 every 3 days -, for chronic pa in Last Documented On 8 9:26AM By Dr. Franks ; [facility] Duragesic-75 Transdermal Pat ch 72 Hour 05/12/2017 - 06/11/2017 Provider: Nikko Franks MD Diagnosis: use as directed 1 every 3 days -, for chronic pa in Last Documented On 8 11:37AM By Dr. Franks ; [facility] [place] 10-325MG Oral Tablet 05/12/2017 - 06/11/2017 Pro vider: Nikko Franks MD Diagnosis: four times a day / prn, for chronic pain Last Documented On 8 11:37AM By Dr. Franks ; [facility] [place] 10-325MG Oral Tablet 04/13/2017 - 05/13/2017 Pro vider: Nikko Franks MD Diagnosis: four times a day / prn, for chronic pain Last Documented On 7 8:54AM By Dr. Franks ; [facility] Duragesic-75 Transdermal Pat ch 72 Hour 04/13/2017 - 05/13/2017 Provider: Nikko Franks MD Diagnosis: use as directed 1 every 3 days -, for chronic pa in Last Documented On 7 8:55AM By Dr. Franks ; [facility] Duragesic-75 Transdermal Pat ch 72 Hour 03/14/2017 - 04/13/2017 Provider: Nikko Franks MD Diagnosis: use as directed 1 every 3 days -, for chronic pa in Last Documented On 7 11:37AM By Dr. Franks ; [facility] [place] 10-325MG Oral Tablet 03/14/2017 - 04/13/2017 Pro vider: Nikko Franks MD Diagnosis: four times a day / prn, for chronic pain Last Documented On 7 11:37AM By Dr. Franks ; [facility] [place] 10-325MG Oral Tablet 02/11/2017 - 03/13/2017 Pro vider: Simone Andrea MD Diagnosis: four times a day / prn, for multilevel disc degeneration pain, I will have to reevaluate to sometime in December/January Last Documented On 7 12:52PM By Dr. Franks ; [facility] Duragesic-75 Transdermal Pat ch 72 Hour 02/11/2017 - 03/13/2017 Provider: Simone Andrea MD Diagnosis: use as directed 1 every 3 da ys -, for chronic multi-source low back pain/I will have to reevaluate U sometime in December or January Last Documented On 7 12:52PM By Dr. Franks ; [facility] [place] 10-325MG Oral Tablet 01/12/2017 - 02/11/2017 Pro vider: Nikko Franks MD Diagnosis: four times a day / prn, for multilevel disc degeneration pain, I will have to reevaluate to sometime in Last Documented On 7 1:09PM By Dr. Franks ; [facility] Duragesic-75 Transdermal Pat ch 72 Hour 01/12/2017 - 02/11/2017 Provider: Nikko Franks MD Diagnosis: use as directed 1 every 3 da ys -, for chronic multi-source low back pain/I will have to reevaluate U sometime in December or January Last Documented On 7 1:10PM By Dr. Franks ; [facility] Duragesic-75 75 MCG/HR Patch 72 Hour 12/13/2016 - 01/12/2017 Provider: Nikko Franks MD Diagnosis: use as directed 1 every 3 da ys -, for chronic multi-source low back pain/I will have to reevaluate U sometime in December or January Last Documented On 7 8:03AM By Dr. Franks ; [facility] [place] 10-325 MG Tablet 12/13/2016 - 01/12/2017 Provide r: Nikko Franks MD Diagnosis: four times a day / prn, for multilevel disc degeneration pain, I will have to reevaluate to sometime in Last Documented On 7 8:02AM By Dr. Franks ; [facility] [place] 10-325 MG Tablet 11/12/2016 - 12/12/2016 Provide r: Nikko Franks MD Diagnosis: four times a day / prn, for multilevel disc degeneration pain Last Documented On 7 10:16AM By Dr. Franks ; [facility] Duragesic-75 75 MCG/HR Patch 72 Hour 11/12/2016 - 12/12/2016 Provider: Nikko Franks MD Diagnosis: use as directed 1 every 3 da ys -, for chronic multi-source low back pain Last Documented On 7 10:16AM By Dr. Franks ; [facility] [place] 10-325 MG Tablet 10/14/2016 - 11/13/2016 Provide r: Nikko Franks MD Diagnosis: four times a day / prn Last Documented On 7 8:29AM By Dr. Franks ; [facility] Duragesic-75 75 MCG/HR Patch 72 Hour 10/14/2016 - 11/13/2016 Provider: Nikko Franks MD Diagnosis: use as directed 1 every 3 days - Last Documented On 7 8:30AM By Dr. Franks ; [facility] Duragesic-75 75 MCG/HR Patch 72 Hour 09/14/2016 - 10/14/2016 Provider: Nikko Franks MD Diagnosis: use as directed 1 every 3 days - Last Documented On 7 9:11AM By Dr. Franks ; [facility] [place] 10-325 MG Tablet 09/14/2016 - 10/14/2016 Provide r: Nikko Franks MD Diagnosis: four times a day / prn Last Documented On 7 9:11AM By Dr. Franks ; [facility] Duragesic-75 75 MCG/HR Patch 72 Hour 08/16/2016 - 09/15/2016 Provider: Nikko Franks MD Diagnosis: use as directed 1 every 3 days - Last Documented On 7 1:13PM By Sara Oreilly ; [facility] [place] 10-325 MG Tablet 08/16/2016 - 09/15/2016 Provide r: Nikko Franks MD Diagnosis: four times a day / prn Last Documented On 7 1:13PM By Sara Oreilly ; [facility] LamoTRIgine 100 MG Tablet 07/30/2016 - 11/19/2019 Prov ider: Diagnosis: Last Documented On 0 1:00PM By Mahsa Esparza ; [facility] BuPROPion HCl 75 MG Tablet 07/30/2016 - 11/19/2019 Pro vider: Diagnosis: Last Documented On 0 1:00PM By Mahsa Esparza ; [facility] BusPIRone HCl 15 MG Tablet 07/30/2016 - 07/17/2019 Pro vider: Diagnosis: Last Documented On 0 11:37AM By Renata Coleman ; [facility] Hydrocodone-Acetaminophen 10-325 MG Tablet 07/16/2016 - 07/17/2019 Provider: Diagnosis: Last Documented On 0 11:36AM By Renata Coleman ; [facility] Zolpidem Tartrate 10 MG Tablet 07/16/2016 - 11/19/2019 Provider: Diagnosis: Last Documented On 0 1:00PM By Mahsa Esparza ; [facility] FentaNYL 75 MCG/HR Patch 72 Hour 07/16/2016 - 07/17/19 Provider: Diagnosis: Last Documented On 0 11:37AM By Renata Coleman ; [facility] [place] 10-325 MG Tablet 07/15/2016 - 08/14/2016 Provide r: Nikko Franks MD Diagnosis: four times a day / prn Last Documented On 7 4:28PM By Dr. Franks ; [facility] Duragesic-75 75 MCG/HR Patch 72 Hour 07/15/2016 - 08/14/2016 Provider: Nikko Franks MD Diagnosis: use as directed 1 every 3 days - Last Documented On 7 4:07PM By Dr. Franks ; [facility] [place] 10-325 MG Tablet 06/14/2016 - 07/14/2016 Provide r: Nikko Franks MD Diagnosis: four times a day / prn Last Documented On 7 5:57PM By Dr. Franks ; [facility] Duragesic-75 75 MCG/HR Patch 72 Hour 06/14/2016 - 07/14/2016 Provider: Nikko Franks MD Diagnosis: use as directed 1 every 3 days - Last Documented On 7 5:56PM By Dr. Franks ; [facility] [place] 10-325 MG Tablet 05/13/2016 - 06/12/2016 Provide r: Nikko Franks MD Diagnosis: four times a day / prn Last Documented On 7 8:54AM By Dr. Franks ; [facility] Duragesic-75 75 MCG/HR Patch 72 Hour 05/13/2016 - 06/12/2016 Provider: Nikko Franks MD Diagnosis: use as directed 1 every 3 days - Last Documented On 7 8:54AM By Dr. Franks ; [facility] Duragesic-75 75 MCG/HR Patch 72 Hour 04/14/2016 - 05/14/2016 Provider: Nikko Franks MD Diagnosis: use as directed 1 every 3 days - Last Documented On 6 12:09PM By Dr. Franks ; [facility] [place] 10-325 MG Tablet 04/14/2016 - 05/14/2016 Provide r: Nikko Franks MD Diagnosis: four times a day / prn Last Documented On 6 12:09PM By Dr. Franks ; [facility] Duragesic-75 75 MCG/HR Patch 72 Hour 03/15/2016 - 04/14/2016 Provider: Nikko Franks MD Diagnosis: use as directed 1 every 3 days - Last Documented On 6 8:26AM By Dr. Franks ; [facility] [place] 10-325 MG Tablet 03/15/2016 - 04/14/2016 Provide r: Nikko Franks MD Diagnosis: four times a day / prn Last Documented On 6 8:27AM By Dr. Franks ; [facility] [place] 10-325 MG Tablet 02/13/2016 - 03/14/2016 Provide r: Stef Ty MD Diagnosis: four times a day / prn Last Documented On 6 11:16AM By Dr. Franks ; [facility] Duragesic-75 75 MCG/HR Patch 72 Hour 02/13/2016 - 03/14/2016 Provider: Stef Ty MD Diagnosis: use as directed 1 every 3 days - Last Documented On 6 11:15AM By Dr. Franks ; [facility] [place] 10-325 MG Tablet 01/15/2016 - 02/14/2016 Provide r: Nikko Franks MD Diagnosis: four times a day / prn Last Documented On 6 8:24AM By Dr. Franks ; [facility] Duragesic-75 75 MCG/HR Patch 72 Hour 01/15/2016 - 02/14/2016 Provider: Nikko Franks MD Diagnosis: use as directed 1 every 3 days - Last Documented On 6 8:23AM By Dr. Franks ; [facility] [place] 10-325 MG Tablet 12/17/2015 - 01/16/2016 Provide r: Nikko Franks MD Diagnosis: four times a day / prn Last Documented On 6 8:19AM By Dr. Franks ; [facility] Duragesic-75 75 MCG/HR Patch 72 Hour 12/17/2015 - 01/16/2016 Provider: Nikko Franks MD Diagnosis: use as directed 1 every 3 days - Last Documented On 6 8:19AM By Dr. Franks ; [facility] Duragesic-75 75 MCG/HR Patch 72 Hour 11/17/2015 - 12/17/2015 Provider: Nikko Franks MD Diagnosis: use as directed 1 every 3 days - Last Documented On 6 8:23AM By Dr. Franks ; [facility] [place] 10-325 MG Tablet 11/17/2015 - 12/17/2015 Provide r: Nikko Franks MD Diagnosis: four times a day / prn Last Documented On 6 8:24AM By Dr. Franks ; [facility] Duragesic-75 75 MCG/HR Patch 72 Hour 10/16/2015 - 11/15/2015 Provider: Nikko Franks MD Diagnosis: use as directed 1 every 3 days - Last Documented On 6 8:14AM By Dr. Franks ; [facility] [place] 10-325 MG Tablet 10/16/2015 - 11/15/2015 Provide r: Nikko Franks MD Diagnosis: four times a day / prn Last Documented On 6 8:13AM By Dr. Franks ; [facility] [place] 10-325 MG Tablet 09/17/2015 - 10/17/2015 Provide r: Nikko Franks MD Diagnosis: four times a day / prn Last Documented On 6 12:01PM By Dr. Franks ; [facility] Duragesic-75 75 MCG/HR Patch 72 Hour 09/17/2015 - 10/17/2015 Provider: Nikko Franks MD Diagnosis: use as directed 1 every 3 days - Last Documented On 6 12:01PM By Dr. Franks ; [facility] [place] 10-325 MG Tablet 08/18/2015 - 09/17/2015 Provide r: Nikko Franks MD Diagnosis: four times a day / prn Last Documented On 6 8:06AM By Dr. Franks ; [facility] Duragesic-75 75 MCG/HR Patch 72 Hour 08/18/2015 - 09/17/2015 Provider: Nikko Franks MD Diagnosis: use as directed 1 every 3 days - Last Documented On 6 8:06AM By Dr. Franks ; [facility] [place] 10-325 MG Tablet 07/16/2015 - 08/15/2015 Provide r: Nikko Franks MD Diagnosis: four times a day / prn Last Documented On 6 8:26AM By Dr. Franks ; [facility] Duragesic-75 75 MCG/HR Patch 72 Hour 07/16/2015 - 08/15/2015 Provider: Nikko Franks MD Diagnosis: use as directed 1 every 3 days - Last Documented On 6 8:25AM By Dr. Franks ; [facility] [place] 10-325 MG Tablet 06/16/2015 - 07/16/2015 Provide r: Nikko Franks MD Diagnosis: four times a day / prn Last Documented On 6 12:20PM By Dr. Franks ; [facility] Duragesic-75 75 MCG/HR Patch 72 Hour 06/16/2015 - 07/16/2015 Provider: Nikko Franks MD Diagnosis: use as directed 1 every 3 days - Last Documented On 6 12:20PM By Dr. Franks ; [facility] Duragesic-75 75 MCG/HR Patch 72 Hour 05/16/2015 - 06/15/2015 Provider: Stef Ty MD Diagnosis: use as directed 1 every 3 days - Last Documented On 6 10:03AM By Dr. Franks ; [facility] [place] 10-325 MG Tablet 05/16/2015 - 06/15/2015 Provide r: Stef Ty MD Diagnosis: four times a day / prn Last Documented On 6 10:02AM By Dr. Franks ; [facility] LaMICtal 25 MG Tablet 03/20/2015 - 11/19/2019 Provider : Diagnosis: Last Documented On 0 12:59PM By Mahsa Esparza ; [facility] Duragesic-75 75 MCG/HR Patch 72 Hour 03/20/2015 - 04/19/2015 Provider: Nikko Franks MD Diagnosis: use as directed 1 every 3 days - Last Documented On 5 12:38PM By Dr. Franks ; [facility] [place] 10-325 MG Tablet 03/20/2015 - 04/19/2015 Provide r: Nikko Franks MD Diagnosis: four times a day Last Documented On 5 12:39PM By Dr. Franks ; [facility] Omeprazole 20 MG Tablet, enteric coated 03/20/2015 - 11/19/2019 Provider: Diagnosis: Last Documented On 0 1:00PM By Mahsa Esparza ; [facility] Vitamin B12 100 MCG Tablet 03/20/2015 - 11/19/2019 Pro vider: Diagnosis: Last Documented On 0 12:59PM By Mahsa Esparza ; [facility] Duragesic-75 75 MCG/HR Patch 72 Hour 03/18/2015 - 04/17/2015 Provider: Nikko Franks MD Diagnosis: use as directed 1 every 3 days - Last Documented On 5 4:36PM By Dr. Franks ; [facility] [place] 10-325 MG Tablet 03/18/2015 - 04/17/2015 Provide r: Nikko Franks MD Diagnosis: four times a day Last Documented On 5 4:35PM By Dr. Franks ; [facility] [place] 10-325 MG Tablet 02/17/2015 - 03/19/2015 Provide r: Nikko Franks MD Diagnosis: four times a day Last Documented On 5 8:22AM By Dr. Franks ; [facility] Duragesic-75 75 MCG/HR Patch 72 Hour 02/17/2015 - 03/19/2015 Provider: Nikko Franks MD Diagnosis: use as directed 1 every 3 days - Last Documented On 5 12:19PM By Dr. Franks ; [facility] Duragesic-75 75 MCG/HR Patch 72 Hour 01/16/2015 - 02/15/2015 Provider: Nikko Franks MD Diagnosis: use as directed 1 every 3 days - Last Documented On 5 4:00PM By Dr. Franks ; [facility] [place] 10-325 MG Tablet 01/16/2015 - 02/15/2015 Provide r: Nikko Franks MD Diagnosis: four times a day Last Documented On 5 4:00PM By Dr. Franks ; [facility] [place] 10-325 MG Tablet 12/18/2014 - 01/17/2015 Provide r: Nikko Franks MD Diagnosis: BACK DISORDER NO S four times a day Last Documented On 5 8:30AM By Dr. Franks ; [facility] Duragesic-75 75 MCG/HR Patch 72 Hour 12/18/2014 - 01/17/2015 Provider: Nikko Franks MD Diagnosis: LUMB/LUMBOSAC DI SC DEGEN use as directed 1 every 3 days - Last Documented On 5 8:29AM By Dr. Franks ; [facility] [place] 10-325 MG Tablet 11/18/2014 - 12/18/2014 Provide r: Nikko Franks MD Diagnosis: BACK DISORDER NO S four times a day Last Documented On 5 9:40AM By Dr. Franks ; [facility] Duragesic-75 75 MCG/HR Patch 72 Hour 11/18/2014 - 12/18/2014 Provider: Nikko Farnks MD Diagnosis: LUMB/LUMBOSAC DI SC DEGEN use as directed 1 every 3 days - Last Documented On 5 9:52AM By Dr. Franks ; [facility] Omeprazole 20 MG Tablet, enteric coated 09/18/2014 - 03/20/2015 Provider: Diagnosis: Last Documented On 5 11:52AM By Mahsa Esparza ; [facility] Vitamin B12 100 MCG Tablet 09/18/2014 - 03/20/2015 Pro vider: Diagnosis: Last Documented On 5 11:53AM By Mahsa Esparza ; [facility] LaMICtal 25 MG Tablet 09/18/2014 - 03/20/2015 Provider : Diagnosis: Last Documented On 5 11:53AM By Mahsa Esparza ; [facility] Diazepam 10 MG Tablet 09/18/2014 - 11/19/2019 Provider : Diagnosis: Last Documented On 0 12:59PM By Mahsa Esparza ; [facility] [place] 10-325 MG Tablet 09/17/2014 - 10/17/2014 Provide r: Nikko Franks MD Diagnosis: BACK DISORDER NO S four times a day Last Documented On 5 11:15AM By Mahsa Esparza ; [facility] Duragesic-75 75 MCG/HR Patch 72 Hour 09/17/2014 - 10/17/2014 Provider: Nikko Franks MD Diagnosis: LUMB/LUMBOSAC DI SC DEGEN use as directed 1 every 3 days - Last Documented On 5 11:15AM By Mahsa Esparza ; [facility] Duragesic-75 75 MCG/HR Patch 72 Hour 09/16/2014 - 10/16/2014 Provider: Nikko Franks MD Diagnosis: LUMB/LUMBOSAC DI SC DEGEN use as directed 1 every 3 days - Last Documented On 5 8:21AM By Dr. Franks ; [facility] [place] 10-325 MG Tablet 09/16/2014 - 10/16/2014 Provide r: Nikko Franks MD Diagnosis: BACK DISORDER NO S four times a day Last Documented On 5 8:21AM By Dr. Franks ; [facility] [place] 10-325 MG Tablet 08/15/2014 - 09/14/2014 Provide r: Nikko Franks MD Diagnosis: BACK DISORDER NO S four times a day Last Documented On 5 8:27AM By Dr. Franks ; [facility] Duragesic-75 75 MCG/HR Patch 72 Hour 08/15/2014 - 09/14/2014 Provider: Nikko Franks MD Diagnosis: LUMB/LUMBOSAC DI SC DEGEN use as directed 1 every 3 days - Last Documented On 5 8:27AM By Dr. Franks ; [facility] Duragesic-75 75 MCG/HR Patch 72 Hour 07/17/2014 - 08/16/2014 Provider: Nikko Franks MD Diagnosis: LUMB/LUMBOSAC DI SC DEGEN use as directed 1 every 3 days - Last Documented On 5 8:45AM By Dr. Franks ; [facility] [place] 10-325 MG Tablet 07/17/2014 - 08/16/2014 Provide r: Nikko Franks MD Diagnosis: BACK DISORDER NO S four times a day Last Documented On 5 8:45AM By Dr. Franks ; [facility] NOTE EX MISC 07/15/2014 - 07/16/2014 Provider: Carlos Manuel Franks MD Diagnosis: called pt and informed that her rx is 4 days early, unable to fill. jrk Last Documented On 5 1:20PM By Tim Gutierrez ; [facility] Duragesic-75 75 MCG/HR Patch 72 Hour 06/19/2014 - 07/19/2014 Provider: Nikko Franks MD Diagnosis: LUMB/LUMBOSAC DI SC DEGEN use as directed 1 every 3 days - Last Documented On 5 2:55PM By Dr. Franks ; [facility] [place] 10-325 MG Tablet 06/19/2014 - 07/19/2014 Provide r: Nikko Franks MD Diagnosis: BACK DISORDER NO S four times a day Last Documented On 5 2:56PM By Dr. Franks ; [facility] NOTE EX MISC 04/18/2014 - 04/19/2014 Provider: Carlos Manuel Franks MD Diagnosis: pt brought back norco and du ragesic rx's for jun and june that her pharmacy could not fill. [facility] and will call when rx is due. Her Last Documented On 4 2:22PM By Tim Gutierrez ; [facility] [place] 10-325 MG OR TABS 04/10/2014 - 05/10/2014 Provid er: Nikko Franks MD Diagnosis: BACK DISORDER NO S Last Documented On 4 11:25AM By Sarmiento 6 User ; [facility] [place] 10-325 MG OR TABS 04/10/2014 - 05/10/2014 Provid er: Nikko Franks MD Diagnosis: BACK DISORDER NO S Last Documented On 4 11:21AM By Sarmiento 6 User ; [facility] Duragesic-75 75 MCG/HR TD PT72 04/10/2014 - 05/10/2014 Provider: Nikko Franks MD Diagnosis: LUMB/LUMBOSAC DI SC DEGEN 1 every 3 days - Last Documented On 4 11:20AM By Sarmiento 6 User ; [facility] Duragesic-75 75 MCG/HR TD PT72 04/10/2014 - 04/18/2014 Provider: Nikko Franks MD Diagnosis: LUMB/LUMBOSAC DI SC DEGEN 1 every 3 days - Last Documented On 4 2:17PM By Tim Gutierrez ; [facility] Duragesic-75 75 MCG/HR TD PT72 04/10/2014 - 05/10/2014 Provider: Nikko Franks MD Diagnosis: LUMB/LUMBOSAC DI SC DEGEN 1 every 3 days - Last Documented On 4 11:24AM By Sarmiento 6 User ; [facility] [place] 10-325 MG OR TABS 04/10/2014 - 04/18/2014 Provid er: Nikko Franks MD Diagnosis: BACK DISORDER NO S Last Documented On 4 2:17PM By Tim Gutierrez ; [facility] [place] 10-325 MG OR TABS 04/10/2014 - 04/18/2014 Provid er: Nikko Franks MD Diagnosis: BACK DISORDER NO S Last Documented On 4 2:18PM By Tim Gutierrez ; [facility] Duragesic-75 75 MCG/HR TD PT72 04/10/2014 - 04/18/2014 Provider: Nikko Franks MD Diagnosis: LUMB/LUMBOSAC DI SC DEGEN 1 every 3 days - Last Documented On 4 2:17PM By Tim Gutierrez ; [facility] [place] 10-325 MG OR TABS 03/20/2014 - 04/19/2014 [...] By Dr. Franks ; [facility] [place] 10-325 MG OR TABS 02/19/2014 - 03/21/2014 [...] By Dr. Franks ; [facility] [place] 10-325 MG OR TABS 01/21/2014 - 02/20/2014 Provid er: Nikko Franks MD Diagnosis: [phone] df Last Documented On 4 12:49PM By Dr. Franks ; [facility] [place] 10-325 MG OR TABS 12/17/2013 - 01/16/2014 Provid er: Nikko Franks MD Diagnosis: [phone] df Last Documented On 4 3:07PM By Sarmiento 6 User ; [facility] Duragesic-75 75 MCG/HR TD PT72 12/17/2013 - 01/16/2014 Provider: Nikko Franks MD Diagnosis: LUMB/LUMBOSAC DI SC DEGEN 1 every 3 days - jfb Last Documented On 4 3:07PM By Sarmiento 6 User ; [facility] Duragesic-75 75 MCG/HR TD PT72 11/22/2013 - 12/22/2013 Provider: Nikko Franks MD Diagnosis: LUMB/LUMBOSAC DI SC DEGEN 1 every 3 days - jfb Last Documented On 4 9:10AM By Sarmiento 6 User ; [facility] [place] 10-325 MG OR TABS 10/15/2013 - 11/14/2013 Provid er: Nikko Franks MD Diagnosis: [phone] df Last Documented On 4 3:31PM By Sarmiento 5 User ; [facility] Duragesic-75 75 MCG/HR TD PT72 10/15/2013 - 11/14/2013 Provider: Nikko Franks MD Diagnosis: LUMB/LUMBOSAC DI SC DEGEN 1 every 3 days - jfb Last Documented On 4 3:31PM By Sarmiento 5 User ; [facility] [place] 10-325 MG OR TABS 09/25/2013 - 10/25/2013 Provid er: Nikko Franks MD Diagnosis: [phone] df Last Documented On 4 1:30PM By Tim Gutierrez ; [facility] Duragesic-75 75 MCG/HR TD PT72 09/21/2013 - 10/21/2013 Provider: Nikko Franks MD Diagnosis: LUMB/LUMBOSAC DI SC DEGEN 1 every 3 days - jfb Last Documented On 4 4:42PM By Mahsa Esparza ; [facility] DENIED EX MISC 09/21/2013 - 09/22/2013 Provider: Manpreet Franks MD Diagnosis: pt called for pain meds pt m ust be seen before they are given 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 Jsb Last Documented On 4 9:40AM By Tim Gutierrez ; [facility] Sae EX MISC 08/24/2013 - 08/25/2013 Provider: Manpreet Franks MD Diagnosis: [phone] df Last Documented On 4 1:35PM By Tim Gutierrez ; [facility] Duragesic-75 75 MCG/HR TD PT72 08/24/2013 - 09/23/2013 Provider: Nikko Franks MD Diagnosis: LUMB/LUMBOSAC DI SC DEGEN 1 every 3 days - jfb Last Documented On 4 9:50AM By Mahsa Esparza ; [facility] Duragesic-75 75 MCG/HR TD PT72 07/26/2013 - 08/25/2013 Provider: Nikko Franks MD Diagnosis: LUMB/LUMBOSAC DI SC DEGEN 1 every 3 days - jfb Last Documented On 4 11:25AM By Torsten 4 User ; [facility] [place] 10-325 MG OR TABS 07/26/2013 - 08/25/2013 Provid er: Nikko Franks MD Diagnosis: [phone] df Last Documented On 4 11:41AM By [...] 3 2:47PM By Sarmiento 3 User ; [facility] Lortab 10-500 MG OR TABS 04/12/2013 - 05/12/2013 Provi monica: Nikko Franks MD Diagnosis: can fill 05-27-13 Last Documented On 3 2:47PM By Sarmiento 3 User ; [facility] Duragesic-75 75 MCG/HR TD PT72 04/12/2013 - 05/12/2013 Provider: Nikko Franks MD Diagnosis: LUMB/LUMBOSAC DI SC DEGEN 1 every 3 days - abrefill 14 Last Documented On 3 2:49PM By Sarmiento 3 User ; [facility] Duragesic-75 75 MCG/HR TD PT72 04/12/2013 - 05/12/2013 Provider: Nikko Franks MD Diagnosis: LUMB/LUMBOSAC DI SC DEGEN 1 every 3 days - abrefill 05-27-13 Last Documented On 3 2:48PM By Sarmiento 3 User ; [facility] Duragesic-75 75 MCG/HR TD PT72 04/12/2013 - 05/12/2013 Provider: Nikko Franks MD Diagnosis: LUMB/LUMBOSAC DI SC DEGEN 1 every 3 days - ab Last Documented On 3 2:48PM By Sarmiento 3 User ; [facility] Duragesic-75 75 MCG/HR TD PT72 03/27/2013 - 04/26/2013 Provider: Nikko Franks MD Diagnosis: LUMB/LUMBOSAC DI SC DEGEN 1 every 3 days - ab Last Documented On 3 9:48AM By Sarmiento 4 User ; [facility] Lortab 10-500 MG OR TABS 03/27/2013 - 04/26/2013 Provi monica: Nikko Franks MD Diagnosis: adolfo [phone] jrk Last Documented On 3 9:13AM By Tim Gutierrez ; [facility] Duragesic-75 75 MCG/HR TD PT72 02/26/2013 - 03/28/2013 Provider: Nikko Franks MD Diagnosis: LUMB/LUMBOSAC DI SC DEGEN 1 every 3 days - ab Last Documented On 3 1:11PM By Sarmiento 4 User ; [facility] Lortab 10-500 MG OR TABS 02/26/2013 - 03/28/2013 Provi monica: Nikko Franks MD Diagnosis: j veronica bhakta [phone] tw Last Documented On 3 11:45AM By Tim Gutierrez ; [facility] Lortab 10-500 MG OR TABS 01/26/2013 - 02/25/2013 Provi monica: Nikko Franks MD Diagnosis: adolfo [phone] tw Last Documented On 3 10:19AM By Tim Gutierrez ; [facility] Duragesic-75 75 MCG/HR TD PT72 01/26/2013 - 02/25/2013 Provider: Nikko Franks MD Diagnosis: LUMB/LUMBOSAC DI SC DEGEN 1 every 3 days - jfb Last Documented On 3 8:57AM By Mahsa Esparza ; [facility] Lortab 10-500 MG OR TABS 12/27/2012 - 01/26/2013 Provi monica: Nikko Franks MD Diagnosis: adolfo [phone] jrk Last Documented On 3 10:29AM By Tim Gutierrez ; [facility] Duragesic-75 75 MCG/HR TD PT72 12/27/2012 - 01/26/2013 Provider: Nikko Franks MD Diagnosis: LUMB/LUMBOSAC DI SC DEGEN 1 every 3 days - jfb Last Documented On 3 9:48AM By Mahsa Esparza ; [facility] Lortab 10-500 MG OR TABS 11/27/2012 - 12/27/2012 Provi monica: Nikko Franks MD Diagnosis: carine martin yony [phone] jrk Last Documented On 3 10:45AM By Tim Gutierrez ; [facility] Duragesic-75 75 MCG/HR TD PT72 11/27/2012 - 12/27/2012 Provider: Nikko Franks MD Diagnosis: LUMB/LUMBOSAC DI SC DEGEN 1 every 3 days - jfb Last Documented On 3 10:23AM By Mahsa Esparza ; [facility] Duragesic-75 75 MCG/HR TD PT72 10/27/2012 - 11/26/2012 Provider: Nikko Franks MD Diagnosis: LUMB/LUMBOSAC DI SC DEGEN 1 every 3 days - jfb Last Documented On 3 1:56PM By Mahsa Esparza ; [facility] Lortab 10-500 MG OR TABS 10/27/2012 - 11/26/2012 Provi monica: Nikko Franks MD Diagnosis: jfb Last Documented On 3 1:56PM By Mahsa Esparza ; [facility] Duragesic-75 75 MCG/HR TD PT72 09/27/2012 - 10/27/2012 Provider: Nikko Franks MD Diagnosis: LUMB/LUMBOSAC DI SC DEGEN 1 every 3 days - jfb Last Documented On 3 11:09AM By Sarmiento 6 User ; [facility] Lortab 10-500 MG OR TABS 09/27/2012 - 10/27/2012 Provi monica: Nikko Franks MD Diagnosis: jfb Last Documented On 3 11:09AM By Sarmiento 6 User ; [facility] DENIED EX MISC 09/22/2012 - 09/23/2012 Provider: Manpreet Franks MD Diagnosis: 5 days current w/ both Lo rtab / Duragesic Patches / To call & request when due 09/27/12 - Message left w/patient requesting return call to [facility] Last Documented On 3 11:41AM By Mahsa Esparza ; [facility] busPIRone HCl POWD 09/20/2012 - 11/19/2019 Provider: Diagnosis: Last Documented On 0 12:59PM By Mahsa Esparza ; [facility] Ambien 5 MG OR TABS 09/20/2012 - 11/19/2019 Provider: Diagnosis: Last Documented On 0 12:59PM By Mahsa Esparza ; [facility] Progesterone Micronized 100 MG OR CAPS 09/20/2012 - Provider: Diagnosis: Last Documented On 0 12:59PM By Mahsa Esparza ; [facility] Wellbutrin SR 100 MG OR TB12 09/20/2012 - 11/19/2019 P rovider: Diagnosis: Last Documented On 0 12:59PM By Mahsa Esparza ; [facility] Neurontin 100 MG OR CAPS 09/20/2012 - 11/19/2019 Provi monica: Diagnosis: Last Documented On 0 12:59PM By Mahsa Esparza ; [facility] Hernan Multivitamin for Women OR TABS 09/20/2012 - 11/18 Provider: Diagnosis: Last Documented On 0 12:59PM By Mahsa Esparza ; [facility] [...] Nikko Franks MD Diagnosis: [facility] [phone] tw Last Documented On 3 11:32AM By [...] 2 8:52AM By Sarmiento 5 User ; [facility] Lortab 10-500 MG OR TABS 03/29/2012 - 04/28/2012 Provi monica: Nikko Franks MD Diagnosis: adolfo [phone] jrk Last Documented On 2 8:39AM By [...] Provi monica: Nikko Franks MD Diagnosis: adolfo [phone] jsb Last Documented On 2 11:30AM By Tim Gutierrez ; [facility] DENIED EX MISC 02/23/2012 - 02/24/2012 Provider: Chaparrita Sin MD Diagnosis: spoke to pt Last Documented On 2 12:56PM By Susy Bobby ; [facility] Lortab 10-500 MG OR TABS 01/31/2012 - 03/01/2012 Provi monica: Nikko Franks MD Diagnosis: adolfo [phone] JRK Last Documented On 2 9:07AM By [...] 01/29/2012 Provi monica: Nikko Franks MD Diagnosis: adolfo [phone] jsb Last Documented On 2 10:11AM By Tim Gutierrez ; [facility] Sae EX MISC 11/29/2011 - 11/30/2011 Provider: Manpreet Franks MD Diagnosis: Sae [phone] teb Last Documented On 2 8:44AM By Tim Gutierrez ; [facility] Lortab 10-500 MG OR TABS 11/29/2011 - 12/29/2011 Provi monica: Nikko Franks MD Diagnosis: adolfo [phone] df Last Documented On 2 4:12PM By [...] rossi Last Documented On 2 9:08AM By Sarmiento 6 User ; [facility] [...] 09/29/2011 Provi monica: Nikko Franks MD Diagnosis: rossi Last Documented On 2 9:33AM By Mahsa Esparza ; [facility] Duragesic-75 75 MCG/HR TD PT72 08/02/2011 - 09/01/2011 Provider: Nikko Franks MD Diagnosis: 1q 3d/pp Last Documented On 2 9:56AM By Torsten 5 User ; [facility] Lortab 10-500 MG OR TABS 08/02/2011 - 09/01/2011 Provi monica: Nikko Franks MD Diagnosis: [phone] df Last Documented On 2 11:34AM By Tim Gutierrez ; [facility] Lortab 10-500 MG OR TABS 06/28/2011 - 07/28/2011 Provi monica: Nikko Franks MD Diagnosis: [phone] jrk Last Documented On 2 8:31AM By Tim Gutierrez ; [facility] Lortab 10-500 MG OR TABS 06/28/2011 - 07/28/2011 Provi monica: Nikko Franks MD Diagnosis: [phone] j and l df Last Documented On [...] 06/24/2011 Provi monica: Nikko Franks MD Diagnosis: [phone] df Last Documented On 2 10:40AM By [...] Provi monica: Nikko Franks MD Diagnosis: j veronica bhakta [phone] th Last Documented On 1 11:29AM By Adelita Sarmiento ; [facility] Duragesic-75 75 MCG/HR TD PT72 03/30/2011 - 04/29/2011 Provider: Stef Ty MD Diagnosis: 1 q 3d/pp Last Documented On 1 9:02AM By Vi Pellicore ; [facility] Percocet 10-325 MG [...] Nikko Franks MD Diagnosis: j and l [phone] jrk Last Documented On 1 3:19PM By Tim Gutierrez ; [facility] Duragesic-75 75 MCG/HR TD PT72 02/01/2011 - 03/03/2011 Provider: Nikko Franks MD Diagnosis: 1 Q 3 DAYS/PP Last Documented On 1 9:00AM By Torsten 6 User ; [facility] Lortab 10-500 MG OR TABS 02/01/2011 - 03/03/2011 Provi monica: Nikko Franks MD Diagnosis: j and l [phone] jrk/jsb Last Documented On 1 9:52AM By Tim Gutierrez ; [facility] Lortab 10-500 MG OR TABS 12/29/2010 - 01/28/2011 Provi monica: Nikko Franks MD Diagnosis: j and l [phone] jrk Last Documented On 1 11:13AM By [...] 12/24/2010 Provi monica: Nikko Franks MD Diagnosis: adolfo [phone] jsb Last Documented On 1 10:09AM By [...] Last Documented On 1 9:37AM By Torsten 6 User ; [facility] Lortab 10-500 MG OR TABS 10/26/2010 - 11/25/2010 Provi monica: Nikko Franks MD Diagnosis: carine martin yony [phone] jsb Last Documented On 1 10:05AM By Tim Gutierrez ; [facility] Lortab 10-500 MG OR TABS 09/29/2010 - 10/29/2010 Provi monica: Nikko Franks MD Diagnosis: carine martin yony [phone] jrk/jsb Last Documented On 1 1:48PM By Tim Gutierrez ; [facility] Duragesic-75 75 MCG/HR TD PT72 09/16/2010 - 10/16/2010 Provider: Nikko Franks MD Diagnosis: 1q 3 days/ PRATIMA Last Documented On 1 11:38AM By Sarmiento 6 User ; [facility] Duragesic-75 75 MCG/HR TD PT72 09/03/2010 - 10/03/2010 Provider: Nikko Franks MD Diagnosis: 1 q 3 days//kw Last Documented On 1 9:27AM By Sarmiento 6 User ; [facility] Lortab 10-500 MG OR TABS 08/12/2010 - 09/11/2010 Provi monica: Nikko Franks MD Diagnosis: [phone] j and l jrk/df Last Documented On 1 9:20AM By Torsten 6 User ; [facility] Duragesic-75 75 MCG/HR TD PT72 08/12/2010 - 09/11/2010 Provider: Nikko Franks MD Diagnosis: 1 q 3 days Last Documented On 1 9:20AM By Torsten 6 User ; [facility] Lortab 10-500 MG OR TABS 07/28/2010 - 08/27/2010 Provi monica: Nikko Franks MD Diagnosis: [phone] j and l jrk/df Last Documented On 1 9:28AM By Tim Gutierrez ; [facility] Duragesic-75 75 MCG/HR TD PT72 07/13/2010 - 08/12/2010 Provider: Nikko Franks MD Diagnosis: 1 q 3 days Last Documented On 1 10:44AM By Torsten Ferrer User ; [facility] Lortab 10-500 MG OR TABS 06/29/2010 - 07/29/2010 Provi monica: Nikko Franks MD Diagnosis: J&L pharm [phone] jrk Last Documented On 1 10:05AM By Tim Gutierrez ; [facility] Duragesic-75 75 MCG/HR TD PT72 06/15/2010 - 07/15/2010 Provider: Nikko Franks MD Diagnosis: 1 patch q 3 days Last Documented On 1 9:06AM By Torsten 3 User ; [facility] Lortab 10-500 MG OR TABS 05/27/2010 - 06/26/2010 Provi monica: Nikko Franks MD Diagnosis: J and L [phone] jrk Last Documented On 1 9:14AM By Tim Gutierrez ; [facility] Duragesic-75 75 MCG/HR TD PT72 05/19/2010 - 06/18/2010 Provider: Nikko Franks MD Diagnosis: 1 q 3 days jrk. called PT Last Documented On 1 9:27AM By Tim Gutierrez ; [facility] Lortab 10-500 MG OR TABS 04/28/2010 - 05/28/2010 Provi monica: Nikko Franks MD Diagnosis: Adolfo [phone] jrk Last Documented On 0 9:20AM By Tim Gutierrez ; [facility] Duragesic-75 75 MCG/HR TD PT72 04/20/2010 - 05/20/2010 Provider: Nikko Franks MD Diagnosis: 1 q 3 days/pp Last Documented On 0 9:19AM By Sarmiento 6 User ; [facility] Lortab 10-500 MG OR TABS 03/30/2010 - 04/29/2010 Provi monica: Nikko Franks MD Diagnosis: Adolfo [phone] th Last Documented On 0 11:16AM By Adelita Sarmiento ; [facility] Duragesic-75 75 MCG/HR TD PT72 03/23/2010 - 04/22/2010 Provider: Nikko Franks MD Diagnosis: use every 3 days/ab Last Documented On 0 10:35AM By Torsten 6 User ; [facility] Lortab 10-500 MG OR TABS 02/26/2010 - 03/28/2010 Provi monica: Nikko Franks MD Diagnosis: Adolfo [phone] jrk Last Documented On 0 12:10PM By Torsten 6 User ; [facility] Duragesic-75 75 MCG/HR TD PT72 02/23/2010 - 03/25/2010 Provider: Nikko Franks MD Diagnosis: use every 3 days/alb Last Documented On 0 3:26PM By Torsten 6 User ; [facility] Lortab 10-500 MG OR TABS 02/05/2010 - 03/02/2010 Provi monica: Nikko Franks MD Diagnosis: Adolfo [phone] jrk Last Documented On 0 9:22AM By Tim Gutierrez ; [facility] Duragesic-75 75 MCG/HR TD PT72 01/19/2010 - 02/18/2010 Provider: Nikko Franks MD Diagnosis: 1 q 3 days Last Documented On 0 1:13PM By Torsten 6 User ; [facility] Lortab 10-500 MG OR TABS 01/12/2010 - 02/06/2010 Provi monica: Nikko Frakns MD Diagnosis: Adlofo [phone] jrk Last Documented On 0 11:09AM By Tim Gutierrez ; [facility] Duragesic-75 75 MCG/HR TD PT72 12/17/2009 - 01/16/2010 Provider: Nikko Franks MD Diagnosis: 1 q 3 days Last Documented On 0 8:53AM By Torsten 2 User ; [facility] Lortab 10-500 MG OR TABS 12/15/2009 - 01/09/2010 Provi monica: Nikko Franks MD Diagnosis: Adolfo [phone] th Last Documented On 0 9:18AM By Tim Gutierrez ; [facility] Duragesic-75 75 MCG/HR TD PT72 11/19/2009 - 12/19/2009 Provider: Nikko Franks MD Diagnosis: 1 q 3 days Last Documented On 0 9:39AM By Torsten 2 User ; [facility] Lortab 10-500 MG OR TABS 11/17/2009 - 12/12/2009 Provi monica: Nikko Franks MD Diagnosis: Adolfo [phone] jrk Last Documented On 0 9:47AM By [...] Provi monica: Nikko Franks MD Diagnosis: adolfo [phone] jrk/df Last Documented On 0 8:51AM By Tim Gutierrez ; [facility] Duragesic-75 75 MCG/HR TD PT72 08/21/2009 - 09/20/2009 Provider: Nikko Franks MD Diagnosis: 1 q 3 days Last Documented On 0 11:17AM By Torsten Ferrer User ; [facility] Lortab 10-500 MG OR TABS 07/30/2009 - 08/24/2009 Provi monica: Nikko Franks MD Diagnosis: [phone] jrk/df Last Documented On 0 10:45AM By Tim Gutierrez ; [facility] Duragesic-75 75 MCG/HR TD PT72 07/22/2009 - 08/21/2009 Provider: Nikko Franks MD Diagnosis: 1 q 3 days Last Documented On 0 12:09PM By Torsten 5 User ; [facility] Lortab 10-500 MG OR TABS 07/02/2009 - 07/27/2009 Provi monica: Nikko Franks MD Diagnosis: carine bhakta [phone] df/jsb Last Documented On 0 10:49AM By Tim Gutierrez ; [facility] Duragesic-75 75 MCG/HR TD PT72 06/24/2009 - 07/24/2009 Provider: 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 Last Documented On 0 10:53AM By Tim Gutierrez ; [facility] Lortab 10-500 MG OR TABS 06/03/2009 - 06/28/2009 Provi monica: Nikko Franks MD Diagnosis: adolfo [phone] jrk Last Documented On 0 9:37AM By Tim Gutierrez ; [facility] Duragesic-75 75 MCG/HR TD PT72 05/27/2009 - 06/26/2009 Provider: Nikko Franks MD Diagnosis: 1 q 3days Last Documented On 0 9:46AM By Torsten Ferrer User ; [facility] Lortab 10-500 MG OR TABS 05/07/2009 - 06/01/2009 Provi monica: Nikko Franks MD Diagnosis: adolfo [phone] jsb Last Documented On 0 12:08PM By Tim Gutierrez ; [facility] Duragesic-75 75 MCG/HR TD PT72 04/28/2009 - 05/28/2009 Provider: Nikko Franks MD Diagnosis: 1 q 3daysleft mess. for pt. to call us back. Last Documented On 9 11:08AM By Jung Alonso ; [facility] Lortab 10-500 MG OR TABS 04/07/2009 - 05/02/2009 Provi monica: Nikko Franks MD Diagnosis: [phone] plr Last Documented On 9 1:30PM By Tim Gutierrez ; [facility] NOTE EX MISC 03/24/2009 - 03/25/2009 Provider: Carlos Manuel Franks MD Diagnosis: called the pt and left a mes isra. Her script is ready to be picked up-plr Last Documented On 9 3:18PM By Tim Gutierrez ; [facility] Duragesic-75 75 MCG/HR TD PT72 03/24/2009 - 04/23/2009 Provider: Nikko Franks MD Diagnosis: 1 q 3 days Last Documented On 9 2:45PM By Torsten 6 User ; [facility] Duragesic-75 75 MCG/HR TD PT72 02/24/2009 - 03/26/2009 Provider: Nikko Franks MD Diagnosis: 1 q 3 days/PRATIMA Last Documented On 9 10:35AM By Torsten 5 User ; [facility] Lortab 10-500 MG OR TABS 01/22/2009 - 02/16/2009 Provi monica: Nikko Franks MD Diagnosis: [phone] jsb/df Last Documented On 9 10:49AM By Torsten 5 User ; [facility] Lortab 10-500 MG OR TABS 01/22/2009 - 02/16/2009 Provi monica: Nikko Franks MD Diagnosis: [phone] jsb/df Last Documented On 9 10:49AM By Torsten 5 User ; [facility] Duragesic-75 75 MCG/HR TD PT72 01/22/2009 - 02/21/2009 Provider: Nikko Franks MD 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 Last Documented On 9 10:49AM By Torsten 5 User ; [facility] Lortab 10-500 MG OR TABS 01/13/2009 - 02/07/2009 Provi monica: Nikko Franks MD Diagnosis: [phone] jsb/df Last Documented On 9 8:59AM By Tim Gutierrez ; [facility] Duragesic-75 75 MCG/HR TD PT72 12/27/2008 - 01/26/2009 Provider: Nikko Franks MD 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 Last Documented On 9 9:55AM By Tim Gutierrez ; [facility] Lortab 10-500 MG OR TABS 12/19/2008 - 01/13/2009 Provi monica: Nikko Franks MD Diagnosis: j & L [phone] Last Documented On 9 2:07PM By Tim Gutierrez ; [facility] Duragesic-75 75 MCG/HR TD PT72 12/02/2008 - 12/16/2008 Provider: José Miguel Sin MD Diagnosis: Last Documented On 9 9:21AM By Torsten 4 User ; [facility] Lortab 10-500 MG OR TABS 11/22/2008 - 12/17/2008 Provi monica: Nikko Franks MD Diagnosis: j & L [phone] LMB Last Documented On 9 11:44AM By Jung Alonso ; [facility] Duragesic-75 75 MCG/HR TD PT72 10/14/2008 - 10/28/2008 Provider: Nikko Franks MD Diagnosis: called the pt-plr Last Documented On 9 10:23AM By Torsten 1 User ; [facility] Lortab 10-500 MG OR TABS 10/14/2008 - 11/08/2008 Provi monica: Nikko Franks MD Diagnosis: cairne heatonl [phone] Last Documented On 9 10:22AM By Torsten 1 User ; [facility] Duragesic-75 75 MCG/HR TD PT72 10/08/2008 - 10/22/2008 Provider: Nikko Franks MD Diagnosis: called the pt-plr Last Documented On 9 12:50PM By Tim Gutierrez ; [facility] Lortab 10-500 MG OR TABS 10/04/2008 - 10/29/2008 Provi monica: Nikko Franks MD Diagnosis: carine anl [phone] Last Documented On 9 1:14PM By Tim Gutierrez ; [facility] Lortab 10-500 MG OR TABS 09/10/2008 - 10/05/2008 Provi monica: Nikko Franks MD Diagnosis: carine heatonl [phone] JRK/plr Last Documented On 9 11:28AM By Tim Gutierrez ; [facility] Duragesic-75 75 MCG/HR TD PT72 09/04/2008 - 10/04/2008 Provider: Nikko Franks MD Diagnosis: 1q 3 days/PRATIMA/pp Last Documented On 9 11:30AM By Torsten 5 User ; [facility] Lortab 10-500 MG OR TABS 08/16/2008 - 09/10/2008 Provi monica: Nikko Franks MD Diagnosis: carine heatonl [phone] JRK Last Documented On 9 11:20AM By Tim Gutierrez ; [facility] Duragesic-75 75 MCG/HR TD PT72 08/08/2008 - 09/07/2008 Provider: Nikko Franks MD Diagnosis: 1 q 3 days/PRATIMA/pp Last Documented On 9 10:14AM By Torsten Kinney User ; [facility] Lortab 10-500 MG OR TABS 07/25/2008 - 08/19/2008 Provi monica: Nikko Franks MD Diagnosis: j anl [phone] plr Last Documented On 9 9:39AM By Tim Gutierrez ; [facility] Duragesic-75 75 MCG/HR TD PT72 07/10/2008 - 08/09/2008 Provider: Nikko Franks MD Diagnosis: 1 q 3 days/PRATIMA/pp Last Documented On 9 8:47AM By Torsten 5 User ; [facility] Lortab 10-500 MG OR TABS 07/02/2008 - 07/27/2008 Provi monica: Nikko Franks MD Diagnosis: carine anl [phone] jrk Last Documented On 9 11:29AM By Tim Gutierrez ; [facility] Duragesic-75 75 MCG/HR TD PT72 06/13/2008 - 07/13/2008 Provider: Nikko Franks MD Diagnosis: 1 q 3 days/PRATIMA Last Documented On 9 10:55AM By Torsten 6 User ; [facility] Lortab 10-500 MG OR TABS 06/10/2008 - 07/05/2008 Provi monica: Nikko Franks MD Diagnosis: carine anl [phone] plr Last Documented On 9 10:05AM By Tim Gutierrez ; [facility] Duragesic-75 75 MCG/HR TD PT72 05/24/2008 - 06/23/2008 Provider: Nikko Franks MD Diagnosis: 1 q 3 d/day- 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-plr /jrk Last Documented On 9 9:19AM By Tim Gutierrez ; [facility] Lortab 10-500 MG OR TABS 05/16/2008 - 06/10/2008 Provi monica: Nikko Franks MD Diagnosis: j anl [phone] jrk/jsb Last Documented On 9 9:31AM By Tim Gutierrez ; [facility] Lortab 10-500 MG OR TABS 04/18/2008 - 05/13/2008 Provi monica: Nikko Franks MD Diagnosis: Last Documented On 8 12:17PM By Torsten 6 User ; [facility] Duragesic-75 75 MCG/HR TD PT72 04/18/2008 - 05/18/2008 Provider: Nikko Franks MD Diagnosis: 1 q [...] Diagnosis: Last Documented On 8 10:57AM By Torsten 6 User ; [facility] Lortab 10-500 MG OR TABS 03/01/2008 - 03/26/2008 Provi monica: Nikko Franks MD Diagnosis: adolfo [phone] jrk Last Documented On 8 9:47AM By Tim Gutierrez ; [facility] Duragesic-75 75 MCG/HR TD PT72 02/27/2008 - 03/28/2008 Provider: Nikko Franks MD Diagnosis: 1 q 3 d/dawpp Last Documented On 8 11:12AM By Sarmiento 6 User ; [facility] Lortab 10-500 MG OR TABS 02/06/2008 - 03/02/2008 Provi monica: Nikko Franks MD Diagnosis: adolfo [phone] plr Last Documented On 8 10:09AM By Tim Gutierrez ; [facility] Duragesic-75 75 MCG/HR TD PT72 01/24/2008 - 02/23/2008 Provider: Nikko Franks MD Diagnosis: 1 q 3 days/pt to milk pickup driver/pp Last Documented On 8 10:23AM By Torsten Ferrer User ; [facility] Lortab 10-500 MG OR TABS 01/09/2008 - 02/03/2008 Provi monica: Nikko Franks MD Diagnosis: adolfo [phone] jsb Last Documented On 8 12:54PM By Tim Gutierrez ; [facility] Duragesic-75 75 MCG/HR TD PT72 12/29/2007 - 01/28/2008 Provider: Nikko Franks MD Diagnosis: [id number] pt to milk pickup driver i l/m for her to call jrk Last Documented On 8 9:04AM By Tim Gutierrez ; [facility] Lortab 10-500 MG OR TABS 12/14/2007 - 01/08/2008 Provi monica: Nikko Franks MD Diagnosis: Raheem [phone] jrk Last Documented On 8 10:21AM By Tim Gutierrez ; [facility] Duragesic-75 75 MCG/HR TD PT72 11/27/2007 - 12/27/2007 Provider: Nikko Franks MD Diagnosis: [id number] 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 milk pickup driver i l/m for her to call jsb Last Documented On 8 12:26PM By Tim Gutierrez ; [facility] Lortab 10-500 MG OR TABS 11/21/2007 - 12/16/2007 Provi monica: Nikko Franks MD Diagnosis: Raheem [phone] jsb/plr Last Documented On 8 10:33AM By Tim Gutierrez ; [facility] Duragesic-75 75 MCG/HR TD PT72 10/30/2007 - 11/29/2007 Provider: Nikko Franks MD Diagnosis: 1q 3days pt to milk pickup driver jsb Last Documented On 8 11:22AM By Torsten Ferrer User ; [facility] Lortab 10-500 MG OR TABS 10/24/2007 - 11/18/2007 Provi monica: Nikko Franks MD Diagnosis: Raheem [phone] jrk Last Documented On 8 11:37AM By Tim Gutierrez ; [facility] Duragesic-75 75 MCG/HR TD PT72 09/26/2007 - 10/26/2007 Provider: Nikko Franks MD Diagnosis: 1q 3days pt to milk pickup driver jsb Last Documented On 8 12:50PM By Tim Gutierrez ; [facility] Lortab 10-500 MG OR TABS 09/22/2007 - 10/17/2007 Provi monica: Nikko Franks MD Diagnosis: [phone] Raheem [facility] Last Documented On 8 9:52AM By Tim Gutierrez ; [facility] Duragesic-75 75 MCG/HR TD PT72 08/28/2007 - 09/27/2007 Provider: Nikko Franks MD Diagnosis: 1 q3days pt to milk pickup driver jsb Last Documented On 8 12:27PM By Tim Gutierrez ; [facility] Lortab 10-500 MG OR TABS 08/28/2007 - 09/22/2007 Provi monica: Nikko Franks MD Diagnosis: pt to milk pickup driver jsb Last Documented On 8 12:26PM By Tim Gutierrez ; [facility] Lortab 10-500 MG OR TABS 08/03/2007 - 08/28/2007 Provi monica: Nikko Franks MD Diagnosis: [phone] plr Last Documented On 8 9:14AM By Tim Gutierrez ; [facility] Duragesic-75 75 MCG/HR TD PT72 07/24/2007 - 08/23/2007 Provider: Nikko Franks MD Diagnosis: [id number] pt to milk pickup driver jsb Last Documented On 8 10:37AM By Sarmiento 6 User ; [facility] Duragesic-75 75 MCG/HR TD PT72 07/04/2007 - 08/03/2007 Provider: Nikko Franks MD Diagnosis: [id number] pt to milk pickup driver jsb Last Documented On 8 9:33AM By Tim Gutierrez ; [facility] Lortab 10-500 MG OR TABS 07/04/2007 - 07/29/2007 Provi monica: Nikko Franks MD Diagnosis: pt to milk pickup driver jsb Last Documented On 8 9:32AM By Tim Gutierrez ; [facility] Duragesic-75 75 MCG/HR TD PT72 06/05/2007 - 07/05/2007 Provider: Nikko Franks MD Diagnosis: 1m0goko//pt to milk pickup driver df Last Documented On 8 11:33AM By Torsten Ferrer User ; [facility] Lortab 10-500 MG OR TABS 06/05/2007 - 06/30/2007 Provi monica: Nikko Franks MD Diagnosis: [phone] df/jsb Last Documented On 8 11:32AM By Torsten 6 User ; [facility] Lortab 10-500 MG OR TABS 05/11/2007 - 06/05/2007 Provi monica: Nikko Franks MD Diagnosis: [phone] df/jsb Last Documented On 8 9:17AM By Tim Gutierrez ; [facility] NOTE EX MISC 05/01/2007 - 05/02/2007 Provider: Carlos Manuel Franks MD Diagnosis: pt called reqeusting increas e in lortab//per cristian pt is to take lortab tid only. pp spoke to pt df Last Documented On 7 1:09PM By Zeynep Wing ; [facility] Duragesic-75 75 MCG/HR TD PT72 05/01/2007 - 05/31/2007 Provider: Nikko Franks MD Diagnosis: [id number]//pt to milk pickup driver df Last Documented On 7 12:06PM By Zeynep Wing ; [facility] Lortab 10-500 MG OR TABS 04/27/2007 - 05/17/2007 Provi monica: Nikko Franks MD Diagnosis: [phone] df Last Documented On 7 12:28PM By Zeynep Wing ; [facility] DENIED EX MISC 04/20/2007 - 04/21/2007 Provider: Manpreet Franks MD Diagnosis: pt called for lortab. she wa nted it called in early due to holiday. no per dr bhakta pt is not due until 05-02-07. pt may call back the . l/m for her to Last Documented On 7 11:22AM By Tim Gutierrez ; [facility] Lortab 10-500 MG OR TABS 03/30/2007 - 05/02/2007 Provi monica: Nikko Franks MD Diagnosis: [phone] df Last Documented On 7 1:18PM By Tim Gutierrez ; [facility] Duragesic-75 75 MCG/HR TD PT72 03/21/2007 - 04/20/2007 Provider: Nikko Franks MD Diagnosis: [id number] do not sub pt to pic k up. i l/m for pt to call. 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/plr Last Documented On 7 12:09PM By Torsten Ferrer User ; [facility] Lortab 10-500 MG OR TABS 02/02/2007 - 03/07/2007 Provi monica: Nikko Franks MD Diagnosis: Last Documented On 7 11:14AM By Torsten Ferrer User ; [facility] Duragesic-75 75 MCG/HR TD PT72 01/17/2007 - 01/20/2007 Provider: Nikko Franks MD Diagnosis: 1 of 3 days/ 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/plr Last Documented On 7 8:55AM By Tim Gutierrez ; [facility] Lortab 10-500 MG OR TABS 01/06/2007 - 01/31/2007 Provi monica: Nikko Franks MD Diagnosis: j&l [phone]/rp Last Documented On 7 9:42AM By Torsten 4 User ; [facility] Duragesic-75 75 MCG/HR TD PT72 12/19/2006 - 12/22/2006 Provider: Nikko Franks MD Diagnosis: 1 of 3 days/ advised pt ready to be milk pickup driver/rp Last Documented On 7 11:57AM By Tim Gutierrez ; [facility] Lortab 10-500 MG OR TABS 12/13/2006 - 01/07/2007 Provi monica: Nikko Franks MD Diagnosis: called to j and l rx at [phone] plr Last Documented On 7 9:38AM By [...] 11/18/2006 Provi monica: Nikko Franks MD Diagnosis: [phone] df Last Documented On 7 11:21AM By Tim Gutierrez ; [facility] Duragesic-75 75 MCG/HR TD PT72 10/19/2006 - 11/18/2006 Provider: Nikko Franks MD Diagnosis: 1q3day do not sub df/jsb Last Documented On 7 1:37PM By Zeynep Wing ; [facility] Lortab 10-500 MG OR TABS 09/27/2006 - 10/22/2006 Provi monica: Nikko Franks MD Diagnosis: called to j & l at [phone] plr Last Documented On 7 1:45PM By Tim Gutierrez ; [facility] Duragesic-75 75 MCG/HR TD PT72 09/22/2006 - 10/22/2006 Provider: Nikko Franks MD Diagnosis: [id number]/pt to milk pickup driver df Last Documented On 7 10:00AM By Tim Gutierrez ; [facility] Lortab 10-500 MG OR TABS 09/02/2006 - 09/27/2006 Provi monica: Nikko Franks MD Diagnosis: J&L [phone] df/kb Last Documented On 7 11:22AM By Zeynep Wing ; [facility] Duragesic-75 75 MCG/HR TD PT72 08/26/2006 - 09/25/2006 Provider: Nikko Franks MD Diagnosis: 1q 3days pt to milk pickup driver jsb do not sub Last Documented On 7 10:22AM By Tim Gutierrez ; [facility] Lortab 10-500 MG OR TABS 08/10/2006 - 09/04/2006 Provi monica: Nikko Franks MD Diagnosis: [phone] df Last Documented On 7 1:01PM By Zeynep Wing ; [facility] Duragesic-75 75 MCG/HR TD PT72 07/26/2006 - 08/25/2006 Provider: Nikko Franks MD Diagnosis: 1 patch every 3 days do not sub. pt to milk pickup driver j sb Last Documented On 7 12:22PM By Zeynep Wing ; [facility] Duragesic-75 75 MCG/HR TD PT72 07/26/2006 - 08/25/2006 Provider: Nikko Franks MD Diagnosis: [id number] pt to milk pickup driver do not sub df Last Documented On 7 12:16PM By Torsten Coleman User ; [facility] Lortab 10-500 MG OR TABS 07/14/2006 - 08/08/2006 Provi monica: Nikko Franks MD Diagnosis: [phone] j and l df Last Documented On 7 12:18PM By Zeynep Wing ; [facility] Duragesic-75 75 MCG/HR TD PT72 06/27/2006 - 07/27/2006 Provider: Nikko Franks MD Diagnosis: [id number] pt to milk pickup driver do not sub df Last Documented On 7 12:14PM By Zeynep Wing ; [facility] Lortab 10-500 MG OR TABS 06/22/2006 - 07/17/2006 Provi monica: Nikko Franks MD Diagnosis: [phone] Last Documented On 7 2:35PM By Zeynep Wing ; [facility] Duragesic-75 75 MCG/HR TD PT72 05/26/2006 - 06/25/2006 Provider: Nikko Franks MD Diagnosis: [id number] name brand only pt to milk pickup driver jsb Last Documented On 7 8:39AM By Sarmiento 6 User ; [facility] Lortab 10-500 MG OR TABS 05/26/2006 - 06/20/2006 Provi monica: Nikko Franks MD Diagnosis: adolfo [phone] df Last Documented On 7 8:39AM By Sarmiento 6 User ; [facility] Lortab 10-500 MG OR TABS 05/03/2006 - 05/28/2006 Provi monica: Nikko Franks MD Diagnosis: adolfo [phone] df Last Documented On 7 3:24PM By Zeynep Wing ; [facility] Duragesic-75 75 MCG/HR TD PT72 04/26/2006 - 05/26/2006 Provider: Nikko Franks MD Diagnosis: [id number] name brand only pt to milk pickup driver jsb Last Documented On 6 12:08PM By Tim Gutierrez ; [facility] Lortab 10-500 MG OR TABS 04/07/2006 - 05/02/2006 Provi monica: Nikko Franks MD Diagnosis: adolfo [phone] jsb Last Documented On 6 1:26PM By Zeynep Wing ; [facility] Duragesic-75 75 MCG/HR TD PT72 03/29/2006 - 04/28/2006 Provider: José Miguel Sin MD Diagnosis: [id number] l/m for pt to call r x needs to be picked up at the officeNAME BRAND ONLY! Last Documented On 6 12:01PM By Torsten 5 User ; [facility] Lortab 10-500 MG OR TABS 03/07/2006 - 04/01/2006 Provi monica: Nikko Franks MD Diagnosis: j and l [phone] df Last Documented On 6 2:08PM By Zeynep Wing ; [facility] Duragesic-75 75 MCG/HR TD PT72 02/24/2006 - 03/26/2006 Provider: Nikko Franks MD Diagnosis: [id number] l/m for pt to call r x needs to be picked up at the officeNAME BRAND ONLY! Last Documented On 6 9:32AM By Zeynep Wing ; [facility] Lortab 10-500 MG OR TABS 02/22/2006 - 03/02/2006 Provi monica: Nikko Franks MD Diagnosis: [phone] df Last Documented On 6 10:16AM By Zeynep Wing ; [facility] Lortab 10-500 MG OR TABS 02/11/2006 - 02/19/2006 Provi monica: Nikko Franks MD Diagnosis: j and l [phone] jsb/df Last Documented On 6 11:16AM By Zeynep Wing ; [facility] Lortab 10-500 MG OR TABS 01/31/2006 - 02/08/2006 Provi monica: Nikko Franks MD Diagnosis: j and l [phone] df Last Documented On 6 11:33AM By [...] Nikko Franks MD Diagnosis: j and l [phone] jsb Last Documented On 6 11:58AM By Tim Gutierrez ; [facility] Lortab 10-500 MG OR TABS 01/07/2006 - 01/15/2006 Provi monica: Nikko Franks MD Diagnosis: j&l rx [phone] th Last Documented On 6 12:33PM By Tim Gutierrez ; [facility] Lortab 10-500 MG OR TABS 12/27/2005 - 01/04/2006 Provi monica: Nikko Franks MD Diagnosis: [phone] df Last Documented On 6 11:11AM By Tim Gutierrez ; [facility] Duragesic-75 75 MCG/HR TD PT72 12/21/2005 - 01/20/2006 Provider: Nikko Franks MD Diagnosis: one patch every three days Last Documented On 6 8:33AM By Sarmiento 5 User ; [facility] Lortab 10-500 MG OR TABS 12/13/2005 - 12/21/2005 Provi monica: Nikko Franks MD Diagnosis: j and l [phone] jsb Last Documented On 6 10:28AM By Zeynep Wing ; [facility] Duragesic-75 75 MCG/HR TD PT72 11/24/2005 - 12/24/2005 Provider: Nikko Franks MD Diagnosis: 1 q 3 days do not substitute jsb Last Documented On 6 11:56AM By Zeynep Wing ; [facility] Lortab 10-500 MG OR TABS 11/24/2005 - 12/02/2005 Provi monica: Nikko Franks MD Diagnosis: pt to milk pickup driver with other rx.jsb Last Documented On 6 11:55AM By Zeynep Wing ; [facility] Lortab 10-500 MG OR TABS 11/10/2005 - 11/18/2005 Provi monica: Nikko Franks MD Diagnosis: [phone] j and l df Last Documented On 6 12:26PM By Zeynep Wing ; [facility] NOTE EX MISC 10/27/2005 - 10/28/2005 Provider: Carlos Manuel Franks MD Diagnosis: duragesic rx given today/spo ke with [facility] to specify name brand only per dr franks/pp Last Documented On 6 4:55PM By Vi Ashley ; [facility] Lortab 7.5-500 MG OR TABS 10/27/2005 - 11/26/2005 Prov ider: Nikko Franks MD Diagnosis: Last Documented On 6 11:59AM By Sarmiento 6 User ; [facility] Duragesic-75 75 MCG/HR TD PT72 10/27/2005 - 11/26/2005 Provider: Nikko Franks MD Diagnosis: 1 Q 3 DAYS 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 [employer] DF Last Documented On 6 11:58AM By Sarmiento 6 User ; [facility] Lyrica 75 MG OR CAPS 10/27/2005 - 11/03/2005 Provider: Nikko Franks MD Diagnosis: Last Documented On 6 11:54AM By Sarmiento 6 User ; [facility] Lortab 10-500 MG OR TABS 10/21/2005 - 10/29/2005 Provi monica: Nikko Franks MD Diagnosis: quantitiy is 30 j and l [phone] jsb/rp Last Documented On 6 10:43AM By Zeynep Wing ; [facility] Lortab 10-500 MG OR TABS 10/13/2005 - 10/21/2005 Provi monica: Nikko Franks MD Diagnosis: quantity is 30 j and l [phone] jsb Last Documented On 6 11:54AM By Zeynep Wing ; [facility] Lortab 10-500 MG OR TABS 09/29/2005 - 10/06/2005 Provi monica: José Miguel Sin MD Diagnosis: Last Documented On 6 3:48PM By Jose Roberto Johnson ; [facility] Cipro 500 MG OR TABS 09/23/2005 - 09/26/2005 Provider: Nikko Franks MD Diagnosis: take bid day of appt,day of, and day after dental appt. 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 pt is also allergic to several antibiotics. jsb l/m for pt to call df Last Documented On 6 3:17PM By Zeynep Wing ; [facility] Lortab 10-500 MG OR TABS 09/16/2005 - 09/23/2005 Provi monica: José Miguel Sin MD Diagnosis: called to [facility] [phone]//ms walter eijosefina will give written script for lortab 7.5 to pharmacist at [facility]//dc Last Documented On 6 11:22AM By Susy Bobby ; [facility] Lortab 10-500 MG OR TABS 09/09/2005 - 09/16/2005 Provi monica: José Miguel Sin MD Diagnosis: called to [facility] [phone] Last Documented On 6 9:36AM By Susy Bobby ; [facility] Duragesic-75 75 MCG/HR TD PT72 08/30/2005 - 09/29/2005 Provider: Nikko Franks MD Diagnosis: [id number]/pt to milk pickup driver. df Last Documented On 6 10:09AM By Zeynep Wing ; [facility] NOTE EX MISC 08/18/2005 - 08/19/2005 Provider: Carlos Manuel Franks MD Diagnosis: recieved call from pt that s he had fx'ed her hand and would be having sx in [facility] today by a dr pelayo and would receive post op meds from him df Last Documented On 6 10:06AM By Tim Gutierrez ; [facility] Lortab 7.5-500 MG OR TABS 08/04/2005 - 08/19/2005 Prov ider: Nikko Franks MD Diagnosis: adolfo [phone] df Last Documented On 6 2:52PM By Zeynep Wing ; [facility] Duragesic-75 75 MCG/HR TD PT72 07/30/2005 - 08/29/2005 Provider: Nikko Franks MD Diagnosis: 1 patch every three days. rp Last Documented On 6 12:31PM By Zeynep Wing ; [facility] Lortab 7.5-500 MG OR TABS 07/20/2005 - 08/04/2005 Prov ider: Nikko Franks MD Diagnosis: ADOLFO [phone] JSB Last Documented On 6 11:02AM By Zeynep Wing ; [facility] Cipro 500 MG OR TABS 07/09/2005 - 07/14/2005 Provider: Kei Donovan MD Diagnosis: LF Last Documented On 6 11:13AM By Sarmiento 6 User ; [facility] Lortab 7.5-500 MG OR TABS 07/01/2005 - 07/16/2005 Prov ider: Nikok Franks MD Diagnosis: pt to milk pickup driver jsb Last Documented On 6 8:32AM By Tim Gutierrez ; [facility] Duragesic-75 75 MCG/HR TD PT72 07/01/2005 - 07/31/2005 Provider: Nikko Franks MD Diagnosis: 1 patch every 3 days jsb Last Documented On 6 8:30AM By Tim Gutierrez ; [facility] Lortab 5-500 MG OR TABS 06/11/2005 - 07/04/2005 Provid er: Nikko Franks MD Diagnosis: adolfo [phone] df Last Documented On 6 9:23AM By Tim Gutierrez ; [facility] Duragesic-75 75 MCG/HR TD PT72 05/31/2005 - 06/30/2005 Provider: Nikko Franks MD Diagnosis: 1 q 3 days l/m for pt to call needs to milk pickup driver s cript df Last Documented On 6 12:13PM By Zeynep Wing ; [facility] Lortab 5-500 MG OR TABS 05/21/2005 - 06/12/2005 Provid er: Nikko Franks MD Diagnosis: zhao larissa yony [phone] jsb Last Documented On 6 12:33PM By Zeynep Wing ; [facility] Duragesic-75 75 MCG/HR TD PT72 05/04/2005 - 06/03/2005 Provider: Nikko Franks MD Diagnosis: [id number] pt to pick upl/m for pt to call df Last Documented On 6 12:31PM By Tim Gutierrez ; [facility] Lortab 7.5-500 MG OR TABS 04/30/2005 - 05/23/2005 Prov ider: Nikko Franks MD Diagnosis: [phone] RP Last Documented On 5 11:09AM By Soheila Warner ; [facility] Lortab 7.5-500 MG OR TABS 04/09/2005 - 05/02/2005 Prov ider: Nikko Franks MD Diagnosis: adolfo [phone] jsb/df Last Documented On 5 9:02AM By Zeynep Wing ; [facility] Duragesic-75 75 MCG/HR TD PT72 04/06/2005 - 05/06/2005 Provider: Nikko Frnaks MD Diagnosis: [id number] pt to milk pickup driver df Last Documented On 5 9:18AM By Zeynep Wing ; [facility] Medications Administered Includes: Administered Medications in patient's chart No Administered Medications Recorded Results Includes: Results from 08/16/2023 through 08/15/2024 No Results Recorded For Specified Dates History of Present Illness History of Present Illness not supported for this document type No History of Present Illness Recorded Social History Description Last Updated Tobacco non-user 11/01/2022 Last Documented On 3 10:20AM ; [facility] No caffeine use 11/01/2022 Last Documented On 3 10:20AM ; [facility] No recent change in diet 11/01/2022 Last Documented On 3 10:20AM ; [facility] Not a current smoker. 11/01/2022 Last Documented On 3 10:20AM ; [facility] Not using alcohol 11/01/2022 Last Documented On 3 10:20AM ; [facility] Not using drugs 11/01/2022 Last Documented On 3 10:20AM ; [facility] Not a smoker 11/16/2021 Last Documented On 2 12:55PM ; [facility] Non-smoker quit 1985 11/24/2020 Last Documented On 1 4:07PM ; [facility] Not a current smoker. 11/24/2020 Last Documented On 1 4:07PM ; [facility] No tobacco use 04/10/2018 Last Documented On 8 11:18AM ; [facility] Smoking status : Never smoker 04/10/2018 Last Documented On 8 11:18AM ; [facility] No recent change in diet 09/18/2015 Last Documented On 6 12:41PM ; [facility] Not a current smoker 09/18/2015 Last Documented On 6 12:41PM ; [facility] Not exercising regularly 09/18/2015 Last Documented On 6 12:41PM ; [facility] Procedures and Surgical History Surgical History Last Updated History of appendectomy 11/19/2019 Last Documented On 0 12:00PM ; [facility] History of back surgery 09/18/2015 Last Documented On 6 12:41PM ; [facility] History of total hip replacement 016 Last Documented On 6 12:41PM ; [facility] Medical History Includes: Medical History in patient's chart Description Last Updated No recent immunization for flu 3 Last Documented On 3 10:20AM ; [facility] No recent immunization for pneumococcal pneumonia 11/01/2022 Last Documented On 3 10:20AM ; [facility] Past Surgical History: Gastr ic bypass ~Intestinal bypass ~Cataracts ~skin cancer removal from abdomen 02/22/2022 Last Documented On 2 11:36AM ; [facility] Previous Fractures Pelvis 03/05/2021 Last Documented On 1 11:38AM ; [facility] Heartburn / Acid Reflux 11/24/2020 Last Documented On 1 4:07PM ; [facility] History of Blood Transfusion 11/24/2020 Last Documented On 1 4:07PM ; [facility] Past medical/surgical history [use for f ree text] 11/24/2020 Last Documented On 1 4:07PM ; [facility] Anemia 11/24/2020 Last Documented On 1 4:07PM ; [facility] Appendectomy 11/24/2020 Last Documented On 1 4:07PM ; [facility] Arthritis 11/24/2020 Last Documented On 1 4:07PM ; [facility] Back surgery 11/24/2020 Last Documented On 1 4:07PM ; [facility] History of Fractures 11/24/2020 Last Documented On 1 4:07PM ; [facility] History of Gallbladder 11/24/2020 Last Documented On 1 4:07PM ; [facility] A previous fracture pelvic fx 11/19/2019 Last Documented On 0 12:00PM ; [facility] A recent injection Fentanyl / Lortab Last Documented On 0 12:00PM ; [facility] Arthritic joint problems 02/21/2017 Last Documented On 7 9:34AM ; [facility] History of depression 02/21/2017 Last Documented On 7 9:34AM ; [facility] History of osteoporosis 02/21/2017 Last Documented On 7 9:34AM ; [facility] Gallbladder disease 09/18/2015 Last Documented On 6 12:41PM ; [facility] Family History Includes: Family History in patient's chart Description Last Updated Diabetes mellitus Father 11/24/2021 Last Documented On 2 12:55PM ; [facility] Family history of hypertension 1 Last Documented On 1 4:07PM ; [facility] Family history of cancer father 09/18/19 16 Last Documented On 6 12:41PM ; [facility] Family history of diabetes mellitus fath er 09/18/2015 Last Documented On 6 12:41PM ; [facility] Family history of osteoporosis mother Last Documented On 6 12:41PM ; [facility] Family history of rheumatoid arthritis m other 09/18/2015 Last Documented On 6 12:41PM ; [facility] Review of Systems Review of Systems not supported for this document type No Review of Systems Recorded Mental Status Description No anxiety Functional Status No Functional Status Recorded Physical Exam Physical Exam not supported for this document type No Physical Exam Recorded Immunizations Includes: Immunizations in patient's chart Vaccine Dose # Date Site Reaction(s) Status Source Influenza 1 07/07/2020 Complete (Refused - Patient objection) [facility] Last Documented On 1 1:31PM ; [facility] PCV (Pneumovax 23) 1 07/07/2020 Complete (Refused - Patient objection) [facility] Last Documented On 1 1:31PM ; [facility] Allergies Includes: Active, inactive, and resolved Allergies Substance Type Reaction Onset Date Resolved Date Statu s traMADol HCl Allergy Nausea, Vomiting , Diarrhea / Diarrheal disorder 11/24/2020 Active Last Documented On 3 9:22AM ; [facility] Tetracycline Allergy 11/24/2020 Active Last Documented [...] yennifer Dates 1 - Medicare Part B [facility] [id number] Junie Phillips Self 12/01/2011 - Unknown 2 - [facility] [id number] Junie Phillips Self 6 - Unknown Clinical Notes Includes: Signed Clinical Notes starting from 04/15/2022 No Clinical Notes Recorded
--- OUTSIDE RECORDS SUMMARY | 2024-08-15 10:55 | XMS_ITS | Clinical Summary ---
Author Organization [facility] Address [address] [place] [address] Phone Care Team Providers Care Newcomer Hostess Name Role Phone Cole POTTS, Jasson Unavailable [phone] Frandy POTTS, Nikko Unavailable [phone] Reason for Visit and Chief Complaint The Chief Complaint is: Low back pain Problems Includes: Problems addressed during this encounter and other active Problems All Visits Onset Date Resolved Date Provider Condition S tatus History of Joint Pain in the Left Hip 03/23/2022 Kei Donovan MD Active Last Documented On 2 10:33AM ; [facility] Low Back Pain 08/29/2018 Nikko Franks MD Act yennifer Last Documented On 9 8:59AM ; [facility] Plan of Treatment Referrals To Diagnosis Consult for Pain Management BHARGAV GUERRERO MD care home (current) use of opiate analgesic Note: DR YOLANDA ELIZABETH Last Documented On 3 8:43AM ; [facility] Assessments Includes: Assessments from this encounter Findings This is a 71-year-old female with chronic low back pain status postL3-S1 decompressive arthrodesis many years ago by Dr. Franks - Last Documented On 08/01/2023 6:01PM ; [facility] It was interesting meeting Junie in the office today. We will provide her a referral to Dr. Carrasco's office in [place]. I think the main issue is that she did not have a good therapeutic relationship with her other pain management physician. We will send today's office note to her primary care physician so he is aware of the plan. Otherwise, she can follow-up with or Cristian Au on an as-needed basis. - Last Documented On 08/01/2023 6:01PM ; [facility] Fall Risk Assessment: - Last Documented On 08/01/2023 6:01PM ; [facility] This patient has been identified as a fall risk. Balance/gait along with postural blood pressure, vision and home fall hazards have been assessed. Medications have been reviewed, and recommendations made with regard to contributing factors for future falls. - Last Documented On 08/01/2023 6:01PM ; [facility] Plan of care: Consideration of vitamin D supplementation along with balance and strength training with consideration for formal physical therapy has been discussed with the patient. - Last Documented On 08/01/2023 6:01PM ; [facility] Medical Equipment - Implanted Devices Includes: Current Devices No Medical Equipment Recorded Medications Includes: Medications discussed during this encounter and other current Medications Current Medications (continue as prescribed) busPIRone HCl 15 MG Oral Tablet 05/25/2022 Provider: ÓSCAR MARTINEZ MD Diagnosis: Last Documented On 3 9:01AM By Jenn Stallings [facility] fentaNYL 75 MCG/HR Transderm al Patch 72 Hour 04/29/2022 Provider: Alejo Whitfield MD Diagnosis: Last Documented On 3 8:32AM By Sara Stallings [facility] diazePAM 5 MG Oral Tablet 04/29/2022 Provider: ADILIA MARTINEZ MD Diagnosis: Last Documented On 3 8:31AM By Sara Fajardo ; [facility] HYDROcodone-Acetaminophen 10 -325 MG Oral Tablet 04/29/2022 Provider: Alejo Whitfield MD Diagnosis: Last Documented On 3 8:32AM By Sara Fajardo ; [facility] Gabapentin 600 MG Oral Tablet 04/29/2022 Provider: ÓSCAR MARTINEZ MD Diagnosis: Last Documented On 3 8:32AM By Sara Fajardo ; [facility] Zuboeqbr-Nlnogcxcu-Ouyqcrzq [id number] Ophtha lmic Ointment 04/28/2022 Provider: Diagnosis: Last Documented On 3 8:32AM By Sara Fajardo ; [facility] Zolpidem Tartrate 10 MG Oral Tablet 04/28/2022 Provi monica: ÓSCAR MARTINEZ MD Diagnosis: Last Documented On 3 8:32AM By Sara Fajardo ; [facility] Promethazine HCl 25 MG Oral Tablet 04/28/2022 Provid er: ÓSCAR MARTINEZ MD Diagnosis: Last Documented On 3 8:32AM By Sara Fajardo ; [facility] risperiDONE 0.5 MG Oral Tablet 02/26/2022 Provider: ÓSCAR MARTINEZ MD Diagnosis: Last Documented On 3 8:32AM By Sara Fajardo ; [facility] Past Medications on file Clindamycin HCl 300 MG Oral Capsule 06/14/2022 - 06/17/2022 Provider: Kei edward MD Diagnosis: twice a day Last Documented On 3 2:06PM By Dr. Donovan ; [facility] oxyCODONE HCl 5 MG Oral Tablet 06/14/2022 - 06/21/2022 Provider: Kei edward MD Diagnosis: 1-2 po q 4-6h prn pain Last Documented On 3 1:51PM By Dr. Donovan ; [facility] Ondansetron HCl 4 MG Oral Tablet 06/14/2022 - 06/18/2022 Provider: Kei edward MD Diagnosis: 1 po q 6h prn nausea Last Documented On 3 1:51PM By Dr. Donovan ; [facility] Meloxicam 15 MG Oral Tablet 06/14/2022 - 06/28/2022 Pr ovider: Kei Donovan MD Diagnosis: once a day Last Documented On 3 1:51PM By Dr. Donovan ; [facility] Colace 100 MG Oral Capsule 06/14/2022 - 09/12/2022 Pro vider: Kei Donovan MD Diagnosis: 1-2 tabs daily Last Documented On 3 1:51PM By Dr. Donovan ; [facility] Aspirin Adult Low Dose 81 MG Oral Tablet Delayed Release 06/14/2022 - 07/26/2022 Provider: Kei Donovan MD Diagnosis: twice a day Last Documented On 3 1:35PM By Dr. Donovan ; [facility] Acetaminophen 500 MG Oral Tablet 06/14/2022 - 07/14/2022 Provider: Kei edward MD Diagnosis: take as directed; take 2 tablets three times a d ay Last Documented On 3 1:35PM By Dr. Donovan ; [facility] HYDROcodone-Acetaminophen 10 -325 MG Oral Tablet 03/10/2022 - 04/09/2022 Provider: Nikko Franks MD Diagnosis: four times a day May fill ea rly as I am away next week, contact my office to make sure that they have referred you to a pain clinic as I will be leaving medicine next week Last Documented On 2 10:53AM By Dr. Franks ; [facility] fentaNYL 75 MCG/HR Transderm al Patch 72 Hour 03/10/2022 - 04/09/2022 Provider: Nikko Franks MD Diagnosis: take as directed- one patch q 3 days may fill early as I am out next week. Last Documented On 2 10:53AM By Dr. Franks ; [facility] HYDROcodone-Acetaminophen 10 -325 MG Oral Tablet 02/22/2022 - 03/24/2022 Provider: Nikko Franks MD Diagnosis: four times a day May fill early as I am away nex t week Last Documented On 2 3:51PM By Dr. Franks ; [facility] fentaNYL 75 MCG/HR Transderm al Patch 72 Hour 02/22/2022 - 03/24/2022 Provider: Nikko Franks MD Diagnosis: take as directed- one patch q 3 days may fill early as I am out next week. Last Documented On 2 3:51PM By Dr. Franks ; [facility] HYDROcodone-Acetaminophen 10 -325 MG Oral Tablet 02/03/2022 - 03/05/2022 Provider: Nikko Franks MD Diagnosis: four times a day Last Documented On 2 3:47PM By Dr. Franks ; [facility] fentaNYL 75 MCG/HR Transderm al Patch 72 Hour 02/03/2022 - 03/05/2022 Provider: Nikko Franks MD Diagnosis: take as directed- one patch q 3 days Last Documented On 2 3:47PM By Dr. Franks ; [facility] fentaNYL 75 MCG/HR Transderm al Patch 72 Hour 01/06/2022 - 02/05/2022 Provider: Nikko Franks MD Diagnosis: take as directed- one patch q 3 days Last Documented On 2 12:40PM By Dr. Franks ; [facility] HYDROcodone-Acetaminophen 10 -325 MG Oral Tablet 01/06/2022 - 02/05/2022 Provider: Nikko Franks MD Diagnosis: four times a day Last Documented On 2 12:40PM By Dr. Franks ; [facility] HYDROcodone-Acetaminophen 10 -325 MG Oral Tablet 12/10/2021 - 01/09/2022 Provider: Nikko Franks MD Diagnosis: four times a day Last Documented On 2 4:41PM By Dr. Franks ; [facility] fentaNYL 75 MCG/HR Transderm al Patch 72 Hour 12/07/2021 - 01/06/2022 Provider: Nikko Franks MD Diagnosis: take as directed- one patch q 3 days Last Documented On 2 12:13PM By Dr. Franks ; [facility] HYDROcodone-Acetaminophen 10 -325 MG Oral Tablet 11/12/2021 - 12/12/2021 Provider: Nikko Franks MD Diagnosis: four times a day Last Documented On 2 2:27PM By Dr. Franks ; [facility] fentaNYL 75 MCG/HR Transderm al Patch 72 Hour 11/06/2021 - 12/06/2021 Provider: Nikko Franks MD Diagnosis: take as directed- one patch q 3 days Last Documented On 2 1:18PM By Dr. Franks ; [facility] HYDROcodone-Acetaminophen 10 -325 MG Oral Tablet 10/15/2021 - 11/14/2021 Provider: Nikko Franks MD Diagnosis: four times a day Last Documented On 2 9:08AM By Dr. Franks ; [facility] fentaNYL 75 MCG/HR Transderm al Patch 72 Hour 10/09/2021 - 11/08/2021 Provider: Nikko Franks MD Diagnosis: take as directed- one patch q 3 days Last Documented On 2 12:52PM By Dr. Franks ; [facility] HYDROcodone-Acetaminophen 10 -325 MG Oral Tablet 09/17/2021 - 10/17/2021 Provider: Nikko Franks MD Diagnosis: four times a day Last Documented On 2 1:35PM By Dr. Franks ; [facility] fentaNYL 75 MCG/HR Transderm al Patch 72 Hour 09/10/2021 - 10/10/2021 Provider: Nikko Franks MD Diagnosis: take as directed- one patch q 3 days Last Documented On 2 1:02PM By Dr. Franks ; [facility] HYDROcodone-Acetaminophen 10 -325 MG Oral Tablet 08/17/2021 - 09/16/2021 Provider: Nikko Franks MD Diagnosis: four times a day Last Documented On 2 10:16AM By Dr. Franks ; [facility] fentaNYL 75 MCG/HR Transderm al Patch 72 Hour 08/12/2021 - 09/11/2021 Provider: Nikko Franks MD Diagnosis: take as directed- one patch q 3 days Last Documented On 2 8:40AM By Dr. Franks ; [facility] fentaNYL 75 MCG/HR Transderm al Patch 72 Hour 07/13/2021 - 08/12/2021 Provider: Nikko Franks MD Diagnosis: take as directed- one patch q 3 days Last Documented On 2 8:07AM By Dr. Franks ; [facility] HYDROcodone-Acetaminophen 10 -325 MG Oral Tablet 07/13/2021 - 08/12/2021 Provider: Nikko Franks MD Diagnosis: four times a day Last Documented On 2 8:07AM By Dr. Franks ; [facility] HYDROcodone-Acetaminophen 10 -325 MG Oral Tablet 06/19/2021 - 07/19/2021 Provider: Nikko Franks MD Diagnosis: four times a day Last Documented On 2 11:03AM By Dr. Franks ; [facility] fentaNYL 75 MCG/HR Transderm al Patch 72 Hour 06/10/2021 - 07/10/2021 Provider: Nikko Franks MD Diagnosis: take as directed- one patch q 3 days Last Documented On 2 8:40AM By Dr. Franks ; [facility] HYDROcodone-Acetaminophen 10 -325 MG Oral Tablet 05/21/2021 - 06/20/2021 Provider: Nikko Franks MD Diagnosis: four times a day Last Documented On 2 4:29PM By Dr. Franks ; [facility] fentaNYL 75 MCG/HR Transderm al Patch 72 Hour 05/11/2021 - 06/10/2021 Provider: Nikko Franks MD Diagnosis: take as directed- one patch q 3 days Last Documented On 2 11:03AM By Dr. Franks ; [facility] HYDROcodone-Acetaminophen 10 -325 MG Oral Tablet 04/21/2021 - 05/21/2021 Provider: Nikko Franks MD Diagnosis: four times a day Last Documented On 1 1:01PM By Dr. Franks ; [facility] fentaNYL 75 MCG/HR Transderm al Patch 72 Hour 04/09/2021 - 05/09/2021 Provider: Nikko Franks MD Diagnosis: take as directed- one patch q 3 days Last Documented On 1 12:40PM By Dr. Franks ; [facility] fentaNYL 75 MCG/HR Transderm al Patch 72 Hour 03/12/2021 - 04/11/2021 Provider: Nikko Franks MD Diagnosis: take as directed- one patch q 3 days Last Documented On 1 8:12AM By Dr. Franks ; [facility] HYDROcodone-Acetaminophen 10 -325 MG Oral Tablet 03/11/2021 - 04/10/2021 Provider: Nikko Franks MD Diagnosis: four times a day Last Documented On 1 8:10AM By Dr. Franks ; [facility] HYDROcodone-Acetaminophen 10 -325 MG Oral Tablet 02/24/2021 - 03/26/2021 Provider: Nikko Franks MD Diagnosis: four times a day Last Documented On 1 1:03PM By Dr. Franks ; [facility] fentaNYL 75 MCG/HR Transderm al Patch 72 Hour 02/11/2021 - 03/13/2021 Provider: Nikko Franks MD Diagnosis: take as directed- one patch q 3 days Last Documented On 1 12:32PM By Dr. Franks ; [facility] HYDROcodone-Acetaminophen 10 -325 MG Oral Tablet 01/26/2021 - 02/25/2021 Provider: Nikko Franks MD Diagnosis: four times a day Last Documented On 1 1:09PM By Dr. Franks ; [facility] fentaNYL 75 MCG/HR Transderm al Patch 72 Hour 01/09/2021 - 02/08/2021 Provider: Nikko Franks MD Diagnosis: take as directed- one patch q 3 days Last Documented On 1 10:42AM By Dr. Franks ; [facility] fentaNYL 75 MCG/HR Transderm al Patch 72 Hour 12/12/2020 - 01/11/2021 Provider: Nikko Franks MD Diagnosis: take as directed- one patch q 3 days Last Documented On 1 1:44PM By Dr. Franks ; [facility] HYDROcodone-Acetaminophen 10 -325 MG Oral Tablet 12/12/2020 - 01/11/2021 Provider: Nikko Franks MD Diagnosis: four times a day Last Documented On 1 1:44PM By Dr. Franks ; [facility] Promethazine HCl 25 MG Oral Tablet 11/24/2020 - 02/22/2021 Provider: ÓSCAR James Diagnosis: Last Documented On 1 3:20PM By Nikky Barber ; [facility] fentaNYL 75 MCG/HR Transderm al Patch 72 Hour 11/12/2020 - 12/12/2020 Provider: Nikko Franks MD Diagnosis: take as directed- one patch q 3 days Last Documented On 12:54PM By Dr. Franks ; [facility] HYDROcodone-Acetaminophen 10 -325 MG Oral Tablet 11/12/2020 - 12/12/2020 Provider: Nikko Franks MD Diagnosis: four times a day Last Documented On 12:54PM By Dr. Franks ; [facility] fentaNYL 75 MCG/HR Transderm al Patch 72 Hour 10/13/2020 - 11/12/2020 Provider: Nikko Franks MD Diagnosis: take as directed- one patch q 3 days Last Documented On 6:29AM By Dr. Franks ; [facility] HYDROcodone-Acetaminophen 10 -325 MG Oral Tablet 10/13/2020 - 11/12/2020 Provider: Nikko Franks MD Diagnosis: four times a day Last Documented On 12:47PM By Dr. Franks ; [facility] HYDROcodone-Acetaminophen 10 -325 MG Oral Tablet 09/11/2020 - 10/11/2020 Provider: Nikko Franks MD Diagnosis: four times a day Last Documented On 8:16AM By Dr. Franks ; [facility] fentaNYL 75 MCG/HR Transderm al Patch 72 Hour 09/11/2020 - 10/11/2020 Provider: Nikko Fransk MD Diagnosis: take as directed- one patch q 3 days Last Documented On 8:16AM By Dr. Franks ; [facility] fentaNYL 75 MCG/HR Transderm al Patch 72 Hour 08/13/2020 - 09/12/2020 Provider: Nikko Franks MD Diagnosis: take as directed- one patch q 3 days Last Documented On 8:34AM By Dr. Franks ; [facility] HYDROcodone-Acetaminophen 10 -325 MG Oral Tablet 08/13/2020 - 09/12/2020 Provider: Nikko Franks MD Diagnosis: four times a day Last Documented On 8:34AM By Dr. Franks ; [facility] fentaNYL 75 MCG/HR Transderm al Patch 72 Hour 07/14/2020 - 08/13/2020 Provider: Nikko Franks MD Diagnosis: take as directed- one patch q 3 days Last Documented On 1 8:32AM By Dr. Franks ; [facility] HYDROcodone-Acetaminophen 10 -325 MG Oral Tablet 07/14/2020 - 08/13/2020 Provider: Nikko Franks MD Diagnosis: four times a day Last Documented On 1 8:32AM By Dr. Franks ; [facility] HYDROcodone-Acetaminophen 10 -325 MG Oral Tablet 06/16/2020 - 07/16/2020 Provider: Nikko Franks MD Diagnosis: four times a day Last Documented On 1 11:53AM By Dr. Franks ; [facility] fentaNYL 75 MCG/HR Transderm al Patch 72 Hour 06/16/2020 - 07/16/2020 Provider: Nikko Franks MD Diagnosis: take as directed- one patch q 3 days Last Documented On 1 11:53AM By Dr. Franks ; [facility] fentaNYL 75 MCG/HR Transderm al Patch 72 Hour 05/16/2020 - 06/15/2020 Provider: Nikko Franks MD Diagnosis: take as directed- one patch q 3 days Last Documented On 1 10:56AM By Dr. Franks ; [facility] [place] 10-325 MG Oral Tablet 05/15/2020 - 06/14/2020 Pr ovider: Nikko Franks MD Diagnosis: four times a day Last Documented On 1 8:47AM By Dr. Franks ; [facility] fentaNYL 75 MCG/HR Transderm al Patch 72 Hour 04/16/2020 - 05/16/2020 Provider: Nikko Franks MD Diagnosis: take as directed 1 patch q 3 days Last Documented On 0 8:52AM By Dr. Franks ; [facility] [place] 10-325 MG Oral Tablet 04/14/2020 - 05/14/2020 [...] On 0 1:23PM By Dr. Franks ; [facility] [place] 10-325 MG Oral Tablet 03/03/2020 - 04/02/2020 Pr ovider: Nikko Franks MD Diagnosis: 1 po qid prn for chronic pain Last Documented On 0 1:19PM By Marjan Glass ; [facility] [place] 10-325 MG Oral Tablet 02/15/2020 - 03/16/2020 Pr ovider: Nikko Franks MD Diagnosis: 1 po qid prn for chronic pain Last Documented On 0 2:09PM By Dr. Franks ; [facility] fentaNYL 75 MCG/HR Transderm al Patch 72 Hour 02/15/2020 - 03/16/2020 Provider: Nikko Franks MD Diagnosis: take as directed 1 patch q 3 days Last Documented On 0 2:09PM By Dr. Franks ; [facility] [place] 10-325 MG Oral Tablet 01/21/2020 - 02/20/2020 Pr ovider: Nikko Franks MD Diagnosis: 1 po qid prn for chronic pain Last Documented On 0 8:38AM By Dr. Franks ; [facility] fentaNYL 75 MCG/HR Transderm al Patch 72 Hour 01/21/2020 - 02/20/2020 Provider: Nikko Franks MD Diagnosis: take as directed 1 patch q 3 days Last Documented On 0 8:38AM By Dr. Franks ; [facility] fentaNYL 75 MCG/HR Transderm al Patch 72 Hour 01/17/2020 - 02/16/2020 Provider: Nikko Franks MD Diagnosis: take as directed 1 patch q 3 days Last Documented On 0 8:16AM By Dr. Franks ; [facility] [place] 10-325 MG Oral Tablet 01/17/2020 - 02/16/2020 Pr ovider: Nikko Franks MD Diagnosis: 1 po qid prn for chronic pain Last Documented On 0 8:16AM By Dr. Franks ; [facility] [place] 10-325 MG Oral Tablet 12/17/2019 - 01/16/2020 Pr ovider: Nikko Franks MD Diagnosis: 1 po qid prn for chronic pain Last Documented On 0 4:54PM By Dr. Franks ; [facility] fentaNYL 75 MCG/HR Transderm al Patch 72 Hour 12/17/2019 - 01/16/2020 Provider: Nikko Franks MD Diagnosis: take as directed 1 patch q 3 days Last Documented On 0 4:54PM By Dr. Franks ; [facility] fentaNYL 75 MCG/HR Transderm al Patch 72 Hour 11/19/2019 - 12/19/2019 Provider: NIKKO FRANKS MD Diagnosis: 1 patch q 3 days Last Documented On 0 1:19PM By Mahsa Esparza ; [facility] fentaNYL 75 MCG/HR Transderm al Patch 72 Hour 10/17/2019 - 11/16/2019 Provider: Nikko Franks MD Diagnosis: apply one patch every three days prn for chronic pain Last Documented On 0 12:12PM By Daylin Marlow ; [facility] [place] 10-325 MG Oral Tablet 10/17/2019 - 11/16/2019 Pr ovider: Nikko Franks MD Diagnosis: 1 po qid prn for chronic pain Last Documented On 0 8:32AM By Dr. Franks ; [facility] fentaNYL 75 MCG/HR Transderm al Patch 72 Hour 09/17/2019 - 10/17/2019 Provider: Nikko Franks MD Diagnosis: apply one patch every three days prn for chronic pain Last Documented On 0 3:12PM By Dr. Franks ; [facility] [place] 10-325 MG Oral Tablet 09/17/2019 - 10/17/2019 Pr ovider: Nikko Franks MD Diagnosis: 1 po qid prn for chronic pain Last Documented On 0 3:12PM By Dr. Franks ; [facility] fentaNYL 75 MCG/HR Transderm al Patch 72 Hour 08/20/2019 - 09/19/2019 Provider: Nikko Franks MD Diagnosis: apply one patch every three days prn for chronic pain Last Documented On 0 11:37AM By Daylin Marlow ; [facility] [place] 10-325 MG Oral Tablet 08/20/2019 - 09/19/2019 Pr ovider: Nikko Franks MD Diagnosis: 1 po qid prn for chronic pain Last Documented On 0 8:13AM By Dr. Franks ; [facility] [place] 10-325 MG Oral Tablet 07/18/2019 - 08/17/2019 Pr ovider: Nikko Franks MD Diagnosis: 1 po qid prn for chronic pain Last Documented On 0 8:11AM By Dr. Franks ; [facility] fentaNYL 75 MCG/HR Transderm al Patch 72 Hour 07/18/2019 - 08/17/2019 Provider: Nikko Franks MD Diagnosis: apply one patch every three days prn for chronic pain Last Documented On 0 8:06AM By Dr. Franks ; [facility] [place] 10-325 MG Oral Tablet 06/22/2019 - 07/22/2019 Pr ovider: Nikko Franks MD Diagnosis: 1 po qid prn for chronic pain Last Documented On 0 9:35AM By Dr. Franks ; [facility] fentaNYL 75 MCG/HR [...] By Dr. Franks ; [facility] [place] 10-325 MG Oral Tablet 05/24/2019 - 06/23/2019 Pr ovider: Nikko Franks MD Diagnosis: 1 po qid prn for chronic pain Last Documented On 0 8:24AM By Dr. Franks ; [facility] [place] 10-325 MG Oral Tablet 04/18/2019 - 05/18/2019 Pr ovider: Nikko Franks MD Diagnosis: 1 po qid prn for chronic pain Last Documented On 9 10:13AM By Dr. Franks ; [facility] fentaNYL 75 MCG/HR Transderm al Patch 72 Hour 04/18/2019 - 05/18/2019 Provider: Nikko Franks MD Diagnosis: apply one patch every three days prn for chronic pain Last Documented On 9 10:17AM By Dr. Franks ; [facility] [place] 10-325 MG Oral Tablet 02/26/2019 - 03/28/2019 Pr ovider: Nikko Franks MD Diagnosis: 1 po qid prn for chronic pain Last Documented On 9 8:49AM By Dr. Franks ; [facility] fentaNYL 75 MCG/HR Transderm al Patch 72 Hour 02/26/2019 - 03/28/2019 Provider: Nikko Franks MD Diagnosis: apply 1 patch every 3 days prn for chronic pain Last Documented On 9 8:49AM By Dr. Franks ; [facility] [place] 10-325 MG Oral Tablet 01/25/2019 - 02/24/2019 Pr ovider: Nikko Franks MD Diagnosis: 1 po qid prn for chronic pain Last Documented On 9 9:23AM By Mahsa Esparza ; [facility] fentaNYL 75 MCG/HR Transderm al Patch 72 Hour 01/25/2019 - 02/24/2019 Provider: Nikko Franks MD Diagnosis: apply 1 patch every 3 days prn for chronic pain Last Documented On 9 9:23AM By Mahsa Esparza ; [facility] [place] 10-325MG Oral Tablet 11/30/2018 - 12/30/2018 Pro vider: Nikko Franks MD Diagnosis: 1 po qid prn for chronic pain Last Documented On 9 12:50PM By Dr. Franks ; [facility] fentaNYL 75MCG/HR Transderma [...] On 9 10:29AM By Dr. Franks ; [facility] [place] 10-325MG Oral Tablet 10/31/2018 - 11/30/2018 Pro vider: Nikko Franks MD Diagnosis: 1 po qid prn for chronic pain Last Documented On 9 10:29AM By Dr. Franks ; [facility] [place] 10-325MG Oral Tablet 10/03/2018 - 11/02/2018 Pro vider: Nikko Franks MD Diagnosis: 1 po qid prn for chronic pain Last Documented On 9 12:11PM By Dr. Franks ; [facility] fentaNYL 75MCG/HR Transderma l Patch 72 Hour 10/03/2018 - 11/02/2018 Provider: Nikko Franks MD Diagnosis: apply 1 patch every 3 days prn for chronic pain Last Documented On 9 12:10PM By Dr. Franks ; [facility] fentaNYL 75MCG/HR Transderma l Patch 72 Hour 09/04/2018 - 10/04/2018 Provider: Nikko Franks MD Diagnosis: apply 1 patch every 3 days prn for chronic pain Last Documented On 9 9:37AM By Dr. Franks ; [facility] [place] 10-325MG Oral Tablet 09/04/2018 - 10/04/2018 Pro [...] By Mahsa Esparza ; [facility] [place] 10-325MG Oral Tablet 07/10/2018 - 08/09/2018 Pro vider: Nikko Franks MD Diagnosis: 1 po qid prn for chronic pain Last Documented On 9 2:22PM By Mahsa Esparza ; [facility] [place] 10-325MG Oral Tablet 07/05/2018 - 08/04/2018 Pro [...] By Dr. Franks ; [facility] [place] 10-325MG Oral Tablet 06/05/2018 - 07/05/2018 Pro vider: Nikko Franks MD Diagnosis: four times a day / prn, for chronic pain-I know he has severe pain, usually try to make an effort to decrease these just a little bit Last Documented On 9 9:08AM By Dr. Franks ; [facility] FentaNYL 75MCG/HR Transderma l Patch 72 Hour 06/05/2018 - 07/05/2018 Provider: Nikko Franks MD Diagnosis: once a day, chronic pain Last Documented On 9 9:08AM By Dr. rFanks ; [facility] [place] 10-325MG Oral Tablet 04/10/2018 - 05/10/2018 Pro vider: Nikko Franks MD Diagnosis: four times a day / prn, for chronic pain-I know he has severe pain, usually try to make an effort to decrease these just a little bit Last Documented On 8 3:44PM By Giselle Peterson ; [facility] FentaNYL 75MCG/HR Transderma l Patch 72 Hour 04/10/2018 - 05/10/2018 Provider: Nikko Franks MD Diagnosis: once a day, chronic pain Last Documented On 8 3:44PM By Giselle Peterson ; [facility] FentaNYL 75MCG/HR Transderma l Patch 72 Hour 04/06/2018 - 05/06/2018 Provider: Nikko Franks MD Diagnosis: once a day, chronic pain Last Documented On 8 12:46PM By Dr. Franks ; [facility] [place] 10-325MG Oral Tablet 04/06/2018 - 05/06/2018 Pro vider: Nikko Franks MD Diagnosis: four times a day / prn, for chronic pain-I know he has severe pain, usually try to make an effort to decrease these just a little bit Last Documented On 8 12:45PM By Dr. Franks ; [facility] [place] 10-325MG Oral Tablet 03/08/2018 - 04/07/2018 Pro vider: Nikko Franks MD Diagnosis: four times a day / prn, for chronic pain-I know he has severe pain, usually try to make an effort to decrease these just a little bit Last Documented On 8 8:31AM By Dr. Franks ; [facility] FentaNYL 75MCG/HR Transderma l Patch 72 Hour 03/08/2018 - 04/07/2018 Provider: Nikko Franks MD Diagnosis: once a day, chronic pain Last Documented On 8 8:31AM By Dr. Farnks ; [facility] [place] 10-325MG Oral Tablet 02/06/2018 - 03/08/2018 Pro vider: Nikko Franks MD Diagnosis: four times a day / prn, for chronic pain-I know he has severe pain, usually try to make an effort to decrease these just a little bit Last Documented On 8 4:26PM By Dr. Franks ; [facility] FentaNYL 75MCG/HR Transderma l Patch 72 Hour 02/06/2018 - 03/08/2018 Provider: Nikko Franks MD Diagnosis: once a day, chronic pain Last Documented On 8 4:27PM By Dr. Franks ; [facility] FentaNYL 75MCG/HR Transderma l Patch 72 Hour 01/09/2018 - 02/08/2018 Provider: Nikko Franks MD Diagnosis: once a day, chronic pain Last Documented On 8 8:31AM By Dr. Franks ; [facility] [place] 10-325MG Oral Tablet 01/09/2018 - 02/08/2018 Pro vider: Nikko Franks MD Diagnosis: four times a day / prn, for chronic pain-I know he has severe pain, usually try to make an effort to decrease these just a little bit Last Documented On 8 8:31AM By Dr. Franks ; [facility] [place] 10-325MG Oral Tablet 12/12/2017 - 01/11/2018 Pro vider: Nikko Franks MD Diagnosis: four times a day / prn, for chronic pain-I know he has severe pain, usually try to make an effort to decrease these just a little bit Last Documented On 8 3:25PM By Giselle Peterson ; [facility] FentaNYL 75MCG/HR Transderma l Patch 72 Hour 12/12/2017 - 01/11/2018 Provider: Nikko Franks MD Diagnosis: once a day Last Documented On 8 3:26PM By Giselle Petersno ; [facility] Durages[employer]-75 Transdermal Pat ch 72 Hour 12/07/2017 - 01/06/2018 Provider: Nikko Franks MD Diagnosis: use as directed 1 every 3 days -, for chronic pa in Last Documented On 8 12:54PM By Dr. Franks ; [facility] [place] 10-325MG Oral Tablet 12/07/2017 - 01/06/2018 Pro vider: Nikko Franks MD Diagnosis: four times a day / prn, for chronic pain-I know he has severe pain, usually try to make an effort to decrease these just a little bit Last Documented On 8 12:54PM By Dr. Franks ; [facility] [place] 10-325MG Oral Tablet 11/07/2017 - 12/07/2017 Pro vider: Nikko Franks MD Diagnosis: four times a day / prn, for chronic pain-I know he has severe pain, usually try to make an effort to decrease these just a little bit Last Documented On 8 9:41AM By Dr. Franks ; [facility] [employer]-75 Transdermal Pat ch 72 Hour 11/07/2017 - 12/07/2017 Provider: Nikko Franks MD Diagnosis: use as directed 1 every 3 days -, for chronic pa in Last Documented On 8 9:41AM By Dr. Franks ; [facility] [place] 10-325MG Oral Tablet 10/07/2017 - 11/06/2017 Pro vider: Nikko Franks MD Diagnosis: four times a day / prn, for chronic pain-I know he has severe pain, usually try to make an effort to decrease these just a little bit Last Documented On 8 12:53PM By Dr. Franks ; [facility] [place]-75 Transdermal Pat ch 72 Hour 10/07/2017 - 11/06/2017 Provider: Nikko Franks MD Diagnosis: use as directed 1 every 3 days -, for chronic pa in Last Documented On 8 12:53PM By Dr. Franks ; [facility] [place]-75 Transdermal Pat ch 72 Hour 08/15/2017 - 09/14/2017 Provider: Nikko Franks MD Diagnosis: use as directed 1 every 3 days -, for chronic pa in Last Documented On 8 2:27PM By Mahsa Esparza ; [facility] [place] 10-325MG Oral Tablet 08/15/2017 - 09/14/2017 Pro vider: Nikko Franks MD Diagnosis: four times a day / prn, for chronic pain-I know he has severe pain, usually try to make an effort to decrease these just a little bit Last Documented On 8 2:27PM By Mahsa Esparza ; [facility] [place] 10-325MG Oral Tablet 08/10/2017 - 09/09/2017 Pro vider: Nikko Franks MD Diagnosis: four times a day / prn, for chronic pain-I know he has severe pain, usually try to make an effort to decrease these just a little bit Last Documented On 8 8:18AM By Dr. Franks ; [facility] [employer]-75 Transdermal Pat ch 72 Hour 08/10/2017 - 09/09/2017 Provider: Nikko Franks MD Diagnosis: use as directed 1 every 3 days -, for chronic pa in Last Documented On 8 8:17AM By Dr. Franks ; [facility] [place] 10-325MG Oral Tablet 07/11/2017 - 08/10/2017 Pro vider: Nikko Franks MD Diagnosis: four times a day / prn, for chronic pain Last Documented On 8 3:21PM By Dr. Franks ; [facility] [employer]-75 Transdermal Pat ch 72 Hour 07/11/2017 - 08/10/2017 Provider: Nikko Franks MD Diagnosis: use as directed 1 every 3 days -, for chronic pa in Last Documented On 8 3:21PM By Dr. Franks ; [facility] [place] 10-325MG Oral Tablet 06/10/2017 - 07/10/2017 Pro vider: Nikko Franks MD Diagnosis: four times a day / prn, for chronic pain Last Documented On 8 9:26AM By Dr. Franks ; [facility] [employer]-75 Transdermal Pat ch 72 Hour 06/10/2017 - 07/10/2017 Provider: Nikko Franks MD Diagnosis: use as directed 1 every 3 days -, for chronic pa in Last Documented On 8 9:26AM By Dr. Franks ; [facility] [place]-75 Transdermal Pat ch 72 Hour 05/12/2017 - 06/11/2017 Provider: Nikko Franks MD Diagnosis: use as directed 1 every 3 days -, for chronic pa in Last Documented On 8 11:37AM By Dr. Franks ; [facility] [place] 10-325MG Oral Tablet 05/12/2017 - 06/11/2017 Pro vider: Nikko Franks MD Diagnosis: four times a day / prn, for chronic pain Last Documented On 8 11:37AM By Dr. Franks ; [facility] [place] 10-325MG Oral Tablet 04/13/2017 - 05/13/2017 Pro vider: Nikko Franks MD Diagnosis: four times a day / prn, for chronic pain Last Documented On 7 8:54AM By Dr. Franks ; [facility] [place]-75 Transdermal Pat ch 72 Hour 04/13/2017 - 05/13/2017 Provider: Nikko Franks MD Diagnosis: use as directed 1 every 3 days -, for chronic pa in Last Documented On 7 8:55AM By Dr. Franks ; [facility] [place]-75 Transdermal Pat ch 72 Hour 03/14/2017 - 04/13/2017 Provider: Nikko Franks MD Diagnosis: use as directed 1 every 3 days -, for chronic pa in Last Documented On 7 11:37AM By Dr. Franks ; [facility] [place] 10-325MG Oral Tablet 03/14/2017 - 04/13/2017 Pro vider: Nikko Franks MD Diagnosis: four times a day / prn, for chronic pain Last Documented On 7 11:37AM By Dr. Franks ; [facility] [place] 10-325MG Oral Tablet 02/11/2017 - 03/13/2017 Pro vider: Simone Andrea MD Diagnosis: four times a day / prn, for multilevel disc degeneration pain, I will have to reevaluate to sometime in December/January Last Documented On 7 12:52PM By Dr. Franks ; [facility] [employer]-75 Transdermal Pat ch 72 Hour 02/11/2017 - 03/13/2017 Provider: Simone Andrea MD Diagnosis: use as directed 1 every 3 da ys -, for chronic multi-source low back pain/I will have to reevaluate U sometime in December or January Last Documented On 7 12:52PM By Dr. Franks ; [facility] [place] 10-325MG Oral Tablet 01/12/2017 - 02/11/2017 Pro vider: Nikko Franks MD Diagnosis: four times a day / prn, for multilevel disc degeneration pain, I will have to reevaluate to sometime in December/January Last Documented On 7 1:09PM By Dr. Franks ; [facility] [employer]-75 Transdermal Pat ch 72 Hour 01/12/2017 - 02/11/2017 Provider: Nikko Franks MD Diagnosis: use as directed 1 every 3 da ys -, for chronic multi-source low back pain/I will have to reevaluate U sometime in December or January Last Documented On 7 1:10PM By Dr. Franks ; [facility] [employer]-75 75 MCG/HR Patch 72 Hour 12/13/2016 - 01/12/2017 Provider: Nikko Franks MD Diagnosis: use as directed 1 every 3 da ys -, for chronic multi-source low back pain/I will have to reevaluate U sometime in December or January Last Documented On 7 8:03AM By Dr. Franks ; [facility] [place] 10-325 MG Tablet 12/13/2016 - 01/12/2017 Provide r: Nikko Franks MD Diagnosis: four times a day / prn, for multilevel disc degeneration pain, I will have to reevaluate to sometime in Last Documented On 7 8:02AM By Dr. Franks ; [facility] [place] 10-325 MG Tablet 11/12/2016 - 12/12/2016 Provide r: Nikko Franks MD Diagnosis: four times a day / prn, for multilevel disc degeneration pain Last Documented On 7 10:16AM By Dr. Franks ; [facility] Dur[employer]-75 75 MCG/HR Patch 72 Hour 11/12/2016 - 12/12/2016 Provider: Nikko Franks MD Diagnosis: use as directed 1 every 3 da ys -, for chronic multi-source low back pain Last Documented On 7 10:16AM By Dr. Franks ; [facility] [place] 10-325 MG Tablet 10/14/2016 - 11/13/2016 Provide r: Nikko Franks MD Diagnosis: four times a day / prn Last Documented On 7 8:29AM By Dr. Franks ; [facility] [employer]-75 75 MCG/HR Patch [...] On 7 9:11AM By Dr. Franks ; [facility] [place] 10-325 MG Tablet 09/14/2016 - 10/14/2016 Provide r: Nikko Franks MD Diagnosis: four times a day / prn Last Documented On 7 9:11AM By Dr. Franks ; [facility] [employer]-75 75 MCG/HR Patch 72 Hour 08/16/2016 - 09/15/2016 Provider: Nikko Franks MD Diagnosis: use as directed 1 every 3 days - Last Documented On 7 1:13PM By Sara Oreilly ; [facility] [place] 10-325 MG Tablet 08/16/2016 - 09/15/2016 Provide r: Nikko Franks MD Diagnosis: four times a day / prn Last Documented On 7 1:13PM By Sara Oreilly ; [facility] [place] 10-325 MG Tablet 07/15/2016 - 08/14/2016 Provide r: Nikko Franks MD Diagnosis: four times a day / prn Last Documented On 7 4:28PM By Dr. Franks ; [facility] [employer]-75 75 MCG/HR Patch 72 Hour 07/15/2016 - 08/14/2016 Provider: Nikko Franks MD Diagnosis: use as directed 1 every 3 days - Last Documented On 7 4:07PM By Dr. Franks ; [facility] [place] 10-325 MG Tablet 06/14/2016 - 07/14/2016 Provide r: Nikko Franks MD Diagnosis: four times a day / prn Last Documented On 7 5:57PM By Dr. Franks ; [facility] [employer]-75 75 MCG/HR Patch 72 Hour 06/14/2016 - 07/14/2016 Provider: Nikko Franks MD Diagnosis: use as directed 1 every 3 days - Last Documented On 7 5:56PM By Dr. Franks ; [facility] [place] 10-325 MG Tablet 05/13/2016 - 06/12/2016 Provide r: Nikko Franks MD Diagnosis: four times a day / prn Last Documented On 7 8:54AM By Dr. Franks ; [facility] [employer]-75 75 MCG/HR Patch 72 Hour 05/13/2016 - 06/12/2016 Provider: Nikko Franks MD Diagnosis: use as directed 1 every 3 days - Last Documented On 7 8:54AM By Dr. Franks ; [facility] [employer]-75 75 MCG/HR Patch 72 Hour 04/14/2016 - 05/14/2016 Provider: Nikko Franks MD Diagnosis: use as directed 1 every 3 days - Last Documented On 6 12:09PM By Dr. Franks ; [facility] [place] 10-325 MG Tablet 04/14/2016 - 05/14/2016 Provide r: Nikko Franks MD Diagnosis: four times a day / prn Last Documented On 6 12:09PM By Dr. Franks ; [facility] [employer]-75 75 MCG/HR Patch 72 Hour 03/15/2016 - 04/14/2016 Provider: Nikko Franks MD Diagnosis: use as directed 1 every 3 days - Last Documented On 6 8:26AM By Dr. Franks ; [facility] [place] 10-325 MG Tablet 03/15/2016 - 04/14/2016 Provide r: Nikko Franks MD Diagnosis: four times a day / prn Last Documented On 6 8:27AM By Dr. Franks ; [facility] [place] 10-325 MG Tablet 02/13/2016 - 03/14/2016 Provide r: Stef Ty MD Diagnosis: four times a day / prn Last Documented On 6 11:16AM By Dr. Franks ; [facility] [employer]-75 75 MCG/HR Patch 72 Hour 02/13/2016 - 03/14/2016 Provider: Stef Ty MD Diagnosis: use as directed 1 every 3 days - Last Documented On 6 11:15AM By Dr. Franks ; [facility] [place] 10-325 MG Tablet 01/15/2016 - 02/14/2016 Provide r: Nikko Franks MD Diagnosis: four times a day / prn Last Documented On 6 8:24AM By Dr. Franks ; [facility] [employer]-75 75 MCG/HR Patch 72 Hour 01/15/2016 - 02/14/2016 Provider: Nikko Franks MD Diagnosis: use as directed 1 every 3 days - Last Documented On 6 8:23AM By Dr. Franks ; [facility] [place] 10-325 MG Tablet 12/17/2015 - 01/16/2016 Provide r: Nikko Franks MD Diagnosis: four times a day / prn Last Documented On 6 8:19AM By Dr. Franks ; [facility] [employer]-75 75 MCG/HR Patch 72 Hour 12/17/2015 - 01/16/2016 Provider: Nikko Franks MD Diagnosis: use as directed 1 every 3 days - Last Documented On 6 8:19AM By Dr. Franks ; [facility] [employer]-75 75 MCG/HR Patch 72 Hour 11/17/2015 - 12/17/2015 Provider: Nikko Franks MD Diagnosis: use as directed 1 every 3 days - Last Documented On 6 8:23AM By Dr. Franks ; [facility] [place] 10-325 MG Tablet 11/17/2015 - 12/17/2015 Provide r: Nikko Franks MD Diagnosis: four times a day / prn Last Documented On 6 8:24AM By Dr. rFanks ; [facility] [employer]-75 75 MCG/HR Patch 72 Hour 10/16/2015 - 11/15/2015 Provider: Nikko Franks MD Diagnosis: use as directed 1 every 3 days - Last Documented On 6 8:14AM By Dr. Franks ; [facility] [place] 10-325 MG Tablet 10/16/2015 - 11/15/2015 Provide r: Nikko Franks MD Diagnosis: four times a day / prn Last Documented On 6 8:13AM By Dr. Franks ; [facility] [place] 10-325 MG Tablet 09/17/2015 - 10/17/2015 Provide r: Nikko Franks MD Diagnosis: four times a day / prn Last Documented On 6 12:01PM By Dr. Franks ; [facility] [employer]-75 75 MCG/HR Patch 72 Hour 09/17/2015 - 10/17/2015 Provider: Nikko Franks MD Diagnosis: use as directed 1 every 3 days - Last Documented On 6 12:01PM By Dr. Franks ; [facility] [place] 10-325 MG Tablet 08/18/2015 - 09/17/2015 Provide r: Nikko Franks MD Diagnosis: four times a day / prn Last Documented On 6 8:06AM By Dr. Franks ; [facility] [employer]-75 75 MCG/HR Patch 72 Hour 08/18/2015 - 09/17/2015 Provider: Nikko Franks MD Diagnosis: use as directed 1 every 3 days - Last Documented On 6 8:06AM By Dr. Franks ; [facility] [place] 10-325 MG Tablet 07/16/2015 - 08/15/2015 Provide r: Nikko Franks MD Diagnosis: four times a day / prn Last Documented On 6 8:26AM By Dr. Franks ; [facility] [employer]-75 75 MCG/HR Patch 72 Hour 07/16/2015 - 08/15/2015 Provider: Nikko Franks MD Diagnosis: use as directed 1 every 3 days - Last Documented On 6 8:25AM By Dr. Franks ; [facility] [place] 10-325 MG Tablet 06/16/2015 - 07/16/2015 Provide r: Nikko Franks MD Diagnosis: four times a day / prn Last Documented On 6 12:20PM By Dr. Franks ; [facility] [employer]-75 75 MCG/HR Patch 72 Hour 06/16/2015 - 07/16/2015 Provider: Nikko Franks MD Diagnosis: use as directed 1 every 3 days - Last Documented On 6 12:20PM By Dr. Franks ; [facility] [employer]-75 75 MCG/HR Patch 72 Hour 05/16/2015 - 06/15/2015 Provider: Stef Ty MD Diagnosis: use as directed 1 every 3 days - Last Documented On 6 10:03AM By Dr. Franks ; [facility] [place] 10-325 MG Tablet 05/16/2015 - 06/15/2015 Provide r: Stef Ty MD Diagnosis: four times a day / prn Last Documented On 6 10:02AM By Dr. Franks ; [facility] [employer]-75 75 MCG/HR Patch 72 Hour 03/20/2015 - 04/19/2015 Provider: Nikko Franks MD Diagnosis: use as directed 1 every 3 days - Last Documented On 5 12:38PM By Dr. Franks ; [facility] [place] 10-325 MG Tablet 03/20/2015 - 04/19/2015 Provide r: Nikko Franks MD Diagnosis: four times a day Last Documented On 5 12:39PM By Dr. Franks ; [facility] [employer]-75 75 MCG/HR Patch 72 Hour 03/18/2015 - 04/17/2015 Provider: Nikko Franks MD Diagnosis: use as directed 1 every 3 days - Last Documented On 5 4:36PM By Dr. Franks ; [facility] [place] 10-325 MG Tablet 03/18/2015 - 04/17/2015 Provide r: Nikko Franks MD Diagnosis: four times a day Last Documented On 5 4:35PM By Dr. Franks ; [facility] [place] 10-325 MG Tablet 02/17/2015 - 03/19/2015 Provide r: Nikko Franks MD Diagnosis: four times a day Last Documented On 5 8:22AM By Dr. Franks ; [facility] [employer]-75 75 MCG/HR [...] By Dr. Franks ; [facility] [place] 10-325 MG Tablet 01/16/2015 - 02/15/2015 Provide r: Nikko Franks MD Diagnosis: four times a day Last Documented On 5 4:00PM By Dr. Franks ; [facility] [place] 10-325 MG Tablet 12/18/2014 - 01/17/2015 Provide r: Nikko Franks MD Diagnosis: BACK DISORDER NO S four times a day Last Documented On 5 8:30AM By Dr. Franks ; [facility]-75 75 MCG/HR Patch 72 Hour 12/18/2014 - 01/17/2015 Provider: Nikko Franks MD Diagnosis: LUMB/LUMBOSAC DI SC DEGEN use as directed 1 every 3 days - Last Documented On 5 8:29AM By Dr. Franks ; [facility] [place] 10-325 MG Tablet 11/18/2014 - 12/18/2014 Provide r: Nikko Franks MD Diagnosis: BACK DISORDER NO S four times a day Last Documented On 5 9:40AM By Dr. Franks ; [facility] [employer]-75 75 MCG/HR Patch 72 Hour 11/18/2014 - 12/18/2014 Provider: Nikko Franks MD Diagnosis: LUMB/LUMBOSAC DI SC DEGEN use as directed 1 every 3 days - Last Documented On 5 9:52AM By Dr. Franks ; [facility] [place] 10-325 MG Tablet 09/17/2014 - 10/17/2014 Provide r: Nikko Franks MD Diagnosis: BACK DISORDER NO S four times a day Last Documented On 5 11:15AM By Mahsa Esparza ; [facility] [employer]-75 75 MCG/HR Patch 72 Hour 09/17/2014 - 10/17/2014 Provider: Nikko Franks MD Diagnosis: LUMB/LUMBOSAC DI SC DEGEN use as directed 1 every 3 days - Last Documented On 5 11:15AM By Mahsa Esparza ; [facility] [employer]-75 75 MCG/HR Patch 72 Hour 09/16/2014 - 10/16/2014 Provider: Nikko Franks MD Diagnosis: LUMB/LUMBOSAC DI SC DEGEN use as directed 1 every 3 days - Last Documented On 5 8:21AM By Dr. Franks ; [facility] [place] 10-325 MG Tablet 09/16/2014 - 10/16/2014 Provide r: Nikko Franks MD Diagnosis: BACK DISORDER NO S four times a day Last Documented On 5 8:21AM By Dr. Franks ; [facility] [place] 10-325 MG Tablet 08/15/2014 - 09/14/2014 Provide r: Nikko Franks MD Diagnosis: BACK DISORDER NO S four times a day Last Documented On 5 8:27AM By Dr. Franks ; [facility] [employer]-75 75 MCG/HR Patch 72 Hour 08/15/2014 - 09/14/2014 Provider: Nikko Franks MD Diagnosis: LUMB/LUMBOSAC DI SC DEGEN use as directed 1 every 3 days - Last Documented On 5 8:27AM By Dr. Franks ; [facility] [employer]-75 75 MCG/HR Patch 72 Hour 07/17/2014 - 08/16/2014 Provider: Nikko Franks MD Diagnosis: LUMB/LUMBOSAC DI SC DEGEN use as directed 1 every 3 days - Last Documented On 5 8:45AM By Dr. Franks ; [facility] [place] 10-325 MG Tablet 07/17/2014 - 08/16/2014 Provide r: Nikko Franks MD Diagnosis: BACK DISORDER NO S four times a day Last Documented On 5 8:45AM By Dr. Franks ; [facility] NOTE EX MISC 07/15/2014 - 07/16/2014 Provider: Carlos Manuel Franks MD Diagnosis: called pt and informed that her rx is 4 days early, unable to fill. jrk Last Documented On 5 1:20PM By Tim Gutierrez ; [facility] Duragesic-75 75 MCG/HR Patch 72 Hour 06/19/2014 - 07/19/2014 Provider: Nikko Franks MD Diagnosis: LUMB/LUMBOSAC DI SC DEGEN use as directed 1 every 3 days - Last Documented On 5 2:55PM By Dr. Franks ; [facility] [place] 10-325 MG Tablet 06/19/2014 - 07/19/2014 Provide r: Nikko Franks MD Diagnosis: BACK DISORDER NO S four times a day Last Documented On 5 2:56PM By Dr. Franks ; [facility] NOTE EX MISC 04/18/2014 - 04/19/2014 Provider: Carlos Manuel Franks MD Diagnosis: pt brought back norco and du ragesic rx's for jun and june that her pharmacy could not fill. she is going to [facility] and will call when rx is due. Her Last Documented On 4 2:22PM By Tim Gutierrez ; [facility] [place] 10-325 MG OR TABS 04/10/2014 - 05/10/2014 Provid er: Nikko Franks MD Diagnosis: BACK DISORDER NO S Last Documented On 4 11:25AM By Sarmiento 6 User ; [facility] [place] 10-325 MG OR TABS 04/10/2014 - 05/10/2014 Provid er: Nikko Franks MD Diagnosis: BACK DISORDER NO S Last Documented On 4 11:21AM By Sarmiento 6 User ; [facility] Duragesic-75 75 MCG/HR TD PT72 04/10/2014 - 05/10/2014 Provider: Nikko Franks MD Diagnosis: LUMB/LUMBOSAC DI SC DEGEN 1 every 3 days - Last Documented On 4 11:20AM By Sarmiento 6 User ; [facility] Duragesic-75 75 MCG/HR TD PT72 04/10/2014 - 05/10/2014 Provider: Nikko Franks MD Diagnosis: LUMB/LUMBOSAC DI SC DEGEN 1 every 3 days - Last Documented On 4 11:24AM By Sarmiento 6 User ; [facility] [place] 10-325 MG OR TABS 03/20/2014 - 04/19/2014 [...] By Dr. Franks ; [facility] [place] 10-325 MG OR TABS 02/19/2014 - 03/21/2014 [...] By Dr. Franks ; [facility] [place] 10-325 MG OR TABS 01/21/2014 - 02/20/2014 Provid er: Nikko Franks MD Diagnosis: [phone] df Last Documented On 4 12:49PM By Dr. Franks ; [facility] [place] 10-325 MG OR TABS 12/17/2013 - 01/16/2014 Provid er: Nikko Franks MD Diagnosis: [phone] df Last Documented On 4 3:07PM By Torsten 6 User ; [facility] Duragesic-75 75 MCG/HR TD PT72 12/17/2013 - 01/16/2014 Provider: Nikko Franks MD Diagnosis: LUMB/LUMBOSAC DI SC DEGEN 1 every 3 days - jfb Last Documented On 4 3:07PM By Sarmiento 6 User ; [facility] Duragesic-75 75 MCG/HR TD PT72 11/22/2013 - 12/22/2013 Provider: Nikko Franks MD Diagnosis: LUMB/LUMBOSAC DI SC DEGEN 1 every 3 days - jfb Last Documented On 4 9:10AM By Sarmiento 6 User ; [facility] [place] 10-325 MG OR TABS 10/15/2013 - 11/14/2013 Provid er: Nikko Franks MD Diagnosis: [phone] df Last Documented On 4 3:31PM By Sarmiento 5 User ; [facility] Duragesic-75 75 MCG/HR TD PT72 10/15/2013 - 11/14/2013 Provider: Nikko Franks MD Diagnosis: LUMB/LUMBOSAC DI SC DEGEN 1 every 3 days - jfb Last Documented On 4 3:31PM By Sarmiento 5 User ; [facility] [place] 10-325 MG OR TABS 09/25/2013 - 10/25/2013 Provid er: Nikko Franks MD Diagnosis: [phone] df Last Documented On 4 1:30PM By Tim Gutierrez ; [facility] Duragesic-75 75 MCG/HR TD PT72 09/21/2013 - 10/21/2013 Provider: Nikko Franks MD Diagnosis: LUMB/LUMBOSAC DI SC DEGEN 1 every 3 days - jfb Last Documented On 4 4:42PM By Mahsa Esparza ; [facility] DENIED EX MISC 09/21/2013 - 09/22/2013 Provider: Manpreet Franks MD Diagnosis: pt called for pain meds pt m ust be seen before they are given 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 Jsb Last Documented On 4 9:40AM By Tim Gutierrez ; [facility] Sae EX MISC 08/24/2013 - 08/25/2013 Provider: Manpreet Franks MD Diagnosis: [phone] df Last Documented On 4 1:35PM By [...] Torsten 4 User ; [facility] [place] 10-325 MG OR TABS 07/26/2013 - 08/25/2013 Provid er: Nikko Franks MD Diagnosis: [phone] df Last Documented On 4 11:41AM By Tim Gutierrez ; [facility] L[place] 10-500 MG OR TABS 04/12/2013 - 05/12/2013 Provi monica: Nikko Franks MD Diagnosis: Last Documented On 3 2:46PM By Torsten 3 User ; [facility] Lort[place] 10-500 MG OR TABS 04/12/2013 - 05/12/2013 Provi monica: Nikko Franks MD Diagnosis: can fill 06-27- Last Documented On 3 2:47PM By Torsten 3 User ; [facility] L[place]ab 10-500 MG OR TABS 04/12/2013 - 05/12/2013 Provi monica: Nikko Franks MD Diagnosis: can fill -- Last Documented On 3 2:47PM By Torsten 3 User ; [facility] Duragesic-75 75 MCG/HR TD PT72 04/12/2013 - 05/12/2013 Provider: Nikko Franks MD Diagnosis: LUMB/LUMBOSAC DI SC DEGEN 1 every 3 days - abrefill -- Last Documented On 3 2:49PM By Sarmiento [...] Nikko Franks MD Diagnosis: j and yony [phone] jrk Last Documented On 3 9:13AM By [...] Nikko Franks MD Diagnosis: j and l [phone] tw Last Documented On 3 11:45AM By Tim Gutierrez ; [facility] [place] 10-500 MG OR TABS 01/26/2013 - 02/25/2013 Provi monica: Nikko Franks MD Diagnosis: j and l [phone] tw Last Documented On 3 10:19AM By Tim Gutierrez ; [facility] Duragesic-75 75 MCG/HR TD PT72 01/26/2013 - 02/25/2013 Provider: Nikko Franks MD Diagnosis: LUMB/LUMBOSAC DI SC DEGEN 1 every 3 days - jfb Last Documented On 3 8:57AM By Mahsa Esparza ; [facility] [place] 10-500 MG OR TABS 12/27/2012 - 01/26/2013 Provi monica: Nikko Franks MD Diagnosis: adolfo [phone] jrk Last Documented On 3 10:29AM By Tim Gutierrez ; [facility] Duragesic-75 75 MCG/HR TD PT72 12/27/2012 - 01/26/2013 Provider: Nikko Franks MD Diagnosis: LUMB/LUMBOSAC DI SC DEGEN 1 every 3 days - jfb Last Documented On 3 9:48AM By Mahsa Esparza ; [facility] L[place] 10-500 MG OR TABS 11/27/2012 - 12/27/2012 Provi monica: Nikko Franks MD Diagnosis: adolfo [phone] jrk Last Documented On 3 10:45AM By [...] 3 11:09AM By Sarmiento 6 User ; [facility] Lort[place] 10-500 MG OR TABS 09/27/2012 - 10/27/2012 Provi monica: Nikko Franks MD Diagnosis: jfb Last Documented On 3 11:09AM By Sarmiento 6 User ; [facility] DENIED EX MISC 09/22/2012 - 09/23/2012 Provider: Manpreet Franks MD Diagnosis: 5 days current w/ both Lo rtab / Duragesic Patches / To call & request when due 09/27/12 - Message left w/patient requesting return call to [facility] Last Documented On 3 11:41AM By Mahsa Esparza ; [facility] Lortab 10-500 MG OR TABS 08/28/2012 - 09/27/2012 Provi monica: Nikko Franks MD Diagnosis: jfb Last Documented On 3 1:57PM By Sarmiento 6 User ; [facility] Duragesic-75 75 MCG/HR TD PT72 08/28/2012 - 09/27/2012 Provider: Nikko Franks MD Diagnosis: LUMB/LUMBOSAC DI SC DEGEN 1 every 3 days - jfb Last Documented On 3 1:57PM By Sarmiento 6 User ; [facility] Duragesic-75 75 MCG/HR TD PT72 07/26/2012 - 08/25/2012 Provider: Nikko Franks MD Diagnosis: LUMB/LUMBOSAC DI SC DEGEN 1 every 3 days - jfb Last Documented On 3 11:51AM By Sarmiento 4 User ; [facility] Lortab 10-500 MG OR TABS 07/26/2012 - 08/25/2012 Provi monica: Nikko Franks MD Diagnosis: j and l [phone] Last Documented On 3 12:22PM By Tim Gutierrez ; [facility] Lortab 10-500 MG OR TABS 06/27/2012 - 07/27/2012 Provi monica: Nikko Franks MD Diagnosis: [facility] [phone] tw Last Documented On 3 11:32AM By [...] 04/28/2012 Provi monica: Nikko Franks MD Diagnosis: j and l [phone] jrk Last Documented On 2 8:39AM By Tim Gutierrez ; [facility] Duragesic-75 75 MCG/HR TD PT72 02/28/2012 - 03/29/2012 Provider: Nikko Franks MD Diagnosis: LUMB/LUMBOSAC DI SC DEGEN 1 every 3 days - jfb Last Documented On 2 11:00AM By Torsten 4 User ; [facility] Lort[place] 10-500 MG OR TABS 02/28/2012 - 03/29/2012 Provi monica: Nikko Franks MD Diagnosis: j and yony [phone] jsb Last Documented On 2 11:30AM By Tim Gutierrez ; [facility] DENIED EX MISC 02/23/2012 - 02/24/2012 Provider: Chaparrita Sin MD Diagnosis: spoke to pt Last Documented On 2 12:56PM By Susy Bobby ; [facility] L[place] 10-500 MG OR TABS 01/31/2012 - 03/01/2012 Provi monica: Nikko Franks MD Diagnosis: j and yony [phone] JRK Last Documented On 2 9:07AM By [...] 01/29/2012 Provi monica: Nikko Franks MD Diagnosis: j and yony [phone] jsb Last Documented On 2 10:11AM By Tim Gutierrez ; [facility] Sae EX MISC 11/29/2011 - 11/30/2011 Provider: Manpreet Franks MD Diagnosis: Sae [phone] teb Last Documented On 2 8:44AM By Tim Gutierrez ; [facility] Lortab 10-500 MG OR TABS 11/29/2011 - 12/29/2011 Provi monica: Nikko Franks MD Diagnosis: adolfo [phone] df Last Documented On 2 4:12PM By Tim Gutierrez ; [facility] Duragesic-75 75 MCG/HR TD PT72 11/29/2011 - 12/29/2011 Provider: Nikko Franks MD Diagnosis: 1q 3d/rossi Last Documented On 2 2:03PM By Torsten 5 User ; [facility] Duragesic-75 75 MCG/HR TD PT72 10/27/2011 - 11/26/2011 Provider: Nikko Fransk MD Diagnosis: 1q 3d/rossi Last Documented On [...] 09/01/2011 Provi monica: Nikko Franks MD Diagnosis: [phone] df Last Documented On 2 11:34AM By Tim Gutierrez ; [facility] Lortab 10-500 MG OR TABS 06/28/2011 - 07/28/2011 Provi monica: Nikko Franks MD Diagnosis: [phone] jrk Last Documented On 2 8:31AM By Tim Gutierrez ; [facility] Lortab 10-500 MG OR TABS 06/28/2011 - 07/28/2011 Provi monica: Nikko Franks MD Diagnosis: [phone] j and l df Last Documented On [...] 06/24/2011 Provi monica: Nikko Franks MD Diagnosis: [phone] df Last Documented On 2 10:40AM By [...] monica: Nikko Franks MD Diagnosis: j veronica yony [phone] th Last Documented On 1 11:29AM By [...] Nikko Franks MD Diagnosis: j and l [phone] jrk Last Documented On 1 3:19PM By Tim Gutierrez ; [facility] Duragesic-75 75 MCG/HR TD PT72 02/01/2011 - 03/03/2011 Provider: Nikko Franks MD Diagnosis: 1 Q 3 DAYS/PP Last Documented On 1 9:00AM By Torsten Ferrer User ; [facility] Lortab 10-500 MG OR TABS 02/01/2011 - 03/03/2011 Provi monica: Nikko Franks MD Diagnosis: carine and l [phone] jrk/jsb Last Documented On 1 9:52AM By Tim Gutierrez ; [facility] Lortab 10-500 MG OR TABS 12/29/2010 - 01/28/2011 Provi monica: Nikko Franks MD Diagnosis: j and l [phone] jrk Last Documented On 1 11:13AM By [...] Nikko Franks MD Diagnosis: j and yony [phone] jsb Last Documented On 1 10:09AM By [...] Nikko Franks MD Diagnosis: j and l [phone] jsb Last Documented On 1 10:05AM By Tim Gutierrez ; [facility] Lortab 10-500 MG OR TABS 09/29/2010 - 10/29/2010 Provi monica: Nikko Franks MD Diagnosis: j and l [phone] jrk/jsb Last Documented On 1 1:48PM By [...] 09/11/2010 Provi monica: Nikko Franks MD Diagnosis: [phone] j and l jrk/df Last Documented On 1 9:20AM By Sarmiento 6 User ; [facility] Duragesic-75 75 MCG/HR TD PT72 08/12/2010 - 09/11/2010 Provider: Nikko Franks MD Diagnosis: 1 q 3 days Last Documented On 1 9:20AM By Sarmiento 6 User ; [facility] Lortab 10-500 MG OR TABS 07/28/2010 - 08/27/2010 Provi monica: Nikko Franks MD Diagnosis: [phone] j and l jrk/df Last Documented On 1 9:28AM By Tim Gutierrez ; [facility] Duragesic-75 75 MCG/HR TD PT72 07/13/2010 - 08/12/2010 Provider: Nikko Franks MD Diagnosis: 1 q 3 days Last Documented On 1 10:44AM By Sarmiento 6 User ; [facility] Lortab 10-500 MG OR TABS 06/29/2010 - 07/29/2010 Provi monica: Nikko Franks MD Diagnosis: [facility] [phone] jrk Last Documented On 1 10:05AM By Tim Gutierrez ; [facility] Duragesic-75 75 MCG/HR TD PT72 06/15/2010 - 07/15/2010 Provider: Nikko Franks MD Diagnosis: 1 patch q 3 days Last Documented On 1 9:06AM By Torsten 3 User ; [facility] Lortab 10-500 MG OR TABS 05/27/2010 - 06/26/2010 Provi monica: Nikko Franks MD Diagnosis: J and L [phone] jrk Last Documented On 1 9:14AM By Tim Gutierrez ; [facility] Duragesic-75 75 MCG/HR TD PT72 05/19/2010 - 06/18/2010 Provider: Nikko Franks MD Diagnosis: 1 q 3 days jrk. called PT Last Documented On 1 9:27AM By Tim Gutierrez ; [facility] Lortab 10-500 MG OR TABS 04/28/2010 - 05/28/2010 Provi monica: Nikko Franks MD Diagnosis: J and L [phone] jrk Last Documented On 0 9:20AM By Tim Gutierrez ; [facility] Duragesic-75 75 MCG/HR TD PT72 04/20/2010 - 05/20/2010 Provider: Nikko Franks MD Diagnosis: 1 q 3 days/pp Last Documented On 0 9:19AM By Torsten 6 User ; [facility] Lortab 10-500 MG OR TABS 03/30/2010 - 04/29/2010 Provi monica: Nikko Franks MD Diagnosis: J and L [phone] th Last Documented On 0 11:16AM By Adelita Sarmiento ; [facility] Duragesic-75 75 MCG/HR TD PT72 03/23/2010 - 04/22/2010 Provider: Nikko Franks MD Diagnosis: use every 3 days/ab Last Documented On 0 10:35AM By Torsten 6 User ; [facility] Lortab 10-500 MG OR TABS 02/26/2010 - 03/28/2010 Provi monica: Nikko Franks MD Diagnosis: Adolfo [phone] jrk Last Documented On 0 12:10PM By Torsten 6 User ; [facility] Duragesic-75 75 MCG/HR TD PT72 02/23/2010 - 03/25/2010 Provider: Nikko Franks MD Diagnosis: use every 3 days/alb Last Documented On 0 3:26PM By Torsten 6 User ; [facility] Lortab 10-500 MG OR TABS 02/05/2010 - 03/02/2010 Provi monica: Nikko Franks MD Diagnosis: Adolfo [phone] jrk Last Documented On 0 9:22AM By Tim Gutierrez ; [facility] Duragesic-75 75 MCG/HR TD PT72 01/19/2010 - 02/18/2010 Provider: Nikko Franks MD Diagnosis: 1 q 3 days Last Documented On 0 1:13PM By Torsten 6 User ; [facility] Lortab 10-500 MG OR TABS 01/12/2010 - 02/06/2010 Provi monica: Nikko Franks MD Diagnosis: Adolfo [phone] jrk Last Documented On 0 11:09AM By Tim Gutierrez ; [facility] Duragesic-75 75 MCG/HR TD PT72 12/17/2009 - 01/16/2010 Provider: Nikko Franks MD Diagnosis: 1 q 3 days Last Documented On 0 8:53AM By Torsten 2 User ; [facility] Lortab 10-500 MG OR TABS 12/15/2009 - 01/09/2010 Provi monica: Nikko Franks MD Diagnosis: Adolfo [phone] th Last Documented On 0 9:18AM By Tim Gutierrez ; [facility] Duragesic-75 75 MCG/HR TD PT72 11/19/2009 - 12/19/2009 Provider: Nikko Franks MD Diagnosis: 1 q 3 days Last Documented On 0 9:39AM By Torsten 2 User ; [facility] Lortab 10-500 MG OR TABS 11/17/2009 - 12/12/2009 Provi monica: Nikko Franks MD Diagnosis: Adolfo [phone] jrk Last Documented On 0 9:47AM By Tim Gutierrez ; [facility] Lortab 10-500 MG OR TABS 10/20/2009 - 11/14/2009 Provi monica: Nkiko Franks MD Diagnosis: called pt. jrk/rossi Last [...] Provi monica: Nikko Franks MD Diagnosis: adolfo [phone] jrk/df Last Documented On 0 8:51AM By Tim Gutierrez ; [facility] Duragesic-75 75 MCG/HR TD PT72 08/21/2009 - 09/20/2009 Provider: Nikko Franks MD Diagnosis: 1 q 3 days Last Documented On 0 11:17AM By Torsten 6 User ; [facility] Lortab 10-500 MG OR TABS 07/30/2009 - 08/24/2009 Provi monica: Nikko Franks MD Diagnosis: [phone] jrk/df Last Documented On 0 10:45AM By Tim Gutierrez ; [facility] Duragesic-75 75 MCG/HR TD PT72 07/22/2009 - 08/21/2009 Provider: Nikko Franks MD Diagnosis: 1 q 3 days Last Documented On 0 12:09PM By Torsten 5 User ; [facility] Lortab 10-500 MG OR TABS 07/02/2009 - 07/27/2009 Provi monica: Nikko Franks MD Diagnosis: carine bhakta [phone] df/jsb Last Documented On 0 10:49AM By Tim Gutierrez ; [facility] Duragesic-75 75 MCG/HR TD PT72 06/24/2009 - 07/24/2009 Provider: Nikko Franks MD Diagnosis: 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 jsb/df Last Documented On 0 10:53AM By Tim Gutierrez ; [facility] Lortab 10-500 MG OR TABS 06/03/2009 - 06/28/2009 Provi monica: Nikko Franks MD Diagnosis: adolfo [phone] jrk Last Documented On 0 9:37AM By Tim Gutierrez ; [facility] Duragesic-75 75 MCG/HR TD PT72 05/27/2009 - 06/26/2009 Provider: Nikko Franks MD Diagnosis: 1 q 3days Last Documented On 0 9:46AM By Torsten 6 User ; [facility] Lortab 10-500 MG OR TABS 05/07/2009 - 06/01/2009 Provi monica: Nikko Franks MD Diagnosis: adolfo [phone] jsb Last Documented On 0 12:08PM By Tim Gutierrez ; [facility] Duragesic-75 75 MCG/HR TD PT72 04/28/2009 - 05/28/2009 Provider: Nikko Franks MD Diagnosis: 1 q 3daysleft mess. for pt. to call us back. Last Documented On 9 11:08AM By Jung Alonso ; [facility] Lortab 10-500 MG OR TABS 04/07/2009 - 05/02/2009 Provi monica: Nikko Franks MD Diagnosis: [phone] plr Last Documented On 9 1:30PM By Tim Gutierrez ; [facility] NOTE EX MISC 03/24/2009 - 03/25/2009 Provider: Carlos Manuel Franks MD Diagnosis: called the pt and left a mes isra. Her script is ready to be picked up-plr Last Documented On 9 3:18PM By Tim Gutierrez ; [facility] Duragesic-75 75 MCG/HR TD PT72 03/24/2009 - 04/23/2009 Provider: Nikko Franks MD Diagnosis: 1 q 3 days Last Documented On 9 2:45PM By Sarmiento 6 User ; [facility] Duragesic-75 75 MCG/HR TD PT72 02/24/2009 - 03/26/2009 Provider: Nikko Franks MD Diagnosis: 1 q 3 days/PRATIMA Last Documented On 9 10:35AM By Sarmiento 5 User ; [facility] Lortab 10-500 MG OR TABS 01/22/2009 - 02/16/2009 Provi monica: Nikko Franks MD Diagnosis: [phone] jsb/df Last Documented On 9 10:49AM By Sarmiento 5 User ; [facility] Lortab 10-500 MG OR TABS 01/22/2009 - 02/16/2009 Provi monica: Nikko Franks MD Diagnosis: [phone] jsb/df Last Documented On 9 10:49AM By Sarmiento 5 User ; [facility] Duragesic-75 75 MCG/HR TD PT72 01/22/2009 - 02/21/2009 Provider: Nikko Franks MD Diagnosis: 1q3 day 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 jsb Last Documented On 9 10:49AM By Sarmiento 5 User ; [facility] Lortab 10-500 MG OR TABS 01/13/2009 - 02/07/2009 Provi monica: Nikko Franks MD Diagnosis: [phone] jsb/df Last Documented On 9 8:59AM By Tim Gutierrez ; [facility] Duragesic-75 75 MCG/HR TD PT72 12/27/2008 - 01/26/2009 Provider: Nikko Franks MD Diagnosis: 1q3 day 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 jsb Last Documented On 9 9:55AM By Tim Gutierrez ; [facility] Lortab 10-500 MG OR TABS 12/19/2008 - 01/13/2009 Provi monica: Nikko Franks MD Diagnosis: j & L [phone] Last Documented On 9 2:07PM By Tim Gutierrez ; [facility] Duragesic-75 75 MCG/HR TD PT72 12/02/2008 - 12/16/2008 Provider: José Miguel Sin MD Diagnosis: Last Documented On 9 9:21AM By Torsten 4 User ; [facility] Lortab 10-500 MG OR TABS 11/22/2008 - 12/17/2008 Provi monica: Nikko Franks MD Diagnosis: carine & Yony [phone] LMB Last Documented On 9 11:44AM By Jung Alonso ; [facility] Duragesic-75 75 MCG/HR TD PT72 10/14/2008 - 10/28/2008 Provider: Nikko Franks MD Diagnosis: called the pt-plr Last Documented On 9 10:23AM By Torsten 1 User ; [facility] Lortab 10-500 MG OR TABS 10/14/2008 - 11/08/2008 Provi monica: Nikko Franks MD Diagnosis: carine heatonl [phone] Last Documented On 9 10:22AM By Torsten 1 User ; [facility] Duragesic-75 75 MCG/HR TD PT72 10/08/2008 - 10/22/2008 Provider: Nikko Franks MD Diagnosis: called the pt-plr Last Documented On 9 12:50PM By Tim Gutierrez ; [facility] Lortab 10-500 MG OR TABS 10/04/2008 - 10/29/2008 Provi monica: Nikko Franks MD Diagnosis: carine heatonl [phone] Last Documented On 9 1:14PM By Tim Gutierrez ; [facility] Lortab 10-500 MG OR TABS 09/10/2008 - 10/05/2008 Provi monica: Nikko Farnks MD Diagnosis: j anl [phone] JRK/plr Last Documented On 9 11:28AM By Tim Gutierrez ; [facility] Duragesic-75 75 MCG/HR TD PT72 09/04/2008 - 10/04/2008 Provider: Nikko Franks MD Diagnosis: 1q 3 days/PRATIMA/pp Last Documented On 9 11:30AM By Torsten Kinney User ; [facility] Lortab 10-500 MG OR TABS 08/16/2008 - 09/10/2008 Provi monica: Nikko Franks MD Diagnosis: j anl [phone] JRK Last Documented On 9 11:20AM By Tim Gutierrez ; [facility] Duragesic-75 75 MCG/HR TD PT72 08/08/2008 - 09/07/2008 Provider: Nikko Franks MD Diagnosis: 1 q 3 days/PRATIMA/pp Last Documented On 9 10:14AM By Torsten Kinney User ; [facility] Lortab 10-500 MG OR TABS 07/25/2008 - 08/19/2008 Provi monica: Nikko Franks MD Diagnosis: carine anl [phone] plr Last Documented On 9 9:39AM By Tim Gutierrez ; [facility] Duragesic-75 75 MCG/HR TD PT72 07/10/2008 - 08/09/2008 Provider: Nikko Franks MD Diagnosis: 1 q 3 days/PRATIMA/pp Last Documented On 9 8:47AM By Torsten Kinney User ; [facility] Lortab 10-500 MG OR TABS 07/02/2008 - 07/27/2008 Provi monica: Nikko Franks MD Diagnosis: j anl [phone] jrk Last Documented On 9 11:29AM By Tim Gutierrez ; [facility] Duragesic-75 75 MCG/HR TD PT72 06/13/2008 - 07/13/2008 Provider: Nikko Franks MD Diagnosis: 1 q 3 days/PRATIMA Last Documented On 9 10:55AM By Torsten 6 User ; [facility] Lortab 10-500 MG OR TABS 06/10/2008 - 07/05/2008 Provi monica: Nikko Franks MD Diagnosis: carine anl [phone] plr Last Documented On 9 10:05AM By Tim Gutierrez ; [facility] Duragesic-75 75 MCG/HR TD PT72 05/24/2008 - 06/23/2008 Provider: Nikko Franks MD Diagnosis: 1 q 3 d/day- called the 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 script-plr /jrk Last Documented On 9 9:19AM By Tim Gutierrez ; [facility] Lortab 10-500 MG OR TABS 05/16/2008 - 06/10/2008 Provi monica: Nikko Franks MD Diagnosis: carine anl [phone] jrk/jsb Last Documented On 9 9:31AM By Tim Gutierrez ; [facility] Lortab 10-500 MG OR TABS 04/18/2008 - 05/13/2008 Provi monica: Nikko Franks MD Diagnosis: Last Documented On 8 12:17PM By Torsten 6 User ; [facility] Duragesic-75 75 MCG/HR TD PT72 04/18/2008 - 05/18/2008 Provider: Nikko Franks MD Diagnosis: 1 q 3 d/dawpp Last Documented On 8 12:17PM By Torsten 6 User ; [facility] Duragesic-75 75 MCG/HR TD PT72 03/25/2008 - 04/24/2008 Provider: Nikko Franks MD Diagnosis: 1 q 3 d/dawpp Last Documented On 8 10:57AM By Torsten 6 User ; [facility] Lortab 10-500 MG OR TABS 03/25/2008 - 04/19/2008 Provi monica: Nikko Franks MD Diagnosis: Last Documented On 8 10:57AM By Torsten 6 User ; [facility] Lortab 10-500 MG OR TABS 03/01/2008 - 03/26/2008 Provi monica: Nikko Franks MD Diagnosis: carine veronica bhakta [phone] jrk Last Documented On 8 9:47AM By Tim Gutierrez ; [facility] Duragesic-75 75 MCG/HR TD PT72 02/27/2008 - 03/28/2008 Provider: Nikko Franks MD Diagnosis: 1 q 3 d/dawpp Last Documented On 8 11:12AM By Torsten Ferrer User ; [facility] Lortab 10-500 MG OR TABS 02/06/2008 - 03/02/2008 Provi monica: Nikko Franks MD Diagnosis: adolfo [phone] plr Last Documented On 8 10:09AM By Tim Gutierrez ; [facility] Duragesic-75 75 MCG/HR TD PT72 01/24/2008 - 02/23/2008 Provider: Nikko Franks MD Diagnosis: 1 q 3 days/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/pp Last Documented On 8 10:23AM By Torsten Ferrer User ; [facility] Lortab 10-500 MG OR TABS 01/09/2008 - 02/03/2008 Provi monica: Nikko Franks MD Diagnosis: adolfo [phone] jsb Last Documented On 8 12:54PM By Tim Gutierrez ; [facility] Duragesic-75 75 MCG/HR TD PT72 12/29/2007 - 01/28/2008 Provider: Nikko Franks MD Diagnosis: [id number] 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 i l/m for her to call jrk Last Documented On 8 9:04AM By Tim Gutierrez ; [facility] Lortab 10-500 MG OR TABS 12/14/2007 - 01/08/2008 Provi monica: Nikko Franks MD Diagnosis: Carine&Yony [phone] jrk Last Documented On 8 10:21AM By Tim Gutierrez ; [facility] Duragesic-75 75 MCG/HR TD PT72 11/27/2007 - 12/27/2007 Provider: Nikko Franks MD Diagnosis: [id number] 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 i l/m for her to call jsb Last Documented On 8 12:26PM By Tim Gutierrez ; [facility] Lortab 10-500 MG OR TABS 11/21/2007 - 12/16/2007 Provi monica: Nikko Franks MD Diagnosis: J&L [phone] jsb/plr Last Documented On 8 10:33AM By Tim Gutierrez ; [facility] Duragesic-75 75 MCG/HR TD PT72 10/30/2007 - 11/29/2007 Provider: Nikko Franks MD Diagnosis: 1q 3days 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 jsb Last Documented On 8 11:22AM By Torsten 6 Adamaris ; [facility] Lortab 10-500 MG OR TABS 10/24/2007 - 11/18/2007 Provi monica: Nikko Franks MD Diagnosis: J&L [phone] jrk Last Documented On 8 11:37AM By Tim Gutierrez ; [facility] Duragesic-75 75 MCG/HR TD PT72 09/26/2007 - 10/26/2007 Provider: Nikko Franks MD Diagnosis: 1q 3days 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 jsb Last Documented On 8 12:50PM By Tim Gutierrez ; [facility] Lortab 10-500 MG OR TABS 09/22/2007 - 10/17/2007 Provi monica: Nikko Franks MD Diagnosis: [phone] J&[facility] brett hall Last Documented On 8 9:52AM By Tim Gutierrez ; [facility] Duragesic-75 75 MCG/HR TD PT72 08/28/2007 - 09/27/2007 Provider: Nikko Franks MD Diagnosis: 1 q3days 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 jsb Last Documented On 8 12:27PM By Tim Gutierrez ; [facility] Lortab 10-500 MG OR TABS 08/28/2007 - 09/22/2007 Provi monica: Nikko Franks MD Diagnosis: 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 jsb Last Documented On 8 12:26PM By Tim Gutierrez ; [facility] Lortab 10-500 MG OR TABS 08/03/2007 - 08/28/2007 Provi monica: Nikko Franks MD Diagnosis: [phone] plr Last Documented On 8 9:14AM By Tim Gutierrez ; [facility] Duragesic-75 75 MCG/HR TD PT72 07/24/2007 - 08/23/2007 Provider: Nikko Franks MD Diagnosis: [id number] 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 jsb Last Documented On 8 10:37AM By Torsten Ferrer User ; [facility] Duragesic-75 75 MCG/HR TD PT72 07/04/2007 - 08/03/2007 Provider: Nikko Franks MD Diagnosis: [id number] 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 jsb Last Documented On 8 9:33AM By Tim Gutierrez ; [facility] Lortab 10-500 MG OR TABS 07/04/2007 - 07/29/2007 Provi monica: Nikko Franks MD Diagnosis: 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 jsb Last Documented On 8 9:32AM By Tim Gutierrez ; [facility] Duragesic-75 75 MCG/HR TD PT72 06/05/2007 - 07/05/2007 Provider: Nikko Franks MD Diagnosis: 2h3ndzh//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 df Last Documented On 8 11:33AM By Torsten 6 User ; [facility] Lortab 10-500 MG OR TABS 06/05/2007 - 06/30/2007 Provi monica: Nikko Franks MD Diagnosis: [phone] df/jsb Last Documented On 8 11:32AM By Torsten 6 User ; [facility] Lortab 10-500 MG OR TABS 05/11/2007 - 06/05/2007 Provi monica: Nikko Franks MD Diagnosis: [phone] df/jsb Last Documented On 8 9:17AM By Tim Gutierrez ; [facility] NOTE EX MISC 05/01/2007 - 05/02/2007 Provider: Carlos Manuel Franks MD Diagnosis: pt called remoises medranoas e in lortab//per cristian pt is to take lortab tid only. pp spoke to pt df Last Documented On 7 1:09PM By Zeynep Wing ; [facility] Duragesic-75 75 MCG/HR TD PT72 05/01/2007 - 05/31/2007 Provider: Nikko Franks MD Diagnosis: [id number]//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 df Last Documented On 7 12:06PM By Zeynep Wing ; [facility] Lortab 10-500 MG OR TABS 04/27/2007 - 05/17/2007 Provi monica: Nikko Franks MD Diagnosis: [phone] df Last Documented On 7 12:28PM By Zeynep Wing ; [facility] DENIED EX MISC 04/20/2007 - 04/21/2007 Provider: Manpreet Franks MD Diagnosis: pt called for lortab. she wa nted it called in early due to holiday. no per dr bhakta pt is not due until 05-02-07. pt may call back the . l/m for her to Last Documented On 7 11:22AM By Tim Gutierrez ; [facility] Lortab 10-500 MG OR TABS 03/30/2007 - 05/02/2007 Provi monica: Nikko Franks MD Diagnosis: [phone] df Last Documented On 7 1:18PM By Tim Gutierrez ; [facility] Duragesic-75 75 MCG/HR TD PT72 03/21/2007 - 04/20/2007 Provider: Nikko Franks MD Diagnosis: [id number] do not sub pt to pic k up. i l/m for pt to call. jsb Last Documented On 7 10:59AM By Tim Gutierrez ; [facility] Lortab 10-500 MG OR TABS 03/03/2007 - 04/05/2007 Provi monica: Nikko Franks MD Diagnosis: adolfo [phone] quantity is 100 jsb Last Documented On 7 1:03PM By Tim Gutierrez ; [facility] Duragesic-75 75 MCG/HR TD PT72 02/20/2007 - 02/23/2007 Provider: Nikko Franks MD Diagnosis: 1 of 3 days/ called the 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 script/plr Last Documented On 7 12:09PM By Torsten 6 User ; [facility] Lortab 10-500 MG OR TABS 02/02/2007 - 03/07/2007 Provi monica: Nikko Franks MD Diagnosis: Last Documented On 7 11:14AM By Torsten 6 User ; [facility] Duragesic-75 75 MCG/HR TD PT72 01/17/2007 - 01/20/2007 Provider: Nikko Franks MD Diagnosis: 1 of 3 days/ called the 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 script/plr Last Documented On 7 8:55AM By Tim Gutierrez ; [facility] Lortab 10-500 MG OR TABS 01/06/2007 - 01/31/2007 Provi monica: Nikko Franks MD Diagnosis: j&l [phone]/rp Last Documented On 7 9:42AM By Torsten 4 User ; [facility] Duragesic-75 75 MCG/HR TD PT72 12/19/2006 - 12/22/2006 Provider: Nikko Franks MD Diagnosis: 1 of 3 days/ advised pt ready to be picker / packer/rp Last Documented On 7 11:57AM By Tim Gutierrez ; [facility] Lortab 10-500 MG OR TABS 12/13/2006 - 01/07/2007 Provi monica: Nikko Franks MD Diagnosis: called to j and l rx at [phone] plr Last Documented On 7 9:38AM By [...] 11/18/2006 Provi monica: Nikko Franks MD Diagnosis: [phone] df Last Documented On 7 11:21AM By Tim Gutierrez ; [facility] Duragesic-75 75 MCG/HR TD PT72 10/19/2006 - 11/18/2006 Provider: Nikko Franks MD Diagnosis: 1q3day do not sub df/jsb Last Documented On 7 1:37PM By Zeynep Wing ; [facility] Lortab 10-500 MG OR TABS 09/27/2006 - 10/22/2006 Provi monica: Nikko Franks MD Diagnosis: called to j & l at [phone] plr Last Documented On 7 1:45PM By Tim Gutierrez ; [facility] Duragesic-75 75 MCG/HR TD PT72 09/22/2006 - 10/22/2006 Provider: Nikko Franks MD Diagnosis: [id number]/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 df Last Documented On 7 10:00AM By Tim Gutierrez ; [facility] Lortab 10-500 MG OR TABS 09/02/2006 - 09/27/2006 Provi monica: Nikko Franks MD Diagnosis: J&L [phone] df/kb Last Documented On 7 11:22AM By Zeynep Wing ; [facility] Duragesic-75 75 MCG/HR TD PT72 08/26/2006 - 09/25/2006 Provider: Nikko Franks MD Diagnosis: 1q 3days 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 jsb do not sub Last Documented On 7 10:22AM By Tim Gutierrez ; [facility] Lortab 10-500 MG OR TABS 08/10/2006 - 09/04/2006 Provi monica: Nikko Franks MD Diagnosis: [phone] df Last Documented On 7 1:01PM By Zeynep Wing ; [facility] Duragesic-75 75 MCG/HR TD PT72 07/26/2006 - 08/25/2006 Provider: Nikko Franks MD Diagnosis: 1 patch every 3 days do not sub. 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 j sb Last Documented On 7 12:22PM By Zeynep Wing ; [facility] Duragesic-75 75 MCG/HR TD PT72 07/26/2006 - 08/25/2006 Provider: Nikko Franks MD Diagnosis: [id number] 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 do not sub df Last Documented On 7 12:16PM By Torsten 4 User ; [facility] Lortab 10-500 MG OR TABS 07/14/2006 - 08/08/2006 Provi monica: Nikko Franks MD Diagnosis: [phone] j and l df Last Documented On 7 12:18PM By Zeynep Wing ; [facility] Duragesic-75 75 MCG/HR TD PT72 06/27/2006 - 07/27/2006 Provider: Nikko Franks MD Diagnosis: [id number] 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 do not sub df Last Documented On 7 12:14PM By Zeynep Wing ; [facility] Lortab 10-500 MG OR TABS 06/22/2006 - 07/17/2006 Provi monica: Nikko Franks MD Diagnosis: [phone] Last Documented On 7 2:35PM By Zeynep Wing ; [facility] Duragesic-75 75 MCG/HR TD PT72 05/26/2006 - 06/25/2006 Provider: Nikko Franks MD Diagnosis: [id number] name brand only 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 jsb Last Documented On 7 8:39AM By Torsten 6 User ; [facility] Lortab 10-500 MG OR TABS 05/26/2006 - 06/20/2006 Provi monica: Nikko Franks MD Diagnosis: j and l [phone] df Last Documented On 7 8:39AM By Torsten 6 User ; [facility] Lortab 10-500 MG OR TABS 05/03/2006 - 05/28/2006 Provi monica: Nikko Franks MD Diagnosis: adolfo [phone] df Last Documented On 7 3:24PM By Zeynep Wing ; [facility] Duragesic-75 75 MCG/HR TD PT72 04/26/2006 - 05/26/2006 Provider: Nikko Franks MD Diagnosis: [id number] name 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 Last Documented On 6 12:01PM By Torsten Kinney User ; [facility] Lortab 10-500 MG OR TABS 03/07/2006 - 04/01/2006 Provi monica: Nikko Franks MD Diagnosis: adolfo [phone] df Last Documented On 6 2:08PM By Zeynep Wing ; [facility] Duragesic-75 75 MCG/HR TD PT72 02/24/2006 - 03/26/2006 Provider: Nikko Franks MD Diagnosis: [id number] l/m for pt to call r x needs to be picked up at the officeNAME BRAND ONLY! Last Documented On 6 9:32AM By Zeynep Wing ; [facility] Lortab 10-500 MG OR TABS 02/22/2006 - 03/02/2006 Provi monica: Nikko Franks MD Diagnosis: [phone] df Last Documented On 6 10:16AM By Zeynep Wing ; [facility] Lortab 10-500 MG OR TABS 02/11/2006 - 02/19/2006 Provi monica: Nikko Franks MD Diagnosis: adolfo [phone] jsb/df Last Documented On 6 11:16AM By Zeynep Wing ; [facility] Lortab 10-500 MG OR TABS 01/31/2006 - 02/08/2006 Provi monica: Nikko Franks MD Diagnosis: carine martin l [phone] df Last Documented On 6 11:33AM By [...] 01/28/2006 Provi monica: Nikko Franks MD Diagnosis: carine martin yony [phone] jsb Last Documented On 6 11:58AM By Tim Gutierrez ; [facility] Lortab 10-500 MG OR TABS 01/07/2006 - 01/15/2006 Provi monica: Nikko Franks MD Diagnosis: j&l rx [phone] th Last Documented On 6 12:33PM By Tim Gutierrez ; [facility] Lortab 10-500 MG OR TABS 12/27/2005 - 01/04/2006 Provi monica: Nikko Franks MD Diagnosis: [phone] df Last Documented On 6 11:11AM By Tim Gutierrez ; [facility] Duragesic-75 75 MCG/HR TD PT72 12/21/2005 - 01/20/2006 Provider: Nikko Franks MD Diagnosis: one patch every three days Last Documented On 6 8:33AM By Sarmiento 5 User ; [facility] Lortab 10-500 MG OR TABS 12/13/2005 - 12/21/2005 Provi monica: Nikko Franks MD Diagnosis: j and l [phone] jsb Last Documented On 6 10:28AM By Zeynep Wing ; [facility] Duragesic-75 75 MCG/HR TD PT72 11/24/2005 - 12/24/2005 Provider: Nikko Franks MD Diagnosis: 1 q 3 days do not substitute jsb Last Documented On 6 11:56AM By Zeynep Wing ; [facility] Lortab 10-500 MG OR TABS 11/24/2005 - 12/02/2005 Provi monica: Nikko Franks MD Diagnosis: 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 with 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.jsb Last Documented On 6 11:55AM By Zeynep Wing ; [facility] Lortab 10-500 MG OR TABS 11/10/2005 - 11/18/2005 Provi monica: Nikko Franks MD Diagnosis: [phone] j and l df Last Documented On 6 12:26PM By Zeynep Wing ; [facility] NOTE EX MISC 10/27/2005 - 10/28/2005 Provider: Carlos Manuel Franks MD Diagnosis: duragesic rx given today/spo ke with [facility] pharmacy to specify name brand only per dr franks/pp Last Documented On 6 4:55PM By Vi Ashley ; [facility] Lortab 7.5-500 MG OR TABS 10/27/2005 - 11/26/2005 Prov ider: Nikko Franks MD Diagnosis: Last Documented On 6 11:59AM By Torsten Ferrer User ; [facility] Duragesic-75 75 MCG/HR TD PT72 10/27/2005 - 11/26/2005 Provider: Nikko Franks MD Diagnosis: 1 Q 3 DAYS PT TO 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 FIGHTER CRASH 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 AND RESCUE DF Last Documented On 6 11:58AM By Torsten Ferrer User ; [facility] Lyrica 75 MG OR CAPS 10/27/2005 - 11/03/2005 Provider: Nikko Franks MD Diagnosis: Last Documented On 6 11:54AM By Torsten Ferrer User ; [facility] Lortab 10-500 MG OR TABS 10/21/2005 - 10/29/2005 Provi monica: Nikko Franks MD Diagnosis: quantitiy is 30 j and l [phone] jsb/rp Last Documented On 6 10:43AM By Zeynep Wing ; [facility] Lortab 10-500 MG OR TABS 10/13/2005 - 10/21/2005 Provi monica: Nikko Franks MD Diagnosis: quantity is 30 j and l [phone] jsb Last Documented On 6 11:54AM By Zeynep Wing ; [facility] Lortab 10-500 MG OR TABS 09/29/2005 - 10/06/2005 Provi monica: José Miguel Sin MD Diagnosis: Last Documented On 6 3:48PM By [facility] ; [facility] Cipro 500 MG OR TABS 09/23/2005 - 09/26/2005 Provider: Nikko Franks MD Diagnosis: take bid day of appt,day of, and day after dental appt. 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 pt is also allergic to several antibiotics. jsb l/m for pt to call df Last Documented On 6 3:17PM By Zeynep Wing ; [facility] Lortab 10-500 MG OR TABS 09/16/2005 - 09/23/2005 Provi monica: José Miguel Sin MD Diagnosis: called to [facility] [phone]//ms jose angel eirs will give written script for lortab 7.5 to pharmacist at [facility]//dc Last Documented On 6 11:22AM By Susy Bobby ; [facility] Lortab 10-500 MG OR TABS 09/09/2005 - 09/16/2005 Provi monica: José Miguel Sin MD Diagnosis: called to [facility] [phone] Last Documented On 6 9:36AM By Susy Bobby ; [facility] Duragesic-75 75 MCG/HR TD PT72 08/30/2005 - 09/29/2005 Provider: Nikko Franks MD Diagnosis: [id number]/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. df Last Documented On 6 10:09AM By Zeynep Wing ; [facility] NOTE EX MISC 08/18/2005 - 08/19/2005 Provider: Carlos Manuel Franks MD Diagnosis: recieved call from pt that s he had fx'ed her hand and [facility] dr pelayo and would receive post op meds from him df Last Documented On 6 10:06AM By Tim Gutierrez ; [facility] Lortab 7.5-500 MG OR TABS 08/04/2005 - 08/19/2005 Prov ider: Nikko Franks MD Diagnosis: adolfo [phone] df Last Documented On 6 2:52PM By Zeynep Wing ; [facility] Duragesic-75 75 MCG/HR TD PT72 07/30/2005 - 08/29/2005 Provider: Nikko Franks MD Diagnosis: 1 patch every three days. rp Last Documented On 6 12:31PM By Zeynep Wing ; [facility] Lortab 7.5-500 MG OR TABS 07/20/2005 - 08/04/2005 Prov ider: Nikko Franks MD Diagnosis: Carine VERONICA Yony [phone] JSB Last Documented On 6 11:02AM By Zeynep Wing ; [facility] Cipro 500 MG OR TABS 07/09/2005 - 07/14/2005 Provider: Kei Donovan MD Diagnosis: LF Last Documented On 6 11:13AM By Torsten Ferrer User ; [facility] Lortab 7.5-500 MG OR TABS 07/01/2005 - 07/16/2005 Prov ider: Nikko Franks MD Diagnosis: 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 jsb Last Documented On 6 8:32AM By Tim Gutierrez ; [facility] Duragesic-75 75 MCG/HR TD PT72 07/01/2005 - 07/31/2005 Provider: Nikko Franks MD Diagnosis: 1 patch every 3 days jsb Last Documented On 6 8:30AM By Tim Gutierrez ; [facility] Lortab 5-500 MG OR TABS 06/11/2005 - 07/04/2005 Provid er: Nikko Franks MD Diagnosis: adolfo [phone] df Last Documented On 6 9:23AM By Tim Gutierrez ; [facility] Duragesic-75 75 MCG/HR TD PT72 05/31/2005 - 06/30/2005 Provider: Nikko Franks MD Diagnosis: 1 q 3 days l/m for pt to call needs to picker / packer s cript df Last Documented On 6 12:13PM By Zeynep Wing ; [facility] Lortab 5-500 MG OR TABS 05/21/2005 - 06/12/2005 Provid er: Nikko Franks MD Diagnosis: zhao bhakta [phone] jsb Last Documented On 6 12:33PM By Zeynep Wing ; [facility] Duragesic-75 75 MCG/HR TD PT72 05/04/2005 - 06/03/2005 Provider: Nikko Franks MD Diagnosis: [id number] pt to pick upl/m for pt to call df Last Documented On 6 12:31PM By Tim Gutierrez ; [facility] Lortab 7.5-500 MG OR TABS 04/30/2005 - 05/23/2005 Prov ider: Nikko Franks MD Diagnosis: [phone] RP Last Documented On 5 11:09AM By Soheila Warner ; [facility] Lortab 7.5-500 MG OR TABS 04/09/2005 - 05/02/2005 Prov ider: Nikko Franks MD Diagnosis: adolfo [phone] jsb/df Last Documented On 5 9:02AM By Zeynep Wing ; [facility] Duragesic-75 75 MCG/HR TD PT72 04/06/2005 - 05/06/2005 Provider: Nikko Franks MD Diagnosis: [id number] 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 df Last Documented On 5 9:18AM By Zeynep Wing ; [facility] Medications Administered Includes: Administered Medications from this encounter No Administered Medications Recorded Vital Signs Includes: Vital Signs from this encounter Vital Name 08/09/2022 09:09A Height (in) 65 Weight (lb) 116 Body Mass Index 19.3 Body Surface Area 1.6 Note: bb Last Documented: On 08/09/2022 9:10AM ; [facility] Results Includes: Results discussed during this encounter No Results Recorded For Specified Dates History of Present Illness Includes: History of Present Illness from this encounter JAY Phillips is a 71 year old female. - Allergy list reviewed - Problem list reviewed - Medication list reviewed - Previous history of chronic pain - New onset Injury is not work related or an automotive accident - Patient pain level from 1-10: 3 - Yes, previous treatment. @ [facility] - History of Physical Therapy - History of Home Exercise - History of Injections Medications used for this condition: This is a 71-year-old patient of Dr. Franks who is seeing me for the first time today. She has a complex chronic pain patient. She is chronically on fentanyl patches, oral opioids, and high-dose gabapentin. She recently saw a pain management physician at [place] who is uncomfortable with her medication regimen and recommended that she get her hip replaced which I think she did. Today, her main complaint is being upset her chronic pain medications are not being refilled currently. Denies other new issues at this time. She walks with a walker at baseline. Social History Description Last Updated Tobacco non-user 11/01/2022 Last Documented On 3 9:01AM ; [facility] No caffeine use 11/01/2022 Last Documented On 3 9:01AM ; [facility] No recent change in diet 11/01/2022 Last Documented On 3 9:01AM ; [facility] Not a current smoker. 11/01/2022 Last Documented On 3 9:01AM ; [facility] Not using alcohol 11/01/2022 Last Documented On 3 9:01AM ; [facility] Not using drugs 11/01/2022 Last Documented On 3 9:01AM ; [facility] Not exercising regularly 09/18/2015 Last Documented On 3 9:01AM ; [facility] Smoking Status Unknown Procedures and Surgical History Includes: Procedures from this encounter Procedures Code Diagnosis Performing Provider Service L ocation Service Date use of tobacco assessment performed 1000F Last Documented On 3 9:01AM ; [facility] no influenza immunization patient refuse d Last Documented On 3 9:01AM ; [facility] patient screened for future fall risk: documentation of any fall with injury in past year 1100F Last Documented On 3 9:01AM ; [facility] an X-ray was performed 03/03 [facility] @ [facility] ~03/04/2021 [facility] @ [facility] ~02/22/2022 [facility] @ [facility] [id number] Last Documented On 3 9:04AM ; [facility] [place] [facility] [id number] Last Documented On 3 9:04AM ; [facility] Surgical History Last Updated History of appendectomy 11/19/2019 Last Documented On 3 9:01AM ; [facility] History of back surgery 09/18/2015 Last Documented On 3 9:01AM ; [facility] History of total hip replacement 016 Last Documented On 3 9:01AM ; [facility] Medical History Includes: Medical History addressed during this encounter Description Last Updated No recent immunization for flu 3 Last Documented On 3 9:01AM ; [facility] No recent immunization for pneumococcal pneumonia 11/01/2022 Last Documented On 3 9:01AM ; [facility] Past Surgical History: Gastr ic bypass ~Intestinal bypass ~Cataracts ~skin cancer removal from abdomen 02/22/2022 Last Documented On 3 9:01AM ; [facility] Previous Fractures Pelvis 03/05/2021 Last Documented On 3 9:01AM ; [facility] Heartburn / Acid Reflux 11/24/2020 Last Documented On 3 9:01AM ; [facility] History of Blood Transfusion 11/24/2020 Last Documented On 3 9:01AM ; [facility] Anemia 11/24/2020 Last Documented On 3 9:01AM ; [facility] Arthritis 11/24/2020 Last Documented On 3 9:01AM ; [facility] History of Fractures 11/24/2020 Last Documented On 3 9:01AM ; [facility] History of Gallbladder 11/24/2020 Last Documented On 3 9:01AM ; [facility] History of depression 02/21/2017 Last Documented On 3 9:01AM ; [facility] History of osteoporosis 02/21/2017 Last Documented On 3 9:01AM ; THE [facility] Family History Includes: Family History addressed during this encounter Description Last Updated Diabetes mellitus Father 11/24/2021 Last Documented On 3 9:01AM ; [facility] Family history of hypertension 1 Last Documented On 3 9:01AM ; [facility] Family history of cancer father 09/18/19 16 Last Documented On 3 9:01AM ; [facility] Family history of osteoporosis mother Last Documented On 3 9:01AM ; [facility] Family history of rheumatoid arthritis m other 09/18/2015 Last Documented On 3 9:01AM ; [facility] Review of Systems Includes: Review of Systems [...] easy bruising, and no Anemia. Musculoskeletal: No Arthritis. Lower back pain. No soft tissue swelling and no localized joint pain. Neurological: No dizziness, no convulsions, and no numbness. Psychological: No anxiety, no emotional lability, no depression, and no insomnia. Not crying for no reason. Skin: No dry skin. No Ulcers, no Scars, and no rash. Allergic and Immunologic: No complaint of seasonal allergic reaction. reviewed 08/09/2022 Mental Status Includes: Mental Status from this encounter Description No anxiety Functional Status Includes: Functional Status from this encounter No Functional Status Recorded Physical Exam Includes: Physical Exam from this encounter Allergies Includes: Active Allergies Substance Type Reaction Onset Date Resolved Date Statu s traMADol HCl Allergy Nausea, Vomiting , Diarrhea / Diarrheal disorder 11/24/2020 Active Last Documented On 3 9:22AM ; [facility] Tetracycline Allergy 11/24/2020 Active Last Documented On 3 9:22AM ; [facility] Sulfa Antibiotics Allergy Nausea, Vomiti ng, Diarrhea / Diarrheal disorder 11/24/2020 Active Last Documented On 3 9:22AM ; [facility] Penicillins Allergy Nausea, Vomiting , Diarrhea / Diarrheal disorder 11/24/2020 Active Last Documented On 3 9:22AM ; [facility] IODINE Allergy 11/24/2020 Active Last Documented On 3 9:22AM ; [facility] Erythromycin Allergy 11/24/2020 Active Last Documented On 3 9:22AM ; [facility] Encounters Encounter Provider Location Date Check-In Time Check-Out Time Diagnosis Physician Specified Stanford mendoza MD [facility] 08/10/19 23 8:59AM 10:05AM Insurance Includes: Active Insurance Policies Plan Name Member ID Group # Subscriber Relationship Effect yennifer Dates 1 - Medicare Part B [facility] [id number] Junie Phillips Self 12/01/2011 - Unknown 2 - [facility] CLAIMS DIVISION [id number] Junie Phillips Self 6 - Unknown Clinical Notes Includes: Clinical Notes from this encounter * Progress note Date Encounter Last Documented by 08/09/2022 Physician Specified Last documen hanna on 08/01/2023; 6:01 PM, Stanford Richey MD; [facility] Active Problems & Conditions - History of Joint Pain in the Left Hip - Low Back Pain Chief Complaint The Chief Complaint is: Low back pain. Referred Here Referred by Self. History of Present Illness Junie Phillips is a 71 year old female. - Allergy list reviewed - Problem list reviewed - Medication list reviewed - Previous history of chronic pain - New onset Injury is not work related or an automotive accident - Patient pain level from 1-10: 3 - Yes, previous treatment. @ [facility] - History of Physical Therapy - History of Home Exercise - History of Injections Medications used for this condition: This is a 71-year-old patient of Dr. Franks who is seeing me for the first time today. She has a complex chronic pain patient. She is chronically on fentanyl patches, oral opioids, and high-dose gabapentin. She recently saw a pain management physician at [place] who is uncomfortable with her medication regimen and recommended that she get her hip replaced which I think she did. Today, her main complaint is being upset her chronic pain medications are not being refilled currently. Denies other new issues at this time. She walks with a walker at baseline. Current Medication - busPIRone HCl 15 MG Oral Tablet 90 days, 0 refills - Colace 100 MG Oral Capsule 1-2 tabs daily, 30 days, 2 refills - diazePAM 5 MG Oral Tablet take as directed 30 days, 0 refills - fentaNYL 75 MCG/HR Transdermal Patch 72 Hour take as directed 30 days, 0 refills - Gabapentin 600 MG Oral Tablet take as directed 30 days, 0 refills - HYDROcodone-Acetaminophen 10-325 MG Oral Tablet take as directed 30 days, 0 refills - Bawbadmy-Qyrlrmpoz-Dubdzzbo 3.5-27527-2.1 Ophthalmic Ointment 3.5-79304-9.1 take as directed 30 days, 0 refills - Promethazine HCl 25 MG Oral Tablet take as directed 90 days, 0 refills - risperiDONE 0.5 MG Oral Tablet take as directed 90 days, 0 refills - Zolpidem Tartrate 10 MG Oral Tablet take as directed 30 days, 0 refills Past Medical/Surgical History Reported: History of Fractures. Immunization History: No recent immunization for flu and not for pneumococcal pneumonia. Diagnoses: Anemia History of Blood Transfusion Heartburn / Acid Reflux. Osteoporosis. Arthritis. Depression Surgical: - Appendectomy - Past Surgical History: Gastric bypass Intestinal bypass Cataracts skin cancer removal from abdomen - History of Gallbladder - Previous Fractures Pelvis - Back surgery - Total hip replacement Social History Not a current smoker. Current diet: No recent change in diet. Caffeine use: No caffeine use. Tobacco use: Tobacco non-user. Alcohol: Not using alcohol. Drug Use: Not using drugs. Habits: Not exercising regularly. Allergies - Erythromycin - IODINE - Penicillins Reaction: Diarrhea / Diarrheal disorder, Nausea, Vomiting - Sulfa Antibiotics Reaction: Diarrhea / Diarrheal disorder, Nausea, Vomiting - Tetracycline - traMADol HCl Reaction: Diarrhea / Diarrheal disorder, Nausea, Vomiting Family History Cancer father Diabetes mellitus Father Systemic hypertension Osteoporosis mother Rheumatoid arthritis mother Review Of Systems Systemic: Not feeling tired, [...] easy bruising, and no Anemia. Musculoskeletal: No Arthritis. Lower back pain. No soft tissue swelling and no localized joint pain. Neurological: No dizziness, no convulsions, and no numbness. Psychological: No anxiety, no emotional lability, no depression, and no insomnia. Not crying for no reason. Skin: No dry skin. No Ulcers, no Scars, and no rash. Allergic and Immunologic: No complaint of seasonal allergic reaction. reviewed 08/09/2022 Physical Findings - Vitals taken 08/09/2022 09:09 am bb Height 65 in Weight 116 lbs Body Mass Index 19.3 kg/m2 Body Surface Area 1.6 m2 General: This is a frail-appearing 71-year-old female in no acute distress HEENT: Normocephalic atraumatic Pulmonary: Unlabored breathing Focused musculoskeletal exam of the spine She ambulates with a walker She has no gross weakness in her bilateral hip flexors, bilateral knee extensors, bilateral ankle dorsiflexors or great toe extensors, and bilateral gastrocsoleus complexes She has no gross sensory deficits bilaterally in the lower extremities User Defined 5 This is a 71-year-old female with chronic low back pain status postL3-S1 decompressive arthrodesis many years ago by Dr. Franks It was interesting meeting Junie in the office today. We will provide her a referral to Dr. Carrasco's office in [place]. I think the main issue is that she did not have a good therapeutic relationship with her other pain management physician. We will send today's office note to her primary care physician so he is aware of the plan. Otherwise, she can follow-up with me or Cristian Au on an as-needed basis. Fall Risk Assessment: This patient has been [...] therapy has been discussed with the patient. Previous Tests Imaging: X-Ray: An X-ray was performed 03/03/2020 [facility] [address] @ [facility] 03/04/2021 [facility] [address] @ [facility] 02/22/2022 [facility] [address] @ [facility]. MRI Scan: An MRI was performed 2008 [facility] [address] @ [facility]. Plan StartCited - care home (current) use of opiate analgesic Referral/Pain Management: Consult for Pain Management Instructions: DR YOLANDA ELIZABETH EndCited Practice Management Use of tobacco assessment performed and patient screened for future fall risk documentation of any fall with injury in past year; No influenza immunization patient refused. Care Team - Jasson Galvan MD Notes This dictation was done with voice recognition software and may contain errors and omissions.
--- OUTSIDE RECORDS SUMMARY | 2024-08-15 10:55 | XMS_ITS | Continuity of Care Document ---
Author Organization [facility], [facility] [place] Address [address] [place] [address] Assessment No assessment recorded. Plan of Treatment Reminders Order Date Submit Date Provider Last Modified By Organization Details Last Modified Time Details Appointments None recorded. Lab None recorded. Referral None recorded. Procedures None recorded. Surgeries None recorded. Imaging None recorded. Medication Orders diazepam 5 mg tablet 2024 025 [facility], [address] [place] [address], [address], 11:48:41 risperidone 0.5 mg tablet 2024 025 [facility], [address] [place] [address], [place], [address], 12:29:13 bupropion HCl 75 mg tablet 2024 025 [facility], [address] [place] [address], [place], [address], 11:37:39 Ambien CR 12.5 mg tablet,exte nded release 2024 025 [facility], [address] [place] [address], [address], 11:37:40 promethazin e 25 mg tablet 2024 025 [facility], [address] [place] [address], [address], 5 11:37:36 gabapentin 600 mg tablet 2024 025 [facility], [address] [place] [address] 7, [place], [address], 5 11:37:37 zolpidem 10 mg tablet 2024 025 [facility], [address] [place] [address], [place], [address], 5 11:37:37 Patient TargetsNo targets recorded. Patient InstructionsNo instructions recorded. Reason for Referral None Reported. Problems Name Problem SNOMED Code Status Onset Date Resolution Date Notes Provider Name and Address Organization Details Recorded Time Dysuria 23313518 Active 2022 BAMBI GARCIAS, DO [address] [place], [address], [facility] 3 11:24:39 Acute urinary tract infection 795268730 Active 2022 BAMBI GARCIAS, DO [address] [place], [address], [facility] 3 11:35:11 Chronic pain syndrome 139566118 Active 2022 HANG DOBBINS, DO [address] [place], [address], [facility] 3 11:11:15 Diarrhea 68393395 Active 2022 HANG DOBBINS, DO [address] [place], [address], [facility] 3 11:11:17 Recurrent urinary tract infection 611698680 Active 2022 HANG DOBBINS, DO [address] [place], [address], [facility] 3 10:41:03 Recurrent major depression in partial remission 20716408 Active 2023 HANG DOBBINS, DO [address] [place], [address], [facility] 4 14:33:07 Superior mesenteric artery syndrome 596855194 Active 2023 HANG EVA DOBBINS, DO [address] [place], [address], [facility] 4 14:42:53 At increased risk of polypharmacy 376717856 Active 2024 HANG EVA DOBBINS, DO [address] [place], [address], [facility] 5 16:55:29 Notes:pt has a uti she has b een having diarrhea for a week Problem Notes None recorded. Medical Equipment None Reported. Allergies Allergen ID Allergen Name Allergen Category Reaction Reaction Severity Criticality Documentation Date Start Date Code Code System Note Provider Name and Address Organization Details Recorded Time 387783 Doryx medicatio n Not available Not available Not available 03/25/20162012 27871 7 RxNorm Comme nt: Creat ed By: Jett Cartagena reate d Date: 2012 5:06: 55 PM; Not Available [facility] 6 10:57:30 023397 diphenhyd ramine hydrochlo ride medicatio n Not available Not available Not available 03/25/20162012 1362 RxNorm Comme nt: Creat ed By: Jett Cartagena reate d Date: 2012 5:07: 38 PM; Not Available [facility] 6 11:04:44 614921 Ultram medicatio n Not available Not available Not available 03/25/20162012 24648 6 RxNorm Comme nt: Creat ed By: Jett Cartagena reate d Date: 2012 5:08: 25 PM; Not Available [facility] 6 11:57:02 788242 iodine medicatio n Not available Not available Not available 03/26/20162012 5933 RxNorm Comme nt: Creat ed By: Jett Cartagena reate d Date: 2012 5:07: 48 PM; Not Available [facility] 6 04:37:47 062206 Product containin g penicilli n (product) medicatio n Not available Not available Not available 03/26/20162012 44753 8001 SNOMED Comme nt: Creat ed By: Jett lazar;Cj kinney d Date: 2012 5:08: 02 PM; Not Available [facility] 6 04:37:47 693865 Terramyci n medicatio n Not available Not available Not available 03/26/20162012 24570 4 RxNorm Comme nt: Creat ed By: Jett lazar;Cj thomson Date: 2012 5:08: 12 PM; Not Available [facility] 6 08:22:49 Medications Name Sig Start Date [...] Not Available Not Available Not Available Valium 09/12 /2023 completed Medicati on Descript ion: diazepam ; [...] and Address Organization Details Last Updated DateTime 165.1 cm 21.5 kg/m2 79114.4 2 g 93 % 93 % 92 /min 115 mm[Hg] 76 mm[Hg] Erica Galloway [facility] 11:30:54 Social History Question Answer Notes LastModified by Organizat ion Details LastModified Time Tobacco Smoking Status Never Smoker Radha suarez, [facility] 01/11/2023 11:53:44 What Is Your Level Of [...] or 50 mcg/0.25mL dose 06/06/2020 [facility] 14:03:29 COVID-19, mRNA, LNP-S, PF, 100 mcg/0.5mL dose or 50 mcg/0.25mL dose 07/04/2020 [facility]2023 14:03:29 COVID-19, mRNA, LNP-S, PF, 100 mcg/0.5mL dose or 50 mcg/0.25mL dose 03/20/2021 completed Erica Mccauley [facility] 12/06/2023 14:03:29 zoster live 04/03/2015 completed Erica Mccauley [facility] 12/06/2023 14:03:29 Influenza, high-dose, trivalent, PF 06/06/2019 completed Erica Mccauley [facility] 12/06/2023 14:03:29 Influenza, split virus, quadrivalent, PF 04/03/2015 completed Erica Mccauley [facility] 12/06/2023 14:03:29 COVID-19, mRNA, LNP-S, PF, 50 mcg/0.5 mL 04/06/2023 completed Erica Mccauley [facility] 12/06/2023 14:03:34 Influenza, high-dose, quadrivalent, PF 01/11/2023 completed Lina Jensen [facility] 01/11/2023 13:19:18 Influenza, high-dose, trivalent, PF 02/17/2024 completed HANG MAC DO [address] [place] [address], [address], [facility] 02/17/2024 12:40:35 Past Encounters Encounter ID Performer Location Encounter Start Date Encounter Closed Date Diagnosis/Indication Diagnosis SNOMED-CT Code Diagnosis ICD10 Code Diagnosis Note [id number] HANG JAIMES LL, DO [facility] [address] [place] [address] 07/25/2024 11:12:26 07/25/2024 11:48:06 Renewal of prescription 964013817 Z76.0 Nausea 407460204 R11.0 Bipolar disorder 5774984 [address] Huffman -- 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 Chronic pain syndrome 37 1200275 G89.4 on meds. - dr Chicas mgt- to see Dr Dempsey. At [facility] risk of polypharmacy 095132882 Z91.89 Patient is elderly and has been [...] by Organization Details LastModified Time None Recorded Payers Encounter Date Sequence Insurance Name Policy Number Policy Borden Covered Member ID Borden Member ID Guarantor Name 07/25/2024 1 MEDICARE-[place] (MEDICARE) Junie W Meraryirs [id number] Junie W Meraryirs 07/25/2024 2 [facility] (MEDICARE SUPPLEMENT) PLAN F Junie W Meraryirs [id number] Junie Phillips Notes Date Note Type Note Provider Name and Address Organization Details Recorded Time 07/25/2024 text/html Patient is 73-year-old female here for follow-up visit, she has bipolar depression on medication, she also has chronic pain syndrome, she is in the search of a new psychiatrist, her old psychiatrist recently after 30 years.She has found a new psychiatrist but does not need medication until she is able to see them. She feels like she is doing fine right now HANG MAC, DO [address], [place], [address], [place] [facility] 07/25/2024 16:55:34 OBGyn Episode No OBEpisode recorded.
--- OUTSIDE RECORDS SUMMARY | 2024-08-15 10:55 | XMS_ITS | Clinical Summary ---
Author Organization [facility] , [facility] Address [address] [place] [place] [address] Phone Care Team Providers Care Mangle Operator Garments Name Role Phone Cole POTTS, Jasson Unavailable [phone] Frandy POTTS, Tam Unavailable [phone] Reason for Visit and Chief Complaint [Patient Encounter] Problems Includes: Problems addressed during this encounter and other active Problems All Visits Onset Date Resolved Date Provider Condition S tatus History of Joint Pain in the Left Hip 03/23/2022 Kei Donovan MD Active Last Documented On 2 10:33AM ; [facility], [facility] Low Back Pain 08/29/2018 Tam Wise MD Act yennifer Last Documented On 9 8:59AM ; [facility], [facility] Plan of Treatment No Plan of [...] On 3 9:01AM By Jenn Kwok ; [facility], [facility] fentaNYL 75 MCG/HR Transderm al Patch 72 Hour 04/29/2022 Provider: Alejo Whitfield MD Diagnosis: Last Documented On 3 8:32AM By Sara Fajardo ; [facility], [facility] diazePAM 5 MG Oral Tablet 04/29/2022 Provider: ADILIA MARTINEZ MD Diagnosis: Last Documented On 3 8:31AM By Sara Fajardo ; [facility] HYDROcodone-Acetaminophen 10 -325 MG Oral Tablet 04/29/2022 Provider: Alejo Whitfield MD Diagnosis: Last Documented On 3 8:32AM By aSra Fajardo ; [facility] Gabapentin 600 MG Oral Tablet 04/29/2022 Provider: ÓSCAR MARTINEZ MD Diagnosis: Last Documented On 3 8:32AM By Sara Fajardo ; [facility] Mwlccmji-Ehbewhvxz-Vfuvqggd 3.5-78572-2.1 Ophtha lmic Ointment 04/28/2022 Provider: Diagnosis: Last Documented On 3 8:32AM By Sara Fajardo ; [facility] Zolpidem Tartrate 10 MG Oral Tablet 04/28/2022 Provi monica: ÓSCAR MARTINEZ MD Diagnosis: Last Documented On 3 8:32AM By Sara Fajardo ; [facility] Promethazine HCl 25 MG Oral Tablet 04/28/2022 Provid er: ÓSCAR MARTINEZ MD Diagnosis: Last Documented On 3 8:32AM By Sara Fajardo ; [facility] risperiDONE 0.5 MG Oral Tablet 02/26/2022 Provider: ÓSCAR MARTINEZ MD Diagnosis: Last Documented On 3 8:32AM By Sara Fajardo ; [facility], [facility] Medications Administered Includes: Administered Medications from [...] Check-In Time Check-Out Time Diagnosis [Patient Encounter] Stanford Richey MD 07/23/2022 11:30AM 11:59PM Insurance Includes: Active Insurance Policies Plan Name Member ID Group # Subscriber Relationship Effect yennifer Dates 1 - Medicare Part B [facility] [id number] Junie Monique Phillips Self 12/01/2011 - Unknown 2 - [facility] CLAIMS DIVISION [id number] Junie Phillips Self 6 - Unknown Clinical Notes Includes: Clinical Notes from this encounter No Clinical Notes Recorded
--- NOTE | 2024-08-15 11:29 | EXP.PAIN.SOA ---
[facility] Disclaimer: The information contained in this section may have been updated after the patient was seen, as this information can be updated by other users. Medical History Anxiety Cataracts, bilateral Depression Arthritis Osteoporosis GERD (gastroesophageal reflux disease) Anemia Surgical History Status post total hip replacement, bilateral History of lumbar fusion H/O gastric bypass History of appendectomy Family History Other Cancer Diabetes Hypertension Osteoporosis Rheumatoid arthritis Social History Smoking Status: Former smoker alcohol intake: never substance use type: denies use current occupational status: other Travel in the last 8 weeks: None PM Subjective & Objective Subjective Subjective:: Patient is a pleasant 73-year-old female who presents today for medication refill and follow-up. Today she rates her pain a 4 out of 10. Patient states that she has completed physical therapy from her last visit and her knee ended up getting much better. At her last visit we had scheduled her for a knee injection however she states once she left here it ended up improving and she did call and cancel that injection. Patient is currently managed with Dovray 10 mg 4 times a day, fentanyl 50 mcg patches every 72 hours, ropinirole 0.5 mg at bedtime and tizanidine 4 mg at bedtime. She denies any side effects. Her Sae has been reviewed and is appropriate. Review of Systems: General: No recent weight changes, no fever, no sleep disturbances Respiratory: No cough, no shortness of air, no recurring pulmonary infections Cardiovascular/peripheral vascular: No chest pain, no palpitations, no edema, no shortness of breath Gastrointestinal: No new onset incontinence, normal bowel movements reported Genitourinary: No new onset incontinence Musculoskeletal: Chronic back pain Psychiatric: [Normal mood/affect] Neurological: [Denies weakness in extremities], [denies balance issues] Pain at rest (0-10 scale): 4 Objective Objective:: Physical Exam: General: Alert and oriented x3, no acute distress, pleasant and cooperative Lungs: Respirations even and unlabored, symmetrical chest expansion Eyes: PERRL Musculoskeletal: Flexion and extension of lumbar [spine] somewhat guarded secondary to pain, [antalgic gait noted] Neurological: Speech clear, no gross sensory deficit Has patient had previous pain injection?: No Conservative treatment options previously tried: Prescription medications Length of treatment: Longer than 12 weeks Meds Home Medications and Allergies Home Medications ?Medication ?Instructions ?Recorded ?Confirmed ?Type bupropion HCl 75 mg tablet 75 mg PO DIRECTED MOOD 08/26/22 07/17/24 History diazepam 5 mg tablet 5 mg PO DIRECTED Anxiety 08/26/22 07/17/24 History gabapentin 600 mg tablet 600 mg PO DIRECTED Pain 08/26/22 07/17/24 History promethazine 25 mg tablet 25 mg PO DIRECTED Nausea & 08/26/22 07/17/24 History vomiting zolpidem 10 mg tablet 10 mg PO DIRECTED MOOD 08/26/22 07/17/24 History risperidone 0.5 mg tablet 0.5 mg PO DIRECTED MOOD #30 tabs 09/30/23 07/17/24 Rx hydrocodone 10 mg-acetaminophen 1 tab PO QID #40 tabs 05/10/24 07/17/24 Rx 325 mg tablet fentanyl 50 mcg/hr transdermal 1 patch transdermal Q72H #3 ea 05/11/24 07/17/24 Rx patch ropinirole 0.5 mg tablet 0.5 mg PO HS #30 tabs 06/21/24 07/17/24 Rx tizanidine 4 mg tablet (Zanaflex) 4 mg PO HS #30 tabs 06/21/24 07/17/24 Rx fentanyl 50 mcg/hr transdermal 1 patch transdermal Q72H #10 ea 07/18/24 Rx patch hydrocodone 10 mg-acetaminophen 1 tab PO QID #120 tabs 07/18/24 Rx 325 mg tablet New Prescriptions to Start Prescriptions: Allergies Allergy/AdvReac Type Severity Reaction Status Date / Time erythromycin base Allergy Verified 08/26/22 09:08 iodine AdvReac Verified 08/26/22 09:08 Penicillins AdvReac Verified 08/26/22 09:08 Sulfa (Sulfonamide AdvReac Verified 08/26/22 09:08 Antibiotics) tetracycline AdvReac Verified 08/26/22 09:08 tramadol AdvReac Verified 08/26/22 09:08 Assessment and Plan *Assessment and plan (1) Chronic pain of right knee: Status: Acute Category: Medical Code(s): M25.561 - Pain in right knee; G89.29 - Other chronic pain (2) Lumbar radiculopathy: Status: Acute Category: Medical Code(s): M54.16 - Radiculopathy, lumbar region (3) Neck pain: Status: Acute Category: Medical Code(s): M54.2 - Cervicalgia (4) Mid back pain: Status: Acute Category: Medical Code(s): M54.9 - Dorsalgia, unspecified Plan We will refill her Dovray and fentanyl and make sure she does have refills on her ropinirole and tizanidine. Patient will return to clinic in 1 month. Risks and benefits of the medication have been explained in detail to the patient. The patient does understand the risk of dependence on the medication when given over a prolonged period. Patient has been advised of risks of oversedation with the prescribed medication. Narcan has been offered to the paitent in the event of oversedation. Patient has been advised that a family member should also be educated regarding administration of Narcan. The patient has been advised to consult with his/her primary care provider and pharmacist regarding drug-drug interaction of medications currently prescribed. Patient has been prescribed a controlled substance after being counseled on the medication, medication safety, and possible side effects. Opioid contract was reviewed and signed by the patient, and that they have agreed to all of the terms set forth by our compliance program. A UDS is needed to verify patient's compliance with our office pain contract. This is ordered based off specific treatments related to chronic pain with the potential to abuse certain medications. Patient has been instructed to contact the clinic with any concerns before the next appointment. Dr. Chicas has reviewed this note and agrees with this plan of care. This note was dictated using voice recognition software and make contain errors or omissions.
[2024-08-15 11:38] VITALS: BP 115/68; PULSE 81; RESP 14; O2SAT 96; BMI 22.8
== END 2024-08-15 23:59 | disposition home or self-care (01) ==
PROVIDERS: PCP Internal Medicine; Visit Provider Nurse Practitioner Family
DX: M25.561 Pain in right knee (principal); G89.29 Other chronic pain; M54.16 Radiculopathy, lumbar region; M54.2 Cervicalgia; M54.9 Dorsalgia, unspecified; Z96.643 Presence of artificial hip joint, bilateral; Z87.891 Personal history of nicotine dependence
CPT/HCPCS: 99212; G0463

== ENCOUNTER 2024-09-13 10:35 | Outpatient (POV) | payer MEDICARE, SELFPAY ==
--- OUTSIDE RECORDS SUMMARY | 2024-09-13 10:39 | XMS_ITS | Data Portability ---
Author Organization [facility] DEBI [facility] [place] [facility]OS[facility] Address [address] [facility] [place] [address] Assessment No assessment recorded. Plan of Treatment Reminders Order Date Submit Date Provider Last Modified By Organization Details Last Modified Time Details Appointments None record ed. Lab CBC w/ auto diff 2024 025 [facility], [address] [place] [address], [id number], 5 19:37:27 vitami n B12 + folate , serum or blood 2024 025 [facility], [address] [place] [address], [address], 5 20:02:33 magnes ium, QN, serum or plasma 2024 025 [facility], [address] [place] [address], [address], 5 19:58:21 CMP, serum or plasma 2024 025 [facility], [address] [place] [address], [address], 5 19:58:22 TSH, serum or plasma 2024 025 [facility], [address] [place] [address], [address], 5 19:53:23 cultur e, urine 2023 024 [facility], [address] [place] [address], [address], 4 11:35:54 urinal ysis, comple te 2023 024 [facility], [address] [place] [address], [address], 4 20:27:09 urinal ysis, comple te 2023 024 [facility], [address] [place] [address], [address], 4 20:54:26 cultur e, urine 2023 024 [facility], [address] [place] [address], [address], 4 10:36:52 Referral None record ed. Procedures None record ed. Surgeries None record ed. Imaging XR, chest, 2 view 2023 024 [facility], [address] [place] [address], [address], 4 09:51:53 Medication Orders diazep am 5 mg tablet 2024 025 [facility], [address] [place] [address], [facility] [address], [place], [address], 5 11:48:41 risper idone 0.5 mg tablet 2024 025 [facility], [address] [place] [address], [facility], [place], [address], 5 12:29:13 buprop ion HCl 75 mg tablet 2024 025 [facility], [address] [place] [address], [address], [place], [address], 14:39:19 Ambien CR 12.5 mg tablet ,exten ded releas e 2024 025 [facility], [address] [place] [address], [address], 11:37:40 promet hazine 25 mg tablet 2024 025 [facility], [address] [place] [address], [address], 11:37:36 gabape ntin 600 mg tablet 2024 025 [facility], [address] [place] [address], [address], 11:37:37 zolpid em 10 mg tablet 2024 025 [facility], [address] [place] [address], [address], 11:37:37 levofl oxacin 500 mg tablet 2024 025 [facility], [address] [place] [address], [place], [address], 11:30:10 promet hazine 25 mg tablet 2024 025 [facility], [address] [place] [address], [address], 11:42:24 Zithro max Z-Antoni 250 mg tablet 2024 025 [facility], [address] [place] [address], [address], 10:25:31 Floras tor 250 mg capsul e [facility]23 [facility] [address] [place] [address] [place], [address], 12:40:35 diphen oxylat e-atro pine 2.5 mg-0.0 25 mg tablet 2023 024 [facility], [address] [place] [address], [address], 10:48:56 levofl oxacin 500 mg tablet [address], [address] [place] [address], [address], 5 11:27:08 levofl oxacin 500 mg tablet [address], [address] [place] [address], [address], 11:27:08 Patient TargetsNo targets recorded. Patient InstructionsNo instructions recorded. Reason for Referral None Reported. Results Created Date Observation Date Name Description Value Unit Range Abnormal Flag Note LastModifiedBy Organization Detail LastModifiedTime 11/30/19 24 11/30/2023 URINA LYSIS color Yellow normal Not Available [facility] [address] [place] [address], [address], 11/30/2023 20:54:26 11/30/19 24 11/30/2023 URINA LYSIS appearance Turbid normal Not Available [facility] [address] [place] [address], [address], 11/30/2023 20:54:26 11/30/19 24 11/30/2023 URINA LYSIS glucose Normal mg/dL normal normal Not Available [facility] [address] [place] [address], [address], 11/30/2023 20:54:26 11/30/19 24 11/30/2023 URINA LYSIS bilirubin Negati ve mg/dL negati ve normal Not Available [facility] [address] [place] [address], [address], 11/30/2023 20:54:26 11/30/19 24 11/30/2023 URINA LYSIS ketone Negati ve mg/dL negati ve normal Not Available [facility] [address] [place] [address], [address], 11/30/2023 20:54:26 11/30/19 24 11/30/2023 URINA LYSIS specific gravity 1.019 1.003- 1.035 normal Not Available [facility] [address] [place] [address], [address], 11/30/2023 20:54:26 11/30/19 24 11/30/2023 URINA LYSIS blood 25 /uL negati ve abnormal Not Available [facility] [address] [place] [address], [address], 11/30/2023 20:54:26 11/30/19 24 11/30/2023 URINA LYSIS pH 6 5.0 - 8.0 normal Not Available [facility] [address] [place] [address], [address], 11/30/2023 20:54:26 11/30/19 24 11/30/2023 URINA LYSIS protein 30 mg/dL negati ve abnormal Not Available [facility] [address] [place] [address], [address], 11/30/2023 20:54:26 11/30/19 24 11/30/2023 URINA LYSIS urobilinogen 4 mg/dL normal abnormal Not Available [facility] [address] [place] [address], [address], 11/30/2023 20:54:26 11/30/19 24 11/30/2023 URINA LYSIS nitrite Negati ve negati ve normal Not Available [facility] [address] [place] [address], [address], 11/30/2023 20:54:26 11/30/19 24 11/30/2023 URINA LYSIS leukocyte esterase 500 /uL negati ve abnormal Not Available [facility] [address] [place] [address], [address], 11/30/2023 20:54:26 11/30/19 24 11/30/2023 URINA LYSIS WBC, urine > 30 0-5/hp f abnormal Not Available [facility] [address] [place] [address], [address], 11/30/2023 20:54:26 11/30/19 24 11/30/2023 URINA LYSIS squamous epi. cells 0-5 0-5/hp f normal Not Available [facility] [address] [place] [address], [address], 11/30/2023 20:54:26 11/30/19 24 11/30/2023 URINA LYSIS bacteria 2+ 0/hpf abnormal Not Available [facility] [address] [place] [address], [address], 11/30/2023 20:54:26 11/30/19 24 11/30/2023 URINA LYSIS crystals 1+ negati ve abnormal Calci um Oxala te Pleas e advis e if cultu re is tobias ed - notif y the lab at [phone]. Not Available [facility] [address] [place] [address], [address], 11/30/2023 20:54:26 11/30/19 24 11/30/2023 URINE CULTU RE escherichia coli Organi sm: Escher ichia coli Not Available [facility] [address] [place] [address], [address], 12/02/2023 12:15:51 11/30/19 24 12/02/2023 URINE CULTU RE urine culture abnormal ISOLA TE #1 COLON Y COUNT : > 100,0 00 CFU/M L Proba ble Gram Negat yennifer Bacil wilber. ID and sensi tivit y in progr ess. See [place] te Resul t(s) Below Esche alessio a coli Not Available [facility] [address] [place] [address], [address], 12/02/2023 12:15:51 11/30/19 24 12/02/2023 URINE CULTU RE amox/K clav'ate(C) <=8/4 ug/mL susceptib le Not Available [facility] [address] [place] [address], [address], 12/02/2023 12:15:51 11/30/19 24 12/02/2023 URINE CULTU RE ampicillin <=8 ug/mL susceptib le Not Available [facility] [address] [place] [address], [address], 12/02/2023 12:15:51 11/30/19 24 12/02/2023 URINE CULTU RE cefazolin <=2 ug/mL susceptib le Not Available [facility] [address] [place] [address], [address], 12/02/2023 12:15:51 11/30/19 24 12/02/2023 URINE CULTU RE ceftazidime <=1 ug/mL susceptib le Not Available [facility] [address] [place] [address], [address], 12/02/2023 12:15:51 11/30/19 24 12/02/2023 URINE CULTU RE ceftriaxone <=1 ug/mL susceptib le Not Available [facility] [address] [place] [address], [address], 12/02/2023 12:15:51 11/30/19 24 12/02/2023 URINE CULTU RE cefuroxime <=4 ug/mL susceptib le Not Available [facility] [address] [place] [address], [address], 12/02/2023 12:15:51 11/30/19 24 12/02/2023 URINE CULTU RE ciprofloxaci n <=0.25 ug/mL susceptib le Not Available [facility] [address] [place] [address], [address], 12/02/2023 12:15:51 11/30/19 24 12/02/2023 URINE CULTU RE gentamicin <=4 ug/mL susceptib le Not Available [facility] [address] [place] [address], [address], 12/02/2023 12:15:51 11/30/19 24 12/02/2023 URINE CULTU RE imipenem <=1 ug/mL susceptib le Not Available [facility] [address] [place] [address], [address], 12/02/2023 12:15:51 11/30/19 24 12/02/2023 URINE CULTU RE levofloxacin <=0.5 ug/mL susceptib le Not Available [address], [address], 12/02/2023 12:15:51 11/30/19 24 12/02/2023 URINE CULTU RE nitrofuranto in <=32 ug/mL susceptib le Not Available [address], [address], 12/02/2023 12:15:51 11/30/19 24 12/02/2023 URINE CULTU RE piperacillin /luke <=16 ug/mL susceptib le Not Available [address], [address], 12/02/2023 12:15:51 11/30/19 24 12/02/2023 URINE CULTU RE tetracycline >8 ug/mL resistant Not Available [address], [address], 12/02/2023 12:15:51 11/30/19 24 12/02/2023 URINE CULTU RE tobramycin 4 ug/mL susceptib le Not Available [address], [address], 12/02/2023 12:15:51 11/30/19 24 12/02/2023 URINE CULTU RE trimeth/sulf a <=2/38 ug/mL susceptib le Not Available [facility] [address] [place] [address], [address], 12/02/2023 12:15:51 02/17/2002/17/2024 URINA LYSIS color Liss normal Not Available [facility] [address] [place] [address], [address], 02/17/2024 20:27:09 02/17/2002/17/2024 URINA LYSIS appearance Clear normal Not Available [facility] [address] [place] [address], [address], 02/17/2024 20:27:09 02/17/2002/17/2024 URINA LYSIS glucose Normal mg/dL normal normal Not Available [facility] [address] [place] [address], [address], 02/17/2024 20:27:09 02/17/2002/17/2024 URINA LYSIS bilirubin Negati ve mg/dL negati ve normal Not Available [facility] [address] [place] [address], [address], 02/17/2024 20:27:09 02/17/20 24 02/17/2024 URINA LYSIS ketone Negati ve mg/dL negati ve normal Not Available [facility] [address] [place] [address], [address], 02/17/2024 20:27:09 02/17/2002/17/2024 URINA LYSIS specific gravity 1.012 1.003- 1.035 normal Not Available [facility] [address] [place] [address], [address], 02/17/2024 20:27:09 02/17/20 24 02/17/2024 URINA LYSIS blood Negati ve /uL negati ve normal Not Available [facility] [address] [place] [address], [address], 02/17/2024 20:27:09 02/17/20 24 02/17/2024 URINA LYSIS pH 7 5.0 - 8.0 normal Not Available [facility] [address] [place] [address], [address], 02/17/2024 20:27:09 02/17/20 24 02/17/2024 URINA LYSIS protein Negati ve mg/dL negati ve normal Not Available [facility] [address] [place] [address], [address], 02/17/2024 20:27:09 02/17/20 24 02/17/2024 URINA LYSIS urobilinogen 1 mg/dL normal abnormal Not Available [facility] [address] [place] [address], [address], 02/17/2024 20:27:09 02/17/20 24 02/17/2024 URINA LYSIS nitrite Negati ve negati ve normal Not Available [facility] [address] [place] [address], [address], 02/17/2024 20:27:09 02/17/20 24 02/17/2024 URINA LYSIS leukocyte esterase 100 /uL negati ve abnormal Not Available [facility] [address] [place] [address], [address], 02/17/2024 20:27:09 02/17/20 24 02/17/2024 URINA LYSIS WBC, urine > 30 0-5/hp f abnormal URINE CULTU RE IN PROGR ESS. Not Available [facility] [address] [place] [address], [address], 02/17/2024 20:27:09 02/17/20 24 02/17/2024 URINA LYSIS squamous epi. cells 0-5 0-5/hp f normal Not Available [facility] [address] [place], [address], 02/17/2024 20:27:09 02/17/20 24 02/17/2024 URINA LYSIS transitional epi. cells 0-5 0 - 5/hpf normal Not Available [facility] [address] [place] [address], [address], 02/17/2024 20:27:09 02/17/20 24 02/17/2024 URINA LYSIS bacteria Trace /hpf none seen abnormal Not Available [facility] [address] [place] [address], [address], 02/17/2024 20:27:09 02/17/20 24 02/20/2024 URINE CULTU RE urine culture COLON Y COUNT : 10,00 0 - 100,0 00 CFU/M L Three or more isola dimple; mixed uroge nital kelsy . Not Available [facility] [address] [place] [address], [address], 02/20/2024 10:29:41 06/01/19 25 06/01/2024 COMPL ETE BLOOD COUNT white blood cells 6.5 10*3/ uL 3.8-10 .8 normal Not Available [facility] [address] [place] [address], [address], 06/01/2024 19:37:27 06/01/19 25 06/01/2024 COMPL ETE BLOOD COUNT red blood cells 3.94 10*6/ uL 3.80-5 .20 normal Not Available [facility] [address] [place] [address], [address], 06/01/2024 19:37:27 06/01/19 25 06/01/2024 COMPL ETE BLOOD COUNT hemoglobin 12.6 g/dL 12.0-1 6.0 normal Not Available [facility] [address] [place] [address], [address], 06/01/2024 19:37:27 06/01/19 25 06/01/2024 COMPL ETE BLOOD COUNT hematocrit 38.5 % 35.0-4 7.0 normal Not Available [facility] [address] [place] [address], [address], 06/01/2024 19:37:27 06/01/19 25 06/01/2024 COMPL ETE BLOOD COUNT MCV 98 fL 80-100 normal Not Available [facility] [address] [place] [address], [address], 06/01/2024 19:37:27 06/01/19 25 06/01/2024 COMPL ETE BLOOD COUNT MCH 32 pg 26-35 normal Not Available [facility] [address] [place] [address], [address], 06/01/2024 19:37:27 06/01/19 25 06/01/2024 COMPL ETE BLOOD COUNT MCHC 33 g/dL 32-36 normal Not Available [facility] [address] [place] [address], [address], 06/01/2024 19:37:27 06/01/19 25 06/01/2024 COMPL ETE BLOOD COUNT RDW 12.6 % 11.0-1 5.0 normal Not Available [facility] [address] [place] [address], [address], 06/01/2024 19:37:27 06/01/19 25 06/01/2024 COMPL ETE BLOOD COUNT MPV 9.0 fL 6.2-10 .5 normal Not Available [facility] [address] [place] [address], [address], 06/01/2024 19:37:27 06/01/19 25 06/01/2024 COMPL ETE BLOOD COUNT platelet count 355 10*3/ uL 150-40 0 normal Not Available [facility] [address] [place] [address], [address], 06/01/2024 19:37:27 06/01/19 25 06/01/2024 COMPL ETE BLOOD COUNT neutrophil,a bsolute 4.1 10*3/ uL 1.6-8. 4 normal Not Available [facility] [address] [place] [address], [address], 06/01/2024 19:37:27 06/01/19 25 06/01/2024 COMPL ETE BLOOD COUNT lymphocyte,a bsolute 1.9 10*3/ uL 0.4-5. 1 normal Not Available [facility] [address] [place] [address], [address], 06/01/2024 19:37:27 06/01/1906/01/2024 COMPL ETE BLOOD COUNT monocyte,abs olute 0.4 10*3/ uL 0.0-1. 2 normal Not Available [facility] [address] [place] [address], [address], 06/01/2024 19:37:27 06/01/19 25 06/01/2024 COMPL ETE BLOOD COUNT eosinophil,a bsolute 0.1 10*3/ uL 0.0-0. 8 normal Not Available [facility] [address] [place] [address], [address], 06/01/2024 19:37:27 06/01/19 25 06/01/2024 COMPL ETE BLOOD COUNT basophil,abs olute 0.0 10*3/ uL 0.0-0. 3 normal Not Available [facility] [address] [place] [address], [address], 06/01/2024 19:37:27 06/01/19 25 06/01/2024 COMPL ETE BLOOD COUNT % neutrophils 62.4 % 42.0-7 8.0 normal Not Available [facility] [address] [place] [address], [address], 06/01/2024 19:37:27 06/01/19 25 06/01/2024 COMPL ETE BLOOD COUNT % lymphocytes 29.4 % 11.0-4 7.0 normal Not Available [facility] [address] [place] [address], [address], 06/01/2024 19:37:27 06/01/19 25 06/01/2024 COMPL ETE BLOOD COUNT % monocytes 6.8 % 0.0-11 .0 normal Not Available [facility] [address] [place] [address], [address], 06/01/2024 19:37:27 06/01/19 25 06/01/2024 COMPL ETE BLOOD COUNT % eosinophils 1.0 % 0.0-7. 0 normal Not Available [facility] [address] [place] [address], [address], 06/01/2024 19:37:27 06/01/19 25 06/01/2024 COMPL ETE BLOOD COUNT % basophils 0.4 % 0.0-3. 0 normal Not Available [facility] [address] [place] [address], [address], 06/01/2024 19:37:27 06/01/19 25 06/01/2024 COMPL ETE BLOOD COUNT nucleated red cells 0.1 % 0.0-0. 9 normal Not Available [facility] [address] [place] [address], [address], 06/01/2024 19:37:27 06/01/19 25 06/01/2024 COMPL ETE BLOOD COUNT nucleated RBCs, absolute 0.01 10*3/ uL not estab. normal Not Available [facility] [address] [place] [address], [address], 06/01/2024 19:37:27 06/01/19 25 06/01/2024 TSH TSH 2.040 u[IU] /mL 0.270- 4.200 normal Not Available [facility] [address] [place] [address], [address], 06/01/2024 19:53:23 06/01/19 25 06/01/2024 MAGNE SIUM magnesium 1.8 mg/dL 1.6-2. 6 normal Not Available [facility] [address] [place] [address], [address], 06/01/2024 19:58:21 06/01/19 25 06/01/2024 COMP. METAB OLIC PANEL glucose 100 mg/dL 74-100 normal Not Available [facility] [address] [place] [address], [address], 06/01/2024 19:58:22 06/01/19 25 06/01/2024 COMP. METAB OLIC PANEL blood urea nitrogen 20 mg/dL 6-20 normal Not Available [facility] [address] [place] [address], [address], 06/01/2024 19:58:22 06/01/19 25 06/01/2024 COMP. METAB OLIC PANEL creatinine 1.11 mg/dL 0.50-0 .95 high Not Available [facility] [address] [place] [address], [address], 06/01/2024 19:58:22 06/01/19 25 06/01/2024 COMP. METAB OLIC PANEL BUN/creatini ne ratio 18 (calc ) 10-20 normal Not Available [facility] [address] [place] [address], [address], 06/01/2024 19:58:22 06/01/19 25 06/01/2024 COMP. METAB OLIC PANEL sodium 133 mmol/ L 136-14 5 low Not Available [facility] [address] [place] [address], [address], 06/01/2024 19:58:22 06/01/19 25 06/01/2024 COMP. METAB OLIC PANEL potassium 5.2 mmol/ L 3.4-5. 0 high Not Available [facility] [address] [place] [address], [address], 06/01/2024 19:58:22 06/01/19 25 06/01/2024 COMP. METAB OLIC PANEL chloride 95 mmol/ L 98-107 low Not Available [facility] [address] [place] [address], [address], 06/01/2024 19:58:22 06/01/19 25 06/01/2024 COMP. METAB OLIC PANEL carbon dioxide 26 mmol/ L 22-31 normal Not Available [facility] [address] [place] [address], [address], 06/01/2024 19:58:22 06/01/19 25 06/01/2024 COMP. METAB OLIC PANEL anion gap 12 (calc ) 7-25 normal Not Available [facility] [address] [place] [address], [address], 06/01/2024 19:58:22 06/01/19 25 06/01/2024 COMP. METAB OLIC PANEL calcium 8.8 mg/dL 8.6-10 .2 normal Not Available [facility] [address] [place] [address], [address], 06/01/2024 19:58:22 06/01/19 25 06/01/2024 COMP. METAB OLIC PANEL total protein 6.8 g/dL 6.4-8. 3 normal Not Available [facility] [address] [place] [address], [address], 06/01/2024 19:58:22 06/01/19 25 06/01/2024 COMP. METAB OLIC PANEL albumin 3.8 g/dL 3.5-5. 2 normal Not Available [facility] [address] [place] [address], [address], 06/01/2024 19:58:22 06/01/19 25 06/01/2024 COMP. METAB OLIC PANEL globulin 3.0 1.5-4. 5 normal Not Available [facility] [address] [place] [address], [address], 06/01/2024 19:58:22 06/01/19 25 06/01/2024 COMP. METAB OLIC PANEL albumin/glob ulin ratio 1.3 (calc ) 1.1-2. 5 normal Not Available [facility] [address] [place] [address], [address], 06/01/2024 19:58:22 06/01/19 25 06/01/2024 COMP. METAB OLIC PANEL bilirubin, total 0.2 mg/dL 0.1-1. 2 normal Not Available [facility] [address] [place] [address], [address], 06/01/2024 19:58:22 06/01/19 25 06/01/2024 COMP. METAB OLIC PANEL alkaline phosphatase 90 U/L 30-121 normal Not Available [facility] [address] [place] [address], [address], 06/01/2024 19:58:22 06/01/19 25 06/01/2024 COMP. METAB OLIC PANEL AST 28 U/L 0-32 normal Not Available [facility] [address] [place] [address], [address], 06/01/2024 19:58:22 06/01/19 25 06/01/2024 COMP. METAB OLIC PANEL ALT 14 U/L 0-33 normal Not Available [facility] [address] [place] [address], [address], 06/01/2024 19:58:22 06/01/19 25 06/01/2024 COMP. METAB OLIC PANEL GFR 52 >= 60 abnormal NOT E New calcu latio n for GFR (CKD- EPI 2020) is formu lated witho ut race adjus tment facto rs at the recom menda tion of the [place] [facility] Ne[facility]r [facility]y . This calcu latio n has not been valid ated in pregn ant women . For pedia tric patie nts refer to https ://fareed ferrera.karen melo/pr ofess ional s/KDO QI/gf r_cal culat orPed Not Available [facility] [address] [place], [address], 06/01/2024 19:58:22 06/01/19 25 06/01/2024 B12/F OLIC ACID PANEL folic acid 15.0 NG/mL 4.6-34 .8 normal Not Available [facility] [address] [place] [address], [address], 06/01/2024 20:02:33 06/01/19 25 06/01/2024 B12/F OLIC ACID PANEL vitamin B12 476 pg/mL 232-12 45 normal Not Available [facility] [address] [place] [address], [address], 06/01/2024 20:02:33 12/02/19 24 11/30/2023 XR, chest , 2 view No observ ation record ed. [email or web address] [address] [facility], [place], [address], 12/02/2023 14:15:37 Result Notes None recorded. Problems Name Problem SNOMED Code Status Onset Date Resolution Date Notes Provider Name and Address Organization Details Recorded Time Dysuria 31971837 Active 2022 BAMBI GARCIAS, DO [address] [place] [address], [address], [facility] 3 11:24:39 Acute urinary tract infection 141539383 Active 2022 BAMBI GARCIAS, DO [address] [place] [address], [address], [facility] 3 11:35:11 Chronic pain syndrome 757082473 Active 2022 HANG DOBBINS, DO [address] [place] [address], [address], [facility] 3 11:11:15 Diarrhea 27147776 Active 2022 HANG DOBBINS, DO [address] [place] [address], [address], [facility] 3 11:11:17 Recurrent urinary tract infection 829806782 Active 2022 HANG DOBBINS, DO [address] [place], [address], [facility] 3 10:41:03 Recurrent major depression in partial remission 98893337 Active 2023 HANG DOBBINS, DO [address] [place], [address], [facility] 4 14:33:07 Superior mesenteric artery syndrome 542320667 Active 2023 HANG DOBBINS, DO [address] [place], [address], [facility] 4 14:42:53 At increased risk of polypharmacy 721505162 Active 2024 HANG DOBBINS, DO [address] [place], [address], [facility] 5 16:55:29 Notes:pt has a uti she has b een having diarrhea for a week Problem Notes None recorded. Procedures Surgical History None recorded. Imaging Results Imaging Date Name Status LastModified by Organiz ation Details LastModified Time 11/30/2023 XR, chest, 2 view completed [facility] [address] [facility], [place], [address], 12/02/2023 14:15:37 Procedure Notes None recorded. Medical Equipment None Reported. Allergies Allergen ID Allergen Name Allergen Category Reaction Reaction Severity Criticality Documentation Date Start Date Code Code System Note Provider Name and Address Organization Details Recorded Time 589580 Doryx medicatio n Not available Not available Not available 03/25/20162012 72888 7 RxNorm Comme nt: Creat ed By: Jett lazar;Cj thomson Date: 2012 5:06: 55 PM; Not Available [facility] 6 10:57:30 201701 diphenhyd ramine hydrochlo ride medicatio n Not available Not available Not available 03/25/20162012 1362 RxNorm Comme nt: Creat ed By: Jett lazar;C reate d Date: 2012 5:07: 38 PM; Not Available [facility] 6 11:04:44 [id number] Ultram medicatio n Not available Not available Not available 03/25/20162012 95083 6 RxNorm Comme nt: Creat ed By: Jett lazar;C reate d Date: 2012 5:08: 25 PM; Not Available [facility] 6 11:57:02 324838 iodine medicatio n Not available Not available Not available 03/26/20162012 5933 RxNorm Comme nt: Creat ed By: Jett lazar;C reate d Date: 2012 5:07: 48 PM; Not Available [facility] 6 04:37:47 202438 Product containin g penicilli n (product) medicatio n Not available Not available Not available 03/26/20162012 78846 8001 SNOMED Comme nt: Creat ed By: Jett lazar;C reate d Date: 2012 5:08: 02 PM; Not Available [facility] 6 04:37:47 883517 Terramyci n medicatio n Not available Not available Not available 03/26/2016201296 4 RxNorm Comme nt: Creat ed By: Jett lazar;C reate d Date: 2012 5:08: 12 PM; Not Available [facility] 6 08:22:49 Medications Name Sig Start Date [...] TABLET EVERY 4 HOURS BY ORAL ROUTE. 04/18/ 2025 active Not Available Not Available Not Avai [...] Updated DateTime 4 165.1 cm 20.6 kg/m2 97630.4 5 g 97.7 [degF] 92 /min 95 % 95 % 116 mm[Hg] 78 mm[Hg] Radha Scott [facility] 4 14:57:59 Date Recorded Body height Body mass index (BMI) Body weight Heart rate Oxygen saturation Oxygen saturation in Arterial blood by Pulse oximetry Systolic blood pressure Diastolic blood pressure Provider Name and Address Organization Details Last Updated DateTime 4 165.1 cm 21.4 kg/m2 04496.6 2 g 78 /min 96 % 96 % 122 mm[Hg] 78 mm[Hg] Erica Galloway [facility] 4 10:19:10 Date Recorded Body height Body mass index (BMI) Body weight Heart rate Oxygen saturation Oxygen saturation in Arterial blood by Pulse oximetry Systolic blood pressure Diastolic blood pressure Provider Name and Address Organization Details Last Updated DateTime 5 165.1 cm 21.1 kg/m2 26099.2 3 g 105 /min 93 % 93 % 112 mm[Hg] 72 mm[Hg] Tara Burton [facility] 5 10:25:43 Date Recorded Body height Provider Name an d Address Organization Details Last Updated DateTime 06/05/2024 165.1 cm Rani Javid [facility] 06/05/2024 10:24:10 Date Recorded Body height Body mass index (BMI) Body weight Oxygen saturation Oxygen saturation in Arterial blood by Pulse oximetry Heart rate Systolic blood pressure Diastolic blood pressure Provider Name and Address Organization Details Last Updated DateTime 5 165.1 cm 21.5 kg/m2 77527.4 2 g 93 % 93 % 92 /min 115 mm[Hg] 76 mm[Hg] Erica Galloway [facility] 5 11:30:54 Social History Question Answer Notes LastModified by [employer] Details LastModified Time Tobacco Smoking Status Never Smoker Radha Scott [facility] 01/11/2023 11:53:44 What Was The Date Of Your Most Recent Tobacco Screening? 06/01/2024 [email or web address] Information not available 06/01/2024 Has Tobacco Cessation Counseling Been Provided? No Information not available 02/09/2023 Sex: Unknown Functional Status Question Answer Note LastModified by [employer] Details LastModified Time Do you use any illicit or recreational drugs? No Information not available 02/09/2023 Do you or have you ever used any other forms of tobacco or nicotine? No Information not available 02/09/2023 What is your level of alcohol consumption? None Information not available 02/09/2023 Mental Status None recorded. Family History Nothing Reported. Medical History No medical history recorded. Gynecological HistoryNo gynecological history recorded. Obstetrics History GPAL:G 0 P 0 0 0 0 Immunizations Vaccine Type Date Status Note Provider Nam e and Address Organization Details Recorded Time COVID-19, mRNA, LNP-S, PF, 100 mcg/0.5mL dose or 50 mcg/0.25mL dose 06/06/2020 completed Erica Mccauley [facility] 12/06/2023 14:03:29 COVID-19, mRNA, LNP-S, PF, 100 mcg/0.5mL dose or 50 mcg/0.25mL dose 07/04/2020 completed Erica Mccauley [facility] 12/06/2023 14:03:29 COVID-19, mRNA, LNP-S, PF, 100 mcg/0.5mL dose or 50 mcg/0.25mL dose 03/20/2021 completed Erica Mccauley [facility] 12/06/2023 14:03:29 zoster live 04/03/2015 completed Erica Mccauley [facility] 12/06/2023 14:03:29 Influenza, high-dose, trivalent, PF 06/06/2019 completed Erica Mccauley [facility] 12/06/2023 14:03:29 Influenza, split virus, quadrivalent, PF 04/03/2015 completed Erica Mccauley [facility] 12/06/2023 14:03:29 COVID-19, mRNA, LNP-S, PF, 50 mcg/0.5 mL 04/06/2023 completed Erica Mccauley [facility] 12/06/2023 14:03:34 Influenza, high-dose, quadrivalent, PF 01/11/2023 completed Lina Jensen [facility] 01/11/2023 13:19:18 Influenza, high-dose, trivalent, PF 02/17/2024 completed HANG MAC, DO [address] [place], [address], [facility] 02/17/2024 12:40:35 Past Encounters Encounter ID Performer Location Encounter Start Date Encounter Closed Date Diagnosis/Indication Diagnosis SNOMED-CT Code Diagnosis ICD10 Code Diagnosis Note [id number] HANG POSEY, DO [facility] [address] [place] [address] 01/11/2023 11:34:14 01/11/2023 12:17:24 Dysuria 14457260 R30.0 Unknown etiology, urine does not look that bad. We will send for UA and culture, suspect she might have more urethritis this time, we will give Cipro 500 twice daily x5 days, does not sound when she has diverticul itis, not been evaluated by gynecologi st in a while recommende d gynecology follow-up Administra tion of influenza vaccine 43809807 Z23 [id number] BAMBI GARCIAS, DO [facility] [address] [place] [address] 02/09/2023 10:23:22 02/09/2023 11:30:37 Dysuria 41407468 R30.0 Acute urin miguel tract infection 202729927 N39.0 UA is consistent with UTI, will check for antibiotic sensitivit yRX as ordered belowEnsur e adequate hydration, regular emptying of the bladder and void shortly after sexual intercours eIf symptoms worsen/do not improve RTC or inform provider [id number] HANG POSEY, DO [facility] [address] [place] [address] 03/29/2023 09:38:22 03/29/2023 10:29:09 Diarrhea 62956720 R19.7 persistent . unknown last colon. has reduced fentanyl some. Refer to GI for more thorough evaluation Acute urin miguel tract infection 926886401 N39.0 Recheck urinalysis and culture today, suspect he will still be infected with Enterococc us. We will give Macrobid, was sensitive to Macrobid last month. We will treat for 10 days, then reevaluate . Chronic pain syndrome 37 3655869 G89.4 on meds. - dr Bux. Has not had routine labs recently, does take multiple medication s we will check kidney function electrolyt es blood count today [id number] HANG POSEY, DO [facility] [address] [place] [address] 04/19/2023 09:38:06 04/19/2023 10:25:02 Diarrhea 05676250 R19.7 has GI eval pernell Acute urin miguel tract infection 102427434 N39.0 had enterococc us. treateted with macorobid. [place] to be better recheck urine culture today Recurrent urinary tract infection 571352644 N39.0 Secondary to neurogenic bladder with recurrent self catheteriz ations Muscle weakness 76308259 M62.81 Altered factorial felt to be from prolonged illness, will check labs today, I think she would benefit from home health physical therapy [id number] HANG POSEY, DO [facility] [place] [address] [facility] [place] [address] 05/09/2023 11:31:37 05/09/2023 11:58:22 Acute urinary tract infection 830183899 N39.0 Suspect she has another bladder infection we will treat with Macrobid for 10 days, then do low-dose Macrodanti n daily after that. 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 Recommend opinion by GI doctor. We will try to set up that referral again [id number] HANG POSEY, DO [facility] [place] [address] [facility] [place] [address] 07/26/2023 15:07:38 07/26/2023 15:39:30 Cough 67519119 R05.9 Acute bronchitis 7435607 2 J20.9 RSV with lingering symptoms. Could be developing into pneumonia. We will give Levaquin, Medrol Dosepak, Phenergan DM [id number] HANG POSEY, DO [facility] [address] [place] [address] 11/08/2023 14:15:42 11/08/2023 14:46:37 Malnutrition (calorie) 480653931 E46 BMI low. discussed diet, currently on weight gaining trial through surgeons office Chronic pain syndrome 37 6806409 G89.4 on meds. 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 Check urinalysis and culture. Has had resistant bacteria in the past. Levaquin 500 x 7 days Recurrent urinary tract infection 883664579 N39.0 Secondary to neurogenic bladder with recurrent self catheteriz ations Cough 64161231 R05.9 Has had a cough since her RSV in the spring. We will see how she responds to the Levaquin, also sent for chest x-ray [id number] HANG POSEY, DO [facility] [address] [place] [address] 02/17/2024 09:53:53 02/17/2024 10:42:18 Diarrhea 29582445 R19.7 has GI eval pernell Administra tion of influenza vaccine 77965161 Z23 Active immunization 3387 9002 Z23 Acute cystitis 90855574 N30.01 Recheck urinalysis and culture today, we will start off with Levaquin, we will see what urine culture shows [id number] HANG POSEY, DO [facility] [address] [place] [address] 06/01/2024 10:10:26 06/01/2024 11:05:06 Nausea 174998354 R11.0 Cough 42583838 R05.9 Lungs sound okay throat looks okay, do not think she has any serious infection, we will give Z-Antoni in case we are missing something or it is early Muscle weakness 25622435 M62.81 - Multifacto rial, possibly low and nutrition now, could be dehydrated , we will check routine labs today, she is pretty weak, I think she needs another course of physical therapy Irritable bowel syndrome with diarrhea 998009209 K58.0 takes lomotil as needed [id number] OSCAR SAMAYOA PA-C [facility] [address] [place] [address] 06/05/2024 09:51:42 06/05/2024 11:16:47 Acute pharyngitis 042568182 J02.9 Pt just completed Azithromyc in.Will send Levaquin for persistent URI.Pt has done well with medication in the past. Pt has allergy to Penicillin , unsure of cephalospo rins. [id number] HANG POSEY, DO [facility] [address] [place] [address] 07/25/2024 11:12:26 07/25/2024 11:48:06 Renewal of prescription 349583076 Z76.0 Nausea 760175290 R11.0 Bipolar disorder 6949769 [address] Huffman -- tried. multiple [employer] at [facility] . Chronic pain syndrome 37 4669221 G89.4 on meds. - dr Chicas mgt- to see Dr Dempsey. At [facility] risk of polypharmacy 226520521 Z91.89 Patient is elderly and has been on multiple psychiatri c medication s and pain medication s for a long time is at risk of complicati ons from polypharma cy, however changing her medication s also carries some risk as well. Risk versus benefit is in favor of continuing her current medication Health Concerns Section Related Observation LastModified by Organization [employer] LastModified Time None Recorded Concern Status LastModified by Organization Details LastModified Time None Recorded Advance Directives Directive None Recorded Payers Insurance Date Sequence Insurance Name Policy Number Policy Borden Covered Member ID Borden Member ID Guarantor Name 08/31/2024 1 [place] Junie Phillips [id number] Junie Phillips 08/31/2024 2 [employer] HE[employer] OPTIONS (MEDICARE SUPPLEMENT) PLAN F Junie Phillips [id number] Junie Phillips Notes Date Note Type Note [...] than usual as well, had been on [facility] Nitrofurantoin but had not taken for a [...] penicillin, tetracycline allergy. HANG MAC, DO [address], [place], [address], [facility] 11/30/2023 17:19:55 02/17/2024 text/html Patient is 73-ye [...] come back HANG MAC, DO [address] [place], [address], [facility] 02/17/2024 12:40:55 06/01/2024 text/html Patient is 73-year-old [...] but that ended HANG MAC, DO [address] [place], [address], [facility] 06/01/2024 13:46:15 06/05/2024 text/html Visit today is b eing conducted via telehealth using both audio/video. The patient confirms that he/she is physically located in [place] at the time of this visit. Patient [...] at this time OSCAR SAMAYOA PA-C [address] [place], [address], [facility] 06/05/2024 10:51:16 07/25/2024 text/html Patient is 73-ye [...] right now HANG MAC, DO [address], [place], [address], [place] [facility] 07/25/2024 16:55:34 OBGyn Episode No OBEpisode recorded.
--- OUTSIDE RECORDS SUMMARY | 2024-09-13 10:39 | XMS_ITS | Continuity of Care Document ---
Author Organization [facility], [facility] [place] Address [address] [facility] [address] [place] [address] Assessment No assessment recorded. Plan of Treatment Reminders Order Date Submit Date Provider Last Modified By Organization Details Last Modified Time Details Appointments None recorded. Lab None recorded. Referral None recorded. Procedures None recorded. Surgeries None recorded. Imaging None recorded. Medication Orders diazepam 5 mg tablet 2024 025 [facility], [address] [place] [address], [address], 11:48:41 risperidone 0.5 mg tablet 2024 025 [facility], [address] [place] [address], [place], [address], 12:29:13 bupropion HCl 75 mg tablet 2024 025 [facility], [address] [place] [address], [place], [address], 5 14:39:19 Ambien CR 12.5 mg tablet,exte nded release 2024 025 [facility], [address] [place] [address], [place], [address], 5 11:37:40 promethazin e 25 mg tablet 2024 025 [facility], [address] [place], [place] [address], [place], [address], 5 11:37:36 gabapentin 600 mg tablet 2024 025 [facility], [address] [place] [address] 7, [place], [address], 5 11:37:37 zolpidem 10 mg tablet 2024 025 [facility], [address] [place] [address], [place], [address], 5 11:37:37 Patient TargetsNo targets recorded. Patient InstructionsNo instructions recorded. Reason for Referral None Reported. Problems Name Problem SNOMED Code Status Onset Date Resolution Date Notes Provider Name and Address Organization Details Recorded Time Dysuria 82678148 Active 2022 BAMBI GARCIAS, DO [address] [place], [address], [facility] 3 11:24:39 Acute urinary tract infection 642948594 Active 2022 BAMBI GARCIAS, DO [address] [place], [address], [facility] 3 11:35:11 Chronic pain syndrome 924250269 Active 2022 HANG DOBBINS, DO [address] [place], [address], [facility] 3 11:11:15 Diarrhea 53185937 Active 2022 HANG DOBBINS, DO [address] [place], [address], [facility] 3 11:11:17 Recurrent urinary tract infection 276445270 Active 2022 HANG DOBBINS, DO [address] [place], [address], [facility] 3 10:41:03 Recurrent major depression in partial remission 82142420 Active 2023 HANG DOBBINS, DO [address] [place], [address], [facility] 4 14:33:07 Superior mesenteric artery syndrome 652253387 Active 2023 HANG EVA DOBBINS, DO [address] [place], [address], [facility] 4 14:42:53 At increased risk of polypharmacy 262681047 Active 2024 HANG EVA DOBBINS, DO [address] [place], [address], [facility] 5 16:55:29 Notes:pt has a uti she has b een having diarrhea for a week Problem Notes None recorded. Medical Equipment None Reported. Allergies Allergen ID Allergen Name Allergen Category Reaction Reaction Severity Criticality Documentation Date Start Date Code Code System Note Provider Name and Address Organization Details Recorded Time 319325 Doryx medicatio n Not available Not available Not available 03/25/20162012 71411 7 RxNorm Comme nt: Creat ed By: Jett Cartagena reate d Date: 2012 5:06: 55 PM; Not Available [facility] 6 10:57:30 807434 diphenhyd ramine hydrochlo ride medicatio n Not available Not available Not available 03/25/20162012 1362 RxNorm Comme nt: Creat ed By: Jett Cartagena reate d Date: 2012 5:07: 38 PM; Not Available [facility] 6 11:04:44 272964 Ultram medicatio n Not available Not available Not available 03/25/20162012 71803 6 RxNorm Comme nt: Creat ed By: Jett Cartagena reate d Date: 2012 5:08: 25 PM; Not Available [facility] 6 11:57:02 259089 iodine medicatio n Not available Not available Not available 03/26/20162012 5933 RxNorm Comme nt: Creat ed By: Jett Cartagena reate d Date: 2012 5:07: 48 PM; Not Available [facility] 6 04:37:47 941897 Product containin g penicilli n (product) medicatio n Not available Not available Not available 03/26/20162012 29672 8001 SNOMED Comme nt: Creat ed By: Jett lazar;Cj thomson Date: 2012 5:08: 02 PM; Not Available [facility] 6 04:37:47 503269 Terramyci n medicatio n Not available Not available Not available 03/26/2016201296 4 RxNorm Comme nt: Creat ed By: Jett lazar;Cj thomson Date: 2012 5:08: 12 PM; Not Available [facility] 6 08:22:49 Medications Name Sig Start Date [...] Last Updated DateTime 165.1 cm 21.5 kg/m2 22115.4 2 g 93 % 93 % 92 /min 115 mm[Hg] 76 mm[Hg] Erica Galloway [facility] 11:30:54 Social History Question Answer Notes LastModified by Organizat ion Details LastModified Time Tobacco Smoking Status Never Smoker Radha suarez [facility] 01/11/2023 11:53:44 What Was The Date Of Your Most Recent Tobacco Screening? 06/01/2024 [email or web address] Information not available 06/01/2024 Has Tobacco Cessation Counseling Been Provided? No Information not available 02/09/2023 Sex: Unknown Functional Status Question Answer Note LastModified by Organizat ion Details LastModified Time Do you use any [...] or 50 mcg/0.25mL dose 06/06/2020 [facility] 14:03:29 COVID-19, mRNA, LNP-S, PF, 100 mcg/0.5mL dose or 50 mcg/0.25mL dose 07/04/2020 completed Erica Mccauley [facility] 12/06/2023 14:03:29 COVID-19, mRNA, LNP-S, PF, 100 mcg/0.5mL dose or 50 mcg/0.25mL dose 03/20/2021 completed Erica Mccauley [facility] 12/06/2023 14:03:29 zoster live 04/03/2015 completed Erica Mccauley [facility] 12/06/2023 14:03:29 Influenza, high-dose, trivalent, PF 06/06/2019 completed Erica Mccauley [facility] 12/06/2023 14:03:29 Influenza, split virus, quadrivalent, PF 04/03/2015 completed Erica Mccauley [facility] 12/06/2023 14:03:29 COVID-19, mRNA, LNP-S, PF, 50 mcg/0.5 mL 04/06/2023 completed Erica Mccauley [facility] 12/06/2023 14:03:34 Influenza, high-dose, quadrivalent, PF 01/11/2023 [facility] 01/11/[facility]23 13:19:18 Influenza, high-dose, trivalent, PF 02/17/2024 completed HANG MAC DO [address] [place] [address], [address], [facility] 02/17/2024 12:40:35 Past Encounters Encounter ID Performer Location Encounter Start Date Encounter Closed Date Diagnosis/Indication Diagnosis SNOMED-CT Code Diagnosis ICD10 Code Diagnosis Note [id number] HANG POSEY, DO [facility] [address] [facility] [place] [address] 07/25/2024 11:12:26 07/25/2024 11:48:06 Renewal of prescription 188651805 Z76.0 Nausea 862925152 R11.0 Bipolar disorder 9804738 [address] Huffman -- tried. multiple [employer] at [facility] . Chronic pain syndrome 37 5846459 G89.4 on meds. - dr Chicas mgt- to see Dr Dempsey. At [facility] risk of polypharmacy 064666617 Z91.89 Patient is elderly and has been [...] Borden Member ID Guarantor Name 07/25/2024 1 MEDICARE-[employer] (MEDICARE) Junie Amaya Veirs [id number] Junie Amaya Veirs 07/25/2024 2 [facility] HEALTHCARE OPTIONS (MEDICARE SUPPLEMENT) PLAN F Junie Amaya Meraryirs [id number] Junie Monique Jacqueline Notes Date Note Type Note Provider Name [...] doing fine right now HANG MAC, [address], [place], [address], [facility] 07/25/2024 16:55:34 OBGyn Episode No OBEpisode recorded.
[2024-09-13 11:04] VITALS: BP 104/55; PULSE 91; RESP 14; O2SAT 95; BMI 22.1
--- NOTE | 2024-09-13 11:09 | EXP.PAIN.SOA ---
[facility] Disclaimer: The information contained in this section may have been updated after the patient was seen, as this information can be updated by other users. Medical History Anxiety Cataracts, bilateral Depression Arthritis Osteoporosis GERD (gastroesophageal reflux disease) Anemia Surgical History Status post total hip replacement, bilateral History of lumbar fusion H/O gastric bypass History of appendectomy Family History Other Cancer Diabetes Hypertension Osteoporosis Rheumatoid arthritis Social History Smoking Status: Former smoker alcohol intake: never substance use type: denies use current occupational status: other Travel in the last 8 weeks?: None PM Subjective & Objective Subjective Subjective:: Patient is a pleasant 73-year-old female who presents today for medication refill and follow-up. She rates her pain a 4 out of 10. She denies any new trauma or injury. She does state that she has unfortunately recently been scams and that she spent the last 2 weeks at the [facility] frequently trying to get this taken care of. Patient is currently managed with [place] 10 mg 4 times a day, fentanyl 50 mcg patches every 72 hours, ropinirole 0.5 mg at bedtime and tizanidine 4 mg at bedtime. She denies any side effects. She does state that her family is planning on going on a trip come November 05 through and that she does want to make sure that next months visit that it is scheduled either before or after this timeframe for her follow-up. Her Sae has been reviewed and is appropriate. Review of Systems: General: No recent weight changes, no fever, no sleep disturbances Respiratory: No cough, no shortness of air, no recurring pulmonary infections Cardiovascular/peripheral vascular: No chest pain, no palpitations, no edema, no shortness of breath Gastrointestinal: No new onset incontinence, normal bowel movements reported Genitourinary: No new onset incontinence Musculoskeletal: Chronic back pain Psychiatric: [Normal mood/affect] Neurological: [Denies weakness in extremities], [denies balance issues] Pain at rest (0-10 scale): 4 Objective Objective:: Physical Exam: General: Alert and oriented x3, no acute distress, pleasant and cooperative Lungs: Respirations even and unlabored, symmetrical chest expansion Eyes: PERRL Musculoskeletal: Flexion and extension of lumbar [spine] somewhat guarded secondary to pain, [antalgic gait noted] Neurological: Speech clear, no gross sensory deficit Has patient had previous pain injection?: No Conservative treatment options previously tried: Prescription medications Length of treatment: Longer than 12 weeks Meds Home Medications and Allergies Home Medications ?Medication ?Instructions ?Recorded ?Confirmed ?Type bupropion HCl 75 mg tablet 75 mg PO DIRECTED MOOD 08/26/22 09/13/24 History diazepam 5 mg tablet 5 mg PO DIRECTED Anxiety 08/26/22 09/13/24 History gabapentin 600 mg tablet 600 mg PO DIRECTED Pain 08/26/22 09/13/24 History promethazine 25 mg tablet 25 mg PO DIRECTED Nausea & 08/26/22 09/13/24 History vomiting zolpidem 10 mg tablet 10 mg PO DIRECTED MOOD 08/26/22 09/13/24 History risperidone 0.5 mg tablet 0.5 mg PO DIRECTED MOOD #30 tabs 09/30/23 09/13/24 Rx hydrocodone 10 mg-acetaminophen 1 tab PO QID #40 tabs 05/10/24 09/13/24 Rx 325 mg tablet fentanyl 50 mcg/hr transdermal 1 patch transdermal Q72H #3 ea 05/11/24 09/13/24 Rx patch ropinirole 0.5 mg tablet 0.5 mg PO HS #30 tabs 06/21/24 09/13/24 Rx tizanidine 4 mg tablet (Zanaflex) 4 mg PO HS #30 tabs 06/21/24 09/13/24 Rx fentanyl 50 mcg/hr transdermal 1 patch transdermal Q72H #10 ea 08/15/24 09/13/24 Rx patch hydrocodone 10 mg-acetaminophen 1 tab PO QID #120 tabs 08/15/24 09/13/24 Rx 325 mg tablet New Prescriptions to Start Prescriptions: Allergies Allergy/AdvReac Type Severity Reaction Status Date / Time erythromycin base Allergy Verified 08/26/22 09:08 iodine AdvReac Verified 08/26/22 09:08 Penicillins AdvReac Verified 08/26/22 09:08 Sulfa (Sulfonamide AdvReac Verified 08/26/22 09:08 Antibiotics) tetracycline AdvReac Verified 08/26/22 09:08 tramadol AdvReac Verified 08/26/22 09:08 Assessment and Plan *Assessment and plan (1) Lumbar radiculopathy: Status: Acute Category: Medical Code(s): M54.16 - Radiculopathy, lumbar region (2) Chronic pain of right knee: Status: Acute Category: Medical Code(s): M25.561 - Pain in right knee; G89.29 - Other chronic pain (3) Neck pain: Status: Acute Category: Medical Code(s): M54.2 - Cervicalgia (4) Mid back pain: Status: Acute Category: Medical Code(s): M54.9 - Dorsalgia, unspecified (5) Low back pain: Status: Acute Qualifiers: Chronicity: chronic Back pain laterality: bilateral Sciatica presence: without sciatica Qualified Code(s): M54.50 - Low back pain, unspecified; G89.29 - Other chronic pain Category: Medical Code(s): M54.50 - Low back pain, unspecified Plan I will refill the patient's [place] and fentanyl and make sure she does have refills on her ropinirole and tizanidine. Patient will return to clinic in 1 month for reevaluation of symptoms and plan of care. Risks and benefits of the medication have been explained in detail to the patient. The patient does understand the risk of dependence on the medication when given over a prolonged period. Patient has been advised of risks of oversedation with the prescribed medication. Narcan has been offered to the paitent in the event of oversedation. Patient has been advised that a family member should also be educated regarding administration of Narcan. The patient has been advised to consult with his/her primary care provider and pharmacist regarding drug-drug interaction of medications currently prescribed. Patient has been prescribed a controlled substance after being counseled on the medication, medication safety, and possible side effects. Opioid contract was reviewed and signed by the patient, and that they have agreed to all of the terms set forth by our compliance program. A UDS is needed to verify patient's compliance with our office pain contract. This is ordered based off specific treatments related to chronic pain with the potential to abuse certain medications. Patient has been instructed to contact the clinic with any concerns before the next appointment. Dr. Chicas has reviewed this note and agrees with this plan of care. This note was dictated using voice recognition software and make contain errors or omissions.
== END 2024-09-13 23:59 | disposition home or self-care (01) ==
PROVIDERS: PCP Internal Medicine; Visit Provider Nurse Practitioner Family
DX: M54.16 Radiculopathy, lumbar region (principal); M25.561 Pain in right knee; G89.29 Other chronic pain; M54.2 Cervicalgia; M54.9 Dorsalgia, unspecified; M54.50 Low back pain, unspecified; Z96.643 Presence of artificial hip joint, bilateral; Z87.891 Personal history of nicotine dependence
CPT/HCPCS: 99212; G0463

== ENCOUNTER 2024-10-11 11:14 | Outpatient (POV) | payer MEDICARE, SELFPAY ==
--- NOTE | 2024-10-11 12:15 | EXP.PAIN.SOA ---
[facility] Disclaimer: The information contained in this section may have been updated after the patient was seen, as this information can be updated by other users. Medical History Anxiety Cataracts, bilateral Depression Arthritis Osteoporosis GERD (gastroesophageal reflux disease) Anemia Surgical History Status post total hip replacement, bilateral History of lumbar fusion H/O gastric bypass History of appendectomy Family History Other Cancer Diabetes Hypertension Osteoporosis Rheumatoid arthritis Social History Smoking Status: Former smoker alcohol intake: never substance use type: denies use current occupational status: other Travel in the last 8 weeks?: None PM Subjective & Objective Subjective Subjective:: Patient is a pleasant 73-year-old female who presents today for medication refill and follow-up. Today she rates her pain a 3 out of 10. She denies any new trauma or injury. She states she is still doing well with her medications. Patient is currently prescribed [place] 10 mg 4 times a day, fentanyl 50 mcg patches every 72 hours, tizanidine 4 mg at bedtime and ropinirole 0.5 mg at bedtime her Sae has been reviewed and is appropriate. Review of Systems: General: No recent weight changes, no fever, no sleep disturbances Respiratory: No cough, no shortness of air, no recurring pulmonary infections Cardiovascular/peripheral vascular: No chest pain, no palpitations, no edema, no shortness of breath Gastrointestinal: No new onset incontinence, normal bowel movements reported Genitourinary: No new onset incontinence Musculoskeletal: Low back pain Psychiatric: [Normal mood/affect] Neurological: [Denies weakness in extremities], [denies balance issues] Pain at rest (0-10 scale): 3 Objective Objective:: Physical Exam: General: Alert and oriented x3, no acute distress, pleasant and cooperative Lungs: Respirations even and unlabored, symmetrical chest expansion Eyes: PERRL Musculoskeletal: Flexion and extension of lumbar [spine] somewhat guarded secondary to pain, [antalgic gait noted] Neurological: Speech clear, no gross sensory deficit Has patient had previous pain injection?: No Conservative treatment options previously tried: Prescription medications Length of treatment: Longer than 12 weeks Meds Home Medications and Allergies Home Medications ?Medication ?Instructions ?Recorded ?Confirmed ?Type bupropion HCl 75 mg tablet 75 mg PO DIRECTED MOOD 08/26/22 09/13/24 History diazepam 5 mg tablet 5 mg PO DIRECTED Anxiety 08/26/22 09/13/24 History gabapentin 600 mg tablet 600 mg PO DIRECTED Pain 08/26/22 09/13/24 History promethazine 25 mg tablet 25 mg PO DIRECTED Nausea & 08/26/22 09/13/24 History vomiting zolpidem 10 mg tablet 10 mg PO DIRECTED MOOD 08/26/22 09/13/24 History risperidone 0.5 mg tablet 0.5 mg PO DIRECTED MOOD #30 tabs 09/30/23 09/13/24 Rx hydrocodone 10 mg-acetaminophen 1 tab PO QID #40 tabs 05/10/24 09/13/24 Rx 325 mg tablet fentanyl 50 mcg/hr transdermal 1 patch transdermal Q72H #3 ea 05/11/24 09/13/24 Rx patch fentanyl 50 mcg/hr transdermal 1 patch transdermal Q72H #10 ea 09/13/24 Rx patch hydrocodone 10 mg-acetaminophen 1 tab PO QID #120 tabs 09/13/24 Rx 325 mg tablet ropinirole 0.5 mg tablet 0.5 mg PO HS #30 tabs 09/13/24 Rx tizanidine 4 mg tablet (Zanaflex) 4 mg PO HS #30 tabs 09/13/24 Rx New Prescriptions to Start Prescriptions: Allergies Allergy/AdvReac Type Severity Reaction Status Date / Time erythromycin base Allergy Verified 08/26/22 09:08 iodine AdvReac Verified 08/26/22 09:08 Penicillins AdvReac Verified 08/26/22 09:08 Sulfa (Sulfonamide AdvReac Verified 08/26/22 09:08 Antibiotics) tetracycline AdvReac Verified 08/26/22 09:08 tramadol AdvReac Verified 08/26/22 09:08 Assessment and Plan *Assessment and plan (1) Low back pain: Status: Acute Qualifiers: Chronicity: chronic Back pain laterality: bilateral Sciatica presence: without sciatica Qualified Code(s): M54.50 - Low back pain, unspecified; G89.29 - Other chronic pain Category: Medical Code(s): M54.50 - Low back pain, unspecified Plan We will refill her [place] and fentanyl and provide a 1 month supply of these medications. Patient has been given a 3-month supply of the other medications. She will return to clinic in 1 month for reevaluation of symptoms and plan of care. Risks and benefits of the medication have been explained in detail to the patient. The patient does understand the risk of dependence on the medication when given over a prolonged period. Patient has been advised of risks of oversedation with the prescribed medication. Narcan has been offered to the paitent in the event of oversedation. Patient has been advised that a family member should also be educated regarding administration of Narcan. The patient has been advised to consult with his/her primary care provider and pharmacist regarding drug-drug interaction of medications currently prescribed. Patient has been prescribed a controlled substance after being counseled on the medication, medication safety, and possible side effects. Opioid contract was reviewed and signed by the patient, and that they have agreed to all of the terms set forth by our compliance program. A UDS is needed to verify patient's compliance with our office pain contract. This is ordered based off specific treatments related to chronic pain with the potential to abuse certain medications. Patient has been instructed to contact the clinic with any concerns before the next appointment. Dr. Chicas has reviewed this note and agrees with this plan of care. This note was dictated using voice recognition software and make contain errors or omissions.
[2024-10-11 12:58] VITALS: BP 98/63; PULSE 79; RESP 14; O2SAT 97; BMI 22.1
--- OUTSIDE RECORDS SUMMARY | 2024-10-11 13:11 | XMS_ITS | Data Portability ---
Author Organization RALEIGH Chaska DEBI Gustafson [facility] CLOSED Address [address] [place] [address] Assessment No assessment recorded. Plan of Treatment Reminders Order Date Submit Date Provider Last Modified By Organization Details Last Modified Time Details Appointments None record ed. Lab CBC w/ auto diff 2024 025 [facility], [address] [place] [address], [id number], 5 19:37:27 vitami n B12 + folate , serum or blood 2024 025 [facility], [address] [place] [address], [id number], 5 20:02:33 magnes ium, QN, serum or plasma 2024 025 [facility], [address] [place] [address], [id number], 5 19:58:21 CMP, serum or plasma 2024 025 [facility], [address] [place] [address], [id number], 5 19:58:22 TSH, serum or plasma 2024 025 [facility], [address] [place] [address], [id number], 5 19:53:23 cultur e, urine 2023 024 [facility], [address] [place] [address], [id number], 4 11:35:54 urinal ysis, comple te 2023 024 [facility], [address] [place] [address], [id number], 4 20:27:09 urinal ysis, comple te 2023 024 [facility], [address] [place] [address], [id number], 4 20:54:26 cultur e, urine 2023 024 [facility], [address] [place] [address], [id number], 4 10:36:52 Referral None record ed. Procedures None record ed. Surgeries None record ed. Imaging XR, chest, 2 view 2023 024 [facility], [address] [place] [address], [id number], 4 09:51:53 Medication Orders diazep am 5 mg tablet 2024 025 [facility], [address] [place] [address], [facility], [place], [address], 5 11:48:41 risper idone 0.5 mg tablet 2024 025 [facility], [address] [place] [address], [facility], [place], [address], 5 12:29:13 buprop ion HCl 75 mg tablet 2024 025 [facility], [address] [place] [address], [address], [place], [address], 14:39:19 Ambien CR 12.5 mg tablet ,exten ded releas e 2024 025 [facility], [address] [place] [address], [address], 11:37:40 promet hazine 25 mg tablet 2024 025 [facility], [address] [place] [address], [address], 11:37:36 gabape ntin 600 mg tablet 2024 025 [facility], [address] [place] [address], [address], 11:37:37 zolpid em 10 mg tablet 2024 025 [facility], [address] [place] [address], [address], 11:37:37 levofl oxacin 500 mg tablet 2024 025 [facility], [address] [place] [address], [place], [address], 11:30:10 promet hazine 25 mg tablet 2024 025 [facility], [address] [place] [address], [address], 11:42:24 Zithro max Z-Antoni 250 mg tablet 2024 025 [facility], [address] [place] [address], [address], 10:25:31 Floras tor 250 mg capsul e 2023 024 [facility], [address] [place] [address] [place], [address], 12:40:35 diphen oxylat e-atro pine 2.5 mg-0.0 25 mg tablet 2023 024 [facility], [address] [place] [address], [address], 10:48:56 levofl oxacin 500 mg tablet [address], [address] [place] [address], [address], 5 11:27:08 levofl oxacin 500 mg tablet [address], [address] [place] [address], [address], 11:27:08 Patient TargetsNo targets recorded. Patient InstructionsNo instructions recorded. Reason for Referral None Reported. Results Created Date Observation Date Name Description Value Unit Range Abnormal Flag Note LastModifiedBy Organization Detail LastModifiedTime 11/30/19 24 11/30/2023 URINA LYSIS color Yellow normal Not Available [facility] [address] [place] [address], [id number], 11/30/2023 20:54:26 11/30/19 24 11/30/2023 URINA LYSIS appearance Turbid normal Not Available [facility] [address] [place] [address], [id number], 11/30/2023 20:54:26 11/30/19 24 11/30/2023 URINA LYSIS glucose Normal mg/dL normal normal Not Available [facility] [address] [place] [address], [address], 11/30/2023 20:54:26 11/30/19 24 11/30/2023 URINA LYSIS bilirubin Negati ve mg/dL negati ve normal Not Available [facility] [address] [place] [address], [address], 11/30/2023 20:54:26 11/30/19 24 11/30/2023 URINA LYSIS ketone Negati ve mg/dL negati ve normal Not Available [facility] [address] [place] [address], [address], 11/30/2023 20:54:26 11/30/19 24 11/30/2023 URINA LYSIS specific gravity 1.019 1.003- 1.035 normal Not Available [facility] [address] [place] [address], [address], 11/30/2023 20:54:26 11/30/19 24 11/30/2023 URINA LYSIS blood 25 /uL negati ve abnormal Not Available [facility] [address] [place] [address], [address], 11/30/2023 20:54:26 11/30/19 24 11/30/2023 URINA LYSIS pH 6 5.0 - 8.0 normal Not Available [facility] [address] [place] [address], [address], 11/30/2023 20:54:26 11/30/19 24 11/30/2023 URINA LYSIS protein 30 mg/dL negati ve abnormal Not Available [facility] [address] [place] [address], [address], 11/30/2023 20:54:26 11/30/19 24 11/30/2023 URINA LYSIS urobilinogen 4 mg/dL normal abnormal Not Available [facility] [address] [place] [address], [address], 11/30/2023 20:54:26 11/30/19 24 11/30/2023 URINA LYSIS nitrite Negati ve negati ve normal Not Available [facility] [address] [place] [address], [address], 11/30/2023 20:54:26 11/30/19 24 11/30/2023 URINA LYSIS leukocyte esterase 500 /uL negati ve abnormal Not Available [facility] [address] [place] [address], [address], 11/30/2023 20:54:26 11/30/19 24 11/30/2023 URINA LYSIS WBC, urine > 30 0-5/hp f abnormal Not Available [facility] [address] [place] [address], [address], 11/30/2023 20:54:26 11/30/19 24 11/30/2023 URINA LYSIS squamous epi. cells 0-5 0-5/hp f normal Not Available [facility] [address] [place] [address], [address], 11/30/2023 20:54:26 11/30/19 24 11/30/2023 URINA LYSIS bacteria 2+ 0/hpf abnormal Not Available [facility] [address] [place] [address], [address], 11/30/2023 20:54:26 11/30/19 24 11/30/2023 URINA LYSIS crystals 1+ negati ve abnormal Calci um Oxala te Pleas e advis e if cultu re is tobias ed - notif y the lab at [phone]. Not Available [facility] [address] [place] [address], [address], 11/30/2023 20:54:26 11/30/19 24 11/30/2023 URINE CULTU RE escherichia coli Organi sm: Escher ichia coli Not Available [facility] [address] [place] [address], [id number], 12/02/2023 12:15:51 11/30/19 24 12/02/2023 URINE CULTU RE urine culture abnormal ISOLA TE #1 COLON Y COUNT : > 100,0 00 CFU/M L Proba ble Gram Negat yennifer Bacil wilber. ID and sensi tivit y in progr ess. See Durand te Resul t(s) Below Esche alessio a coli Not Available [facility] [address] [place] [address], [address], 12/02/2023 12:15:51 11/30/19 24 12/02/2023 URINE CULTU RE amox/K clav'ate(C) <=8/4 ug/mL susceptib le Not Available [facility] [address] [place] [address], [id number], 12/02/2023 12:15:51 11/30/19 24 12/02/2023 URINE CULTU RE ampicillin <=8 ug/mL susceptib le Not Available [facility] [address] [place] [address], [address], 12/02/2023 12:15:51 11/30/19 24 12/02/2023 URINE CULTU RE cefazolin <=2 ug/mL susceptib le Not Available [facility] [address] [place] [address], [address], 12/02/2023 12:15:51 11/30/19 24 12/02/2023 URINE CULTU RE ceftazidime <=1 ug/mL susceptib le Not Available [facility] [address] [place] [address], [address], 12/02/2023 12:15:51 11/30/19 24 12/02/2023 URINE CULTU RE ceftriaxone <=1 ug/mL susceptib le Not Available [facility] [address] [place] [address], [address], 12/02/2023 12:15:51 11/30/19 24 12/02/2023 URINE CULTU RE cefuroxime <=4 ug/mL susceptib le Not Available [facility] [address] [place] [address], [address], 12/02/2023 12:15:51 11/30/19 24 12/02/2023 URINE CULTU RE ciprofloxaci n <=0.25 ug/mL susceptib le Not Available [facility] [address] [place] [address], [address], 12/02/2023 12:15:51 11/30/19 24 12/02/2023 URINE CULTU RE gentamicin <=4 ug/mL susceptib le Not Available [facility] [address] [place] [address], [address], 12/02/2023 12:15:51 11/30/19 24 12/02/2023 URINE CULTU RE imipenem <=1 ug/mL susceptib le Not Available [facility] [address] [place] [address], [address], 12/02/2023 12:15:51 11/30/19 24 12/02/2023 URINE CULTU RE levofloxacin <=0.5 ug/mL susceptib le Not Available [address], [address], 12/02/2023 12:15:51 11/30/19 24 12/02/2023 URINE CULTU RE nitrofuranto in <=32 ug/mL susceptib le Not Available [address], [address], 12/02/2023 12:15:51 11/30/19 24 12/02/2023 URINE CULTU RE piperacillin /luke <=16 ug/mL susceptib le Not Available [address], [address], 12/02/2023 12:15:51 11/30/19 24 12/02/2023 URINE CULTU RE tetracycline >8 ug/mL resistant Not Available [address], [address], 12/02/2023 12:15:51 11/30/19 24 12/02/2023 URINE CULTU RE tobramycin 4 ug/mL susceptib le Not Available [address], [address], 12/02/2023 12:15:51 11/30/19 24 12/02/2023 URINE CULTU RE trimeth/sulf a <=2/38 ug/mL susceptib le Not Available [facility] [address] [place] [address], [address], 12/02/2023 12:15:51 02/17/2002/17/2024 URINA LYSIS color Liss normal Not Available [facility] [address] [place] [address], [address], 02/17/2024 20:27:09 02/17/2002/17/2024 URINA LYSIS appearance Clear normal Not Available [facility] [address] [place] [address], [address], 02/17/2024 20:27:09 02/17/2002/17/2024 URINA LYSIS glucose Normal mg/dL normal normal Not Available [facility] [address] [place] [address], [address], 02/17/2024 20:27:09 02/17/2002/17/2024 URINA LYSIS bilirubin Negati ve mg/dL negati ve normal Not Available [facility] [address] [place] [address], [address], 02/17/2024 20:27:09 02/17/20 24 02/17/2024 URINA LYSIS ketone Negati ve mg/dL negati ve normal Not Available [facility] [address] [place] [address], [address], 02/17/2024 20:27:09 02/17/2002/17/2024 URINA LYSIS specific gravity 1.012 1.003- 1.035 normal Not Available [facility] [address] [place] [address], [address], 02/17/2024 20:27:09 02/17/20 24 02/17/2024 URINA LYSIS blood Negati ve /uL negati ve normal Not Available [facility] [address] [place] [address], [address], 02/17/2024 20:27:09 02/17/20 24 02/17/2024 URINA LYSIS pH 7 5.0 - 8.0 normal Not Available [facility] [address] [place] [address], [address], 02/17/2024 20:27:09 02/17/20 24 02/17/2024 URINA LYSIS protein Negati ve mg/dL negati ve normal Not Available [facility] [address] [place] [address], [address], 02/17/2024 20:27:09 02/17/20 24 02/17/2024 URINA LYSIS urobilinogen 1 mg/dL normal abnormal Not Available [facility] [address] [place] [address], [address], 02/17/2024 20:27:09 02/17/20 24 02/17/2024 URINA LYSIS nitrite Negati ve negati ve normal Not Available [facility] [address] [place] [address], [address], 02/17/2024 20:27:09 02/17/20 24 02/17/2024 URINA LYSIS leukocyte esterase 100 /uL negati ve abnormal Not Available [facility] [address] [place] [address], [address], 02/17/2024 20:27:09 02/17/20 24 02/17/2024 URINA LYSIS WBC, urine > 30 0-5/hp f abnormal URINE CULTU RE IN PROGR ESS. Not Available [facility] [address] [place] [address], [address], 02/17/2024 20:27:09 02/17/20 24 02/17/2024 URINA LYSIS squamous epi. cells 0-5 0-5/hp f normal Not Available [facility] [address] [place], [address], 02/17/2024 20:27:09 02/17/20 24 02/17/2024 URINA LYSIS transitional epi. cells 0-5 0 - 5/hpf normal Not Available [facility] [address] [place] [address], [address], 02/17/2024 20:27:09 02/17/20 24 02/17/2024 URINA LYSIS bacteria Trace /hpf none seen abnormal Not Available [facility] [address] [place] [address], [address], 02/17/2024 20:27:09 02/17/20 24 02/20/2024 URINE CULTU RE urine culture COLON Y COUNT : 10,00 0 - 100,0 00 CFU/M L Three or more isola dimple; mixed uroge nital kelsy . Not Available [facility] [address] [place] [address], [address], 02/20/2024 10:29:41 06/01/19 25 06/01/2024 COMPL ETE BLOOD COUNT white blood cells 6.5 10*3/ uL 3.8-10 .8 normal Not Available [facility] [address] [place] [address], [address], 06/01/2024 19:37:27 06/01/19 25 06/01/2024 COMPL ETE BLOOD COUNT red blood cells 3.94 10*6/ uL 3.80-5 .20 normal Not Available [facility] [address] [place] [address], [address], 06/01/2024 19:37:27 06/01/19 25 06/01/2024 COMPL ETE BLOOD COUNT hemoglobin 12.6 g/dL 12.0-1 6.0 normal Not Available [facility] [address] [place] [address], [address], 06/01/2024 19:37:27 06/01/19 25 06/01/2024 COMPL ETE BLOOD COUNT hematocrit 38.5 % 35.0-4 7.0 normal Not Available [facility] [address] [place] [address], [address], 06/01/2024 19:37:27 06/01/19 25 06/01/2024 COMPL ETE BLOOD COUNT MCV 98 fL 80-100 normal Not Available [facility] [address] [place] [address], [address], 06/01/2024 19:37:27 06/01/19 25 06/01/2024 COMPL ETE BLOOD COUNT MCH 32 pg 26-35 normal Not Available [facility] [address] [place] [address], [address], 06/01/2024 19:37:27 06/01/19 25 06/01/2024 COMPL ETE BLOOD COUNT MCHC 33 g/dL 32-36 normal Not Available [facility] [address] [place] [address], [address], 06/01/2024 19:37:27 06/01/19 25 06/01/2024 COMPL ETE BLOOD COUNT RDW 12.6 % 11.0-1 5.0 normal Not Available [facility] [address] [place] [address], [address], 06/01/2024 19:37:27 06/01/19 25 06/01/2024 COMPL ETE BLOOD COUNT MPV 9.0 fL 6.2-10 .5 normal Not Available [facility] [address] [place] [address], [address], 06/01/2024 19:37:27 06/01/19 25 06/01/2024 COMPL ETE BLOOD COUNT platelet count 355 10*3/ uL 150-40 0 normal Not Available [facility] [address] [place] [address], [address], 06/01/2024 19:37:27 06/01/19 25 06/01/2024 COMPL ETE BLOOD COUNT neutrophil,a bsolute 4.1 10*3/ uL 1.6-8. 4 normal Not Available [facility] [address] [place] [address], [address], 06/01/2024 19:37:27 06/01/19 25 06/01/2024 COMPL ETE BLOOD COUNT lymphocyte,a bsolute 1.9 10*3/ uL 0.4-5. 1 normal Not Available [facility] [address] [place] [address], [address], 06/01/2024 19:37:27 06/01/1906/01/2024 COMPL ETE BLOOD COUNT monocyte,abs olute 0.4 10*3/ uL 0.0-1. 2 normal Not Available [facility] [address] [place] [address], [address], 06/01/2024 19:37:27 06/01/19 25 06/01/2024 COMPL ETE BLOOD COUNT eosinophil,a bsolute 0.1 10*3/ uL 0.0-0. 8 normal Not Available [facility] [address] [place] [address], [address], 06/01/2024 19:37:27 06/01/19 25 06/01/2024 COMPL ETE BLOOD COUNT basophil,abs olute 0.0 10*3/ uL 0.0-0. 3 normal Not Available [facility] [address] [place] [address], [address], 06/01/2024 19:37:27 06/01/19 25 06/01/2024 COMPL ETE BLOOD COUNT % neutrophils 62.4 % 42.0-7 8.0 normal Not Available [facility] [address] [place] [address], [address], 06/01/2024 19:37:27 06/01/19 25 06/01/2024 COMPL ETE BLOOD COUNT % lymphocytes 29.4 % 11.0-4 7.0 normal Not Available [facility] [address] [place] [address], [address], 06/01/2024 19:37:27 06/01/19 25 06/01/2024 COMPL ETE BLOOD COUNT % monocytes 6.8 % 0.0-11 .0 normal Not Available [facility] [address] [place] [address], [address], 06/01/2024 19:37:27 06/01/19 25 06/01/2024 COMPL ETE BLOOD COUNT % eosinophils 1.0 % 0.0-7. 0 normal Not Available [facility] [address] [place] [address], [address], 06/01/2024 19:37:27 06/01/19 25 06/01/2024 COMPL ETE BLOOD COUNT % basophils 0.4 % 0.0-3. 0 normal Not Available [facility] [address] [place] [address], [address], 06/01/2024 19:37:27 06/01/19 25 06/01/2024 COMPL ETE BLOOD COUNT nucleated red cells 0.1 % 0.0-0. 9 normal Not Available [facility] [address] [place] [address], [address], 06/01/2024 19:37:27 06/01/19 25 06/01/2024 COMPL ETE BLOOD COUNT nucleated RBCs, absolute 0.01 10*3/ uL not estab. normal Not Available [facility] [address] [place] [address], [address], 06/01/2024 19:37:27 06/01/19 25 06/01/2024 TSH TSH 2.040 u[IU] /mL 0.270- 4.200 normal Not Available [facility] [address] [place] [address], [address], 06/01/2024 19:53:23 06/01/19 25 06/01/2024 MAGNE SIUM magnesium 1.8 mg/dL 1.6-2. 6 normal Not Available [facility] [address] [place] [address], [address], 06/01/2024 19:58:21 06/01/19 25 06/01/2024 COMP. METAB OLIC PANEL glucose 100 mg/dL 74-100 normal Not Available [facility] [address] [place] [address], [address], 06/01/2024 19:58:22 06/01/19 25 06/01/2024 COMP. METAB OLIC PANEL blood urea nitrogen 20 mg/dL 6-20 normal Not Available [facility] [address] [place] [address], [address], 06/01/2024 19:58:22 06/01/19 25 06/01/2024 COMP. METAB OLIC PANEL creatinine 1.11 mg/dL 0.50-0 .95 high Not Available [facility] [address] [place] [address], [address], 06/01/2024 19:58:22 06/01/19 25 06/01/2024 COMP. METAB OLIC PANEL BUN/creatini ne ratio 18 (calc ) 10-20 normal Not Available [facility] [address] [place] [address], [address], 06/01/2024 19:58:22 06/01/19 25 06/01/2024 COMP. METAB OLIC PANEL sodium 133 mmol/ L 136-14 5 low Not Available [facility] [address] [place] [address], [address], 06/01/2024 19:58:22 06/01/19 25 06/01/2024 COMP. METAB OLIC PANEL potassium 5.2 mmol/ L 3.4-5. 0 high Not Available [facility] [address] [place] [address], [address], 06/01/2024 19:58:22 06/01/19 25 06/01/2024 COMP. METAB OLIC PANEL chloride 95 mmol/ L 98-107 low Not Available [facility] [address] [place] [address], [address], 06/01/2024 19:58:22 06/01/19 25 06/01/2024 COMP. METAB OLIC PANEL carbon dioxide 26 mmol/ L 22-31 normal Not Available [facility] [address] [place] [address], [address], 06/01/2024 19:58:22 06/01/19 25 06/01/2024 COMP. METAB OLIC PANEL anion gap 12 (calc ) 7-25 normal Not Available [facility] [address] [place] [address], [address], 06/01/2024 19:58:22 06/01/19 25 06/01/2024 COMP. METAB OLIC PANEL calcium 8.8 mg/dL 8.6-10 .2 normal Not Available [facility] [address] [place] [address], [address], 06/01/2024 19:58:22 06/01/19 25 06/01/2024 COMP. METAB OLIC PANEL total protein 6.8 g/dL 6.4-8. 3 normal Not Available [facility] [address] [place] [address], [address], 06/01/2024 19:58:22 06/01/19 25 06/01/2024 COMP. METAB OLIC PANEL albumin 3.8 g/dL 3.5-5. 2 normal Not Available [facility] [address] [place] [address], [address], 06/01/2024 19:58:22 06/01/19 25 06/01/2024 COMP. METAB OLIC PANEL globulin 3.0 1.5-4. 5 normal Not Available [facility] [address] [place] [address], [address], 06/01/2024 19:58:22 06/01/19 25 06/01/2024 COMP. METAB OLIC PANEL albumin/glob ulin ratio 1.3 (calc ) 1.1-2. 5 normal Not Available [facility] [address] [place] [address], [address], 06/01/2024 19:58:22 06/01/19 25 06/01/2024 COMP. METAB OLIC PANEL bilirubin, total 0.2 mg/dL 0.1-1. 2 normal Not Available [facility] [address] [place] [address], [address], 06/01/2024 19:58:22 06/01/19 25 06/01/2024 COMP. METAB OLIC PANEL alkaline phosphatase 90 U/L 30-121 normal Not Available [facility] [address] [place] [address], [address], 06/01/2024 19:58:22 06/01/19 25 06/01/2024 COMP. METAB OLIC PANEL AST 28 U/L 0-32 normal Not Available [facility] [address] [place] [address], [address], 06/01/2024 19:58:22 06/01/19 25 06/01/2024 COMP. METAB OLIC PANEL ALT 14 U/L 0-33 normal Not Available [facility] [address] [place] [address], [address], 06/01/2024 19:58:22 06/01/19 25 06/01/2024 COMP. METAB [...] s/KDO QI/gf r_cal culat orPed Not Available [facility] [address] [place], [address], 06/01/2024 19:58:22 06/01/19 25 06/01/2024 B12/F OLIC ACID PANEL folic acid 15.0 NG/mL 4.6-34 .8 normal Not Available [facility] [address] [place] [address], [address], 06/01/2024 20:02:33 06/01/19 25 06/01/2024 B12/F OLIC ACID PANEL vitamin B12 476 pg/mL 232-12 45 normal Not Available [facility] [address] [place] [address], [address], 06/01/2024 20:02:33 12/02/19 24 11/30/2023 XR, chest , 2 view No observ ation record ed. [email or web address] [facility] [address] [facility], [place], [address], 12/02/2023 14:15:37 Result Notes None recorded. Problems Name Problem SNOMED Code Status Onset Date Resolution Date Notes Provider Name and Address Organization Details Recorded Time Dysuria 00541526 Active 2022 BAMBI GARCIAS, DO [address] [place] [address], [address], [facility] 3 11:24:39 Acute urinary tract infection 969474461 Active 2022 BAMBI GARCIAS, DO [address] [place] [address], [address], [facility] 3 11:35:11 Chronic pain syndrome 436854099 Active 2022 HANG DOBBINS, DO [address] [place] [address], [address], [facility] 3 11:11:15 Diarrhea 99026585 Active 2022 HANG DOBBINS, DO [address] [place] [address], [address], [facility] 3 11:11:17 Recurrent urinary tract infection 911267099 Active 2022 HANG DOBBINS, DO [address] [place], [address], [facility] 3 10:41:03 Recurrent major depression in partial remission 11556758 Active 2023 HANG DOBBINS, DO [address] [place], [address], [facility] 4 14:33:07 Superior mesenteric artery syndrome 792772574 Active 2023 HANG DOBBINS, DO [address] [place], [address], [facility] 4 14:42:53 At increased risk of polypharmacy 627871394 Active 2024 HANG DOBBINS, DO [address] [place], [address], [facility] 5 16:55:29 Notes:pt has a uti she has b een having diarrhea for a week Problem Notes None recorded. Medical Equipment None Reported. Allergies Allergen ID Allergen Name Allergen Category Reaction Reaction Severity Criticality Documentation Date Start Date Code Code System Note Provider Name and Address Organization Details Recorded Time [id number] Doryx medicatio n Not available Not available Not available 03/25/20162012 79981 7 RxNorm Comme nt: Creat ed By: Jett thomson Date: 2012 5:06: 55 PM; Not Available [facility] 6 10:57:30 [id number] diphenhyd ramine hydrochlo ride medicatio n Not available Not available Not available 03/25/20162012 1362 RxNorm Comme nt: Creat ed By: Jett thomson Date: 2012 5:07: 38 PM; Not Available [facility] 6 11:04:44 [id number] Ultram medicatio n Not available Not available Not available 03/25/20162012 20529 6 RxNorm Comme nt: Creat ed By: Jett lazar;C reate d Date: 2012 5:08: 25 PM; Not Available [facility] 6 11:57:02 [id number] iodine medicatio n Not available Not available Not available 03/26/20162012 5933 RxNorm Comme nt: Creat ed By: Jett lazar;C reate d Date: 2012 5:07: 48 PM; Not Available [facility] 6 04:37:47 [id number] Product containin g penicilli n (product) medicatio n Not available Not available Not available 03/26/20162012 70434 8001 SNOMED Comme nt: Creat ed By: Jett lazar;C reate d Date: 2012 5:08: 02 PM; Not Available [facility] 6 04:37:47 [id number] Terramyci n medicatio n Not available Not available Not available 03/26/2016201296 4 RxNorm Comme nt: Creat ed By: Jett lazar;C reate d Date: 2012 5:08: 12 PM; Not Available [facility] 6 08:22:49 Medications Name Sig Start [...] 2024 active Not Available Not Available Not Gutierrez dugan ketoconaz ole 2 % shampoo USE A [...] Updated DateTime 5 165.1 cm 21.1 kg/m2 80689.2 3 g 105 /min 93 % 93 % 112 mm[Hg] 72 mm[Hg] Tara Manrique [facility] 10:25:43 Date Recorded Body height Provider Name an d Address Organization Details Last Updated DateTime 06/05/2024 165.1 cm Rani Hua [facility] 06/05/2024 10:24:10 Date Recorded Body height Body mass index (BMI) Body weight Oxygen saturation Oxygen saturation in Arterial blood by Pulse oximetry Heart rate Systolic blood pressure Diastolic blood pressure Provider Name and Address Organization Details Last Updated DateTime 5 165.1 cm 21.5 kg/m2 56680.4 2 g 93 % 93 % 92 /min 115 mm[Hg] 76 mm[Hg] Erica Galloway [facility] 5 11:30:54 Date Recorded Body height Body mass index (BMI) Body weight Body temperature Heart rate Oxygen saturation Oxygen saturation in Arterial blood by Pulse oximetry Systolic blood pressure Diastolic blood pressure Provider Name and Address Organization Details Last Updated DateTime 4 165.1 cm 20.6 kg/m2 70704.4 5 g 97.7 [degF] 92 /min 95 % 95 % 116 mm[Hg] 78 mm[Hg] Radha Scott [facility] 4 14:57:59 Date Recorded Body height Body mass index (BMI) Body weight Heart rate Oxygen saturation Oxygen saturation in Arterial blood by Pulse oximetry Systolic blood pressure Diastolic blood pressure Provider Name and Address Organization Details Last Updated DateTime 4 165.1 cm 21.4 kg/m2 24625.6 2 g 78 /min 96 % 96 % 122 mm[Hg] 78 mm[Hg] Erica [facility] 4 10:19:10 Social History Question Answer Notes LastModified by Spacenetizat ion Details LastModified Time Tobacco Smoking Status Never Smoker Radha Scott [facility] 01/11/2023 11:53:44 What Was The [...] or 50 mcg/0.25mL dose 06/06/2020 [facility] 14:03:29 COVID-19, mRNA, LNP-S, PF, 100 mcg/0.5mL dose or 50 mcg/0.25mL dose 07/04/2020 [facility] 12/06/2023 14:03:29 COVID-19, mRNA, LNP-S, PF, 100 mcg/0.5mL dose or 50 mcg/0.25mL dose 03/20/2021 [facility] 12/06/2023 14:03:29 zoster live 04/03/2015 [facility] 12/06/2023 14:03:29 Influenza, high-dose, trivalent, PF 06/06/2019 [facility] 12/06/2023 14:03:29 Influenza, split virus, quadrivalent, PF 04/03/2015 [facility] 12/06/[facility]23 14:03:29 COVID-19, mRNA, LNP-S, PF, 50 mcg/0.5 mL 04/06/2023 [facility] 12/06/2023 14:03:34 Influenza, high-dose, quadrivalent, PF 01/11/2023 [facility] 01/11/2023 13:19:18 Influenza, high-dose, trivalent, PF 02/17/2024 completed HANG MAC, [address] [place] [address], [address], [facility] 02/17/2024 12:40:35 Past Encounters Encounter ID Performer Location Encounter Start Date Encounter Closed Date Diagnosis/Indication Diagnosis SNOMED-CT Code Diagnosis ICD10 Code Diagnosis Note [id number] HANG JAIMES LL, DO [facility] [address] [place] [address] 01/11/2023 11:34:14 01/11/2023 12:17:24 Dysuria 49955559 R30.0 Unknown etiology, urine does not look that bad. We will send for UA and culture, suspect she might have more urethritis this time, we will give Cipro 500 twice daily x5 days, does not sound when she has diverticul itis, not been evaluated by gynecologi st in a while recommende d gynecology follow-up Administra tion of influenza vaccine 73402550 Z23 [id number] BAMBI GARCIAS, DO PRIMARY [facility] [address] [place] [address] 02/09/2023 10:23:22 02/09/2023 11:30:37 Dysuria 46766033 R30.0 Acute urin miguel tract infection 260517770 N39.0 UA is consistent with UTI, will check for antibiotic sensitivit yRX as ordered belowEnsur e adequate hydration, regular emptying of the bladder and void shortly after sexual intercours eIf symptoms worsen/do not improve RTC or inform provider [id number] HANG POSEY, DO [facility] [address] [place] [address] 03/29/2023 09:38:22 03/29/2023 10:29:09 Diarrhea 07464998 R19.7 persistent . unknown last colon. has reduced fentanyl some. Refer to GI for more thorough evaluation Acute urin miguel tract infection 113308758 N39.0 Recheck urinalysis and culture today, suspect he will still be infected with Enterococc us. We will give Macrobid, was sensitive to Macrobid last month. We will treat for 10 days, then reevaluate . Chronic pain syndrome 37 1771932 G89.4 on meds. - dr Chicas. Has not had routine labs recently, does take multiple medication s we will check kidney function electrolyt es blood count today [id number] HANG POSEY, DO [facility] [address] [place] [address],[address] [place] [address] 04/19/2023 09:38:06 04/19/2023 10:25:02 Diarrhea 36107412 R19.7 has GI eval pernell Acute urin miguel tract infection 904550661 N39.0 had enterococc us. treateted with macorobid. Linwood to be better recheck urine culture today Recurrent urinary tract infection 574131697 N39.0 Secondary to neurogenic bladder with recurrent self catheteriz ations Muscle weakness 97781602 M62.81 Altered factorial felt to be from prolonged illness, will check labs today, I think she would benefit from home health physical therapy [id number] HANG POSEY, DO [facility] [address] [place] [address] 05/09/2023 11:31:37 05/09/2023 11:58:22 Acute urinary tract infection 704129057 N39.0 Suspect she has another bladder infection we will treat with Macrobid for 10 days, then do low-dose Macrodanti n daily after that. 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 Recommend opinion by GI doctor. We will try to set up that referral again [id number] HANG POSEY, DO [facility] [address] [place] [address] 07/26/2023 15:07:38 07/26/2023 15:39:30 Cough 56152170 R05.9 Acute bronchitis 0330492 2 J20.9 RSV with lingering symptoms. Could be developing into pneumonia. We will give Levaquin, Medrol Dosepak, Phenergan DM [id number] HANG PSOEY, DO [facility] [address] [place] [address] 11/08/2023 14:15:42 11/08/2023 14:46:37 Malnutrition (calorie) 110164789 E46 BMI low. discussed diet, currently on weight gaining trial through surgeons office Chronic pain syndrome 37 0841763 G89.4 on meds. 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 Check urinalysis and culture. Has had resistant bacteria in the past. Levaquin 500 x 7 days Recurrent urinary tract infection 977293592 N39.0 Secondary to neurogenic bladder with recurrent self catheteriz ations Cough 15659323 R05.9 Has had a cough since her RSV in the spring. We will see how she responds to the Levaquin, also sent for chest x-ray [id number] HANG POSEY, DO [facility] [place] [address] [facility] [address] [place] [address] 02/17/2024 09:53:53 02/17/2024 10:42:18 Diarrhea 70916053 R19.7 has GI eval pernell Administra tion of influenza vaccine 04206141 Z23 Active immunization 3387 9002 Z23 Acute cystitis 53455424 N30.01 Recheck urinalysis and culture today, we will start off with Levaquin, we will see what urine culture shows [id number] HANG POSEY, DO [facility] [place] [address] [facility] [place] [address] 06/01/2024 10:10:26 06/01/2024 11:05:06 Nausea 392114581 R11.0 Cough 13999099 R05.9 Lungs sound okay throat looks okay, do not think she has any serious infection, we will give Z-Antoni in case we are missing something or it is early Muscle weakness 60863680 M62.81 - Multifacto rial, possibly low and nutrition now, could be dehydrated , we will check routine labs today, she is pretty weak, I think she needs another course of physical therapy Irritable bowel syndrome with diarrhea 386800484 K58.0 takes lomotil as needed [id number] OSCAR SAMAYOA PA-C [facility] [place] [address] [place] [address] 06/05/2024 09:51:42 06/05/2024 11:16:47 Acute pharyngitis 775255906 J02.9 Pt just completed Azithromyc in.Will send Levaquin for persistent URI.Pt has done well with medication in the past. Pt has allergy to Penicillin , unsure of cephalospo rins. [id number] HANG JAIMES LL, DO [facility] [place] [address] [place] [address] 07/25/2024 11:12:26 07/25/2024 11:48:06 Renewal of prescription 719087073 Z76.0 Nausea 333428864 R11.0 Bipolar disorder 3659936 [address] Huffman -- tried. multiple LINING SEWER at [facility] . Chronic pain syndrome 37 8355171 G89.4 on meds. - dr Chicas mgt- to see Dr Dempsey. At [facility] ed risk of polypharmacy 610341085 Z91.89 Patient is elderly and has been [...] Policy Number Policy Borden Covered Member ID Broden Member ID Guarantor Name 08/31/2024 1 [place]IC[place] Junie Phillips [id number] Junie Phillips 08/31/2024 2 AARP (MEDICARE SUPPLEMENT) PLAN F Junie Phillips [id number] Junie Phillips Notes Date Note Type Note [...] than usual as well, had been on nursing home Nitrofurantoin but had not taken for a [...] penicillin, tetracycline allergy. HANG MAC, DO [address] [place], [address], [facility] 11/30/2023 17:19:55 02/17/2024 text/html Patient is 73-ye [...] then come back HANG MAC, DO [address] [place], [address], [facility] 02/17/2024 12:40:55 06/01/2024 text/html Patient is 73-year-old [...] but that ended HANG MAC, DO [address] [place], [address], [facility] 06/01/2024 13:46:15 06/05/2024 text/html Visit today is b eing conducted via telehealth using both audio/video. The patient confirms that he/she is physically located in [place] at the time of this visit. Patient expressed understanding of audio/video telehealth as a billable visit and has consented. Patient also expressed understanding that not every condition can be appropriately addressed via telehealth and that this telehealth visit may need to be converted to an in-person visit or may even result in a recommendation to go to the E.R. at the provider s discretion in order to provide the best possible care. 73 year old female patient is seen via telehealth with complaints of sore throatPatient associates weakness, voice loss, bad taste, fever, chills, nausea, diarrheaSymptoms began last weekPatient denies CROSS, nasal, chest congestion, SOBNothing improves or worsens symptoms at this time OSCAR SAMAYOA PA-C [address] [place], [address], [facility] 06/05/2024 10:51:16 07/25/2024 text/html Patient is 73-ye [...] right now HANG MAC, DO [address] [place], [address], [facility] 07/25/2024 16:55:34 OBGyn Episode No OBEpisode recorded.
--- OUTSIDE RECORDS SUMMARY | 2024-10-11 13:11 | XMS_ITS | Clinical Summary ---
Author Organization [facility] Address [address] [place] [address] Care Team Providers Care Teacher Assistant Name Role Phone Jasson Galvan Primary Care Provider Allergies Active Allergy Reactions Criticality Noted Date Comments Erythromycin Other - please docum ent in the comment field Low 12/22/2020 Nausea Iodine Rash Low 12/29/2020 Penicillins Rash Low 12/22/2020 Tetracycline Other - please docum ent in the comment field Low 12/22/2020 Nausea Tramadol Other - please docum ent in the comment field Low 12/22/2020 Nausea Medications buPROPion (Wellbutrin) 75 MG tablet Take 75 mg by mouth 1 (one) time each day. 1 Active fentaNYL (Duragesic) 75 MCG/HR every 3rd (third) day. 1 Active risperiDONE (RisperDAL) 0.5 MG tablet Take 0.5 mg by mouth every night. 1 Active busPIRone (Buspar) 15 MG tablet every night. Active Nutritional Supplements (Peptamen Bariatric) liquid Take by mouth. Active calcium citrate-vitamin D2 (Citracal+D) 315-200 MG-UNIT tablet Take 1 tablet by mouth 1 (one) time each day. Active ciprofloxacin (Cipro) 500 MG tablet Take by mouth 2 (two) times a day. Active Cyanocobalamin (Vitamin B12) 3000 MCG/ML liquid Place under the tongue. Active methocarbamol (Robaxin) 750 MG tablet Take 1 tablet (750 mg total) by mouth 4 (four) times a day for 14 days. 56 tablet Active gabapentin (Neurontin) 100 MG capsule Take 3 capsules (300 mg total) by mouth 3 (three) times a day for 14 days, THEN 1 capsule (100 mg total) 3 (three) times a day for 14 days. 100 capsule 1 Active Active Problems Problem Noted Date Diagnosed Date Closed trimalleolar fracture of right ankle 12/01 Overview (12/24/2020): Added automatically from request for surgery [id number] Family History Medical History Relation Name Comments Diabetes Father Relation Name Status Comments Father Social History Tobacco Use Types Packs/Day Years Used Date Smoking Tobacco: Never Smokeless Tobacco: Never Alcohol Use Standard Drinks/Week Comments Never 0 (1 standard drink = 0.6 oz pur e alcohol) PHQ-2 Answer Date Recorded Patient Health Questionnaire-2 Score 3 12/24/2020 Comments No Sex and Gender Information Value Date Recorded Sex Assigned at Female 01/01/2021 8:28 AM EDT Legal Sex Female 7:36 PM EDT Gender Identity Female 01/01/2021 8:28 AM EDT Sexual Orientation Not on file Last Filed Vital Signs Vital Sign Reading Time Taken Comments Blood Pressure 107/71 04/08/2021 2:17 PM EST Pulse 110 04/08/2021 2:17 PM EST Temperature 36.6 C (97.9 F) 04/08/2021 2:17 PM EST Respiratory Rate 10 01/01/2021 3:30 PM EDT Oxygen Saturation 95% 04/08/2021 2:17 PM EST Inhaled Oxygen Concentration - - Weight 48.1 kg (106 lb) 04/08/2021 2:17 PM EST Height 165.1 cm (5' 5 ) 04/08/2021 2:17 PM EST Body Mass Index 17.64 04/08/2021 2:17 PM EST Plan of Treatment Health Maintenance Due Date Last Done Comments [facility]-Bone Density Scan 1948 [facility]-Depression Screening 1948 [facility]-Infant/Child/Adol SDOH Screenings 01/01/1951 [facility]- SDOH Screenings 1966 [facility]-Adult SDOH Screenings 1966 [facility]-DTaP,Tdap,and Td Vaccine s (1 - Tdap) 01/01/1968 CT Colonography 1993 Colonoscopy 1993 FIT-DNA 1993 FIT 1993 FOBT 1993 Sigmoidoscopy 1993 [facility]-Colorectal Cancer Screening 1993 [facility]-Pneumococcal Vaccine: 50 + Years (1 of 1 - PCV) 1998 [facility]-Zoster Vaccines (2 of 3) 05/29/2015 04/03/2015 [facility]-[id number] Vaccine (4 - season) 2024 03/20/2021, 07/04/2020, 06/06/2020 [facility]-RSV Vaccine: 60+ Years o r (1 - 1-dose 75+ series) 01/01/2024 [facility]-Influenza Vaccine (Seaso n Ended) 2024 04/03/2015 HPV Vaccines Aged Out No longer eligi ble based on patient's age to complete this topic [facility]-HIB Vaccines Aged Out No longer e ligible based on patient's age to complete this topic [facility]-Hepatitis A Vaccines Aged Out No longer eligible based on patient's age to complete this topic [facility]Y-IPV Vaccines Aged Out No longer e ligible based on patient's age to complete this topic UKY-Rotavirus Vaccines Aged Out No lo nger eligible based on patient's age to complete this topic Medical Devices Implanted Type Area Resin Mixer Device Identifier Shelf Expiration Date Model / Serial / Lot Screw 3.5mm Periart 2.7mm Head Selftap 54mm - [id number] Implanted:Qty: 1 on 01/01/2021 at [facility] [place] Screw Right: Ankle [employer] [facility]-[id number] / / Hip Replacement Right: Hip Rods/Screws N/A: Neck Screw Left: Wrist Screw 3.5mm Cortex Selftap 16mm - [id number] Implanted:Qty: 1 on 01/01/2021 at [facility] [place] Right: Ankle Synthes [facility]-[id number] 204.816 / / Screw 3.5mm Cortex Selftap 14mm - [id number] Implanted:Qty: 1 on 01/01/2021 at [facility] [place] Right: Ankle [employer] [place]-[id number] 204.814 / / Screw 3.5mm Cortex Selftap 50mm - [id number] Implanted:Qty: 1 on 01/01/2021 at [facility] [place] Right: Ankle [employer] [place]-[id number] 204.850 / / Screw 2.7mm T8 Star Lock Selftap 10mm - [id number] Implanted:Qty: 2 on 01/01/2021 at [facility] [place] Right: Ankle [employer] [place]-[id number] 202.210 / / Screw 2.7mm T8 Star Lock Selftap 12mm - [id number] Implanted:Qty: 1 on 01/01/2021 at [facility] [place] Right: Ankle [employer] [place]-[id number] 202.212 / / Screw 2.7mm T8 Star Lock Selftap 14mm - [id number] Implanted:Qty: 1 on 01/01/2021 at [facility] [place] Right: Ankle [employer] [place]-[id number] 202.214 / / Screw 2.7mm T8 Star Lock Selftap 16mm - [id number] Implanted:Qty: 1 on 01/01/2021 at [facility] [place] Right: Ankle [employer] [place]-[id number] 202.216 / / Plate Post Dist Fib Lcp 7h Rt 129mm - [id number] Implanted:Qty: 1 on 01/01/2021 at [facility] [place] Right: Ankle [employer] [place]-[id number] 02.112.114 / / Plate Lcp Condyl 2.4mm 7h - [id number] Implanted:Qty: 1 on 01/01/2021 at [facility] [place] Right: Ankle [employer] [place]-[id number] 249.679 / / Screw 2.4mm Cortex T8 Lock Selftap 40mm - [id number] Implanted:Qty: 1 on 01/01/2021 at [facility] [place] Right: Ankle [employer] [place]-[id number] 201.790 / / Screw 2.4mm Cortex T8 Star Selftap 30mm - [id number] Implanted:Qty: 1 on 01/01/2021 at [facility] [place] Right: Ankle [employer] [place]-[id number] 201.780 / / Screw 2.4mm Cortex T8 Star Selftap 36mm - [id number] Implanted:Qty: 1 on 01/01/2021 at [facility] [place] Right: Ankle [employer] [place]-[id number] 201.786 / / Screw 3.5mm Cortex Selftap 46mm - [id number] Implanted:Qty: 1 on 01/01/2021 at [facility] [place] Right: Ankle Synthes [facility]-[id number] 204.846 / / Explanted Type Area Resin Mixer Device Identifier Shelf Expiration Date Model / Serial / Lot Screw 3.5mm Cortex Selftap 18mm - [id number] Explanted:Qty: 1 on 01/01/2021 at [facility] [place] Right: Ankle Synthes [facility]-[id number] 204.818 / / Insurance MEDICARE [facility] Care Teams Teacher Assistant Relationship Specialty Start Date End Date Jasson Galvan DO [facility] [address] [place] [address] PCP - General 12/22/20
--- OUTSIDE RECORDS SUMMARY | 2024-10-11 13:11 | XMS_ITS | Clinical Summary ---
Author Organization [facility] Address [address] [place] [address] Care Team Providers Care Office Machine Mechanic Name Role Phone Cole Jasson Cj TOM Primary Care Provider Allergies Active Allergy Reactions Criticality Noted Date Comments Erythromycin Unknown - Low Severity 12/02/2021 Iodine Rash Low 12/29/2020 Penicillins Unknown - Low Severity 12/02/2021 Sulfa Antibiotics Unknown - Low Severity 2021 Tetracycline Other (See Comments) Low 12/22/2020 Nausea Medications diazePAM (VALIUM) 5 MG tablet Take 5 mg by mouth Every 12 (Twelve) Hours As Needed. 2 Active HYDROcodone-miguelina taminophen (NORCO) 10-325 MG per tablet Take 1 tablet by mouth 4 (Four) Times a Day. 2 Active zolpidem (Ambien) 10 MG tablet Take 10 mg by mouth At Night As Needed for Sleep. 2 Active fentaNYL (DURAGESIC) 75 MCG/HR patch Place 1 patch on the skin as directed by provider Every 72 (Seventy-Two) Hours. 2 Active gabapentin (NEURONTIN) 600 MG tablet Take 1,200 mg by mouth every night at bedtime. May take 1 additional tablet as needed 2 Active promethazine (PHENERGAN) 25 MG tablet Take 25 mg by mouth Daily As Needed for Nausea or Vomiting. Active risperiDONE (risperDAL) 0.5 MG tablet Take 0.5 mg by mouth Daily. Active busPIRone (BUSPAR) 15 MG tablet Take 15 mg by mouth Daily. Active buPROPion (WELLBUTRIN) 75 MG tablet Take 75 mg by mouth Daily. Active Cyanocobalamin 1000 MCG/ML kit Inject as directed. Patient takes once weekly, no specific day Active calcium carbonate (OS-JASE) 600 MG tablet Take 600 mg by mouth 2 (Two) Times a Day With Meals. Active Dextran 70-Hypromellose (Artificial Tears) 0.1-0.3 % solution Apply 1 drop to eye(s) as directed by provider Daily As Needed (cataracts). Active multivitamin with minerals (MULTIVITAMIN ADULT PO) Take 1 tablet by mouth 2 (Two) Times a Day. *Bariatric vitamin complex* Active aspirin 81 MG chewable tablet Chew 1 tablet Daily. 30 tablet 5 12/03/2021 1:40 PM EDT 2 Active atorvastatin (LIPITOR) 10 MG tablet Take 1 tablet by mouth Every Night. 30 tablet 5 12/03/2021 1:40 PM EDT 2 Active PHARMACY MEDS TO BED CONSULT Daily. 2 Active Active Problems Problem Noted Date Diagnosed Date Difficulty with speech 12/02/2021 Facial droop 12/02/2021 Anxiety disorder 12/02/2021 PTSD (post-traumatic stress disorder) 12/02/2021 Chronic pain 12/02/2021 Social History Tobacco Use Types Packs/Day Years Used Date Smoking Tobacco: Never Alcohol Use Standard Drinks/Week Comments Never 0 (1 standard drink = 0.6 oz pur e alcohol) AUDIT-C Answer Date Recorded Q1: How often do you have a drink containing alcohol? Never 12/02/2021 Q2: How many drinks containi ng alcohol do you have on a typical day when you are drinking? Patient does not drink Q3: How often do you have si x or more drinks on one occasion? Never 12/02/2021 Abuse Screen Answer Date Recorded Unsafe at Home or Work/School Not on file Feels Threatened by Someone? Not on file 12/2022 Does Anyone Keep You from Co ntacting Others or Doint Things Outside the Home? Not on file 02/07/2023 Physical Sign of Abuse Present Not on file 1 Housing Stability Answer Date Recorded Current Living Arrangements Not on file 12/2022 Potentially Unsafe Housing Conditions Not on lake e 02/07/2023 Family and Community Support Answer Jaswinder e Recorded Help with Day-to-Day Activities Not on file 02/07/2023 Lonely or Isolated Not on file 02/07/2023 Employment Answer Date Recorded Do you want help finding or keeping work or a pretty b? Not on file 02/07/2023 Disabilities Answer Date Recorded Concentrating, Remembering, or Making Decisions Difficulty Not on file 02/07/2023 Doing Errands Independently Difficulty Not on fi le 02/07/2023 Education Answer Date Recorded Help with school or training? Not on file Preferred Language Not on file 02/07/2023 Comments Unknown Sex and Gender Information Value Date Recorded Sex Assigned at Not on file Legal Sex Female 10:29 AM EDT Gender Identity Not on file Sexual Orientation Not on file Last Filed Vital Signs Vital Sign Reading Time Taken Comments Blood Pressure 118/61 12/03/2021 6:45 AM EDT Pulse 92 12/03/2021 6:45 AM EDT Temperature 36.7 C (98 F) 12/03/2021 6:45 AM EDT Respiratory Rate 16 12/03/2021 6:45 AM EDT Oxygen Saturation 95% 12/03/2021 3:58 AM EDT Inhaled Oxygen Concentration - - Weight 56.7 kg (124 lb 14.3 oz) 022 10:52 AM EDT Height 165.1 cm (5' 5 ) 12/02/2021 10:5 9 AM EDT Body Mass Index 20.78 12/02/2021 10:52 AM EDT Plan of Treatment Health Maintenance Due Date Last Done Comments ANNUAL WELLNESS VISIT 1948 DXA SCAN 1948 HEPATITIS C SCREENING 1948 TDAP/TD VACCINES (1 - Tdap) 01/01/1968 COLOGUARD 1993 COLON CANCER SCREENING 5 YEA R SIGMOIDOSCOPY 1993 COLONOSCOPY 1993 [address]AL CANCER SCREENING 1993 CT COLONOGRAPHY 1993 FECAL OCCULT BLOOD TEST 1993 FIT Testing (1 year) 1993 Pneumococcal Vaccine 50+ (1 of 1 - PCV) 1998 ZOSTER VACCINE (2 of 3) 05/29/2015 04/03/2015 COVID-19 Vaccine (4 - season) 2024 03/20/2021, 07/04/2020, 06/06/2020 RSV Vaccine - Adults (1 - 1- dose 75+ series) 01/01/2024 INFLUENZA VACCINE 10/30/2024 06/06/2019 Insurance MEDICARE A & B Member Subscriber Plan / Payer (Ef fective 2000-Present) Name:Junie Phillips Member ID:[id number] Relation to Subscriber:Self Name:Junie Phillips Subscriber ID:[id number] Payer ID:[id number] Group ID:Not on file Type:Not on file Address: [address] [employer] OPTIONS Advance Directives * CPR (Attempt to Resuscitate) (Latest Code Status on File) Date Activated Date Inactivated Comments 12/02/2021 3:02 PM 12/03/2021 4:47 PM Question Answer Comments Code Status (Patient has no pulse and is not breathing): CPR (Attempt to Resuscitate) Medical Interventions (Patie nt has pulse or is breathing): Full Support Comments: Patient does not blanca ear to be able to reliably make a code status decision at this time Care Teams Office Machine Mechanic Relationship Specialty Start Date End Date Jasson Galvan DO [address] [facility] [address] [place] [address] PCP - General Internal Medicine 12/02/21
== END 2024-10-11 23:59 | disposition home or self-care (01) ==
PROVIDERS: PCP Internal Medicine; Visit Provider Nurse Practitioner Family
DX: M54.50 Low back pain, unspecified (principal); G89.29 Other chronic pain; Z79.891 Long term (current) use of opiate analgesic; Z79.899 Other long term (current) drug therapy
CPT/HCPCS: 99212; G0463

== ENCOUNTER 2024-10-31 09:37 | Outpatient (POV) | payer MEDICARE, SELFPAY ==
--- OUTSIDE RECORDS SUMMARY | 2024-10-31 09:42 | XMS_ITS | Data Portability ---
Author Organization [facility] DEIB Gustafson [place] CLOSED Address [address] [place] [address] Assessment No assessment recorded. Plan of Treatment Reminders Order Date Submit Date Provider Last Modified By Organization Details Last Modified Time Details Appointments None record ed. Lab CBC w/ auto diff 2024 025 [facility], [address] [place] [address], [id number], 5 19:37:27 vitami n B12 + folate , serum or blood 2024 025 [facility], [address] [place] [address], [address], 5 20:02:33 magnes ium, QN, serum or plasma 2024 025 [facility], [address] [place] [address], [address], 5 19:58:21 CMP, serum or plasma 2024 025 [facility], [address] [place] [address], [address], 5 19:58:22 TSH, serum or plasma 2024 025 [facility], [address] [place] [address], [address], 5 19:53:23 cultur e, urine 2023 024 [facility], [address] [place] [address], [address], 4 11:35:54 urinal ysis, comple te 2023 024 [facility], [address] [place] [address], [address], 4 20:27:09 urinal ysis, comple te 2023 024 [facility], [address] [place] [address], [address], 4 20:54:26 cultur e, urine 2023 024 [facility], [address] [place] [address], [address], 4 10:36:52 Referral None record ed. Procedures None record ed. Surgeries None record ed. Imaging XR, chest, 2 view 2023 024 [facility], [address] [place] [address], [address], 4 09:51:53 Medication Orders diazep am 5 mg tablet 2024 025 [facility], [address] [place] [address], [facility] [address], [address], 5 11:48:41 risper idone 0.5 mg tablet 2024 025 [facility], [address] [place] [address], [facility] 7, [place], [address], 5 13:10:45 buprop ion HCl 75 mg tablet 2024 025 [facility], [address] [place] [address], [facility] 7, [place], [address], 5 14:39:19 Ambien CR 12.5 mg tablet ,exten ded releas e 2024 025 [facility], [address] [place] [address], [address], 5 11:37:40 promet hazine 25 mg tablet 2024 025 [facility], [address] [place] [address], [address], 5 11:37:36 gabape ntin 600 mg tablet 2024 025 [facility], [address] [place] [address], [address], 5 11:37:37 zolpid em 10 mg tablet 2024 025 [facility], [address] [place] [address], [address], 5 11:37:37 levofl oxacin 500 mg tablet 2024 025 [facility], [address] [place] [address], [address], 5 11:30:10 promet hazine 25 mg tablet 2024 025 [facility], [address] [place] [address], [address], 5 11:42:24 Zithro max Z-Antoni 250 mg tablet 2024 025 [facility], [address] [place] [address], [place], [address], 5 10:25:31 Floras tor 250 mg capsul e 2023 [facility]24 [facility] [address] [place] [address] 7, [place], [address], 4 12:40:35 diphen oxylat e-atro pine 2.5 mg-0.0 25 mg tablet 2023 024 [facility], [address] [place] [address], [facility] 7, [place], [address], 4 10:48:56 levofl oxacin 500 mg tablet 2023 025 [facility], [address] [place] [address], [facility] 7, [place], [address], 5 10:09:01 levofl oxacin 500 mg tablet [address], [address] [place] [address], [address], 11:27:08 Patient TargetsNo targets recorded. Patient InstructionsNo instructions recorded. Reason for Referral None Reported. Results Created Date Observation Date Name Description Value Unit Range Abnormal Flag Note LastModifiedBy Organization Detail LastModifiedTime 11/30/19 24 11/30/2023 URINA LYSIS color Yellow normal Not Available [facility] [address] [place] [address], [address], 11/30/2023 20:54:26 11/30/19 24 11/30/2023 URINA LYSIS appearance Turbid normal Not Available [facility] [address] [place] [address], [address], 11/30/2023 20:54:26 11/30/19 24 11/30/2023 URINA LYSIS glucose Normal mg/dL normal normal Not Available [facility] [address] [place] [address], [address], 11/30/2023 20:54:26 11/30/19 24 11/30/2023 URINA LYSIS bilirubin Negati ve mg/dL negati ve normal Not Available [facility] [address] [place] [address], [address], 11/30/2023 20:54:26 11/30/19 24 11/30/2023 URINA LYSIS ketone Negati ve mg/dL negati ve normal Not Available [facility] [address] [place] [address], [address], 11/30/2023 20:54:26 11/30/19 24 11/30/2023 URINA LYSIS specific gravity 1.019 1.003- 1.035 normal Not Available [facility] [address] [place] [address], [address], 11/30/2023 20:54:26 11/30/19 24 11/30/2023 URINA LYSIS blood 25 /uL negati ve abnormal Not Available [facility] [address] [place] [address], [address], 11/30/2023 20:54:26 11/30/19 24 11/30/2023 URINA LYSIS pH 6 5.0 - 8.0 normal Not Available [facility] [address] [place] [address], [address], 11/30/2023 20:54:26 11/30/19 24 11/30/2023 URINA LYSIS protein 30 mg/dL negati ve abnormal Not Available [facility] [address] [place] [address], [address], 11/30/2023 20:54:26 11/30/19 24 11/30/2023 URINA LYSIS urobilinogen 4 mg/dL normal abnormal Not Available [facility] [address] [place] [address], [address], 11/30/2023 20:54:26 11/30/19 24 11/30/2023 URINA LYSIS nitrite Negati ve negati ve normal Not Available [facility] [address] [place] [address], [address], 11/30/2023 20:54:26 11/30/19 24 11/30/2023 URINA LYSIS leukocyte esterase 500 /uL negati ve abnormal Not Available [facility] [address] [place] [address], [address], 11/30/2023 20:54:26 11/30/19 24 11/30/2023 URINA LYSIS WBC, urine > 30 0-5/hp f abnormal Not Available [facility] [address] [place] [address], [address], 11/30/2023 20:54:26 11/30/19 24 11/30/2023 URINA LYSIS squamous epi. cells 0-5 0-5/hp f normal Not Available [facility] [address] [place] [address], [address], 11/30/2023 20:54:26 11/30/19 24 11/30/2023 URINA LYSIS bacteria 2+ 0/hpf abnormal Not Available [facility] [address] [place] [address], [address], 11/30/2023 20:54:26 11/30/19 24 11/30/2023 URINA LYSIS crystals 1+ negati ve abnormal Calci um Oxala te Pleas e advis e if cultu re is tobias ed - notif y the lab at [phone]. Not Available [facility] [address] [place] [address], [address], 11/30/2023 20:54:26 11/30/19 24 11/30/2023 URINE CULTU RE escherichia coli Organi sm: Escher ichia coli Not Available [facility] [address] [place] [address], [address], 12/02/2023 12:15:51 11/30/19 24 12/02/2023 URINE CULTU RE urine culture abnormal ISOLA TE #1 COLON Y COUNT : > 100,0 00 CFU/M L Proba ble Gram Negat yennifer Bacil wilber. ID and sensi tivit y in progr ess. See [place] te Resul t(s) Below Esche alessio a coli Not Available [facility] [address] [place] [address], [address], 12/02/2023 12:15:51 11/30/19 24 12/02/2023 URINE CULTU RE amox/K clav'ate(C) <=8/4 ug/mL susceptib le Not Available [facility] [address] [place] [address], [address], 12/02/2023 12:15:51 11/30/19 24 12/02/2023 URINE CULTU RE ampicillin <=8 ug/mL susceptib le Not Available [facility] [address] [place] [address], [address], 12/02/2023 12:15:51 11/30/19 24 12/02/2023 URINE CULTU RE cefazolin <=2 ug/mL susceptib le Not Available [facility] [address] [place] [address], [address], 12/02/2023 12:15:51 11/30/19 24 12/02/2023 URINE CULTU RE ceftazidime <=1 ug/mL susceptib le Not Available [facility] [address] [place] [address], [address], 12/02/2023 12:15:51 11/30/19 24 12/02/2023 URINE CULTU RE ceftriaxone <=1 ug/mL susceptib le Not Available [facility] [address] [place] [address], [address], 12/02/2023 12:15:51 11/30/19 24 12/02/2023 URINE CULTU RE cefuroxime <=4 ug/mL susceptib le Not Available [facility] [address] [place] [address], [address], 12/02/2023 12:15:51 11/30/19 24 12/02/2023 URINE CULTU RE ciprofloxaci n <=0.25 ug/mL susceptib le Not Available [facility] [address] [place] [address], [address], 12/02/2023 12:15:51 11/30/19 24 12/02/2023 URINE CULTU RE gentamicin <=4 ug/mL susceptib le Not Available [facility] [address] [place] [address], [address], 12/02/2023 12:15:51 11/30/19 24 12/02/2023 URINE CULTU RE imipenem <=1 ug/mL susceptib le Not Available [facility] [address] [place] [address], [address], 12/02/2023 12:15:51 11/30/19 24 12/02/2023 URINE CULTU RE levofloxacin <=0.5 ug/mL susceptib le Not Available [facility] [address] [place] [address], [address], 12/02/2023 12:15:51 11/30/19 24 12/02/2023 URINE CULTU RE nitrofuranto in <=32 ug/mL susceptib le Not Available [address], [address], 12/02/2023 12:15:51 11/30/19 24 12/02/2023 URINE CULTU RE piperacillin /luke <=16 ug/mL susceptib le Not Available [facility] [address] [place] [address], [address], 12/02/2023 12:15:51 11/30/19 24 12/02/2023 URINE CULTU RE tetracycline >8 ug/mL resistant Not Available [address], [address], 12/02/2023 12:15:51 11/30/19 24 12/02/2023 URINE CULTU RE tobramycin 4 ug/mL susceptib le Not Available [address], [address], 12/02/2023 12:15:51 11/30/1912/02/2023 URINE CULTU RE trimeth/sulf a <=2/38 ug/mL susceptib le Not Available [facility] [address] [place] [address], [address], 12/02/2023 12:15:51 02/17/2002/17/2024 URINA LYSIS color Liss normal Not Available [facility] [address] [place] [address], [address], 02/17/2024 20:27:09 02/17/2002/17/2024 URINA LYSIS appearance Clear normal Not Available [facility] [address] [place] [address], [address], 02/17/2024 20:27:09 02/17/2002/17/2024 URINA LYSIS glucose Normal mg/dL normal normal Not Available [facility] [address] [place] [address], [address], 02/17/2024 20:27:09 02/17/2002/17/2024 URINA LYSIS bilirubin Negati ve mg/dL negati ve normal Not Available [facility] [address] [place] [address], [address], 02/17/2024 20:27:09 02/17/20 24 02/17/2024 URINA LYSIS ketone Negati ve mg/dL negati ve normal Not Available [facility] [address] [place] [address], [address], 02/17/2024 20:27:09 02/17/2002/17/2024 URINA LYSIS specific gravity 1.012 1.003- 1.035 normal Not Available [facility] [address] [place] [address], [address], 02/17/2024 20:27:09 02/17/2002/17/2024 URINA LYSIS blood Negati ve /uL negati ve normal Not Available [facility] [address] [place] [address], [address], 02/17/2024 20:27:09 02/17/20 24 02/17/2024 URINA LYSIS pH 7 5.0 - 8.0 normal Not Available [facility] [address] [place] [address], [address], 02/17/2024 20:27:09 02/17/20 24 02/17/2024 URINA LYSIS protein Negati ve mg/dL negati ve normal Not Available [facility] [address] [place] [address], [address], 02/17/2024 20:27:09 02/17/20 24 02/17/2024 URINA LYSIS urobilinogen 1 mg/dL normal abnormal Not Available [facility] [address] [place] [address], [address], 02/17/2024 20:27:09 02/17/20 24 02/17/2024 URINA LYSIS nitrite Negati ve negati ve normal Not Available [facility] [address] [place] [address], [address], 02/17/2024 20:27:09 02/17/20 24 02/17/2024 URINA LYSIS leukocyte esterase 100 /uL negati ve abnormal Not Available [facility] [address] [place] [address], [address], 02/17/2024 20:27:09 02/17/20 24 02/17/2024 URINA LYSIS WBC, urine > 30 0-5/hp f abnormal URINE CULTU RE IN PROGR ESS. Not Available [facility] [address] [place] [address], [address], 02/17/2024 20:27:09 02/17/20 24 02/17/2024 URINA LYSIS squamous epi. cells 0-5 0-5/hp f normal Not Available [facility] [address] [place], [address], 02/17/2024 20:27:09 02/17/20 24 02/17/2024 URINA LYSIS transitional epi. cells 0-5 0 - 5/hpf normal Not Available [facility] [address] [place] [address], [address], 02/17/2024 20:27:09 02/17/20 24 02/17/2024 URINA LYSIS bacteria Trace /hpf none seen abnormal Not Available [facility] [address] [place] [address], [address], 02/17/2024 20:27:09 02/17/20 24 02/20/2024 URINE CULTU RE urine culture COLON Y COUNT : 10,00 0 - 100,0 00 CFU/M L Three or more isola dimple; mixed uroge nital eklsy . Not Available [facility] [address] [place] [address], [address], 02/20/2024 10:29:41 06/01/19 25 06/01/2024 COMPL ETE BLOOD COUNT white blood cells 6.5 10*3/ uL 3.8-10 .8 normal Not Available [facility] [address] [place] [address], [address], 06/01/2024 19:37:27 06/01/19 25 06/01/2024 COMPL ETE BLOOD COUNT red blood cells 3.94 10*6/ uL 3.80-5 .20 normal Not Available [facility] [address] [place] [address], [address], 06/01/2024 19:37:27 06/01/19 25 06/01/2024 COMPL ETE BLOOD COUNT hemoglobin 12.6 g/dL 12.0-1 6.0 normal Not Available [facility] [address] [place] [address], [address], 06/01/2024 19:37:27 06/01/19 25 06/01/2024 COMPL ETE BLOOD COUNT hematocrit 38.5 % 35.0-4 7.0 normal Not Available [facility] [address] [place] [address], [address], 06/01/2024 19:37:27 06/01/19 25 06/01/2024 COMPL ETE BLOOD COUNT MCV 98 fL 80-100 normal Not Available [facility] [address] [place] [address], [address], 06/01/2024 19:37:27 06/01/19 25 06/01/2024 COMPL ETE BLOOD COUNT MCH 32 pg 26-35 normal Not Available [facility] [address] [place] [address], [address], 06/01/2024 19:37:27 06/01/19 25 06/01/2024 COMPL ETE BLOOD COUNT MCHC 33 g/dL 32-36 normal Not Available [facility] [address] [place] [address], [address], 06/01/2024 19:37:27 06/01/19 25 06/01/2024 COMPL ETE BLOOD COUNT RDW 12.6 % 11.0-1 5.0 normal Not Available [facility] [address] [place] [address], [address], 06/01/2024 19:37:27 06/01/19 25 06/01/2024 COMPL ETE BLOOD COUNT MPV 9.0 fL 6.2-10 .5 normal Not Available [facility] [address] [place] [address], [address], 06/01/2024 19:37:27 06/01/1906/01/2024 COMPL ETE BLOOD COUNT platelet count 355 10*3/ uL 150-40 0 normal Not Available [facility] [address] [place] [address], [address], 06/01/2024 19:37:27 06/01/19 25 06/01/2024 COMPL ETE BLOOD COUNT neutrophil,a bsolute 4.1 10*3/ uL 1.6-8. 4 normal Not Available [facility] [address] [place] [address], [address], 06/01/2024 19:37:27 06/01/19 25 06/01/2024 COMPL ETE BLOOD COUNT lymphocyte,a bsolute 1.9 10*3/ uL 0.4-5. 1 normal Not Available [facility] [address] [place] [address], [address], 06/01/2024 19:37:27 06/01/19 25 06/01/2024 COMPL ETE BLOOD COUNT monocyte,abs olute 0.4 10*3/ uL 0.0-1. 2 normal Not Available [facility] [address] [place] [address], [address], 06/01/2024 19:37:27 06/01/19 25 06/01/2024 COMPL ETE BLOOD COUNT eosinophil,a bsolute 0.1 10*3/ uL 0.0-0. 8 normal Not Available [facility] [address] [place] [address], [address], 06/01/2024 19:37:27 06/01/19 25 06/01/2024 COMPL ETE BLOOD COUNT basophil,abs olute 0.0 10*3/ uL 0.0-0. 3 normal Not Available [facility] [address] [place] [address], [address], 06/01/2024 19:37:27 06/01/19 25 06/01/2024 COMPL ETE BLOOD COUNT % neutrophils 62.4 % 42.0-7 8.0 normal Not Available [facility] [address] [place] [address], [address], 06/01/2024 19:37:27 06/01/19 25 06/01/2024 COMPL ETE BLOOD COUNT % lymphocytes 29.4 % 11.0-4 7.0 normal Not Available [facility] [address] [place] [address], [address], 06/01/2024 19:37:27 06/01/19 25 06/01/2024 COMPL ETE BLOOD COUNT % monocytes 6.8 % 0.0-11 .0 normal Not Available [facility] [address] [place] [address], [address], 06/01/2024 19:37:27 06/01/19 25 06/01/2024 COMPL ETE BLOOD COUNT % eosinophils 1.0 % 0.0-7. 0 normal Not Available [facility] [address] [place] [address], [address], 06/01/2024 19:37:27 06/01/19 25 06/01/2024 COMPL ETE BLOOD COUNT % basophils 0.4 % 0.0-3. 0 normal Not Available [facility] [address] [place] [address], [address], 06/01/2024 19:37:27 06/01/19 25 06/01/2024 COMPL ETE BLOOD COUNT nucleated red cells 0.1 % 0.0-0. 9 normal Not Available [facility] [address] [place] [address], [address], 06/01/2024 19:37:27 06/01/19 25 06/01/2024 COMPL ETE BLOOD COUNT nucleated RBCs, absolute 0.01 10*3/ uL not estab. normal Not Available [facility] [address] [place] [address], [address], 06/01/2024 19:37:27 06/01/19 25 06/01/2024 TSH TSH 2.040 u[IU] /mL 0.270- 4.200 normal Not Available [facility] [address] [place] [address], [address], 06/01/2024 19:53:23 06/01/19 25 06/01/2024 MAGNE SIUM magnesium 1.8 mg/dL 1.6-2. 6 normal Not Available [facility] [address] [place] [address], [address], 06/01/2024 19:58:21 06/01/19 25 06/01/2024 COMP. METAB OLIC PANEL glucose 100 mg/dL 74-100 normal Not Available [facility] [address] [place] [address], [address], 06/01/2024 19:58:22 06/01/19 25 06/01/2024 COMP. METAB OLIC PANEL blood urea nitrogen 20 mg/dL 6-20 normal Not Available [facility] [address] [place] [address], [address], 06/01/2024 19:58:22 06/01/19 25 06/01/2024 COMP. METAB OLIC PANEL creatinine 1.11 mg/dL 0.50-0 .95 high Not Available [facility] [address] [place] [address], [address], 06/01/2024 19:58:22 06/01/19 25 06/01/2024 COMP. METAB OLIC PANEL BUN/creatini ne ratio 18 (calc ) 10-20 normal Not Available [facility] [address] [place] [address], [address], 06/01/2024 19:58:22 06/01/19 25 06/01/2024 COMP. METAB OLIC PANEL sodium 133 mmol/ L 136-14 5 low Not Available [facility] [address] [place] [address], [address], 06/01/2024 19:58:22 06/01/19 25 06/01/2024 COMP. METAB OLIC PANEL potassium 5.2 mmol/ L 3.4-5. 0 high Not Available [facility] [address] [place] [address], [address], 06/01/2024 19:58:22 06/01/19 25 06/01/2024 COMP. METAB OLIC PANEL chloride 95 mmol/ L 98-107 low Not Available [facility] [address] [place] [address], [address], 06/01/2024 19:58:22 06/01/19 25 06/01/2024 COMP. METAB OLIC PANEL carbon dioxide 26 mmol/ L 22-31 normal Not Available [facility] [address] [place] [address], [address], 06/01/2024 19:58:22 06/01/19 25 06/01/2024 COMP. METAB OLIC PANEL anion gap 12 (calc ) 7-25 normal Not Available [facility] [address] [place] [address], [address], 06/01/2024 19:58:22 06/01/19 25 06/01/2024 COMP. METAB OLIC PANEL calcium 8.8 mg/dL 8.6-10 .2 normal Not Available [facility] [address] [place] [address], [address], 06/01/2024 19:58:22 06/01/19 25 06/01/2024 COMP. METAB OLIC PANEL total protein 6.8 g/dL 6.4-8. 3 normal Not Available [facility] [address] [place] [address], [address], 06/01/2024 19:58:22 06/01/19 25 06/01/2024 COMP. METAB OLIC PANEL albumin 3.8 g/dL 3.5-5. 2 normal Not Available [facility] [address] [place] [address], [address], 06/01/2024 19:58:22 06/01/19 25 06/01/2024 COMP. METAB OLIC PANEL globulin 3.0 1.5-4. 5 normal Not Available [facility] [address] [place] [address], [address], 06/01/2024 19:58:22 06/01/19 25 06/01/2024 COMP. METAB OLIC PANEL albumin/glob ulin ratio 1.3 (calc ) 1.1-2. 5 normal Not Available [facility] [address] [place] [address], [address], 06/01/2024 19:58:22 06/01/19 25 06/01/2024 COMP. METAB OLIC PANEL bilirubin, total 0.2 mg/dL 0.1-1. 2 normal Not Available [facility] [address] [place] [address], [address], 06/01/2024 19:58:22 06/01/19 25 06/01/2024 COMP. METAB OLIC PANEL alkaline phosphatase 90 U/L 30-121 normal Not Available [facility] [address] [place] [address], [address], 06/01/2024 19:58:22 06/01/19 25 06/01/2024 COMP. METAB OLIC PANEL AST 28 U/L 0-32 normal Not Available [facility] [address] [place] [address], [address], 06/01/2024 19:58:22 06/01/19 25 06/01/2024 COMP. METAB OLIC PANEL ALT 14 U/L 0-33 normal Not Available [facility] [address] [place] [address], [address], 06/01/2024 19:58:22 06/01/19 25 06/01/2024 COMP. METAB OLIC PANEL GFR 52 >= 60 abnormal NOT E New calcu latio n for GFR (CKD- EPI 2020) is formu lated witho ut race adjus tment facto rs at the recom menda tion of the [facility] . This calcu latio n has not been valid ated in pregn ant women . For pedia dina laceye nts refer to https ://fareed ferrera.o rg/pr ofess ional s/KDO QI/gf r_cal culat orPed Not Available [facility] [address] [place] [address], [address], 06/01/2024 19:58:22 06/01/19 25 06/01/2024 B12/F OLIC ACID PANEL folic acid 15.0 NG/mL 4.6-34 .8 normal Not Available [facility] [place], [address], 06/01/2024 20:02:33 06/01/19 25 06/01/2024 B12/F OLIC ACID PANEL vitamin B12 476 pg/mL 232-12 45 normal Not Available [facility] [address] [place] [address], [address], 06/01/2024 20:02:33 12/02/19 24 11/30/2023 XR, chest , 2 view No observ ation record ed. [email or web address] [facility] [address] [facility], [place], [address], 12/02/2023 14:15:37 Result Notes None recorded. Problems Name Problem SNOMED Code Status Onset Date Resolution Date Notes Provider Name and Address Organization Details Recorded Time Dysuria 27541683 Active 2022 BAMBI GARCIAS, DO [address] [place] [address], [address], [facility] 3 11:24:39 Acute urinary tract infection 214273749 Active 2022 BAMBI GARCIAS, DO [address] [place] [address], [address], [facility] 3 11:35:11 Chronic pain syndrome 694129319 Active 2022 HANG DOBBINS, DO [address] [place], [place] [address], [address], [facility] 3 11:11:15 Diarrhea 80328773 Active 2022 HANG DOBBINS, DO [address] [place] [address], [address], [facility] 3 11:11:17 Recurrent urinary tract infection 464021716 Active 2022 HANG DOBBINS, DO [address] [place], [address], [facility] 3 10:41:03 Recurrent major depression in partial remission 58413440 Active 2023 HANG DOBBINS, DO [address] [place], [address], [facility] 4 14:33:07 Superior mesenteric artery syndrome 190754621 Active 2023 HANG DOBBINS, DO [address] [place], [address], [facility] 4 14:42:53 At increased risk of polypharmacy 932357187 Active 2024 HANG DOBBINS, DO [address] [place], [address], [facility] 5 16:55:29 Notes:pt has a uti she has b een having diarrhea for a week Problem Notes None recorded. Medical Equipment None Reported. Allergies Allergen ID Allergen Name Allergen Category Reaction Reaction Severity Criticality Documentation Date Start Date Code Code System Note Provider Name and Address Organization Details Recorded Time 155500 Doryx medicatio n Not available Not available Not available 03/25/20162012 19967 7 RxNorm Comme nt: Creat ed By: Jett thomson Date: 2012 5:06: 55 PM; Not Available [facility] 6 10:57:30 139339 diphenhyd ramine hydrochlo ride medicatio n Not available Not available Not available 03/25/20162012 1362 RxNorm Comme nt: Creat ed By: Jett thomson Date: 2012 5:07: 38 PM; Not Available [facility] 6 11:04:44 420226 Ultram medicatio n Not available Not available Not available 03/25/20162012 23235 6 RxNorm Comme nt: Creat ed By: Jett lazar;C reate d Date: 2012 5:08: 25 PM; Not Available [facility] 6 11:57:02 408093 iodine medicatio n Not available Not available Not available 03/26/20162012 5933 RxNorm Comme nt: Creat ed By: Jett lazar;C reate d Date: 2012 5:07: 48 PM; Not Available [facility] 6 04:37:47 250155 Product containin g penicilli n (product) medicatio n Not available Not available Not available 03/26/20162012 19270 8001 SNOMED Comme nt: Creat ed By: Jett lazar;C reate d Date: 2012 5:08: 02 PM; Not Available [facility] 6 04:37:47 743561 Terramyci n medicatio n Not available Not available Not available 03/26/2016201296 4 RxNorm Comme nt: Creat ed By: Jett lazar;C reate d Date: 2012 5:08: 12 PM; Not Available [facility] 6 08:22:49 Medications Name Sig Start Date [...] Updated DateTime 5 165.1 cm 21.1 kg/m2 32780.2 3 g 105 /min 93 % 93 % 112 mm[Hg] 72 mm[Hg] Tara Manrique [facility] 10:25:43 Date Recorded Body height Provider Name an d Address Organization Details Last Updated DateTime 06/05/2024 165.1 cm Rani Hua [facility] 06/05/2024 10:24:10 Date Recorded Body height Body mass index (BMI) Body weight Oxygen saturation Oxygen saturation in Arterial blood by Pulse oximetry Heart rate Systolic blood pressure Diastolic blood pressure Provider Name and Address Organization Details Last Updated DateTime 5 165.1 cm 21.5 kg/m2 32861.4 2 g 93 % 93 % 92 /min 115 mm[Hg] 76 mm[Hg] Erica Galloway [facility] 5 11:30:54 Date Recorded Body height Body mass index (BMI) Body weight Body temperature Heart rate Oxygen saturation Oxygen saturation in Arterial blood by Pulse oximetry Systolic blood pressure Diastolic blood pressure Provider Name and Address Organization Details Last Updated DateTime 4 165.1 cm 20.6 kg/m2 40749.4 5 g 97.7 [degF] 92 /min 95 % 95 % 116 mm[Hg] 78 mm[Hg] Radha Scott [facility] 4 14:57:59 Date Recorded Body height Body mass index (BMI) Body weight Heart rate Oxygen saturation Oxygen saturation in Arterial blood by Pulse oximetry Systolic blood pressure Diastolic blood pressure Provider Name and Address Organization Details Last Updated DateTime 4 165.1 cm 21.4 kg/m2 38570.6 2 g 78 /min 96 % 96 % 122 mm[Hg] 78 mm[Hg] Erica [facility] 4 10:19:10 Social History Question Answer Notes LastModified by Organizat ion Details LastModified Time Tobacco Smoking Status Never Smoker Radha Fletcherlaice [facility] 01/11/2023 11:53:44 What Was The [...] or 50 mcg/0.25mL dose 06/06/2020 [facility] 14:03:29 COVID-19, mRNA, LNP-S, PF, 100 mcg/0.5mL dose or 50 mcg/0.25mL dose 07/04/2020 completed Erica suarez [facility] 12/06/2023 14:03:29 COVID-19, mRNA, LNP-S, PF, 100 mcg/0.5mL dose or 50 mcg/0.25mL dose 03/20/2021 [facility] 12/06/2023 14:03:29 zoster live 04/03/2015 [facility] 12/06/2023 14:03:29 Influenza, high-dose, trivalent, PF 06/06/2019 [facility]/06/[facility]23 14:03:29 Influenza, split virus, quadrivalent, PF 04/03/2015 [facility]/06/[facility]23 14:03:29 COVID-19, mRNA, LNP-S, PF, 50 mcg/0.5 mL 04/06/2023 [facility]/06[facility]23 14:03:34 Influenza, high-dose, quadrivalent, PF 01/11/2023 [facility] 01/11/[facility]23 13:19:18 Influenza, high-dose, trivalent, PF 02/17/2024 completed HANG MAC DO [address] [place] [address], [address], [facility] 02/17/2024 12:40:35 Past Encounters Encounter ID Performer Location Encounter Start Date Encounter Closed Date Diagnosis/Indication Diagnosis SNOMED-CT Code Diagnosis ICD10 Code Diagnosis Note [id number] HANG JAIMES LL, DO [facility] [address] [facility],[address] [place] [address] 01/11/2023 11:34:14 01/11/2023 12:17:24 Dysuria 96678571 R30.0 Unknown etiology, urine does not look that bad. We will send for UA and culture, suspect she might have more urethritis this time, we will give Cipro 500 twice daily x5 days, does not sound when she has diverticul itis, not been evaluated by gynecologi st in a while recommende d gynecology follow-up Administra tion of influenza vaccine 16198441 Z23 [id number] BAMBI GARCIAS, DO [facility] [address] [place] [address],[address] [place] [address] 02/09/2023 10:23:22 02/09/2023 11:30:37 Dysuria 05948223 R30.0 Acute urin miguel tract infection 179196147 N39.0 UA is consistent with UTI, will check for antibiotic sensitivit yRX as ordered belowEnsur e adequate hydration, regular emptying of the bladder and void shortly after sexual intercours eIf symptoms worsen/do not improve RTC or inform provider [id number] HANG POSEY, DO [facility] [address] [place] [address],[address] [place] [address] 03/29/2023 09:38:22 03/29/2023 10:29:09 Diarrhea 51256230 R19.7 persistent . unknown last colon. has reduced fentanyl some. Refer to GI for more thorough evaluation Acute urin miguel tract infection 643881189 N39.0 Recheck urinalysis and culture today, suspect he will still be infected with Enterococc us. We will give Macrobid, was sensitive to Macrobid last month. We will treat for 10 days, then reevaluate . Chronic pain syndrome 37 7914400 G89.4 on meds. - dr Chicas. Has not had routine labs recently, does take multiple medication s we will check kidney function electrolyt es blood count today [id number] HANG POSEY, DO [facility] [address] [facility],[address] [place] [address] 04/19/2023 09:38:06 04/19/2023 10:25:02 Diarrhea 84175783 R19.7 has GI eval pernell Acute urin miguel tract infection 849438441 N39.0 had enterococc us. treateted with macorobid. Bronson to be better recheck urine culture today Recurrent urinary tract infection 148476343 N39.0 Secondary to neurogenic bladder with recurrent self catheteriz ations Muscle weakness 36000178 M62.81 Altered factorial felt to be from prolonged illness, will check labs today, I think she would benefit from home health physical therapy [id number] HANG POSEY, DO [facility] [address] [place] [address] 05/09/2023 11:31:37 05/09/2023 11:58:22 Acute urinary tract infection 879940908 N39.0 Suspect she has another bladder infection we will treat with Macrobid for 10 days, then do low-dose Macrodanti n daily after that. 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 Recommend opinion by GI doctor. We will try to set up that referral again [id number] HANG POSEY, DO [facility] [address] [place] [address] 07/26/2023 15:07:38 07/26/2023 15:39:30 Cough 28518759 R05.9 Acute bronchitis 0212505 2 J20.9 RSV with lingering symptoms. Could be developing into pneumonia. We will give Levaquin, Medrol Dosepak, Phenergan DM [id number] HANG POSEY, DO [facility] [address] [place] [address] 11/08/2023 14:15:42 11/08/2023 14:46:37 Malnutrition (calorie) 980225922 E46 BMI low. discussed diet, currently on weight gaining trial through surgeons office Chronic pain syndrome 37 5222132 G89.4 on meds. 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 Check urinalysis and culture. Has had resistant bacteria in the past. Levaquin 500 x 7 days Recurrent urinary tract infection 890046375 N39.0 Secondary to neurogenic bladder with recurrent self catheteriz ations Cough 56140309 R05.9 Has had a cough since her RSV in the spring. We will see how she responds to the Levaquin, also sent for chest x-ray [id number] HANG POSEY, DO [facility] [address] [address] 02/17/2024 09:53:53 02/17/2024 10:42:18 Diarrhea 51397705 R19.7 has GI eval pernell Administra tion of influenza vaccine 82728119 Z23 Active immunization 3387 9002 Z23 Acute cystitis 95273219 N30.01 Recheck urinalysis and culture today, we will start off with Levaquin, we will see what urine culture shows [id number] HANG POSEY, DO [facility] [address] [address] 06/01/2024 10:10:26 06/01/2024 11:05:06 Nausea 932861907 R11.0 Cough 00429221 R05.9 Lungs sound okay throat looks okay, do not think she has any serious infection, we will give Z-Antoni in case we are missing something or it is early Muscle weakness 48030693 M62.81 - Multifacto rial, possibly low and nutrition now, could be dehydrated , we will check routine labs today, she is pretty weak, I think she needs another course of physical therapy Irritable bowel syndrome with diarrhea 615256630 K58.0 takes lomotil as needed [id number] OSCAR SAMAYOA PA-C [facility] [address] [place] [address] 06/05/2024 09:51:42 06/05/2024 11:16:47 Acute pharyngitis 904880383 J02.9 Pt just completed Azithromyc in.Will send Levaquin for persistent URI.Pt has done well with medication in the past. Pt has allergy to Penicillin , unsure of cephalospo rins. [id number] HANG JAIMES LL, DO [facility] [address] [place] [address] 07/25/2024 11:12:26 07/25/2024 11:48:06 Renewal of prescription 152653411 Z76.0 Nausea 722984099 R11.0 Bipolar disorder 5542437 [address] Huffman -- tried. 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 Chronic pain syndrome 37 6438282 G89.4 on meds. - dr Chicas mgt- to see Dr Dempsey. At [facility] ed risk of polypharmacy 591759079 Z91.89 Patient is elderly and has been [...] Name 08/31/2024 1 [place] Junie Phillips [id number] Junie Phillips 08/31/2024 2 AARP (MEDICARE SUPPLEMENT) PLAN F Junie Phillips [id number] Junie Phillips Notes Date Note Type Note [...] than usual as well, had been on [employer] Nitrofurantoin but had not taken for a [...] tetracycline allergy. HANG MAC, DO [address] [place], [address], [facility] 11/30/2023 17:19:55 02/17/2024 text/html Patient is [...] then come back HANG MAC, DO [address] [place], [address], [facility] 02/17/2024 12:40:55 06/01/2024 text/html Patient is [...] that ended HANG MAC, DO [address] [place], [address], [facility] 06/01/2024 13:46:15 06/05/2024 text/html Visit today is [...] at this time OSCAR SAMAYOA PA-C [address] [place], [address], [facility] 06/05/2024 10:51:16 07/25/2024 text/html Patient is [...] right now HANG MAC, DO [address] [place], [address], [facility] 07/25/2024 16:55:34 OBGyn Episode No OBEpisode recorded.
--- OUTSIDE RECORDS SUMMARY | 2024-10-31 09:42 | XMS_ITS | Clinical Summary ---
Author Organization [facility] Address [address] [place] [address] Care Team Providers Care Elevator Service Technician Name Role Phone Jasson Gavlan Primary Care Provider Allergies Active Allergy Reactions [...] (12/24/2020): Added automatically from request for surgery [id number] Family History Medical History Relation Name Comments [...] [facility]-Bone Density Scan 1950 [facility]-Depression Screening 1948 [facility]-/Child/Adol SDOH Screenings 01/01/1951 [facility]- SDOH Screenings 1966 [facility]-Adult SDOH Screenings 1966 [facility]-DTaP,Tdap,and Td Vaccine s (1 - Tdap) 01/01/1968 CT Colonography 1993 Colonoscopy 1993 FIT-DNA 1993 FIT 1993 FOBT 1993 Sigmoidoscopy 1993 [facility]-Colorectal Cancer Screening 1993 [facility]-Pneumococcal Vaccine: 50 + Years (1 of 1 - PCV) 1998 [facility]-Zoster Vaccines (2 of 3) 05/29/2015 04/03/2015 [id number] Vaccine (4 - season) 2024 03/20/2021, 07/04/2020, [...] this topic Medical Devices Implanted Type Area Mixer Pigment Device Identifier Shelf Expiration Date Model / Serial / Lot Screw 3.5mm Periart 2.7mm Head Selftap 54mm - [id number] Implanted:Qty: 1 on 01/01/[address] [facility] Screw Right: Ankle Leroy [employer] [facility]-[id number] / / Hip Replacement Right: Hip Rods/Screws N/A: Neck Screw Left: Wrist Screw 3.5mm Cortex Selftap 16mm - [id number] Implanted:Qty: 1 on 01/01/[address] [facility] Right: Ankle Synthes [facility]-[id number] 204.816 / / Screw 3.5mm Cortex Selftap 14mm - [id number] Implanted:Qty: 1 on 01/01/[address] [facility] Right: Ankle [employer]ynthe[employer] [place]-[id number] 204.814 / / Screw 3.5mm Cortex Selftap 50mm - [id number] Implanted:Qty: 1 on 01/01/[address] [facility] Right: Ankle [employer] [place]-[id number] 204.850 / / Screw 2.7mm T8 Star Lock Selftap 10mm - [id number] Implanted:Qty: 2 on 01/01/[address] [facility] Right: Ankle [employer] [place]-[id number] 202.210 / / Screw 2.7mm T8 Star Lock Selftap 12mm - [id number] Implanted:Qty: 1 on 01/01/[address] [facility] Right: Ankle [employer] [place]-[id number] 202.212 / / Screw 2.7mm T8 Star Lock Selftap 14mm - [id number] Implanted:Qty: 1 on 01/01/[address] [facility] Right: Ankle [employer] [place]-[id number] 202.214 / / Screw 2.7mm T8 Star Lock Selftap 16mm - [id number] Implanted:Qty: 1 on 01/01/[address] [facility] Right: Ankle [employer] [place]-[id number] 202.216 / / Plate Post Dist Fib Lcp 7h Rt 129mm - [id number] Implanted:Qty: 1 on 01/01/[address] [facility] Right: Ankle [employer] [place]-[id number] 02.112.114 / / Plate Lcp Condyl 2.4mm 7h - [id number] Implanted:Qty: 1 on 01/01/[address] [facility] Right: Ankle [employer] [place]-[id number] 249.679 / / Screw 2.4mm Cortex T8 Lock Selftap 40mm - [id number] Implanted:Qty: 1 on 01/01/[address] [facility] Right: Ankle [employer] [place]-[id number] 201.790 / / Screw 2.4mm Cortex T8 Star Selftap 30mm - [id number] Implanted:Qty: 1 on 01/01/[address] [facility] Right: Ankle [employer] [place]-[id number] 201.780 / / Screw 2.4mm Cortex T8 Star Selftap 36mm - [id number] Implanted:Qty: 1 on 01/01/[address] [facility] Right: Ankle [employer] [place]-[id number] 201.786 / / Screw 3.5mm Cortex Selftap 46mm - [id number] Implanted:Qty: 1 on 01/01/[address] [facility] Right: Ankle Synthes [facility]-[id number] 204.846 / / Explanted Type Area Mixer Pigment Device Identifier Shelf Expiration Date Model / Serial / Lot Screw 3.5mm Cortex Selftap 18mm - [id number] Explanted:Qty: 1 on 01/01/[address] [facility] Right: Ankle Synthes [facility]-[id number] 204.818 / / Insurance MEDICARE [facility] Care Teams Elevator Service Technician Relationship Specialty Start Date End Date Jasson Galvan DO [facility] [address] [place] [address] PCP - General 12/22/20
--- OUTSIDE RECORDS SUMMARY | 2024-10-31 09:42 | XMS_ITS | Clinical Summary ---
Author Organization [facility] Address [address] [place] [address] Care Team Providers Care Health Editor Name Role Phone Cole Jasson Cj TOM [...] Maintenance Due Date Last Done Comments ANNUAL PHYSICAL 1950 DXA SCAN 1948 HEPATITIS C SCREENING [...] Payer (Ef fective 2000-Present) Name:Junie Phillips Member ID:[id number] Relation to Subscriber:Self Name:Junie Phillips Subscriber ID:[id number] Payer ID:[id number] Group ID:Not on file Type:Not on file Address: [address] HE[employer] C[employer] OPTIONS Advance Directives * [...] status decision at this time Care Teams Health Editor Relationship Specialty Start Date End Date Jasson Galvan DO [address] [facility] [address] [place] [address] PCP - General Internal Medicine 12/02/21
[2024-10-31 09:51] VITALS: BP 106/73; PULSE 88; RESP 14; O2SAT 98; BMI 24.3
--- NOTE | 2024-10-31 09:56 | EXP.PAIN.SOA ---
[facility] Disclaimer: The information contained in this section may have been updated after the patient was seen, as this information can be updated by other users. Medical History Anxiety Cataracts, bilateral Depression Arthritis Osteoporosis GERD (gastroesophageal reflux disease) Anemia Surgical History Status post total hip replacement, bilateral History of lumbar fusion H/O gastric bypass History of appendectomy Family History (Reviewed 10/11/24 @ 13: by MARLON Betts) Other Cancer Diabetes Hypertension Osteoporosis Rheumatoid arthritis Social History (Reviewed 10/11/24 @ 13: by MARLON Betts) Smoking Status: Former smoker alcohol intake: never substance use type: denies use current occupational status: other Travel in the last 8 weeks?: None PM Subjective & Objective Subjective Subjective:: Patient is a pleasant 73-year-old female who presents today for medication refill and follow-up. She has about a week or 2 early due to the fact that her friend will be on vacation and she does not have a ride the week that her medication is due. Patient denies any new falls or injuries or changes from our last appointment. She is doing well with her current medications. Patient is currently managed with Midland 10 mg 4 times a day, fentanyl 50 mcg patches every 72 hours, tizanidine 4 mg at bedtime and ropinirole 0.5 mg at bedtime. She denies any side effects. Her Sae has been reviewed and is appropriate. Review of Systems: General: No recent weight changes, no fever, no sleep disturbances Respiratory: No cough, no shortness of air, no recurring pulmonary infections Cardiovascular/peripheral vascular: No chest pain, no palpitations, no edema, no shortness of breath Gastrointestinal: No new onset incontinence, normal bowel movements reported Genitourinary: No new onset incontinence Musculoskeletal: Low back pain Psychiatric: [Normal mood/affect] Neurological: [Denies weakness in extremities], [denies balance issues] Pain at rest (0-10 scale): 2 Objective Objective:: Physical Exam: General: Alert and oriented x3, no acute distress, pleasant and cooperative Lungs: Respirations even and unlabored, symmetrical chest expansion Eyes: PERRL Musculoskeletal: Flexion and extension of lumbar [spine] somewhat guarded secondary to pain, [antalgic gait noted] Neurological: Speech clear, no gross sensory deficit Has patient had previous pain injection?: No Conservative treatment options previously tried: Prescription medications Length of treatment: Longer than 12 weeks Meds Home Medications and Allergies Home Medications ?Medication ?Instructions ?Recorded ?Confirmed ?Type bupropion HCl 75 mg tablet 75 mg PO DIRECTED MOOD 08/26/22 10/11/24 History diazepam 5 mg tablet 5 mg PO DIRECTED Anxiety 08/26/22 10/11/24 History gabapentin 600 mg tablet 600 mg PO DIRECTED Pain 08/26/22 10/11/24 History promethazine 25 mg tablet 25 mg PO DIRECTED Nausea & 08/26/22 10/11/24 History vomiting zolpidem 10 mg tablet 10 mg PO DIRECTED MOOD 08/26/22 10/11/24 History risperidone 0.5 mg tablet 0.5 mg PO DIRECTED MOOD #30 tabs 09/30/23 10/11/24 Rx hydrocodone 10 mg-acetaminophen 1 tab PO QID #40 tabs 05/10/24 10/11/24 Rx 325 mg tablet fentanyl 50 mcg/hr transdermal 1 patch transdermal Q72H #3 ea 05/11/24 10/11/24 Rx patch ropinirole 0.5 mg tablet 0.5 mg PO HS #30 tabs 09/13/24 10/11/24 Rx tizanidine 4 mg tablet (Zanaflex) 4 mg PO HS #30 tabs 09/13/24 10/11/24 Rx fentanyl 50 mcg/hr transdermal 1 patch transdermal Q72H #10 ea 10/11/24 Rx patch hydrocodone 10 mg-acetaminophen 1 tab PO QID #120 tabs 10/11/24 Rx 325 mg tablet New Prescriptions to Start Prescriptions: Allergies Allergy/AdvReac Type Severity Reaction Status Date / Time erythromycin base Allergy Verified 08/26/22 09:08 iodine AdvReac Verified 08/26/22 09:08 Penicillins AdvReac Verified 08/26/22 09:08 Sulfa (Sulfonamide AdvReac Verified 08/26/22 09:08 Antibiotics) tetracycline AdvReac Verified 08/26/22 09:08 tramadol AdvReac Verified 08/26/22 09:08 Assessment and Plan *Assessment and plan (1) Neck pain: Status: Acute Category: Medical Code(s): M54.2 - Cervicalgia (2) Mid back pain: Status: Acute Category: Medical Code(s): M54.9 - Dorsalgia, unspecified (3) Low back pain: Status: Acute Qualifiers: Chronicity: chronic Back pain laterality: bilateral Sciatica presence: without sciatica Qualified Code(s): M54.50 - Low back pain, unspecified; G89.29 - Other chronic pain Category: Medical Code(s): M54.50 - Low back pain, unspecified Plan I will refill the patient's Midland, fentanyl, ropinirole and tizanidine. Patient will return to clinic in 1 month for reevaluation of symptoms and plan of care. Risks and benefits of the medication have been explained in detail to the patient. The patient does understand the risk of dependence on the medication when given over a prolonged period. Patient has been advised of risks of oversedation with the prescribed medication. Narcan has been offered to the paitent in the event of oversedation. Patient has been advised that a family member should also be educated regarding administration of Narcan. The patient has been advised to consult with his/her primary care provider and pharmacist regarding drug-drug interaction of medications currently prescribed. Patient has been prescribed a controlled substance after being counseled on the medication, medication safety, and possible side effects. Opioid contract was reviewed and signed by the patient, and that they have agreed to all of the terms set forth by our compliance program. A UDS is needed to verify patient's compliance with our office pain contract. This is ordered based off specific treatments related to chronic pain with the potential to abuse certain medications. Patient has been instructed to contact the clinic with any concerns before the next appointment. Dr. Chicas has reviewed this note and agrees with this plan of care. This note was dictated using voice recognition software and make contain errors or omissions.
== END 2024-10-31 23:59 | disposition home or self-care (01) ==
PROVIDERS: PCP Internal Medicine; Visit Provider Nurse Practitioner Family
DX: M54.50 Low back pain, unspecified (principal); M54.2 Cervicalgia; G89.29 Other chronic pain; Z79.891 Long term (current) use of opiate analgesic; Z79.899 Other long term (current) drug therapy
CPT/HCPCS: 99212; G0463

== ENCOUNTER 2024-12-05 11:34 | Outpatient (POV) | payer MEDICARE, SELFPAY ==
--- OUTSIDE RECORDS SUMMARY | 2024-12-05 11:38 | XMS_ITS | Clinical Summary ---
Author Organization [facility] Address [address] [place] [address] Care Team Providers Care Chinese Medicine Practitioner Name Role Phone Cole Jasson Cj TOM [...] 1- dose 75+ series) 01/01/2024 INFLUENZA VACCINE 01/30/2025 06/06/2019 Insurance MEDICARE A & B Member Subscriber Plan / Payer (Ef fective 2000-Present) Name:Junie Phillips Member ID:[id number] Relation to Subscriber:Self Name:Junie Phillips Subscriber ID:[id number] Payer ID:[id number] Group ID:Not on file Type:Not on file Address: [id number] HEALTH CARE OPTIONS Advance Directives * [...] status decision at this time Care Teams Chinese Medicine Practitioner Relationship Specialty Start Date End Date Jasson Galvan DO [address] [facility] [address] [place] [address] PCP - General Internal Medicine 12/02/21
--- OUTSIDE RECORDS SUMMARY | 2024-12-05 11:38 | XMS_ITS | Clinical Summary ---
Author Organization [facility] Address [address] [place] [address] Care Team Providers Care Director Of Intelligence Name Role Phone Jasson Galvan Primary Care [...] (12/24/2020): Added automatically from request for surgery [id number] Family History Medical History Relation Name Comments [...] UKY-Zoster Vaccines (2 of 3) 05/29/2015 04/03/2015 BHJ-CNMMO-50 Vaccine (4 - season) 2024 03/20/2021, 07/04/2020, 06/06/2020 UKY-RSV Vaccine: 60+ Years o r (1 - 1-dose 75+ series) 01/01/2024 UKY-Influenza Vaccine (#1) 2024 04/03/2015 HPV Vaccines Aged Out No [...] this topic Medical Devices Implanted Type Area Play Writer Device Identifier Shelf Expiration Date Model / Serial / Lot Screw 3.5mm Periart 2.7mm Head Selftap 54mm - [id number] Implanted:Qty: 1 on 01/01/2021 at [facility] Screw Right: Ankle Leroy [employer] [facility]-[id number] / / Hip Replacement Right: Hip Rods/Screws N/A: Neck Screw Left: Wrist Screw 3.5mm Cortex Selftap 16mm - [id number] Implanted:Qty: 1 on 01/01/2021 at [facility] Right: Ankle [employer] [facility]-[id number] 204.816 / / Screw 3.5mm Cortex Selftap 14mm - [id number] Implanted:Qty: 1 on 01/01/2021 at [facility] Right: Ankle [employer] [place]-[id number] 204.814 / / Screw 3.5mm Cortex Selftap 50mm - [id number] Implanted:Qty: 1 on 01/01/2021 at [facility] Right: Ankle [employer] [place]-[id number] 204.850 / / Screw 2.7mm T8 Star Lock Selftap 10mm - [id number] Implanted:Qty: 2 on 01/01/2021 at [facility] Right: Ankle [employer] [place]-[id number] 202.210 / / Screw 2.7mm T8 Star Lock Selftap 12mm - [id number] Implanted:Qty: 1 on 01/01/2021 at [facility] Right: Ankle [employer] [place]-[id number] 202.212 / / Screw 2.7mm T8 Star Lock Selftap 14mm - [id number] Implanted:Qty: 1 on 01/01/2021 at [facility] Right: Ankle [employer] [place]-[id number] 202.214 / / Screw 2.7mm T8 Star Lock Selftap 16mm - [id number] Implanted:Qty: 1 on 01/01/2021 at [facility] Right: Ankle [employer] [place]-[id number] 202.216 / / Plate Post Dist Fib Lcp 7h Rt 129mm - [id number] Implanted:Qty: 1 on 01/01/2021 at [facility] Right: Ankle [employer] [place]-[id number] 02.112.114 / / Plate Lcp Condyl 2.4mm 7h - [id number] Implanted:Qty: 1 on 01/01/2021 at [facility] Right: Ankle [employer] [place]-[id number] 249.679 / / Screw 2.4mm Cortex T8 Lock Selftap 40mm - [id number] Implanted:Qty: 1 on 01/01/2021 at [facility] Right: Ankle [employer] [place]-[id number] 201.790 / / Screw 2.4mm Cortex T8 Star Selftap 30mm - [id number] Implanted:Qty: 1 on 01/01/2021 at [facility] Right: Ankle [employer] [place]-[id number] 201.780 / / Screw 2.4mm Cortex T8 Star Selftap 36mm - [id number] Implanted:Qty: 1 on 01/01/2021 at [facility] Right: Ankle [employer] [place]-[id number] 201.786 / / Screw 3.5mm Cortex Selftap 46mm - [id number] Implanted:Qty: 1 on 01/01/2021 at [facility] Right: Ankle [employer] [place]-[id number] 204.846 / / Explanted Type Area Play Writer Device Identifier Shelf Expiration Date Model / Serial / Lot Screw 3.5mm Cortex Selftap 18mm - [id number] Explanted:Qty: 1 on 01/01/2021 at [facility] Right: Ankle [employer] [place]-[id number] 204.818 / / Insurance MEDICARE [facility] Care Teams Director Of Intelligence Relationship Specialty Start Date End Date Jasson Galvan DO [facility] [facility] [address] [place] [address] PCP - General 12/22/20
--- NOTE | 2024-12-05 12:03 | A.OFFVIS_ITS ---
[facility] Disclaimer: The information contained in this section may have been updated after the patient was seen, as this information can be updated by other users. Medical History Anxiety Cataracts, bilateral Depression Arthritis Osteoporosis GERD (gastroesophageal reflux disease) Anemia Surgical History Status post total hip replacement, bilateral History of lumbar fusion H/O gastric bypass History of appendectomy Family History Other Cancer Diabetes Hypertension Osteoporosis Rheumatoid arthritis Social History Smoking Status: Former smoker alcohol intake: never substance use type: denies use current occupational status: other Travel in the last 8 weeks?: None PM Subjective & Objective Subjective Subjective:: Patient is a pleasant 73-year-old male female who presents today for medication refill and follow-up. She rates her pain today a 5 out of 10. She denies any new falls or injuries. She does state that she did have to get a new psychiatrist but but no other changes from our last appointment. Patient does believe that her pharmacy does have the medication available. Patient is currently managed with Bartlett 10 mg 4 times a day, fentanyl 50 mcg patches every 72 hours, tizanidine 4 mg at bedtime and ropinirole 0.5 mg at bedtime. She denies any side effects. Her Sae has been reviewed and is appropriate. Review of Systems: General: No recent weight changes, no fever, no sleep disturbances Respiratory: No cough, no shortness of air, no recurring pulmonary infections Cardiovascular/peripheral vascular: No chest pain, no palpitations, no edema, no shortness of breath Gastrointestinal: No new onset incontinence, normal bowel movements reported Genitourinary: No new onset incontinence Musculoskeletal: Low back pain Psychiatric: [Normal mood/affect] Neurological: [Denies weakness in extremities], [denies balance issues] Pain at rest (0-10 scale): 5 Objective Objective:: Physical Exam: General: Alert and oriented x3, no acute distress, pleasant and cooperative Lungs: Respirations even and unlabored, symmetrical chest expansion Eyes: PERRL Musculoskeletal: Flexion and extension of lumbar [spine] somewhat guarded secondary to pain, [antalgic gait noted] Neurological: Speech clear, no gross sensory deficit Has patient had previous pain injection?: No Conservative treatment options previously tried: Home exercise plan Length of treatment: Longer than 12 weeks Meds Home Medications and Allergies Home Medications ?Medication ?Instructions ?Recorded ?Confirmed ?Type bupropion HCl 75 mg tablet 75 mg PO DIRECTED MOOD 0 08/26/22 10/31/24 History diazepam 5 mg tablet 5 mg PO DIRECTED Anxiety 08/26/22 10/31/24 History gabapentin 600 mg tablet 600 mg PO DIRECTED Pain 0 08/26/22 10/31/24 History promethazine 25 mg tablet 25 mg PO DIRECTED Nausea & 08/26/22 10/31/24 History vomiting zolpidem 10 mg tablet 10 mg PO DIRECTED MOOD 10/31/24 History risperidone 0.5 mg tablet 0.5 mg PO DIRECTED MOOD # 30 tabs 09/30/23 10/31/24 Rx hydrocodone 10 mg-acetaminophen 1 tab PO QID #40 tabs 05/10/24 10/31/24 Rx 325 mg tablet fentanyl 50 mcg/hr transdermal 1 patch transdermal Q72 H #3 ea 05/11/24 10/31/24 Rx patch fentanyl 50 mcg/hr transdermal 1 patch transdermal Q72 H #10 ea 10/31/24 Rx patch hydrocodone 10 mg-acetaminophen 1 tab PO QID #120 tabs 10/31/24 Rx 325 mg tablet ropinirole 0.5 mg tablet 0.5 mg PO HS #30 tabs Rx tizanidine 4 mg tablet (Zanaflex) 4 mg PO HS #30 tabs 10/31/24 Rx New Prescriptions to Start Prescriptions: Allergies Allergy/AdvReac Type Severity Reaction Status Date / Time erythromycin base Allergy Verified 08/26/22 09:08 iodine AdvReac Verified 08/26/22 09:08 Penicillins AdvReac Verified 08/26/22 09:08 Sulfa (Sulfonamide AdvReac Verified 08/26/22 09:08 Antibiotics) tetracycline AdvReac Verified 08/26/22 09:08 tramadol AdvReac Verified 08/26/22 09:08 Assessment and Plan *Assessment and plan (1) Lumbar radiculopathy: Status: Acute Category: Medical Code(s): M54.16 - Radiculopathy, lumbar region (2) Low back pain: Status: Acute Qualifiers: Chronicity: chronic Back pain laterality: bilateral Sciatica presence: without sciatica Qualified Code(s): M54.50 - Low back pain, unspecified; G89.29 - Other chronic pain Category: Medical Code(s): M54.50 - Low back pain, unspecified Plan I will refill the patient's Bartlett, fentanyl, tizanidine and ropinirole. Patient will return to clinic in 1 month. Risks and benefits of the medication have been explained in detail to the patient. The patient does understand the risk of dependence on the medication when given over a prolonged period. Patient has been advised of risks of oversedation with the prescribed medication. Narcan has been offered to the paitent in the event of oversedation. Patient has been advised that a family member should also be educated regarding administration of Narcan. The patient has been advised to consult with his/her primary care provider and pharmacist regarding drug-drug interaction of medications currently prescribed. Patient has been prescribed a controlled substance after being counseled on the medication, medication safety, and possible side effects. Opioid contract was reviewed and signed by the patient, and that they have agreed to all of the terms set forth by our compliance program. A UDS is needed to verify patient's compliance with our office pain contract. This is ordered based off specific treatments related to chronic pain with the potential to abuse certain medications. Patient has been instructed to contact the clinic with any concerns before the next appointment. Dr. Chicas has reviewed this note and agrees with this plan of care. This note was dictated using voice recognition software and make contain errors or omissions.
[2024-12-05 12:56] VITALS: BP 102/52; PULSE 88; RESP 18; O2SAT 96; BMI 22.1
== END 2024-12-05 23:59 | disposition home or self-care (01) ==
PROVIDERS: PCP Internal Medicine; Visit Provider Nurse Practitioner Family
DX: M54.16 Radiculopathy, lumbar region (principal); G89.29 Other chronic pain; Z79.891 Long term (current) use of opiate analgesic; Z79.899 Other long term (current) drug therapy
CPT/HCPCS: 99212; G0463